=== PATIENT | female | born 1940 | race American Indian/Alaskan Native ===

== ENCOUNTER 2017-03-27 00:45 | Emergency (ER) | payer MEDICARE, OTHER ==
[2017-03-27] MEDS ORDERED: D50W (25GM) Vial 50 ML IV ONE (01:05)
[2017-03-27] MEDS: D50W (25GM) Syringe IV ONE ×2 (01:15→02:33)
[2017-03-27 01:48] LABS: Basophils % (Auto) 0.6 % (0.0-1.8); Eosinophils % (Auto) 0.3 % (0.0-4.3); Hematocrit 39.1 % (30.3-42.9); Hemoglobin 13.1 gm/dl (10.1-14.3); Mean Corpuscular HGB Conc 33 % (30-34); Mean Corpuscular Hemoglobin 32 pg (28-32); Mean Corpuscular Volume 95 fl (79-97); Platelet Count 257 K/mm3 (140-440); Red Cell Distribution Width 14.5 % (13.2-15.2); White Blood Count 10.4 K/mm3 (4.5-11.0)
[2017-03-27] MEDS ORDERED: D50W (25GM) Vial IV ONE (02:00)
[2017-03-27 02:06] LABS: Anion Gap 21 mmol/L; BUN/Creatinine Ratio 15; Blood Urea Nitrogen 15 mg/dL (7-17); Calcium 8.8 mg/dL (8.4-10.2); Carbon Dioxide 23 mmol/L (22-30); Glucose 200 mg/dL (65-100); Potassium 3.6 mmol/L (3.6-5.0); Sodium 142 mmol/L (137-145)
--- NOTE | 2017-03-27 05:44 | Emergency Department Report ---
ED Altered Mental Status HPI - General Chief Complaint: Hypoglycemia Stated Complaint: WEAKNESS Time Seen by Provider: 03/27/17 04:36 Source: patient, family Mode of arrival: Wheelchair Limitations: Altered Mental Status - History of Present Illness Initial Comments: 76 yo female cooked a large meal for family members yesterday. She ate regularly and took novolog flex 14 u at 11, 1400, 1700 respectively. She ate breakfast, lunch and dinner and took 40u of lantus at bed time. She began to have slurred speech and became diaphoretic while watching television. Family members called the ambulance. Here in the ED, she received 2 amp of d50 and food which resolved her symptoms MD Complaint: altered mental status -: Sudden Severity: moderate Context: diabetes (glucose 50) Associated Symptoms: diaphoresis - Related Data Home Medications Medication Instructions Recorded Confirmed Last Taken Clopidogrel Bisulfate [Plavix] 0 mg PO QDAY 04/21/14 03/27/17 Unknown Atorvastatin [Lipitor Tab] 80 mg PO QHS 03/27/17 03/27/17 Unknown Diltiazem HCl [Diltiazem ER] 180 mg PO QDAY 03/27/17 03/27/17 Unknown Furosemide [Lasix TAB] 40 mg PO QDAY 03/27/17 03/27/17 Unknown Hydralazine HCl 50 mg PO TID 03/27/17 03/27/17 Unknown Insulin Aspart [NovoLOG Flexpen] 14 units SQ AC 03/27/17 03/27/17 03/26/17 Insulin Glargine,Hum.rec.anlog 40 units SQ QPM 03/27/17 03/27/17 03/26/17 [Lantus] Levothyroxine [Synthroid] 0.1 mg PO DAILY@0600 03/27/17 03/27/17 Unknown Metoprolol Xl [Metoprolol 1.5 tab PO QPM 03/27/17 03/27/17 Unknown SUCCINATE ER TAB] Metoprolol Xl [Metoprolol 2 tab PO QAM 03/27/17 03/27/17 Unknown SUCCINATE ER TAB] Ranolazine [Ranexa] 500 mg PO BID 03/27/17 03/27/17 Unknown Terazosin [Hytrin] 5 mg PO QHS 03/27/17 03/27/17 Unknown Allergies Allergy/AdvReac Type Severity Reaction Status Date / Time ALDO Inhibitors Allergy Intermediate Angioedema Verified 04/21/14 12:16 ARB-Angiotensin Receptor Allergy Intermediate Angioedema Verified 04/21/14 12:17 Antagonist glipizide Allergy Intermediate Rash Verified 04/21/14 12:17 ED Review of Systems ROS: Stated complaint: WEAKNESS Other details as noted in HPI ED Past Medical Hx - Past Medical History Previous Medical History?: Yes Hx Hypertension: Yes Hx Heart Attack/AMI: Yes Hx Congestive Heart Failure: Yes Hx Diabetes: Yes Hx COPD: Yes Additional medical history: 2 AAA's stable, hyperlipidemia, ulcer - Surgical History Past Surgical History?: Yes Hx Coronary Stent: Yes Additional Surgical History: hysterectomy - Social History Smoking Status: Never Smoker Substance Use Type: None - Medications Home Medications: Home Medications Medication Instructions Recorded Confirmed Last Taken Type Clopidogrel Bisulfate [Plavix] 0 mg PO QDAY 04/21/14 03/27/17 Unknown History Atorvastatin [Lipitor Tab] 80 mg PO QHS 03/27/17 03/27/17 Unknown History Diltiazem HCl [Diltiazem ER] 180 mg PO QDAY 03/27/17 03/27/17 Unknown History Furosemide [Lasix TAB] 40 mg PO QDAY 03/27/17 03/27/17 Unknown History Hydralazine HCl 50 mg PO TID 03/27/17 03/27/17 Unknown History Insulin Aspart [NovoLOG Flexpen] 14 units SQ AC 03/27/17 03/27/17 03/26/17 History Insulin Glargine,Hum.rec.anlog 40 units SQ QPM 03/27/17 03/27/17 03/26/17 History [Lantus] Levothyroxine [Synthroid] 0.1 mg PO DAILY@0600 03/27/17 03/27/17 Unknown History Metoprolol Xl [Metoprolol 1.5 tab PO QPM 03/27/17 03/27/17 Unknown History SUCCINATE ER TAB] Metoprolol Xl [Metoprolol 2 tab PO QAM 03/27/17 03/27/17 Unknown History SUCCINATE ER TAB] Ranolazine [Ranexa] 500 mg PO BID 03/27/17 03/27/17 Unknown History Terazosin [Hytrin] 5 mg PO QHS 03/27/17 03/27/17 Unknown History ED Physical Exam - General Limitations: Altered Mental Status General appearance: alert, in no apparent distress - Head Head exam: Present: atraumatic, normocephalic - Eye Eye exam: Present: normal appearance, EOMI. Absent: scleral icterus, conjunctival injection - ENT ENT exam: Present: mucous membranes moist - Neck Neck exam: Present: normal inspection - Respiratory Respiratory exam: Present: normal lung sounds bilaterally. Absent: respiratory distress - Cardiovascular Cardiovascular Exam: Present: regular rate, normal rhythm. Absent: systolic murmur, diastolic murmur, rubs, gallop - GI/Abdominal GI/Abdominal exam: Present: soft, normal bowel sounds - Extremities Exam Extremities exam: Present: normal inspection - Expanded Lower Extremity Exam Right Hip exam: Present: normal inspection, full ROM Upper Leg exam: Present: normal inspection, full ROM Lower Leg exam: Present: normal inspection, full ROM Foot/Toe exam: Absent: full ROM (fusiosurgical scar) - Back Exam Back exam: Present: normal inspection - Neurological Exam Neurological exam: Present: alert, oriented X3 - Psychiatric Psychiatric exam: Present: normal affect, normal mood - Skin Skin exam: Present: warm, dry, intact, normal color. Absent: rash ED Course Vital Signs 03/27/17 03/27/17 03/27/17 00:49 01:15 01:20 Temperature 97.5 F L 97.4 F L Pulse Rate 74 68 75 Respiratory 18 16 18 Rate Blood Pressure 136/65 157/69 136/65 O2 Sat by Pulse 94 99 93 Oximetry 03/27/17 03/27/17 03/27/17 01:25 01:45 02:00 Temperature Pulse Rate 66 70 Respiratory 22 18 26 H Rate Blood Pressure 170/81 164/69 O2 Sat by Pulse 97 97 98 Oximetry 03/27/17 03/27/17 03/27/17 02:15 02:31 02:45 Temperature Pulse Rate 65 70 67 Respiratory 18 20 20 Rate Blood Pressure 159/71 150/65 151/60 O2 Sat by Pulse 97 96 95 Oximetry 03/27/17 03/27/17 03/27/17 03:15 03:30 03:45 Temperature Pulse Rate 83 71 69 Respiratory 16 18 17 Rate Blood Pressure 134/52 127/54 127/54 O2 Sat by Pulse 99 98 97 Oximetry 03/27/17 03/27/17 03/27/17 04:15 04:30 04:45 Temperature Pulse Rate 74 69 71 Respiratory 19 22 21 Rate Blood Pressure 113/52 163/73 152/68 O2 Sat by Pulse 99 97 97 Oximetry 03/27/17 03/27/17 05:00 05:15 Temperature Pulse Rate 66 68 Respiratory 20 18 Rate Blood Pressure 145/71 154/67 O2 Sat by Pulse 96 95 Oximetry - Lab Data Result diagrams: 03/27/17 01:34 03/27/17 01:34 Lab Results 03/27/17 03/27/17 03/27/17 Range/Units 01:34 01:34 02:00 WBC 10.4 (4.5-11.0) K/mm3 RBC 4.10 (3.65-5.03) M/mm3 Hgb 13.1 (10.1-14.3) gm/dl Hct 39.1 (30.3-42.9) % MCV 95 (79-97) fl MCH 32 (28-32) pg MCHC 33 (30-34) % RDW 14.5 (13.2-15.2) % Plt Count 257 (140-440) K/mm3 Lymph % (Auto) 10.1 L (13.4-35.0) % [place] % (Auto) 6.0 (0.0-7.3) % Eos % (Auto) 0.3 (0.0-4.3) % Baso % (Auto) 0.6 (0.0-1.8) % Lymph # 1.1 L (1.2-5.4) K/mm3 [place] # 0.6 (0.0-0.8) K/mm3 Eos # 0.0 (0.0-0.4) K/mm3 Baso # 0.1 (0.0-0.1) K/mm3 Seg Neutrophils % 83.0 H (40.0-70.0) % Seg Neutrophils # 8.6 H (1.8-7.7) K/mm3 Sodium 142 (137-145) mmol/L Potassium 3.6 (3.6-5.0) mmol/L Chloride 102.0 (98-107) mmol/L Carbon Dioxide 23 (22-30) mmol/L Anion Gap 21 mmol/L BUN 15 (7-17) mg/dL Creatinine 1.0 (0.7-1.2) mg/dL Estimated GFR > 60 ml/min BUN/Creatinine Ratio 15 % Glucose 200 H (65-100) mg/dL POC Glucose 189 H (70-105) Calcium 8.8 (8.4-10.2) mg/dL Urine Color (Yellow) Urine Turbidity (Clear) Urine pH (5.0-7.0) Ur Specific [place] (1.003-1.030) Urine Protein (Negative) mg/dL Urine Glucose (UA) (Negative) mg/dL Urine Ketones (Negative) mg/dL Urine Blood (Negative) Urine Nitrite (Negative) Urine Bilirubin (Negative) Urine Urobilinogen (<2.0) mg/dL Ur Leukocyte Esterase (Negative) Urine WBC (Auto) (0.0-6.0) /HPF Urine RBC (Auto) (0.0-6.0) /HPF U Epithel Cells (Auto) (0-13.0) /HPF Urine Mucus /HPF 03/27/17 03/27/17 Range/Units 05:28 Unknown WBC (4.5-11.0) K/mm3 RBC (3.65-5.03) M/mm3 Hgb (10.1-14.3) gm/dl Hct (30.3-42.9) % MCV (79-97) fl MCH (28-32) pg MCHC (30-34) % RDW (13.2-15.2) % Plt Count (140-440) K/mm3 Lymph % (Auto) (13.4-35.0) % [place] % (Auto) (0.0-7.3) % Eos % (Auto) (0.0-4.3) % Baso % (Auto) (0.0-1.8) % Lymph # (1.2-5.4) K/mm3 [place] # (0.0-0.8) K/mm3 Eos # (0.0-0.4) K/mm3 Baso # (0.0-0.1) K/mm3 Seg Neutrophils % (40.0-70.0) % Seg Neutrophils # (1.8-7.7) K/mm3 Sodium (137-145) mmol/L Potassium (3.6-5.0) mmol/L Chloride (98-107) mmol/L Carbon Dioxide (22-30) mmol/L Anion Gap mmol/L BUN (7-17) mg/dL Creatinine (0.7-1.2) mg/dL Estimated GFR ml/min BUN/Creatinine Ratio % Glucose (65-100) mg/dL POC Glucose 259 H (70-105) Calcium (8.4-10.2) mg/dL Urine Color Yellow (Yellow) Urine Turbidity Clear (Clear) Urine pH 6.0 (5.0-7.0) Ur Specific [place] 1.017 (1.003-1.030) Urine Protein <15 mg/dl (Negative) mg/dL Urine Glucose (UA) 150 (Negative) mg/dL Urine Ketones Neg (Negative) mg/dL Urine Blood Neg (Negative) Urine Nitrite Neg (Negative) Urine Bilirubin Neg (Negative) Urine Urobilinogen < 2.0 (<2.0) mg/dL Ur Leukocyte Esterase Mod (Negative) Urine WBC (Auto) 6.0 (0.0-6.0) /HPF Urine RBC (Auto) 4.0 (0.0-6.0) /HPF U Epithel Cells (Auto) 5.0 (0-13.0) /HPF Urine Mucus Few /HPF - Radiology Data Radiology results: report reviewed (ct head: bifrontal volume loss) Critical care attestation.: If time is entered above; I have spent that time in minutes in the direct care of this critically ill patient, excluding procedure time. ED Disposition Clinical Impression: Hypoglycemia due to type 2 diabetes mellitus Disposition: DC-01 TO HOME OR SELFCARE Is pt being admited?: No Does the pt Need Aspirin: No Condition: Stable Instructions: Diabetes Mellitus Type 2 in Adults (ED) Referrals: PRIMARY CAREMD [Primary Care Provider] - 3-5 Days [facility] [Outside] - 3-5 Days Time of Disposition: 06:53
--- NOTE | 2017-03-27 06:09 | Cat Scan Report ---
FINAL REPORT EXAM: CT HEAD/BRAIN WO CON HISTORY: ams TECHNIQUE: Routine axial imaging was obtained of the brain without IV contrast. There are no previous studies available for comparison. FINDINGS: There is bifrontal volume loss. There is no evidence of acute stroke or hemorrhage. The ventricular system is appropriate in size and is symmetric. The visualized sinuses are clear. The mastoid air cells are well pneumatized. IMPRESSION: Bifrontal volume loss. No evidence of acute stroke or hemorrhage.
[2017-03-27 06:16] LABS: Bilirubin,Urine NEG (Negative); Blood,Urine NEG (Negative); Ketones,Urine NEG (Negative); Leukocyte Esterase,Urine MOD (Negative); Mucus,Urine FEW /HPF; Nitrite,Urine NEG (Negative); Protein,Urine <15 mg/dL mg/dL (Negative); Urobilinogen,Urine < 2.0 mg/dL (<2.0)
[2017-03-27 07:57] VITALS: BP 135/65
== END 2017-03-27 07:57 | disposition home or self-care (01) ==
LOC: ED 00:45
DX: E11.649 Type 2 diabetes mellitus with hypoglycemia without coma (principal); I10 Essential (primary) hypertension; I25.2 Old myocardial infarction; I50.9 Heart failure, unspecified; E11.9 Type 2 diabetes mellitus without complications; J44.9 Chronic obstructive pulmonary disease, unspecified; Z88.8 Allergy status to other drugs, medicaments and biological substances; Z95.818 Presence of other cardiac implants and grafts; Z79.4 Long term (current) use of insulin
CPT/HCPCS: 36415; 70450; 80048; 81001; 82962; 85025; 96374

== ENCOUNTER 2018-07-21 05:55 | Inpatient (IN) | payer MEDICARE, OTHER ==
[2018-07-21 06:54] LABS: Basophils # (Auto) 0.1 K/mm3 (0.0-0.1); Basophils % (Auto) 0.6 % (0.0-1.8); Eosinophils # (Auto) 0.1 K/mm3 (0.0-0.4); Eosinophils % (Auto) 0.8 % (0.0-4.3); Hematocrit 32.8 % (30.3-42.9); Hemoglobin 11.3 gm/dl (10.1-14.3); Lymphocytes # (Auto) 1.1 K/mm3 (1.2-5.4); Lymphocytes % (Auto) 13.1 % (13.4-35.0); Mean Corpuscular HGB Conc 35 % (30-34); Mean Corpuscular Volume 93 fl (79-97); Monocytes # (Auto) 0.4 K/mm3 (0.0-0.8); Monocytes % (Auto) 4.6 % (0.0-7.3); Platelet Count 210 K/mm3 (140-440); Red Blood Count 3.53 M/mm3 (3.65-5.03); Red Cell Distribution Width 16.5 % (13.2-15.2)
[2018-07-21 07:08] LABS: Creatine Kinase MB 9.4 ng/mL (0.0-4.0)
[2018-07-21 07:09] LABS: Albumin 4.5 g/dL (3.9-5); Calcium 8.9 mg/dL (8.4-10.2)
[2018-07-21] MEDS ORDERED: APRESOLINE IV ONE (07:24)
[2018-07-21 07:31] LABS: Free T4 (Free Thyroxine) 0.1 ng/dL (0.76-1.46)
--- NOTE | 2018-07-21 07:38 | Emergency Department Report ---
ED Altered Mental Status HPI - General Chief Complaint: Altered Mental Status Stated Complaint: HYPOTHERMIA/RT HIP PAIN Time Seen by Provider: 07/21/18 06:19 Source: EMS, old records reviewed Mode of arrival: Stretcher Limitations: Altered Mental Status - History of Present Illness Initial Comments: 78-year-old female with past medical history CHF EF 25-30%, COPD, dementia, diabetes, CAD, ischemic cardiomyopathy, thoracic aortic aneurysm, abdominal ao rtic aneurysm status post endovascular repair, and cardiac aneurysm presents to the hospital with alteration in mental status and hypothermia. Granddaughter at bedside states that the patient lives at her home at times and at other times with another family member. Patient last seen in the home at 2 AM. When the granddaughter went to the bathroom during the night she noted patient was no longer in the home. Patient was found sitting in the back of the neighbors house in 20 degree weather. Patient is hypothermic on arrival with a glucose and 200s. Granddaughter states that several weeks ago the patient's son and sister . Since then she's been having increased hallucinations including seeing her family members and animals that are not present in the home. Patient is also not sleeping much. She continues to drink liquids but decreased food intake reported. No reports of fever. The granddaughter states when the patient is in her home she gives the patient her medications as scheduled. Patient was recently admitted here in April. She had a cardiac cath and further imaging studies. See discharge summary in previous record. Patient did have imaging of her aneurysms and follow-up with [place] was advised. Patient's PMD is located in [place], Dr. Walsh is vascular doctor, Dr. Peres is her armature winder repair helper who is affiliated with [place]. Granddaughter states the patient complained of bilateral hip pain. Cardiac cath performed 05/19/2018 100% chronic total occlusion of the proximal circumflex artery, otherwise nonobstructive disease in the LAD, ramus intermedius and dominant right coronary arteries. The left ventriculogram showed a very large inferobasal aneurysm. Medical therapy was recommended. Anticoagulation was not recommended by vascular due to thoracic and abdominal aneurysms. - Related Data Home Medications Medication Instructions Recorded Confirmed Last Taken Clopidogrel Bisulfate [Plavix] 0 mg PO QDAY 04/21/14 05/14/18 Unknown Atorvastatin [Lipitor] 80 mg PO QHS 03/27/17 05/14/18 Unknown Diltiazem HCl [Diltiazem ER] 180 mg PO QDAY 03/27/17 05/14/18 Unknown Furosemide [Lasix TAB] 40 mg PO QDAY 03/27/17 05/14/18 Unknown Hydralazine HCl 50 mg PO TID 03/27/17 05/14/18 Unknown Insulin Aspart [NovoLOG Flexpen] 14 units SQ AC 03/27/17 05/14/18 03/26/17 Insulin Glargine,Hum.rec.anlog 40 units SQ QPM 03/27/17 05/14/18 03/26/17 [Lantus] Levothyroxine [Synthroid] 0.1 mg PO DAILY@0600 03/27/17 05/14/18 Unknown Metoprolol Xl [Metoprolol 1.5 tab PO QPM 03/27/17 05/14/18 Unknown SUCCINATE ER TAB] Metoprolol Xl [Metoprolol 2 tab PO QAM 03/27/17 05/14/18 Unknown SUCCINATE ER TAB] Ranolazine [Ranexa] 500 mg PO BID 03/27/17 05/14/18 Unknown Terazosin [Hytrin] 5 mg PO QHS 03/27/17 05/14/18 Unknown Allergies Allergy/AdvReac Type Severity Reaction Status Date / Time ALDO Inhibitors Allergy Intermediate Angioedema Verified 04/21/14 12:16 ARB-Angiotensin Receptor Allergy Intermediate Angioedema Verified 04/21/14 12:17 Antagonist glipizide Allergy Intermediate Rash Verified 04/21/14 12:17 ED Review of Systems ROS: Stated complaint: HYPOTHERMIA/RT HIP PAIN Other details as noted in HPI Comment: All other systems reviewed and negative ED Past Medical Hx - Past Medical History Hx Hypertension: Yes Hx Heart Attack/AMI: Yes (CAD on cath 05/19/2018) Hx Congestive Heart Failure: Yes (ischemic dilated cardiomyopathy EF 25-30% echo 05/14/2018) Hx Diabetes: Yes Hx COPD: Yes (home o2) Hx Dementia: Yes Additional medical history: Thoracic aortic aneurysm, abdominal aortic aneurysm status post EVAR, hyperlipidemia, ulcer, hypothyroidism, cardiac aneurysm - Surgical History Hx Coronary Stent: Yes Additional Surgical History: hysterectomy. abdominal aortic aneurysm status post EVAR - Social History Smoking Status: Unknown if ever smoked Substance Use Type: Other - Medications Home Medications: Home Medications Medication Instructions Recorded Confirmed Last Taken Type Clopidogrel Bisulfate [Plavix] 0 mg PO QDAY 04/21/14 05/14/18 Unknown History Atorvastatin [Lipitor] 80 mg PO QHS 03/27/17 05/14/18 Unknown History Diltiazem HCl [Diltiazem ER] 180 mg PO QDAY 03/27/17 05/14/18 Unknown History Furosemide [Lasix TAB] 40 mg PO QDAY 03/27/17 05/14/18 Unknown History Hydralazine HCl 50 mg PO TID 03/27/17 05/14/18 Unknown History Insulin Aspart [NovoLOG Flexpen] 14 units SQ AC 03/27/17 05/14/18 03/26/17 History Insulin Glargine,Hum.rec.anlog 40 units SQ QPM 03/27/17 05/14/18 03/26/17 History [Lantus] Levothyroxine [Synthroid] 0.1 mg PO DAILY@0600 03/27/17 05/14/18 Unknown History Metoprolol Xl [Metoprolol 1.5 tab PO QPM 03/27/17 05/14/18 Unknown History SUCCINATE ER TAB] Metoprolol Xl [Metoprolol 2 tab PO QAM 03/27/17 05/14/18 Unknown History SUCCINATE ER TAB] Ranolazine [Ranexa] 500 mg PO BID 03/27/17 05/14/18 Unknown History Terazosin [Hytrin] 5 mg PO QHS 03/27/17 05/14/18 Unknown History ED Physical Exam - General Limitations: Altered Mental Status - Other Other exam information: General: No limitations, patient is alert in no acute distress Head exam: Atraumatic, normocephalic Eyes exam: Bilateral pinpoint pupils, equal reactive to light ENT: Dry mucous membranes, hard of hearing Neck exam: Normal inspection, full range of motion, no meningismus nontender Respiratory exam: Clear to auscultation bilateral, no wheezes, rales, crackles Cardiovascular: Normal rate and rhythm Abdomen: Soft, nondistended, and nontender, with normal bowel sounds, no rebou nd, or guarding Extremity: Full range of motion normal inspection no deformity. Full passive range of motion of bilateral hips without grimace. No shortening Back: Normal Inspection, full range of motion, no tenderness Neurologic: Sleeping, difficult to arouse, will not follow commands but moves a ll extremities equally with intact sensation to all 4 extremities Skin: Cool to touch ED Course Vital Signs 07/21/18 07/21/18 07/21/18 06:00 06:15 06:28 Temperature 89 F L Pulse Rate 64 Respiratory 18 Rate Blood Pressure 161/139 O2 Sat by Pulse 99 96 Oximetry 07/21/18 07/21/18 07/21/18 06:31 06:45 07:01 Temperature Pulse Rate 53 L 68 62 Respiratory 14 20 14 Rate Blood Pressure 161/139 166/85 161/139 O2 Sat by Pulse 95 96 98 Oximetry 07/21/18 07/21/18 07/21/18 08:00 08:01 08:30 Temperature 93.3 F L Pulse Rate 78 80 Respiratory 15 22 Rate Blood Pressure 149/80 135/92 O2 Sat by Pulse 94 98 Oximetry - Lab Data Result diagrams: 07/21/18 06:34 07/21/18 06:34 Lab Results 07/21/18 07/21/18 07/21/18 Range/Units 06:25 06:34 06:34 WBC 8.4 (4.5-11.0) K/mm3 RBC 3.53 L (3.65-5.03) M/mm3 Hgb 11.3 (10.1-14.3) gm/dl Hct 32.8 (30.3-42.9) % MCV 93 (79-97) fl MCH 32 (28-32) pg MCHC 35 H (30-34) % RDW 16.5 H (13.2-15.2) % Plt Count 210 (140-440) K/mm3 Lymph % (Auto) 13.1 L (13.4-35.0) % [place] % (Auto) 4.6 (0.0-7.3) % Eos % (Auto) 0.8 (0.0-4.3) % Baso % (Auto) 0.6 (0.0-1.8) % Lymph # 1.1 L (1.2-5.4) K/mm3 [place] # 0.4 (0.0-0.8) K/mm3 Eos # 0.1 (0.0-0.4) K/mm3 Baso # 0.1 (0.0-0.1) K/mm3 Seg Neutrophils % 80.9 H (40.0-70.0) % Seg Neutrophils # 6.8 (1.8-7.7) K/mm3 VBG pH (7.320-7.420) Sodium 134 L (137-145) mmol/L Potassium 3.7 (3.6-5.0) mmol/L Chloride 96.8 L (98-107) mmol/L Carbon Dioxide 23 (22-30) mmol/L Anion Gap 18 mmol/L BUN 14 (7-17) mg/dL Creatinine 1.2 (0.7-1.2) mg/dL Estimated GFR 53 ml/min BUN/Creatinine Ratio 12 % Glucose 182 H (65-100) mg/dL POC Glucose 207 H (70-105) Lactic Acid (0.7-2.0) mmol/L Calcium 8.9 (8.4-10.2) mg/dL Total Bilirubin 0.30 (0.1-1.2) mg/dL AST 40 (5-40) units/L ALT 46 (7-56) units/L Alkaline Phosphatase 48 (35-129) units/L Total Creatine Kinase (30-135) units/L CK-MB (CK-2) (0.0-4.0) ng/mL CK-MB (CK-2) Rel Index (0-4) Troponin T (0.00-0.029) ng/mL Total Protein 6.8 (6.3-8.2) g/dL Albumin 4.5 (3.9-5) g/dL Albumin/Globulin Ratio 2.0 % TSH (0.270-4.200) mlU/mL Free T4 (0.76-1.46) ng/dL Urine Color (Yellow) Urine Turbidity (Clear) Urine pH (5.0-7.0) Ur Specific [place] (1.003-1.030) Urine Protein (Negative) mg/dL Urine Glucose (UA) (Negative) mg/dL Urine Ketones (Negative) mg/dL Urine Blood (Negative) Urine Nitrite (Negative) Urine Bilirubin (Negative) Urine Urobilinogen (<2.0) mg/dL Ur Leukocyte Esterase (Negative) Urine WBC (Auto) (0.0-6.0) /HPF Urine RBC (Auto) (0.0-6.0) /HPF Urine Mucus /HPF 07/21/18 07/21/1807/21/19 Range/Units 06:34 06:34 06:41 WBC (4.5-11.0) K/mm3 RBC (3.65-5.03) M/mm3 Hgb (10.1-14.3) gm/dl Hct (30.3-42.9) % MCV (79-97) fl MCH (28-32) pg MCHC (30-34) % RDW (13.2-15.2) % Plt Count (140-440) K/mm3 Lymph % (Auto) (13.4-35.0) % [place] % (Auto) (0.0-7.3) % Eos % (Auto) (0.0-4.3) % Baso % (Auto) (0.0-1.8) % Lymph # (1.2-5.4) K/mm3 [place] # (0.0-0.8) K/mm3 Eos # (0.0-0.4) K/mm3 Baso # (0.0-0.1) K/mm3 Seg Neutrophils % (40.0-70.0) % Seg Neutrophils # (1.8-7.7) K/mm3 VBG pH (7.320-7.420) Sodium (137-145) mmol/L Potassium (3.6-5.0) mmol/L Chloride (98-107) mmol/L Carbon Dioxide (22-30) mmol/L Anion Gap mmol/L BUN (7-17) mg/dL Creatinine (0.7-1.2) mg/dL Estimated GFR ml/min BUN/Creatinine Ratio % Glucose (65-100) mg/dL POC Glucose (70-105) Lactic Acid 0.80 (0.7-2.0) mmol/L Calcium (8.4-10.2) mg/dL Total Bilirubin (0.1-1.2) mg/dL AST (5-40) units/L ALT (7-56) units/L Alkaline Phosphatase (35-129) units/L Total Creatine Kinase 740 H (30-135) units/L CK-MB (CK-2) 9.4 H (0.0-4.0) ng/mL CK-MB (CK-2) Rel Index 1.2 (0-4) Troponin T < 0.010 (0.00-0.029) ng/mL Total Protein (6.3-8.2) g/dL Albumin (3.9-5) g/dL Albumin/Globulin Ratio % TSH 89.230 H (0.270-4.200) mlU/mL Free T4 0.10 L (0.76-1.46) ng/dL Urine Color (Yellow) Urine Turbidity (Clear) Urine pH (5.0-7.0) Ur Specific [place] (1.003-1.030) Urine Protein (Negative) mg/dL Urine Glucose (UA) (Negative) mg/dL Urine Ketones (Negative) mg/dL Urine Blood (Negative) Urine Nitrite (Negative) Urine Bilirubin (Negative) Urine Urobilinogen (<2.0) mg/dL Ur Leukocyte Esterase (Negative) Urine WBC (Auto) (0.0-6.0) /HPF Urine RBC (Auto) (0.0-6.0) /HPF Urine Mucus /HPF 07/21/18 07/21/18 Range/Units 06:41 08:13 WBC (4.5-11.0) K/mm3 RBC (3.65-5.03) M/mm3 Hgb (10.1-14.3) gm/dl Hct (30.3-42.9) % MCV (79-97) fl MCH (28-32) pg MCHC (30-34) % RDW (13.2-15.2) % Plt Count (140-440) K/mm3 Lymph % (Auto) (13.4-35.0) % [place] % (Auto) (0.0-7.3) % Eos % (Auto) (0.0-4.3) % Baso % (Auto) (0.0-1.8) % Lymph # (1.2-5.4) K/mm3 [place] # (0.0-0.8) K/mm3 Eos # (0.0-0.4) K/mm3 Baso # (0.0-0.1) K/mm3 Seg Neutrophils % (40.0-70.0) % Seg Neutrophils # (1.8-7.7) K/mm3 VBG pH 7.375 (7.320-7.420) Sodium (137-145) mmol/L Potassium (3.6-5.0) mmol/L Chloride (98-107) mmol/L Carbon Dioxide (22-30) mmol/L Anion Gap mmol/L BUN (7-17) mg/dL Creatinine (0.7-1.2) mg/dL Estimated GFR ml/min BUN/Creatinine Ratio % Glucose (65-100) mg/dL POC Glucose (70-105) Lactic Acid (0.7-2.0) mmol/L Calcium (8.4-10.2) mg/dL Total Bilirubin (0.1-1.2) mg/dL AST (5-40) units/L ALT (7-56) units/L Alkaline Phosphatase (35-129) units/L Total Creatine Kinase (30-135) units/L CK-MB (CK-2) (0.0-4.0) ng/mL CK-MB (CK-2) Rel Index (0-4) Troponin T (0.00-0.029) ng/mL Total Protein (6.3-8.2) g/dL Albumin (3.9-5) g/dL Albumin/Globulin Ratio % TSH (0.270-4.200) mlU/mL Free T4 (0.76-1.46) ng/dL Urine Color Yellow (Yellow) Urine Turbidity Clear (Clear) Urine pH 7.0 (5.0-7.0) Ur Specific [place] 1.024 (1.003-1.030) Urine Protein >500 (Negative) mg/dL Urine Glucose (UA) Neg (Negative) mg/dL Urine Ketones Tr (Negative) mg/dL Urine Blood Neg (Negative) Urine Nitrite Neg (Negative) Urine Bilirubin Neg (Negative) Urine Urobilinogen < 2.0 (<2.0) mg/dL Ur Leukocyte Esterase Neg (Negative) Urine WBC (Auto) 3.0 (0.0-6.0) /HPF Urine RBC (Auto) 2.0 (0.0-6.0) /HPF Urine Mucus Few /HPF - EKG Data -: EKG Interpreted by Me (previous inferior infarct) EKG shows normal: sinus rhythm, axis (qrs -71), QRS complexes (qrsd 93), ST-T waves (no stem/t inv) Rate: normal (71) When compared to previous EKG there are: no significant change (compared to 05/14/2018) - Radiology Data Radiology results: report reviewed AP CHEST: HISTORY: Hypothermia, altered mental status Moderate cardiomegaly, mild pulmonary venous congestion and trace left pleural effusion are identified. No evidence for pneumonia or pneumothorax. The bony structures are grossly intact. The findings appear slightly worse when compared to 05/14/18. IMPRESSION: Consider mild CHF. PROCEDURE: CT HEAD/BRAIN WO CON TECHNIQUE: CT imaging is obtained through the head without contrast HISTORY: hypothermia, ams COMPARISONS: None FINDINGS: Ventricles and CSF spaces are proportionately enlarged, consistent with parenchymal atrophy. Scattered deep and subcortical white matter hypodense foci are confluent in some areas and are compatible with microvascular angiopathy. No acute intracranial hemorrhage or mass effect. No skull fracture. Skull base motion artifact. Opacification of the mastoid air cells without evidence of erosion or overlying soft tissue abnormality. No significant abnormality within the imaged paranasal sinuses or mastoid air cells. IMPRESSION: No acute intracranial abnormality. There are chronic sequela of atrophy and microvascular angiopathy. - Medical Decision Making Patient presents to the hospital with chronic dementia with worsening delirium. Found outside in cold weather and was hypothermic upon presentation. Initial ED evaluation does not reveal any evidence of infection or signs of sepsis. Suspect hypothermia is environmental nature and possibly also related to chronic hypothyroidism as identified on labs. Blood pressure decreased without intervention in the ED. Body temperature is increasing with active rewarming. Hospitalist Dr. Madrid informed for admission. family requesting Psych consult which can be done during admission and ordered by inpatient team once more medically stable. X-ray of pelvis ordered due to initial complaint of bilateral hip pain as per family. Patient has full passive range of hips without grimace. Pelvic x-ray pending at disposition. - Differential Diagnosis sepsis, environmental hypothermia, CVA, hypothyroidism, encephalopathy Critical Care Time: No Critical care attestation.: If time is entered above; I have spent that time in minutes in the direct care of this critically ill patient, excluding procedure time. ED Disposition Clinical Impression: Hypothermia associated with environmental change, Hypothyroidism, Dementia, HTN (hypertension), Diabetes Disposition: - OP ADMIT IP TO THIS HOSP Is pt being admited?: Yes Condition: Stable Time of Disposition: 08:52 (DR Montero/hsop)
--- NOTE | 2018-07-21 08:27 | XRay Report ---
AP CHEST: HISTORY: Hypothermia, altered mental status Moderate cardiomegaly, mild pulmonary venous congestion and trace left pleural effusion are identified. No evidence for pneumonia or pneumothorax. The bony structures are grossly intact. The findings appear slightly worse when compared to 05/14/18. IMPRESSION: Consider mild CHF.
[2018-07-21 08:32] LABS: Bilirubin,Urine NEG (Negative); Blood,Urine NEG (Negative); Color,Urine Yellow (Yellow); Mucus,Urine FEW /HPF; Urobilinogen,Urine < 2.0 mg/dL (<2.0)
--- NOTE | 2018-07-21 08:33 | Cat Scan Report ---
PROCEDURE: CT HEAD/BRAIN WO CON TECHNIQUE: CT imaging is obtained through the head without contrast HISTORY: hypothermia, ams COMPARISONS: None FINDINGS: Ventricles and CSF spaces are proportionately enlarged, consistent with parenchymal atrophy. Scatter ed deep and subcortical white matter hypodense foci are confluent in some areas and are compatible wi th microvascular angiopathy. No acute intracranial hemorrhage or mass effect. No skull fracture. Skull base motion artifact. Opacification of the mastoid air cells without evidenc e of erosion or overlying soft tissue abnormality. No significant abnormality within the imaged paran nuria sinuses or mastoid air cells. IMPRESSION: No acute intracranial abnormality. There are chronic sequela of atrophy and microvascular angiopathy. This document is electronically signed by Geovanny Driver MD., July 21 2018 08:30:35 AM ET
[2018-07-21 08:37] LABS: Protein,Urine >500 mg/dL (Negative)
--- NOTE | 2018-07-21 10:37 | History and Physical Report ---
History of Present Illness Date of examination: 07/21/18 Date of admission: 07/21/18 08:53 Chief complaint: Altered mental status History of present illness: Patient is 78-year-old female with past medical history CHF, COPD, dementia, diabetes, CAD, ischemic cardiomyopathy, thoracic aortic aneurysm, abdominal aortic aneurysm status post endovascular repair. She was brought in for altered mental status and hypothermia. No family present and patient altered, so history obtained form ED Physician and medical records. Patient last seen in the home at 2 AM. Apparently she left the house and was found sitting in the back of the neighbors house in very cold weather. She was brought to hospital. She was foumd to be lethargic, hypothermia. with temp 89 degrees. A warming blanket was applied. Will admit for further management. Past History Past Medical History: COPD, diabetes, heart failure, other (AAA s/p repair. Thor acic aortic aneurysm) Past Surgical History: abd. aortic aneurysm repair Social history: no significant social history, lives with family, full code Family history: no significant family history Medications and Allergies Allergies Allergy/AdvReac Type Severity Reaction Status Date / Time ALDO Inhibitors Allergy Intermediate Angioedema Verified 04/21/14 12:16 ARB-Angiotensin Receptor Allergy Intermediate Angioedema Verified 04/21/14 12:17 Antagonist glipizide Allergy Intermediate Rash Verified 04/21/14 12:17 Home Medications Medication Instructions Recorded Confirmed Last Taken Type Insulin Aspart [NovoLOG Flexpen] 10 units SUB-Q TID 03/27/17 07/21/18 03/26/17 History Insulin Glargine,Hum.rec.anlog 40 units SUB-Q HS 03/27/17 07/21/18 07/20/18 History [Lantus] Ranolazine [Ranexa] 500 mg PO BID 03/27/17 07/21/18 Unknown History Metoprolol Succinate [Toprol Xl] 100 mg PO BID 07/21/18 07/21/18 Unknown History Potassium Chloride [Klor-Con 10] 10 meq PO QDAY 07/21/18 07/21/18 Unknown History Rosuvastatin Calcium [Crestor] 40 mg PO DAILY 07/21/18 07/21/18 Unknown History Review of Systems ROS unobtainable: due to mental status Exam - Physical Exam Narrative exam: GEN: Not in acute distress, lying in bed HEENT: Normocephalic, atraumatic, Neck: supple, No JVD Lungs: Clear to auscultation bilaterally, no crackles or wheeze Abd:soft, non tender, non distended, normal bowel sounds Ext: No edema, no clubbing, no cyanosis Neuro: Lethargic, confused, moves all ext Skin:No rash - Constitutional Vitals: Temp Pulse Resp BP Pulse Ox 93.3 F L 80 22 135/92 98 07/21/18 08:00 07/21/18 08:30 07/21/18 08:30 07/21/18 08:30 07/21/18 08:30 Results - Labs CBC & Chem 7: 07/22/18 06:06 07/22/18 06:06 Labs: Abnormal lab results 07/21/18 07/21/18 07/21/18 Range/Units 06:25 06:34 06:34 RBC 3.53 L (3.65-5.03) M/mm3 MCHC 35 H (30-34) % RDW 16.5 H (13.2-15.2) % Lymph % (Auto) 13.1 L (13.4-35.0) % Lymph # 1.1 L (1.2-5.4) K/mm3 Seg Neutrophils % 80.9 H (40.0-70.0) % Sodium 134 L (137-145) mmol/L Chloride 96.8 L (98-107) mmol/L Glucose 182 H (65-100) mg/dL POC Glucose 207 H (70-105) Total Creatine Kinase (30-135) units/L CK-MB (CK-2) (0.0-4.0) ng/mL TSH (0.270-4.200) mlU/mL Free T4 (0.76-1.46) ng/dL 07/21/18 07/21/18 Range/Units 06:34 06:41 RBC (3.65-5.03) M/mm3 MCHC (30-34) % RDW (13.2-15.2) % Lymph % (Auto) (13.4-35.0) % Lymph # (1.2-5.4) K/mm3 Seg Neutrophils % (40.0-70.0) % Sodium (137-145) mmol/L Chloride (98-107) mmol/L Glucose (65-100) mg/dL POC Glucose (70-105) Total Creatine Kinase 740 H (30-135) units/L CK-MB (CK-2) 9.4 H (0.0-4.0) ng/mL TSH 89.230 H (0.270-4.200) mlU/mL Free T4 0.10 L (0.76-1.46) ng/dL Assessment and Plan Acute Metabolic encephalopathy admit Neurochecks CT head unremarkable. Hypothermia due to exposure to cold She went out in blistering cold found back of neighbor's house warming blanket Dementia supportive care Hypothyroiidism Give Levothyrocxine iv Diabetes mellitus type 2. Fingerstick qac and hs Cardiomyopathy, EF 25-30% Chronic systolic CHF seen by [facility] last admission COPD stable History of AAA s/p repair History of thoracic aortic aneurysm was being followed as outpatient Full code status
[2018-07-21] MEDS ORDERED: SODIUM CHLORIDE FLUSH SYRINGE 10 ML IV PRN (10:38)
[2018-07-21] MEDS ORDERED: ZOFRAN IV PRN (10:38)
[2018-07-21] MEDS ORDERED: ALUM-MAG HYDROX-SIMETH 200-200-20MG/5ML PO PRN (10:38)
--- NOTE | 2018-07-21 10:43 | XRay Report ---
AP PELVIS: HISTORY: Hip pain. Bone mineralization is borderline. Minimal osteoarthritic changes are identified at both hips. Mild degenerative changes at the SI joints. No evidence for fracture, dislocation or diastasis. An aortobiiliac vascular stent is partially imaged. IMPRESSION: Mild degenerative changes. No acute process identified.
[2018-07-21] MEDS ORDERED: NON-FORMULARY (Rosuvastatin Calcium [Crestor] 40 MG) PO SCH (11:15)
[2018-07-21] MEDS ORDERED: NON-FORMULARY (Potassium Chloride [Klor-Con 10] 10 MEQ) PO SCH (11:15)
[2018-07-21] MEDS ORDERED: SYNTHROID IV SCH (12:00)
[2018-07-21] MEDS ORDERED: SYNTHROID PO SCH (12:00)
[2018-07-21] MEDS: RANEXA ER PO SCH ×2 (12:59→21:59)
[2018-07-21] MEDS: K-DUR PO SCH (12:59)
[2018-07-21] MEDS: TYLENOL PO PRN (19:42)
[2018-07-21] MEDS: TOPROL XL PO SCH (21:59)
[2018-07-21] MEDS: SODIUM CHLORIDE FLUSH SYRINGE 10 ML IV SCH (22:00)
[2018-07-21] MEDS: HEPARIN SUB-Q SCH (22:00)
[2018-07-22] MEDS: SYNTHROID PO SCH (05:19)
[2018-07-22 06:53] LABS: Basophils # (Auto) 0.1 K/mm3 (0.0-0.1); Basophils % (Auto) 1.1 % (0.0-1.8); Eosinophils # (Auto) 0.2 K/mm3 (0.0-0.4); Eosinophils % (Auto) 2.9 % (0.0-4.3); Hematocrit 33.2 % (30.3-42.9); Hemoglobin 11.3 gm/dl (10.1-14.3); Lymphocytes # (Auto) 1.6 K/mm3 (1.2-5.4); Lymphocytes % (Auto) 29.1 % (13.4-35.0); Mean Corpuscular HGB Conc 34 % (30-34); Mean Corpuscular Volume 93 fl (79-97); Monocytes # (Auto) 0.4 K/mm3 (0.0-0.8); Monocytes % (Auto) 7.2 % (0.0-7.3); Platelet Count 225 K/mm3 (140-440); Red Blood Count 3.58 M/mm3 (3.65-5.03); Red Cell Distribution Width 16.5 % (13.2-15.2)
[2018-07-22 06:56] LABS: Albumin 4.1 g/dL (3.9-5); Calcium 9.1 mg/dL (8.4-10.2)
[2018-07-22] MEDS: K-DUR PO SCH (10:15)
[2018-07-22] MEDS: RANEXA ER PO SCH ×2 (10:15→22:58)
[2018-07-22] MEDS: HEPARIN SUB-Q SCH ×2 (10:16→22:58)
[2018-07-22] MEDS: SODIUM CHLORIDE FLUSH SYRINGE 10 ML IV SCH ×2 (10:16→22:58)
[2018-07-22] MEDS: TOPROL XL PO SCH ×2 (10:16→22:58)
--- NOTE | 2018-07-22 10:24 | Consultation ---
History of Present Illness Consult date: 07/22/18 Consult reason: congestive heart failure History of present illness: Patient is a 78 year old woman with multiple medical problems. She has had e ndovascular repair of her abdominal aneurysm while living in [place] and a known descending thoracic aneurysm measuring 5.6cm with intraluminal thrombus currently followed by Dr Peres at [facility]. She has an ischemic cardiomyopathy and coronary artery disease. A cardiac catheterization two months ago revealed a chronic total occlusion of the circumflex recommended for medical therapy. Ejection fraction 25-30% by echocardiogram. Patient is admitted with altered mental status. 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 Rectal temperature of 89 on EMS arrival. There were no reports of chest pain or shortness of breath. Daughter reports she has concerns of early Dementia with underlying psychosis which needs evaluated. Head CT reports no acute intracranial process. Past History Past Medical History: CAD, COPD, diabetes, heart failure, other (Descending thoracic aneurysm) Past Surgical History: abd. aortic aneurysm repair Social history: no significant social history, lives with family, full code Family history: no significant family history Medications and Allergies Allergies Allergy/AdvReac Type Severity Reaction Status Date / Time ALDO Inhibitors Allergy Intermediate Angioedema Verified 04/21/14 12:16 ARB-Angiotensin Receptor Allergy Intermediate Angioedema Verified 04/21/14 12:17 Antagonist glipizide Allergy Intermediate Rash Verified 04/21/14 12:17 Home Medications Medication Instructions Recorded Confirmed Last Taken Type Insulin Aspart [NovoLOG Flexpen] 10 units SUB-Q TID 03/27/17 07/21/18 03/26/17 History Insulin Glargine,Hum.rec.anlog 40 units SUB-Q HS 03/27/17 07/21/18 07/20/18 History [Lantus] Ranolazine [Ranexa] 500 mg PO BID 03/27/17 07/21/18 Unknown History Metoprolol Succinate [Toprol Xl] 100 mg PO BID 07/21/18 07/21/18 Unknown History Potassium Chloride [Klor-Con 10] 10 meq PO QDAY 07/21/18 07/21/18 Unknown Histor y Rosuvastatin Calcium [Crestor] 40 mg PO DAILY 07/21/18 07/21/18 Unknown History Active Meds: Active Medications Acetaminophen (Tylenol) 650 mg PO Q4H PRN PRN Reason: Pain MILD(1-3)/Fever >100.5/GORDON Last Admin: 07/21/18 19:42 Dose: 650 mg Documented by: Al Hydrox/Mg Hydrox/Simethicone (Alum-Mag Hydrox-Simeth [id number]/5ml) 30 ml PO Q4H PRN PRN Reason: Indigestion Atorvastatin Calcium (Lipitor) 40 mg PO QHS [facility] Last Admin: 07/21/18 22:00 Dose: 40 mg Documented by: Heparin Sodium (Porcine) (Heparin) 5,000 unit SUB-Q Q12HR [facility] Last Admin: 07/22/18 10:16 Dose: 5,000 unit Documented by: Levothyroxine Sodium (Synthroid) 100 mcg PO DAILY@0600 [facility] Last Admin: 07/22/18 05:19 Dose: 100 mcg Documented by: Metoprolol Succinate (Toprol Xl) 100 mg PO BID [facility] Last Admin: 07/22/18 10:16 Dose: 100 mg Documented by: Ondansetron HCl (Zofran) 4 mg IV Q8H PRN PRN Reason: Nausea And Vomiting Potassium Chloride (K-Dur) 10 meq PO QDAY [facility] Last Admin: 07/22/18 10:15 Dose: 10 meq Documented by: Ranolazine (Ranexa Er) 500 mg PO BID [facility] Last Admin: 07/22/18 10:15 Dose: 500 mg Documented by: Sodium Chloride (Sodium Chloride Flush Syringe 10 Ml) 10 ml IV BID [facility] Last Admin: 07/22/18 10:16 Dose: 10 ml Documented by: Sodium Chloride (Sodium Chloride Flush Syringe 10 Ml) 10 ml IV PRN PRN PRN Reason: LINE FLUSH Physical Examination Vital Signs Temp 89 F L 07/21/18 06:00 General appearance: no acute distress Cardiac: Positive: Reg Rate and Rhythm Lungs: Positive: Decreased Breath Sounds Neuro: Positive: Grossly Intact Extremities: Absent: edema Results 07/22/18 06:06 07/22/18 06:06 Cardiac Enzymes 07/22/18 Range/Units 06:06 AST 81 H (5-40) units/L CBC 07/22/18 Range/Units 06:06 WBC 5.6 (4.5-11.0) K/mm3 RBC 3.58 L (3.65-5.03) M/mm3 Hgb 11.3 (10.1-14.3) gm/dl Hct 33.2 (30.3-42.9) % Plt Count 225 (140-440) K/mm3 Lymph # 1.6 (1.2-5.4) K/mm3 [place] # 0.4 (0.0-0.8) K/mm3 Eos # 0.2 (0.0-0.4) K/mm3 Baso # 0.1 (0.0-0.1) K/mm3 Comprehensive Metabolic Panel 07/22/18 Range/Units 06:06 Sodium 141 D (137-145) mmol/L Potassium 4.1 (3.6-5.0) mmol/L Chloride 102.3 (98-107) mmol/L Carbon Dioxide 25 (22-30) mmol/L BUN 13 (7-17) mg/dL Creatinine 1.6 H (0.7-1.2) mg/dL Glucose 78 (65-100) mg/dL Calcium 9.1 (8.4-10.2) mg/dL AST 81 H (5-40) units/L ALT 69 H (7-56) units/L Alkaline Phosphatase 48 (35-129) units/L Total Protein 6.3 (6.3-8.2) g/dL Albumin 4.1 (3.9-5) g/dL Assessment and Plan Altered mental status no acute intracranial process by head CT scan. Hx of COPD -on home oxygen Descending thoracic aortic aneurysm measuring 5.6 cm with intraluminal thrombus Hx of Abdominal aortic aneurysm s/p EVAR Type II DM Dilated Ischemic Cardiomyopathy, EF 25-30%. ALDO-i and ARB allergy Hx of chronic total occlusion of the circumflex, recommended for medical therapy. Recommend: Medical therapy for chronic total occlusion of the circumflex and dilated cardiomyopathy as tolerated. Psychiatric and neurology evaluation for underlying Dementia with underlying psychosis.
[2018-07-22] MEDS: TYLENOL PO PRN (12:50)
[2018-07-22] MEDS ORDERED: AMBIEN PO PRN (13:52)
--- NOTE | 2018-07-22 13:58 | Progress Note ---
Assessment and Plan /Acute Metabolic encephalopathy Likely from underlying dementia and severe hypothyroidism Continue Neurochecks CT head unremarkable. Family requesting for psych consult, ordered /Hypothermia due to exposure to cold, resolved She went out in blistering cold found back of neighbor's house Managed with warming blanket /Dementia cont supportive care /Hypothyroiidism cont Levothyrocxine iv for now /Diabetes mellitus type 2. cont SSI with Fingerstick qac and hs /Cardiomyopathy, EF 25-30% /Chronic systolic CHF -Consult cardiology, recommended medical management /COPD, stable - Nebs and supplemental O2 as needed /History of AAA s/p repair and History of thoracic aortic aneurysm - being followed as outpatient Full code status Brief History: Patient is 78-year-old female with past medical history of dementia, diabetes, CAD, ischemic cardiomyopathy with Ef 25%, thoracic aortic aneurysm, abdominal aortic aneurysm status post endovascular repair was brought in for altered mental status and hypothermia. Patient last seen in the home at 2 AM. Apparently she left the house and was found sitting in the back of the neighbors house in very cold weather. She was brought to hospital, was foumd to be leth argic, hypothermia. with rectal temp 89 degrees. TSH >89, admitted for further management. Physical exam: GENERAL: well-developed elderly -[place] female lying on bed appeared to be in no discomfort. HEENT: Normocephalic. Atraumatic. No conjunctival congestion or icterus. Patient has moist mucous membranes. NECK: Supple. Trachea midline. CHEST/LUNGS: Clear to auscultated bilaterally, breathing nonlabored. No wheezes crackles or rhonchi. HEART/CARDIOVASCULAR: Regular in rate and rhythm. S1 and S2 positive. ABDOMEN: Abdomen is soft, nontender. Patient has normal bowel sounds. SKIN: There is no rash. Warm and dry. NEURO: No focal motor deficit. Follows command. Appears confused MUSCULOSKELETAL: No joint effusion or tenderness. EXTRIMITY: No edema, no cyanosis or clubbing. PSYCH: Cooperative. Subjective Date of service: 07/22/18 Interval history: Patient sen and examined alert and awake but appears confused daughter at bedside, updated No acute issue o/n Objective - Constitutional Vitals: Vital Signs - 12hr 07/22/18 07/22/18 07/22/18 02:20 03:00 07:34 Temperature 98.3 F 98.1 F Pulse Rate 98 H 55 L Pulse Rate [ From Monitor] Respiratory 20 12 18 Rate Blood Pressure 101/59 139/83 Blood Pressure 100/59 [Right] O2 Sat by Pulse 96 97 Oximetry 07/22/18 07/22/18 07/22/18 08:34 09:38 10:00 Temperature Pulse Rate 80 Pulse Rate [ 80 From Monitor] Respiratory 18 Rate Blood Pressure Blood Pressure [Right] O2 Sat by Pulse 96 99 Oximetry 07/22/18 07/22/18 10:16 12:50 Temperature Pulse Rate Pulse Rate [ From Monitor] Respiratory 18 Rate Blood Pressure 139/83 Blood Pressure [Right] O2 Sat by Pulse Oximetry - Labs CBC & Chem 7: 07/22/18 06:06 07/22/18 06:06 Labs: Abnormal lab results 07/21/18 07/21/18 07/22/18 Range/Units 19:49 21:15 06:06 RBC 3.58 L (3.65-5.03) M/mm3 RDW 16.5 H (13.2-15.2) % Creatinine (0.7-1.2) mg/dL POC Glucose 64 L 151 H (70-105) AST (5-40) units/L ALT (7-56) units/L 07/22/18 07/22/18 07/22/18 Range/Units 06:06 07:38 11:32 RBC (3.65-5.03) M/mm3 RDW (13.2-15.2) % Creatinine 1.6 H (0.7-1.2) mg/dL POC Glucose 62 L 170 H (70-105) AST 81 H (5-40) units/L ALT 69 H (7-56) units/L
--- NOTE | 2018-07-23 00:14 | Cat Scan Report ---
PROCEDURE: CT ABDOMEN PELVIS WO CON TECHNIQUE: Computerized axial tomography of the abdomen and pelvis was performed without intravenous contrast. This study is performed without intravascular contrast material and its sensitivity for ab dominal and pelvic pathology, including neoplasms, inflammation, abscess, free fluid, thrombosis, art erial dissection and infarction, is reduced compared with a contrast enhanced study. CT DOSE LENGTH PRODUCT: mGycm HISTORY: Abd pain. COMPARISONS: None . FINDINGS: Visualized lower thorax: The heart is enlarged. There is a large pericardial effusion.. Liver: Normal size and attenuation. Spleen: Normal size and attenuation. Gallbladder and biliary system: Gallbladder is distended. There are small stones.. Pancreas: Normal. Adrenals: Normal. Kidneys: There is a 2 cm cysts and adjacent 5 mm hemorrhagic cyst in the cortex of the right kidney. There are intrarenal vascular calcifications bilaterally. There are tiny nonobstructing stones. There is no hydronephrosis. GI tract: There has been gastric surgery. There is no mechanical bowel obstruction. There is a large amount of stool in the colon. There is no colitis or enteritis. The appendix is not discretely visib le. . Lymph nodes and mesentery: Normal. Vasculature: There is an abdominal aortic aneurysm measuring up to 5 cm in diameter. There is an intr aluminal stent graft.. Bladder: Normal. Reproductive organs: There has been a hysterectomy. Peritoneum: There is minimal free fluid. There is no free air, abscess or adenopathy.. Musculoskeletal structures: No significant abnormality. IMPRESSION: Gallbladder is distended. There are small stones.. There is no specific evidence of cholecystitis or biliary ductal dilatation. There is a 2 cm cysts and adjacent 5 mm hemorrhagic cyst in the cortex of the right kidney. There are intrarenal vascular calcifications bilaterally. There are tiny nonobstructing stones. There is no hydronephrosis. There has been gastric surgery. There is no mechanical bowel obstruction. There is a large amount of stool in the colon. There is no colitis or enteritis. The appendix is not discretely visible. . There is an abdominal aortic aneurysm measuring up to 5 cm in diameter. There is an intraluminal sten t graft.. There has been a hysterectomy. There is minimal free fluid. There is no free air, abscess or adenopathy.. . This document is electronically signed by Immanuel Geronimo MD., July 23 2018 12:11:41 AM ET
[2018-07-23] MEDS: SYNTHROID PO SCH (07:01)
[2018-07-23] MEDS: SODIUM CHLORIDE FLUSH SYRINGE 10 ML IV SCH ×2 (09:10→23:10)
[2018-07-23] MEDS: HEPARIN SUB-Q SCH ×2 (09:10→23:06)
[2018-07-23] MEDS: TOPROL XL PO SCH ×2 (09:10→23:05)
[2018-07-23] MEDS: K-DUR PO SCH (09:10)
[2018-07-23] MEDS: RANEXA ER PO SCH ×2 (09:10→23:05)
[2018-07-23 09:33] LABS: Calcium 8.7 mg/dL (8.4-10.2)
--- NOTE | 2018-07-23 10:16 | Progress Note ---
Assessment and Plan Altered mental status symptoms are concerning for worsening dementia no acute intracranial process by head CT scan Hypothyroidism TSH 89.2 Hx of COPD -on home oxygen Descending thoracic aortic aneurysm measuring 5.6 cm with intraluminal thrombus -stable this is followed by vascular and CT surgery in [facility] Hx of Abdominal aortic aneurysm s/p EVAR Type II DM Ischemic Cardiomyopathy, EF 25-30%. ALDO-i and ARB allergy Hx of chronic total occlusion of the circumflex, recommended for medical therapy. Recommend: Continue medical therapy for chronic total occlusion of the circumflex and dilated cardiomyopathy as tolerated. Subjective Date of service: 07/23/18 Interval history: Patient is resting in bed comfortably with eyes closed. No cardiac events reported. Objective Vital Signs Temp Pulse Pulse Resp BP Pulse Ox 07/23/18 09:10 64 143/81 07/23/18 08:24 72 20 99 07/23/18 07:28 98.2 F 64 20 143/81 100 07/23/18 02:47 98.3 F 67 20 111/68 92 07/22/18 22:00 61 20 100 07/22/18 20:34 98.7 F 61 20 132/76 100 07/22/18 14:00 98.5 F 65 20 124/65 98 07/22/18 12:50 18 07/22/18 10:16 139/83 - Physical Examination General: No Apparent Distress Cardiac: Positive: Reg Rate and Rhythm Neuro: Positive: Grossly Intact Extremities: Absent: edema - Labs and Meds Comprehensive Metabolic Panel 07/23/18 Range/Units 08:25 Sodium 140 (137-145) mmol/L Potassium 3.9 (3.6-5.0) mmol/L Chloride 102.4 (98-107) mmol/L Carbon Dioxide 24 (22-30) mmol/L BUN 12 (7-17) mg/dL Creatinine 1.7 H (0.7-1.2) mg/dL Glucose 88 (65-100) mg/dL Calcium 8.7 (8.4-10.2) mg/dL
--- NOTE | 2018-07-23 11:22 | Fluoroscopy Report ---
Barium swallow under video fluoroscopy: History: Food stuck in chest. Findings: Transit of barium through the esophagus appears normal. Minimal mucosal irregularity with esophageal spasm is noted in the mid thoracic esophagus probably related to esophagitis. No intrinsic mass is seen. Evidence of reflux is noted from distal esophagus to the mid esophagus. No evidence of hiatal hernia. Extrinsic pressure on the middle third of esophagus from enlarged heart. Impression: Findings as detailed above. If clinically indicated esophagoscopy may be recommended.
--- NOTE | 2018-07-23 13:44 | Progress Note ---
Assessment and Plan /Acute Metabolic encephalopathy Likely from underlying dementia and severe hypothyroidism Continue Neurochecks, CT head unremarkable. Family requesting for psych consult, pending patient now more awake but still confused /Hypothermia due to exposure to cold, resolved She went out in blistering cold found back of neighbor's house Managed with warming blanket /Dementia cont supportive care /Hypothyroiidism cont Levothyrocxine iv for now /Diabetes mellitus type 2. cont SSI with Fingerstick qac and hs /Cardiomyopathy, EF 25-30% /Chronic systolic CHF -Consulted cardiology, recommended medical management /COPD, stable - Nebs and supplemental O2 as needed /History of AAA s/p repair and History of thoracic aortic aneurysm - being followed as outpatient /CAD with chronic total occlusion of the circumflex, recommended for medical therapy /SAULO, likely vasomotor nephropathy - cont iv fluid, consulted nephrology Full code status Brief History: Patient is 78-year-old female with past medical history of dementia, diabetes, CAD, ischemic cardiomyopathy with Ef 25%, thoracic aortic aneurysm, abdominal a ortic aneurysm status post endovascular repair was brought in for altered mental status and hypothermia. Patient last seen in the home at 2 AM. Apparently she left the house and was found sitting in the back of the neighbors house in very cold weather. She was brought to hospital, was foumd to be lethargic, hypothermia. with rectal temp 89 degrees. TSH >89, admitted for further management. Physical exam: GENERAL: well-developed elderly -Russian female lying on bed appeared to be in no discomfort. HEENT: Normocephalic. Atraumatic. No conjunctival congestion or icterus. Patient has moist mucous membranes. NECK: Supple. Trachea midline. CHEST/LUNGS: Clear to auscultated bilaterally, breathing nonlabored. No wheezes crackles or rhonchi. HEART/CARDIOVASCULAR: Regular in rate and rhythm. S1 and S2 positive. ABDOMEN: Abdomen is soft, nontender. Patient has normal bowel sounds. SKIN: There is no rash. Warm and dry. NEURO: No focal motor deficit. Follows command. Appears confused MUSCULOSKELETAL: No joint effusion or tenderness. EXTRIMITY: No edema, no cyanosis or clubbing. PSYCH: Cooperative. Subjective Date of service: 07/23/18 Interval history: Patient sen and examined alert and awake but appears confused No acute issue o/n, tolerating diet Objective - Constitutional Vitals: Vital Signs - 12hr 07/23/18 07/23/18 07/23/18 02:47 07:28 08:24 Temperature 98.3 F 98.2 F Pulse Rate 67 64 Pulse Rate [ 72 From Monitor] Respiratory 20 20 20 Rate Blood Pressure 111/68 143/81 O2 Sat by Pulse 92 100 99 Oximetry 07/23/18 09:10 Temperature Pulse Rate 64 Pulse Rate [ From Monitor] Respiratory Rate Blood Pressure 143/81 O2 Sat by Pulse Oximetry - Labs CBC & Chem 7: 07/22/18 06:06 07/24/18 04:28 Labs: Abnormal lab results 07/22/18 07/22/18 07/23/18 Range/Units 16:06 21:16 08:25 Creatinine 1.7 H (0.7-1.2) mg/dL POC Glucose 110 H 125 H (70-105)
--- NOTE | 2018-07-23 14:23 | Consultation ---
History of Present Illness - Reason for Consult Consult date: 07/23/18 Reason for consult: Initial Psychiatric Evaluation - Chief Complaint Chief complaint: Patient is asleep. - History of Present Psychiatric Illness Patient is 78-year-old female with past medical history of dementia, diabetes, CAD, ischemic cardiomyopathy with Ef 25%, thoracic aortic aneurysm, abdominal aortic aneurysm status post endovascular repair was brought in for altered mental status and hypothermia. Per record patient last seen in the home at 2 AM. Apparently she left the house and was found sitting in the back of the neighbors house in very cold weather. She was brought to hospital, was found to be lethargic, hypothermia. with rectal temp 89 degrees. TSH >89, admitted for further management. Initially patient is asleep. Upon awakening patient is confused. She is alert and oriented x 1. Per RN patient has periods of intermittent confusion. Also, per RN patient believes that the police is trying to emilie her. Current Psychiatric Medications: Ambien 5mg po QHS PRN. Past Psychiatric History: Unable to Assess. Patient asleep. Past Medication Trials: Unable to Assess. Patient asleep. History Drug/Substance Abuse: Unable to Assess. Patient asleep. History of Trauma/Abuse: Unable to Assess. Patient asleep. Social History: Unable to Assess. Patient asleep. Family History of Psychiatric Illness/ Substance Abuse: Unable to Assess. Patient asleep. Medications and Allergies Allergies Allergy/AdvReac Type Severity Reaction Status Date / Time ALDO Inhibitors Allergy Intermediate Angioedema Verified 04/21/14 12:16 ARB-Angiotensin Receptor Allergy Intermediate Angioedema Verified 04/21/14 12:17 Antagonist glipizide Allergy Intermediate Rash Verified 04/21/14 12:17 Home Medications Medication Instructions Recorded Confirmed Last Taken Type Insulin Aspart [NovoLOG Flexpen] 10 units SUB-Q TID 03/27/17 07/21/18 03/26/17 History Insulin Glargine,Hum.rec.anlog 40 units SUB-Q HS 03/27/17 07/21/18 07/20/18 History [Lantus] Ranolazine [Ranexa] 500 mg PO BID 03/27/17 07/21/18 Unknown History Metoprolol Succinate [Toprol Xl] 100 mg PO BID 07/21/18 07/21/18 Unknown History Potassium Chloride [Klor-Con 10] 10 meq PO QDAY 07/21/18 07/21/18 Unknown History Rosuvastatin Calcium [Crestor] 40 mg PO DAILY 07/21/18 07/21/18 Unknown History Active Meds: Active Medications Acetaminophen (Tylenol) 650 mg PO Q4H PRN PRN Reason: Pain MILD(1-3)/Fever >100.5/GORDON Last Admin: 07/22/18 12:50 Dose: 650 mg Documented by: Al Hydrox/Mg Hydrox/Simethicone (Alum-Mag Hydrox-Simeth [id number]/5ml) 30 ml PO Q4H PRN PRN Reason: Indigestion Atorvastatin Calcium (Lipitor) 40 mg PO QHS [facility] Last Admin: 07/22/18 22:58 Dose: 40 mg Documented by: Heparin Sodium (Porcine) (Heparin) 5,000 unit SUB-Q Q12HR [facility] Last Admin: 07/23/18 09:10 Dose: 5,000 unit Documented by: Sodium Chloride (Nacl 0.9% 1000 Ml) 1,000 mls @ 100 mls/hr IV DIRECT [facility] Levothyroxine Sodium (Synthroid) 100 mcg PO DAILY@0600 [facility] Last Admin: 07/23/18 07:01 Dose: Not Given Documented by: Metoprolol Succinate (Toprol Xl) 100 mg PO BID [facility] Last Admin: 07/23/18 09:10 Dose: 100 mg Documented by: Ondansetron HCl (Zofran) 4 mg IV Q8H PRN PRN Reason: Nausea And Vomiting Potassium Chloride (K-Dur) 10 meq PO QDAY [facility] Last Admin: 07/23/18 09:10 Dose: 10 meq Documented by: Ranolazine (Ranexa Er) 500 mg PO BID [facility] Last Admin: 07/23/18 09:10 Dose: 500 mg Documented by: Sodium Chloride (Sodium Chloride Flush Syringe 10 Ml) 10 ml IV BID [facility] Last Admin: 07/23/18 09:10 Dose: 10 ml Documented by: Sodium Chloride (Sodium Chloride Flush Syringe 10 Ml) 10 ml IV PRN PRN PRN Reason: LINE FLUSH Zolpidem Tartrate (Ambien) 5 mg PO QHS PRN PRN Reason: Sleep Last Admin: 07/22/18 23:06 Dose: 5 mg Documented by: Mental Status Exam - Vital signs Last Vital Signs Temp 98.1 F 07/23/18 13:39 Pulse 75 07/23/18 13:39 Resp 20 07/23/18 13:39 BP 137/66 07/23/18 13:39 Pulse Ox 98 07/23/18 13:39 - Exam Narrative exam: Unable to complete patient's mental status exam. Results Result Diagrams: 07/22/18 06:06 07/23/18 08:25 Abnormal lab results 07/22/18 07/22/18 07/23/18 Range/Units 16:06 21:16 08:25 Creatinine 1.7 H (0.7-1.2) mg/dL POC Glucose 110 H 125 H (70-105) All other labs normal. Assessment and Plan Assessment and plan: Impression: Patient is asleep. Confusion noted upon awakening. Will attempt to reassess in 24 hours to gain collateral. At the time patient is in no apparent distress. Recommendation/Plan: 1. Will reassess in 24 hours. 2. Attempt to gain collateral. 3. The following Delirium protocol is recommended: 1. Frequently reorient patient and involve him/her in their care (simple explanations of procedures, tests, medications). 2. Lights on and shades open during daytime hours. 3. Write date and goals of care in a visible place. 4. Try to avoid unnecessary interruptions to sleep during nighttime hours. 5. Obtain glasses, hearing aids from home if patient uses these at baseline. 6. Avoid medications that may exacerbate delirium (especially narcotics, benzodiazepines, barbiturates, ambien, lunesta, and medications with excessive anticholinergic properties). Disposition: Will reassess in 24 hours and gain collateral to determine proper disposition. Will staff with Dr. Juanita Narvaez.
[2018-07-23] MEDS: NACL 0.9% 1000 ML 1,000 ML IV SCH (17:14)
[2018-07-24 00:42] LABS: Creatinine,Urine 146.9 mg/dL (0.1-20.0); Protein/Creatinine Ratio,Urine 0.65
[2018-07-24 05:18] LABS: Albumin 3.9 g/dL (3.9-5); Calcium 8.5 mg/dL (8.4-10.2)
[2018-07-24] MEDS: NACL 0.9% 1000 ML 1,000 ML IV SCH ×2 (07:21→15:48)
[2018-07-24] MEDS: SYNTHROID PO SCH (07:21)
--- NOTE | 2018-07-24 09:37 | Consultation ---
History of Present Illness - Reason for Consult Consult date: 07/24/18 acute renal failure - History of Present Illness The patient was a 78 YO female with history significant for Dementia, Type 2 diabetes, HTN, CAD, Ischemic cardiomyopathy with EF 25%, Thoracic aortic aneurysm and AAA s/p endovascular repair who was brought in for AMS and hypothermia. Patient was confused to provide any history. Apparently she left the house and was found sitting in the back of the neighbors house in very cold weather. She was also found hallucinating by family member. On arrival to ED she was found to be lethargic and hypothermic with temp 89 F. Labs were significant for TSH 89, Free T4 0.1 and Creatinine 1.8. Nephrology was consulted for further evaluation. Past History Past Medical History: CAD, COPD, diabetes, heart failure, other (Descending thoracic aneurysm) Past Surgical History: abd. aortic aneurysm repair Social history: no significant social history, lives with family, full code Family history: no significant family history Medications and Allergies Allergies Allergy/AdvReac Type Severity Reaction Status Date / Time ALDO Inhibitors Allergy Intermediate Angioedema Verified 04/21/14 12:16 ARB-Angiotensin Receptor Allergy Intermediate Angioedema Verified 04/21/14 12:17 Antagonist glipizide Allergy Intermediate Rash Verified 04/21/14 12:17 Home Medications Medication Instructions Recorded Confirmed Last Taken Type Insulin Aspart [NovoLOG Flexpen] 10 units SUB-Q TID 03/27/17 07/21/18 03/26/17 History Insulin Glargine,Hum.rec.anlog 40 units SUB-Q HS 03/27/17 07/21/18 07/20/18 History [Lantus] Ranolazine [Ranexa] 500 mg PO BID 03/27/17 07/21/18 Unknown History Metoprolol Succinate [Toprol Xl] 100 mg PO BID 07/21/18 07/21/18 Unknown History Potassium Chloride [Klor-Con 10] 10 meq PO QDAY 07/21/18 07/21/18 Unknown History Rosuvastatin Calcium [Crestor] 40 mg PO DAILY 07/21/18 07/21/18 Unknown History Active Meds: Active Medications Acetaminophen (Tylenol) 650 mg PO Q4H PRN PRN Reason: Pain MILD(1-3)/Fever >100.5/GORDON Last Admin: 07/22/18 12:50 Dose: 650 mg Documented by: Al Hydrox/Mg Hydrox/Simethicone (Alum-Mag Hydrox-Simeth 026-170-12wt/5ml) 30 ml PO Q4H PRN PRN Reason: Indigestion Atorvastatin Calcium (Lipitor) 40 mg PO QHS [facility] Last Admin: 07/23/18 23:05 Dose: 40 mg Documented by: Heparin Sodium (Porcine) (Heparin) 5,000 unit SUB-Q Q12HR [facility] Last Admin: 07/23/18 23:06 Dose: 5,000 unit Documented by: Sodium Chloride (Nacl 0.9% 1000 Ml) 1,000 mls @ 100 mls/hr IV DIRECT [facility] Last Admin: 07/24/18 07:21 Dose: 100 mls/hr Documented by: Levothyroxine Sodium (Synthroid) 100 mcg PO DAILY@0600 [facility] Last Admin: 07/24/18 07:21 Dose: 100 mcg Documented by: Metoprolol Succinate (Toprol Xl) 100 mg PO BID [facility] Last Admin: 07/23/18 23:05 Dose: 100 mg Documented by: Ondansetron HCl (Zofran) 4 mg IV Q8H PRN PRN Reason: Nausea And Vomiting Potassium Chloride (K-Dur) 10 meq PO QDAY [facility] Last Admin: 07/23/18 09:10 Dose: 10 meq Documented by: Ranolazine (Ranexa Er) 500 mg PO BID [facility] Last Admin: 07/23/18 23:05 Dose: 500 mg Documented by: Sodium Chloride (Sodium Chloride Flush Syringe 10 Ml) 10 ml IV BID [facility] Last Admin: 07/23/18 23:10 Dose: 10 ml Documented by: Sodium Chloride (Sodium Chloride Flush Syringe 10 Ml) 10 ml IV PRN PRN PRN Reason: LINE FLUSH Zolpidem Tartrate (Ambien) 5 mg PO QHS PRN PRN Reason: Sleep Last Admin: 07/22/18 23:06 Dose: 5 mg Documented by: Review of Systems ROS unobtainable: due to mental status Exam - Vital Signs Vital signs: Vital Signs Temp 89 F L 07/21/18 06:00 - General Appearance General appearance: well-nourished, appears stated age, other (not in distress) EENT: ATNC, mucous membranes dry, hearing diminished Neck: Present: neck supple, trachea midline Respiratory: Clear to Ascultation Heart: regular, S1S2, no murmurs Gastrointestinal: Present: normoactive bowel sounds, obese. Absent: tenderness, distended Integumentary: no rash, warm and dry Neurologic: no focal deficit, no asterixis, confused, disoriented Musculoskeletal: Present: other (no edema) Results - Lab Results 07/22/18 06:06 07/24/18 04:28 Most recent lab results Calcium 8.5 mg/dL (8.4-10.2) 07/24/18 04:28 Urine Creatinine 146.9 mg/dL (0.1-20.0) H 07/23/18 23:30 Urine Sodium 28 mmol/L 07/23/18 23:30 Urine Total Protein 96 mg/dL (5-11.8) H 07/23/18 23:30 Assessment and Plan 1. Acute kidney injury: Likely Vasomotor / hemodynamic SAULO in the setting of volume depletion. CT abdomen was negative for any hydronephrosis. Continue IV fluids. Monitor renal function. Avoid nephrotoxic agents. Meds dosage based on GFR. 2. FEN: Continue IV fluids. Monitor lytes. 3. Acute Metabolic encephalopathy. 4. Severe hypothyroidism. 5. Hypothermia: Secondary to exposure to cold. Resolved 6. Cardiomyopathy with EF 25-30%: Followed by Cards.
[2018-07-24] MEDS: K-DUR PO SCH (09:49)
[2018-07-24] MEDS: RANEXA ER PO SCH ×2 (09:49→22:49)
[2018-07-24] MEDS: HEPARIN SUB-Q SCH ×2 (09:49→22:51)
[2018-07-24] MEDS: TOPROL XL PO SCH ×2 (09:49→22:50)
[2018-07-24] MEDS: SODIUM CHLORIDE FLUSH SYRINGE 10 ML IV SCH (09:50)
--- NOTE | 2018-07-24 14:17 | Progress Note ---
Subjective - Reason for Consult Consult date: 07/24/18 Reason for consult: Psychiatry Follow-up - Chief Complaint Chief complaint: "The patient is hearing impaired" 78-year-old AA female who presented to the ER for AMS. Today the patient is calm, but hearing impaired during the assessment. The patient's hearing aids are needed. Mental Status Exam - Vital signs Last Vital Signs Temp 98.4 F 07/24/18 07:49 Pulse 51 L 07/24/18 09:49 Resp 18 07/24/18 07:49 BP 157/66 07/24/18 09:49 Pulse Ox 98 07/24/18 07:49 - Exam Narrative exam: Unable to complete the MSE because of the patient's hearing impairment. Assessment and Plan Impression: Hx of Dementia per the record. Today the patient is calm, but hearing impaired during the assessment. The patient's LF are slightly elevated. Recommendation/Plan: Gather collateral information. Also, the patient hearing aids are needed so a proper psy assessment can be completed. The following Delirium protocol is recommended: 1. Frequently reorient patient and involve him/her in their care (simple explanations of procedures, tests, medications). 2. Lights on and shades open during daytime hours. 3. Write date and goals of care in a visible place. 4. Try to avoid unnecessary interruptions to sleep during nighttime hours. 5. Obtain glasses, hearing aids from home if patient uses these at baseline. 6. Avoid medications that may exacerbate delirium (especially narcotics, benzodiazepines, barbiturates, ambien, lunesta, and medications with excessive anticholinergic properties). Dispo: Once an assessment is completed, proper dispo will be determined. Staffed with Dr Phillips.
--- NOTE | 2018-07-24 14:32 | Progress Note ---
Assessment and Plan /Acute Metabolic encephalopathy Likely from underlying dementia and severe hypothyroidism Continue Neurochecks, CT head unremarkable. patient now more awake but still confused /hallucination ?? per family members pt c/o seeing thing at night psych consulted will follow recommendation /Hypothermia due to exposure to cold, resolved She went out in blistering cold found back of neighbor's house Managed with warming blanket /Dementia cont supportive care /Severe Hypothyroiidism cont Levothyrocxine for now /Diabetes mellitus type 2. cont SSI with Fingerstick qac and hs /Cardiomyopathy, EF 25-30% /Chronic systolic CHF -Consulted cardiology, recommended medical management /COPD, stable - Nebs and supplemental O2 as needed /History of AAA s/p repair and History of thoracic aortic aneurysm - being followed as outpatient /CAD with chronic total occlusion of the circumflex, recommended for medical therapy /SAULO, likely vasomotor nephropathy in the setting of volume depletion. CT abdomen was negative for any hydronephrosis. renal following cont iv fluid Full code status Brief History: Patient is 78-year-old female with past medical history of dementia, diabetes, CAD, ischemic cardiomyopathy with Ef 25%, thoracic aortic aneurysm, abdominal aortic aneurysm status post endovascular repair was brought in for altered mental status and hypothermia. Patient last seen in the home at 2 AM. Apparent ly she left the house and was found sitting in the back of the neighbors house in very cold weather. She was brought to hospital, was foumd to be lethargic, hypothermia. with rectal temp 89 degrees. TSH >89, admitted for further management. Physical exam: GENERAL: well-developed elderly -[place] female lying on bed appeared to be in no discomfort. HEENT: Normocephalic. Atraumatic. No conjunctival congestion or icterus. Patient has moist mucous membranes. NECK: Supple. Trachea midline. CHEST/LUNGS: Clear to auscultated bilaterally, breathing nonlabored. No wheezes crackles or rhonchi. HEART/CARDIOVASCULAR: Regular in rate and rhythm. S1 and S2 positive. ABDOMEN: Abdomen is soft, nontender. Patient has normal bowel sounds. SKIN: There is no rash. Warm and dry. NEURO: No focal motor deficit. Follows command. Appears confused MUSCULOSKELETAL: No joint effusion or tenderness. EXTRIMITY: No edema, no cyanosis or clubbing. PSYCH: Cooperative. Subjective Date of service: 07/24/18 Interval history: Patient sen and examined alert and awake but appears confused and very hard on hearing No acute issue o/n, tolerating diet Objective - Constitutional Vitals: Vital Signs - 12hr 07/24/18 07/24/18 07/24/18 02:40 02:44 07:49 Temperature 98.4 F 98.4 F Pulse Rate 59 L 51 L Respiratory 20 18 Rate Blood Pressure 151/77 157/66 O2 Sat by Pulse 99 98 Oximetry 07/24/18 09:49 Temperature Pulse Rate 51 L Respiratory Rate Blood Pressure 157/66 O2 Sat by Pulse Oximetry - Labs CBC & Chem 7: 07/22/18 06:06 07/25/18 04:55 Labs: Abnormal lab results 07/23/18 07/23/18 07/23/18 Range/Units 16:25 21:54 23:30 Creatinine (0.7-1.2) mg/dL POC Glucose 163 H 188 H (70-105) AST (5-40) units/L ALT (7-56) units/L Total Creatine Kinase (30-135) units/L Total Protein (6.3-8.2) g/dL Urine Creatinine 146.9 H (0.1-20.0) mg/dL Urine Total Protein 96 H (5-11.8) mg/dL 07/24/18 07/24/18 07/24/18 Range/Units 04:28 07:21 10:58 Creatinine 1.8 H (0.7-1.2) mg/dL POC Glucose 107 H 174 H (70-105) AST 68 H (5-40) units/L ALT 66 H (7-56) units/L Total Creatine Kinase 476 H (30-135) units/L Total Protein 5.9 L (6.3-8.2) g/dL Urine Creatinine (0.1-20.0) mg/dL Urine Total Protein (5-11.8) mg/dL
[2018-07-24] MEDS: TYLENOL PO PRN (15:46)
[2018-07-25 05:53] LABS: Albumin 3.7 g/dL (3.9-5); Calcium 8.1 mg/dL (8.4-10.2)
--- NOTE | 2018-07-25 10:08 | Progress Note ---
Assessment and Plan 1. Acute kidney injury: Likely Vasomotor / hemodynamic SAULO in the setting of volume depletion. CT abdomen was negative for any hydronephrosis. Continue IV fluids. Renal function is better. Monitor renal function. Avoid nephrotoxic agents. Meds dosage based on GFR. 2. FEN: Continue IV fluids. Monitor lytes. 3. Acute Metabolic encephalopathy. 4. Severe hypothyroidism. 5. Hypothermia: Secondary to exposure to cold. Resolved 6. Cardiomyopathy with EF 25-30%: Followed by Cards. Subjective Date of service: 07/25/18 Interval history: Patient was seen and examined at the bedside. Doing ok. Objective - Vital Signs Vital signs: Vital Signs - 12hr 07/24/18 07/25/18 07/25/18 22:50 02:37 02:39 Temperature 98.2 F Pulse Rate 60 Respiratory 20 Rate Blood Pressure 149/70 165/69 O2 Sat by Pulse 98 Oximetry 07/25/18 07:54 Temperature 98.4 F Pulse Rate 60 Respiratory 18 Rate Blood Pressure 170/83 O2 Sat by Pulse 98 Oximetry - General Appearance General appearance: well-developed, well-nourished, appears stated age, other (not in distress) EENT: ATNC, PERRL Neck: supple Respiratory: Present: Clear to Ascultation Cardiology: regular, S1S2, no murmurs Gastrointestinal: normoactive bowel sounds, no tenderness, no distended Integumentary: no rash, warm and dry Neurologic: no focal deficit, no asterixis, confused, disoriented Musculoskeletal: other (no edema) - Lab 07/22/18 06:06 07/25/18 04:55 Most recent lab results Calcium 8.1 mg/dL (8.4-10.2) L 07/25/18 04:55 Phosphorus 2.90 mg/dL (2.5-4.5) 07/25/18 04:55 Magnesium 2.10 mg/dL (1.7-2.3) 07/25/18 04:55 Urine Creatinine 146.9 mg/dL (0.1-20.0) H 07/23/18 23:30 Urine Sodium 28 mmol/L 07/23/18 23:30 Urine Total Protein 96 mg/dL (5-11.8) H 07/23/18 23:30 Medications & Allergies - Medications Allergies/Adverse Reactions: Allergies ALDO Inhibitors Allergy (Intermediate, Verified 04/21/14 12:16) Angioedema ARB-Angiotensin Receptor Antagonist Allergy (Intermediate, Verified 04/21/14 12:17) Angioedema glipizide Allergy (Intermediate, Verified 04/21/14 12:17) Rash Home Medications: Home Medications Medication Instructions Recorded Confirmed Last Taken Type Insulin Aspart [NovoLOG Flexpen] 10 units SUB-Q TID 03/27/17 07/21/18 03/26/17 History Insulin Glargine,Hum.rec.anlog 40 units SUB-Q HS 03/27/17 07/21/18 07/20/18 History [Lantus] Ranolazine [Ranexa] 500 mg PO BID 03/27/17 07/21/18 Unknown History Metoprolol Succinate [Toprol Xl] 100 mg PO BID 07/21/18 07/21/18 Unknown History Potassium Chloride [Klor-Con 10] 10 meq PO QDAY 07/21/18 07/21/18 Unknown History Rosuvastatin Calcium [Crestor] 40 mg PO DAILY 07/21/18 07/21/18 Unknown History Active Medications: Generic Name Dose Route Start Last Admin Trade Name Freq PRN Reason Stop Dose Admin Acetaminophen 650 mg 07/21/18 10:38 07/24/18 15:46 Tylenol PO 650 mg Q4H PRN Administration Pain MILD(1-3)/Fever >100.5/GORDON Al Hydrox/Mg Hydrox/Simethicone 30 ml 07/21/18 10:38 Alum-Mag Hydrox-Simeth 682-820-92oh/5ml PO Q4H PRN Indigestion Amlodipine Besylate 10 mg 07/25/18 10:00 Norvasc PO QDAY CAROLE Atorvastatin Calcium 40 mg 07/21/18 22:00 07/24/18 22:49 Lipitor PO 40 mg QHS [facility] Administration Heparin Sodium (Porcine) 5,000 unit 07/21/18 22:00 07/24/18 22:51 Heparin SUB-Q 5,000 unit Q12HR [facility] Administration Sodium Chloride 1,000 mls @ 75 mls/hr 07/23/18 09:00 07/24/18 15:48 Nacl 0.9% 1000 Ml IV 100 mls/hr DIRECT [facility] Administration Levothyroxine Sodium 100 mcg 07/22/18 06:00 07/24/18 07:21 Synthroid PO 100 mcg DAILY@0600 [facility] Administration Metoprolol Succinate 100 mg 07/21/18 22:00 07/24/18 22:50 Toprol Xl PO 100 mg BID [facility] Administration Ondansetron HCl 4 mg 07/21/18 10:38 Zofran IV Q8H PRN Nausea And Vomiting Potassium Chloride 10 meq 07/21/18 11:45 07/24/18 09:49 K-Dur PO 10 meq QDAY [facility] Administration Ranolazine 500 mg 07/21/18 12:00 07/24/18 22:49 Ranexa Er PO 500 mg BID [facility] Administration Sodium Chloride 10 ml 07/21/18 22:00 07/24/18 09:50 Sodium Chloride Flush Syringe 10 Ml IV 10 ml BID [facility] Administration Sodium Chloride 10 ml 07/21/18 10:38 Sodium Chloride Flush Syringe 10 Ml IV PRN PRN LINE FLUSH
[2018-07-25] MEDS: HEPARIN SUB-Q SCH ×2 (10:18→21:50)
[2018-07-25] MEDS: TOPROL XL PO SCH ×2 (10:19→21:50)
[2018-07-25] MEDS: SYNTHROID PO SCH (10:19)
[2018-07-25] MEDS: RANEXA ER PO SCH ×2 (10:19→21:48)
[2018-07-25] MEDS: SODIUM CHLORIDE FLUSH SYRINGE 10 ML IV SCH ×2 (10:20→22:03)
[2018-07-25] MEDS: K-DUR PO SCH (10:20)
[2018-07-25] MEDS: NORVASC PO SCH (10:20)
--- NOTE | 2018-07-25 12:29 | Progress Note ---
Subjective - Reason for Consult Consult date: 07/25/18 Reason for consult: Psychiatry Follow-up - Chief Complaint Chief complaint: "I am okay" 78-year-old AA female who presented to the ER for AMS. Today the patient is calm and cooperative during the assessment. I the provider had to speak directly in the patient's ear to communicate with her. She was able to state her and location when asked. She recalled 1/3 numbers within 5 mins. Per collateral information from her granddaughter Claritza, she stated that her grandmother's behavior changes typical during the afternoon into the night. She stated that the patient's son and sister recently. She stated that the patient would like a referral to see a therapist reference the grieving process. Mrs Mott stated that her grandmother take several pills that she feels is unnecessary. Also, she denies that her grandmother has an official dx of dementia when asked. She stated that she has several appts scheduled for her grandmother reference her medical issues (PCP/ENT). Per the notes, no behavioral disturbances overnight by the patient. The patient denies SI/HI's and AVH's. Mental Status Exam - Vital signs Last Vital Signs Temp 98.4 F 07/25/18 07:54 Pulse 60 07/25/18 10:20 Resp 18 07/25/18 07:54 BP 170/83 07/25/18 10:20 Pulse Ox 98 07/25/18 07:54 - Exam Narrative exam: MSE: Appearance: calm, cooperative Behavior: regular eye contact Speech: regular rate and loud tone Mood: "okay" Affect: congruent to mood Thought Process: circumstantial Thought Content: denies SI/HI's and AVH's Motor Activity: sitting up in the bed Cognition: A/O x3 Insight: fair Judgment: fair Assessment and Plan Impression: Today the patient is calm and cooperative during the assessment. The patient is hearing impaired. CR 1.5. The patient's mental status has impro amber. Recommendation/Plan: Discussed with the patient and patient's granddaughter Ashly Mott about polypharmacy. Advised Mrs Mott to follow up with the patient's PCP to see if she can take less medication. Will follow up with the patient in 24 hours. Dispo: The patient can follow up with [facility] for outpatient psy services. Staffed with Dr Phillips.
[2018-07-25] MEDS: DULCOLAX PR SCH (13:17)
[2018-07-25] MEDS: HumuLIN R SUB-Q SCH ×3 (13:17→22:02)
[2018-07-25] MEDS: PROTONIX PO SCH (13:18)
[2018-07-25] MEDS: MIRALAX 3350 PO SCH (13:18)
--- NOTE | 2018-07-25 14:16 | Progress Note ---
Assessment and Plan /Acute Metabolic encephalopathy, resolved Likely from underlying dementia and severe hypothyroidism Continue Neurochecks, CT head unremarkable. patient now more awake and alert /hallucination ?? possible delirium per family members pt c/o seeing thing at night psych consulted will follow recommendation /Hypothermia due to exposure to cold, resolved She went out in blistering cold found back of neighbor's house Managed with warming blanket /Dementia cont supportive care /Severe Hypothyroiidism cont Levothyrocxine for now /Diabetes mellitus type 2. cont SSI with Fingerstick qac and hs /Cardiomyopathy, EF 25-30% /Chronic systolic CHF -Consulted cardiology, recommended medical management /COPD, stable - Nebs and supplemental O2 as needed /History of AAA s/p repair and History of thoracic aortic aneurysm - being followed as outpatient /CAD with chronic total occlusion of the circumflex, recommended for medical therapy /SAULO, likely vasomotor nephropathy in the setting of volume depletion. CT abdomen was negative for any hydronephrosis. renal following cont iv fluid, Cr improving /HTN, monitor BP, adjust meds as needed Full code status Brief History: Patient is 78-year-old female with past medical history of dementia, diabetes, CAD, ischemic cardiomyopathy with Ef 25%, thoracic aortic aneurysm, abdominal aortic aneurysm status post endovascular repair was brought in for altered mental status and hypothermia. Patient last seen in the home at 2 AM. Apparently she left the house and was found sitting in the back of the neighbors house in very cold weather. She was brought to hospital, was foumd to be lethargic, hypothermia. with rectal temp 89 degrees. TSH >89, admitted for [facility] management. Physical exam: GENERAL: well-developed elderly -[place] female lying on bed appeared to be in no discomfort. HEENT: Normocephalic. Atraumatic. No conjunctival congestion or icterus. Patient has moist mucous membranes. NECK: Supple. Trachea midline. CHEST/LUNGS: Clear to auscultated bilaterally, breathing nonlabored. No wheezes crackles or rhonchi. HEART/CARDIOVASCULAR: Regular in rate and rhythm. S1 and S2 positive. ABDOMEN: Abdomen is soft, nontender. Patient has normal bowel sounds. SKIN: There is no rash. Warm and dry. NEURO: No focal motor deficit. Follows command. MUSCULOSKELETAL: No joint effusion or tenderness. EXTRIMITY: No edema, no cyanosis or clubbing. PSYCH: Cooperative. Subjective Date of service: 07/25/18 Interval history: Patient sen and examined alert and awake appears more cooperative today but very hard on hearing No acute issue o/n, tolerating diet daughter at bedside updating Objective - Constitutional Vitals: Vital Signs - 12hr 07/25/18 07/25/18 07/25/18 02:37 02:39 07:54 Temperature 98.2 F 98.4 F Pulse Rate 60 60 Respiratory 20 18 Rate Blood Pressure 165/69 170/83 O2 Sat by Pulse 98 98 Oximetry 07/25/18 07/25/18 10:19 10:20 Temperature Pulse Rate 60 60 Respiratory Rate Blood Pressure 170/83 O2 Sat by Pulse Oximetry - Labs CBC & Chem 7: 07/22/18 06:06 07/26/18 11:17 Labs: Abnormal lab results 07/24/18 07/24/18 07/25/18 Range/Units 16:34 22:34 04:55 Chloride 108.5 H (98-107) mmol/L Creatinine 1.5 H (0.7-1.2) mg/dL Glucose 104 H (65-100) mg/dL POC Glucose 140 H 155 H (70-105) Calcium 8.1 L (8.4-10.2) mg/dL Total Protein 5.6 L (6.3-8.2) g/dL Albumin 3.7 L (3.9-5) g/dL PTH Intact (15-65) pg/mL 07/25/18 07/25/18 Range/Units 04:55 11:11 Chloride (98-107) mmol/L Creatinine (0.7-1.2) mg/dL Glucose (65-100) mg/dL POC Glucose 202 H (70-105) Calcium (8.4-10.2) mg/dL Total Protein (6.3-8.2) g/dL Albumin (3.9-5) g/dL PTH Intact 119.5 H (15-65) pg/mL
[2018-07-25] MEDS: COLACE PO SCH (21:48)
[2018-07-25] MEDS: LANTUS SUB-Q SCH (21:54)
[2018-07-26] MEDS: NACL 0.9% 1000 ML 1,000 ML IV SCH (05:15)
[2018-07-26] MEDS: SYNTHROID PO SCH (05:18)
[2018-07-26] MEDS: HumuLIN R SUB-Q SCH ×4 (08:00→22:38)
--- NOTE | 2018-07-26 09:17 | Progress Note ---
Assessment and Plan 1. Acute kidney injury: Likely Vasomotor / hemodynamic SAULO in the setting of volume depletion. CT abdomen was negative for any hydronephrosis. Continue IV fluids. Renal function is better. Monitor renal function. Avoid nephrotoxic agents. Meds dosage based on GFR. 2. FEN: Continue IV fluids. Monitor lytes. 3. Acute Metabolic encephalopathy. 4. Severe hypothyroidism. 5. Hypothermia: Secondary to exposure to cold. Resolved 6. Cardiomyopathy with EF 25-30%: Followed by Cards. Subjective Date of service: 07/26/18 Interval history: Patient was seen and examined at the bedside. Doing ok. Objective - Vital Signs Vital signs: Vital Signs - 12hr 07/25/18 07/25/18 07/26/18 21:50 22:00 03:00 Pulse Rate 96 H 94 H Pulse Rate [ 96 H Apical] Respiratory 18 20 Rate Respiratory 18 Rate [Chest/ along R side of ribs] Blood Pressure 139/75 Blood Pressure 157/76 [Right] O2 Sat by Pulse 99 100 Oximetry - General Appearance General appearance: well-developed, well-nourished, appears stated age, other ( not in distress) EENT: ATNC, PERRL, mucous membranes moist, vision intact, hearing diminished Neck: supple Respiratory: Present: Clear to Ascultation Cardiology: regular, S1S2, no murmurs Gastrointestinal: normoactive bowel sounds, no tenderness, no distended Integumentary: no rash, warm and dry Neurologic: no focal deficit, no asterixis, confused Musculoskeletal: other (no edema) - Lab 07/22/18 06:06 07/26/18 11:17 Most recent lab results Calcium 8.1 mg/dL (8.4-10.2) L 07/25/18 04:55 Phosphorus 2.90 mg/dL (2.5-4.5) 07/25/18 04:55 Magnesium 2.10 mg/dL (1.7-2.3) 07/25/18 04:55 Urine Creatinine 146.9 mg/dL (0.1-20.0) H 07/23/18 23:30 Urine Sodium 28 mmol/L 07/23/18 23:30 Urine Total Protein 96 mg/dL (5-11.8) H 07/23/18 23:30 Medications & Allergies - Medications Allergies/Adverse Reactions: Allergies ALDO Inhibitors Allergy (Intermediate, Verified 04/21/14 12:16) Angioedema ARB-Angiotensin Receptor Antagonist Allergy (Intermediate, Verified 04/21/14 12:17) Angioedema glipizide Allergy (Intermediate, Verified 04/21/14 12:17) Rash Home Medications: Home Medications Medication Instructions Recorded Confirmed Last Taken Type Insulin Aspart [NovoLOG Flexpen] 10 units SUB-Q TID 03/27/17 07/21/18 03/26/17 History Insulin Glargine,Hum.rec.anlog 40 units SUB-Q HS 03/27/17 07/21/18 07/20/18 History [Lantus] Ranolazine [Ranexa] 500 mg PO BID 03/27/17 07/21/18 Unknown History Metoprolol Succinate [Toprol Xl] 100 mg PO BID 07/21/18 07/21/18 Unknown History Potassium Chloride [Klor-Con 10] 10 meq PO QDAY 07/21/18 07/21/18 Unknown History Rosuvastatin Calcium [Crestor] 40 mg PO DAILY 07/21/18 07/21/18 Unknown History Active Medications: Generic Name Dose Route Start Last Admin Trade Name Freq PRN Reason Stop Dose Admin Acetaminophen 650 mg 07/21/18 10:38 07/24/18 15:46 Tylenol PO 650 mg Q4H PRN Administration Pain MILD(1-3)/Fever >100.5/GORDON Al Hydrox/Mg Hydrox/Simethicone 30 ml 07/21/18 10:38 Alum-Mag Hydrox-Simeth 151-252-31gn/5ml PO Q4H PRN Indigestion Amlodipine Besylate 10 mg 07/25/18 10:00 07/25/18 10:20 Norvasc PO 10 mg QDAY CAROLE Administration Atorvastatin Calcium 40 mg 07/21/18 22:00 07/25/18 21:48 Lipitor PO 40 mg QHS CAROLE Administration Bisacodyl 10 mg 07/25/18 12:00 07/25/18 13:17 Dulcolax [place] 10 mg QDAY CAROLE Administration Docusate Sodium 100 mg 07/25/18 22:00 07/25/18 21:48 Colace PO 100 mg BID CAROLE Administration Heparin Sodium (Porcine) 5,000 unit 07/21/18 22:00 07/25/18 21:50 Heparin SUB-Q 5,000 unit Q12HR CAROLE Administration Sodium Chloride 1,000 mls @ 75 mls/hr 07/23/18 09:00 07/26/18 05:15 Nacl 0.9% 1000 Ml IV 75 mls/hr DIRECT CAROLE Administration Insulin Glargine 5 units 07/25/18 22:00 07/25/18 21:54 Lantus SUB-Q 5 units HS CAROLE Administration Insulin Human Regular 0 units 07/25/18 12:00 07/25/18 22:02 Humulin R SUB-Q Not Given ACHS [facility] Protocol Levothyroxine Sodium 100 mcg 07/22/18 06:00 07/26/18 05:18 Synthroid PO 100 mcg DAILY@0600 CAROLE Administration Metoprolol Succinate 100 mg 07/21/18 22:00 07/25/18 21:50 Toprol Xl PO 100 mg BID CAROLE Administration Ondansetron HCl 4 mg 07/21/18 10:38 Zofran IV Q8H PRN Nausea And Vomiting Pantoprazole Sodium 40 mg 07/25/18 12:00 07/25/18 13:18 Protonix PO 40 mg QDAY CAROLE Administration Polyethylene Glycol 17 gm 07/25/18 12:00 07/25/18 13:18 Miralax 3350 PO 17 gm QDAY CAROLE Administration Potassium Chloride 10 meq 07/21/18 11:45 07/25/18 10:20 K-Dur PO 10 meq QDAY CAROLE Administration Ranolazine 500 mg 07/21/18 12:00 07/25/18 21:48 Ranexa Er PO 500 mg BID CAROLE Administration Sodium Chloride 10 ml 07/21/18 22:00 07/25/18 22:03 Sodium Chloride Flush Syringe 10 Ml IV 10 ml BID CAROLE Administration Sodium Chloride 10 ml 07/21/18 10:38 Sodium Chloride Flush Syringe 10 Ml IV PRN PRN LINE FLUSH
[2018-07-26] MEDS: RANEXA ER PO SCH ×2 (09:33→21:29)
[2018-07-26] MEDS: PROTONIX PO SCH (09:33)
[2018-07-26] MEDS: TOPROL XL PO SCH ×2 (09:33→21:31)
[2018-07-26] MEDS: COLACE PO SCH ×2 (09:33→21:28)
[2018-07-26] MEDS: NORVASC PO SCH (09:33)
[2018-07-26] MEDS: K-DUR PO SCH (09:33)
[2018-07-26] MEDS: HEPARIN SUB-Q SCH ×2 (09:33→21:28)
[2018-07-26] MEDS: MIRALAX 3350 PO SCH (09:38)
[2018-07-26] MEDS: DULCOLAX PR SCH (09:38)
[2018-07-26] MEDS: SODIUM CHLORIDE FLUSH SYRINGE 10 ML IV SCH ×2 (09:39→21:29)
--- NOTE | 2018-07-26 12:39 | Progress Note ---
Assessment and Plan /Acute Metabolic encephalopathy, resolved Likely from underlying dementia and severe hypothyroidism Continue Neurochecks, CT head unremarkable. patient now more awake and alert /hallucination ?? possible delirium per family members pt c/o seeing thing at night psych consulted will follow recommendation /Hypothermia due to exposure to cold, resolved She went out in blistering cold found back of neighbor's house Managed with warming blanket /Dementia cont supportive care /Severe Hypothyroiidism cont Levothyrocxine for now /Diabetes mellitus type 2. cont SSI with Fingerstick qac and hs /Cardiomyopathy, EF 25-30% /Chronic systolic CHF -Consulted cardiology, recommended medical management /COPD, stable - Nebs and supplemental O2 as needed /History of AAA s/p repair and History of thoracic aortic aneurysm - being followed as outpatient /CAD with chronic total occlusion of the circumflex, recommended for medical therapy /SAULO, likely vasomotor nephropathy in the setting of volume depletion. CT abdomen was negative for any hydronephrosis. renal following Cr improving, stop iv fluid /HTN, monitor BP, adjust meds as needed /Physical debility, PT eval pending Full code status Brief History: Patient is 78-year-old female with past medical history of dementia, diabetes, CAD, ischemic cardiomyopathy with Ef 25%, thoracic aortic aneurysm, abdominal aortic aneurysm status post endovascular repair was brought in for altered mental status and hypothermia. Patient last seen in the home at 2 AM. Apparently she left the house and was found sitting in the back of the neighbors house in very cold weather. She was brought to hospital, was foumd to be lethargic, hypothermia. with rectal temp 89 degrees. TSH >89, admitted for further management. Physical exam: GENERAL: well-developed elderly -Mongolian female lying on bed appeared to be in no discomfort. HEENT: Normocephalic. Atraumatic. No conjunctival congestion or icterus. Patient has moist mucous membranes. NECK: Supple. Trachea midline. CHEST/LUNGS: Clear to auscultated bilaterally, breathing nonlabored. No wheezes crackles or rhonchi. HEART/CARDIOVASCULAR: Regular in rate and rhythm. S1 and S2 positive. ABDOMEN: Abdomen is soft, nontender. Patient has normal bowel sounds. SKIN: There is no rash. Warm and dry. NEURO: No focal motor deficit. Follows command. MUSCULOSKELETAL: No joint effusion or tenderness. EXTRIMITY: No edema, no cyanosis or clubbing. PSYCH: Cooperative. Subjective Date of service: 07/26/18 Interval history: Patient sen and examined alert and awake appears more cooperative today No acute issue o/n, tolerating diet Son at bedside updated Objective - Constitutional Vitals: Vital Signs - 12hr 07/26/18 07/26/18 07/26/18 01:27 03:00 07:47 Temperature 98.3 F 98.5 F Pulse Rate 94 H 58 L Respiratory 20 20 20 Rate Blood Pressure 157/76 169/82 Blood Pressure 157/76 [Right] O2 Sat by Pulse 100 98 Oximetry 07/26/18 09:33 Temperature Pulse Rate 58 L Respiratory Rate Blood Pressure 169/82 Blood Pressure [Right] O2 Sat by Pulse Oximetry - Labs CBC & Chem 7: 07/22/18 06:06 07/27/18 06:17 Labs: Abnormal lab results 07/25/18 07/26/18 Range/Units 21:58 11:17 BUN 6 L (7-17) mg/dL Creatinine 1.3 H (0.7-1.2) mg/dL Glucose 117 H (65-100) mg/dL POC Glucose 133 H (70-105)
[2018-07-26] MEDS ORDERED: AMBIEN PO PRN (13:37)
[2018-07-26] MEDS: APRESOLINE PO SCH ×2 (14:29→21:27)
[2018-07-26] MEDS: TYLENOL PO PRN (21:27)
[2018-07-26] MEDS: LANTUS SUB-Q SCH (21:28)
--- NOTE | 2018-07-26 21:57 | Progress Note ---
Subjective - Reason for Consult Consult date: 07/26/18 Reason for consult: follow up - Chief Complaint Chief complaint: "I need a sedative at night." 78-year-old AA female who presented to the ER for AMS. Today the patient is calm and cooperative during the assessment. I the provider had to speak directly in the patient's ear to communicate with her. She was observed rubbing her legs saying they hurt. She states she told the staff. She asks for a medicine to help her sleep. The patient denies SI/HI's and AVH's. Mental Status Exam - Vital signs Last Vital Signs Temp 97.8 F 07/26/18 20:50 Pulse 57 L 07/26/18 21:31 Resp 20 07/26/18 20:50 BP 131/70 07/26/18 21:31 Pulse Ox 99 07/26/18 20:50 Assessment and Plan MSE: Appearance: calm, cooperative Behavior: regular eye contact Speech: regular rate Mood: "okay" Affect: congruent to mood Thought Process: circumstantial Thought Content: denies SI/HI's and AVH's Motor Activity: sitting up in the bed Cognition: A/O x3 Insight: fair Judgment: fair Assessment and Plan Impression: Today the patient is calm and cooperative during the assessment. The patient is hearing impaired. CR 1.5. She is alert and oriented. Her primary focus is pain and sleep. Recommendation/Plan: MARIEL Lopez previously discussed with the patient and patient's granddaughter Ashly Mott about polypharmacy. Meds should be optimized to address sleep/depression -remeron 7.5mg hs while hospitalized should be helpful for sleep. Dispo: The patient can follow up with [facility] for outpatient psy services. Staffed with Dr Narvaez
[2018-07-26] MEDS: REMERON PO SCH (22:59)
[2018-07-27] MEDS: APRESOLINE PO SCH ×3 (05:31→21:29)
[2018-07-27] MEDS: SYNTHROID PO SCH (05:31)
[2018-07-27] MEDS: HumuLIN R SUB-Q SCH ×4 (07:25→22:20)
[2018-07-27 07:37] LABS: Calcium 8.5 mg/dL (8.4-10.2)
--- NOTE | 2018-07-27 08:25 | Progress Note ---
Assessment and Plan 1. Acute kidney injury: Likely Vasomotor / hemodynamic SAULO in the setting of volume depletion. CT abdomen was negative for any hydronephrosis. Renal function is better. Monitor renal function. Avoid nephrotoxic agents. Meds dosage based on GFR. 2. FEN: Monitor lytes. 3. Acute Metabolic encephalopathy. 4. Severe hypothyroidism. 5. Hypothermia: Secondary to exposure to cold. Resolved 6. Cardiomyopathy with EF 25-30%. Subjective Date of service: 07/27/18 Interval history: Patient was seen and examined at the bedside. Doing ok. Objective - Vital Signs Vital signs: Vital Signs - 12hr 07/26/18 07/26/18 07/26/18 20:17 20:50 21:27 Temperature 97.8 F Pulse Rate 57 L 57 L Pulse Rate [ Apical] Respiratory 20 Rate Blood Pressure 131/70 131/70 O2 Sat by Pulse 95 99 Oximetry 07/26/18 07/26/18 07/27/18 21:31 22:00 01:41 Temperature 97.8 F Pulse Rate 57 L 70 Pulse Rate [ 57 L Apical] Respiratory 20 Rate Blood Pressure 131/70 107/51 O2 Sat by Pulse 99 100 Oximetry 07/27/18 05:31 Temperature Pulse Rate 70 Pulse Rate [ Apical] Respiratory Rate Blood Pressure 107/51 O2 Sat by Pulse Oximetry - General Appearance General appearance: well-developed, well-nourished, appears stated age, other (not in distress) EENT: ATNC, PERRL, vision intact, hearing diminished Neck: supple Respiratory: Present: Clear to Ascultation Cardiology: regular, S1S2, no murmurs Gastrointestinal: normoactive bowel sounds, no tenderness, no distended Integumentary: no rash, warm and dry Neurologic: no focal deficit, no asterixis, disoriented Musculoskeletal: other (no edema) - Lab 07/22/18 06:06 07/27/18 06:17 Most recent lab results Calcium 8.5 mg/dL (8.4-10.2) 07/27/18 06:17 Phosphorus 2.90 mg/dL (2.5-4.5) 07/25/18 04:55 Magnesium 2.10 mg/dL (1.7-2.3) 07/25/18 04:55 Urine Creatinine 146.9 mg/dL (0.1-20.0) H 07/23/18 23:30 Urine Sodium 28 mmol/L 07/23/18 23:30 Urine Total Protein 96 mg/dL (5-11.8) H 07/23/18 23:30 Medications & Allergies - Medications Allergies/Adverse Reactions: Allergies ALDO Inhibitors Allergy (Intermediate, Verified 04/21/14 12:16) Angioedema ARB-Angiotensin Receptor Antagonist Allergy (Intermediate, Verified 04/21/14 12:17) Angioedema glipizide Allergy (Intermediate, Verified 04/21/14 12:17) Rash Home Medications: Home Medications Medication Instructions Recorded Confirmed Last Taken Type Insulin Aspart [NovoLOG Flexpen] 10 units SUB-Q TID 03/27/17 07/21/18 03/26/17 History Insulin Glargine,Hum.rec.anlog 40 units SUB-Q HS 03/27/17 07/21/18 07/20/18 History [Lantus] Ranolazine [Ranexa] 500 mg PO BID 03/27/17 07/21/18 Unknown History Metoprolol Succinate [Toprol Xl] 100 mg PO BID 07/21/18 07/21/18 Unknown History Rosuvastatin Calcium [Crestor] 40 mg PO DAILY 07/21/18 07/21/18 Unknown History Levothyroxine [Synthroid] 100 mcg PO DAILY@0600 #30 tablet 07/27/18 Unknown Rx amLODIPine [Norvasc] 10 mg PO QDAY #30 tablet 07/27/18 Unknown Rx Active Medications: Generic Name Dose Route Start Last Admin Trade Name Freq PRN Reason Stop Dose Admin Acetaminophen 650 mg 07/21/18 10:38 07/26/18 21:27 Tylenol PO 650 mg Q4H PRN Administration Pain MILD(1-3)/Fever >100.5/GORDON Al Hydrox/Mg Hydrox/Simethicone 30 ml 07/21/18 10:38 Alum-Mag Hydrox-Simeth 057-334-93sy/5ml PO Q4H PRN Indigestion Amlodipine Besylate 10 mg 07/25/18 10:00 07/26/18 09:33 Norvasc PO 10 mg QDAY CAROLE Administration Atorvastatin Calcium 40 mg 07/21/18 22:00 07/26/18 21:27 Lipitor PO 40 mg QHS CAROLE Administration Bisacodyl 10 mg 07/25/18 12:00 07/26/18 09:38 Dulcolax [place] Not Given QDAY CAROLE Docusate Sodium 100 mg 07/25/18 22:00 07/26/18 21:28 Colace PO 100 mg BID CAROLE Administration Heparin Sodium (Porcine) 5,000 unit 07/21/18 22:00 07/26/18 21:28 Heparin SUB-Q 5,000 unit Q12HR CAROLE Administration Hydralazine HCl 50 mg 07/26/18 14:00 07/27/18 05:31 Apresoline PO Not Given Q8HR CAROLE Insulin Glargine 5 units 07/25/18 22:00 07/26/18 21:28 Lantus SUB-Q 5 units HS CAROLE Administration Insulin Human Regular 0 units 07/25/18 12:00 07/26/18 22:38 Humulin R SUB-Q Not Given ACHS [facility] Protocol Levothyroxine Sodium 100 mcg 07/22/18 06:00 07/27/18 05:31 Synthroid PO 100 mcg DAILY@0600 CAROLE Administration Metoprolol Succinate 100 mg 07/21/18 22:00 07/26/18 21:31 Toprol Xl PO 100 mg BID CAROLE Administration Mirtazapine 7.5 mg 07/26/18 22:00 07/26/18 22:59 Remeron PO 7.5 mg QHS CAROLE Administration Ondansetron HCl 4 mg 07/21/18 10:38 Zofran IV Q8H PRN Nausea And Vomiting Pantoprazole Sodium 40 mg 07/25/18 12:00 07/26/18 09:33 Protonix PO 40 mg QDAY CAROLE Administration Polyethylene Glycol 17 gm 07/25/18 12:00 07/26/18 09:38 Miralax 3350 PO 17 gm QDAY CAROLE Administration Potassium Chloride 10 meq 07/21/18 11:45 07/26/18 09:33 K-Dur PO 10 meq QDAY CAROLE Administration Ranolazine 500 mg 07/21/18 12:00 07/26/18 21:29 Ranexa Er PO 500 mg BID CAROLE Administration Sodium Chloride 10 ml 07/21/18 22:00 07/26/18 21:29 Sodium Chloride Flush Syringe 10 Ml IV 10 ml BID CAROLE Administration Sodium Chloride 10 ml 07/21/18 10:38 Sodium Chloride Flush Syringe 10 Ml IV PRN PRN LINE FLUSH Zolpidem Tartrate 5 mg 07/26/18 13:37 07/26/18 21:27 Ambien PO 5 mg QHS PRN Administration Sleep
[2018-07-27] MEDS: NORVASC PO SCH (09:43)
[2018-07-27] MEDS: PROTONIX PO SCH (09:43)
[2018-07-27] MEDS: COLACE PO SCH ×2 (09:44→21:29)
[2018-07-27] MEDS: RANEXA ER PO SCH ×2 (09:44→21:29)
[2018-07-27] MEDS: DULCOLAX PR SCH (09:44)
[2018-07-27] MEDS: HEPARIN SUB-Q SCH ×2 (09:44→21:29)
[2018-07-27] MEDS: MIRALAX 3350 PO SCH (09:44)
[2018-07-27] MEDS: K-DUR PO SCH (09:44)
[2018-07-27] MEDS: TOPROL XL PO SCH ×2 (09:45→21:29)
[2018-07-27] MEDS: SODIUM CHLORIDE FLUSH SYRINGE 10 ML IV SCH ×2 (09:45→21:31)
--- NOTE | 2018-07-27 10:36 | Discharge Summary ---
Providers - Providers Date of Admission: 07/21/18 08:53 Date of discharge: 07/27/18 Attending physician: WILLIAM SWAIN 07/21/18 11:07 Speech Therapy Evaluation and Treat [CONS] Routine Reason For Exam: swallow eval 07/22/18 13:52 Consult to Mental Health [CONS] Routine Reason For Exam: delirium Place consult to:: mental health Notified:: SANJUANA Phone number called:: [phone] 07/23/18 13:38 Consult to Physician [CONS] Routine Comment: Consulting Provider: GOLDY WERNER Physician Instructions: Reason For Exam: SAULO 07/25/18 09:43 Physical Therapy Evaluation and Treat [CONS] Routine Comment: Reason For Exam: placement Primary care physician: [employer] Hospitalization Condition: Stable Pertinent studies: CXR head CT abdomen/pelvis CT Barium swallow xry Hospital course: Brief History: Patient is 78-year-old female with past medical history of dementia, diabetes, C AD, ischemic cardiomyopathy with Ef 25%, thoracic aortic aneurysm, abdominal aortic aneurysm status post endovascular repair was brought in for altered mental status and hypothermia. Patient last seen in the home at 2 AM. Apparently she left the house and was found sitting in the back of the neighbors house in very cold weather. She was brought to hospital, was found to be lethargic, hypothermic with rectal temp 89 degrees, TSH >89, admitted for further evaluation and management. Discharge diagnosis and management: /Acute Metabolic encephalopathy, resolved Likely from underlying dementia and severe hypothyroidism monitored with frequent Neurochecks, have no focal deficit, CT head unremarkable. patient now more awake and alert on discharge /hallucination ?? possible delirium per family members pt c/o seeing thing at night Not noted since admission, could be from delirium, which now resolved psych consulted - recommended outpt followup and to Continue Remeron 7.5 mg PO HS for sleep /Hypothermia due to exposure to cold, resolved She went out in blistering cold found back of neighbor's house Managed with warming blanket /Dementia, early stage cont supportive care, outpt follow up /Severe Hypothyroiidism cont Levothyrocxine for now /Diabetes mellitus type 2. cont SSI with Fingerstick qac and hs /Cardiomyopathy, EF 25-30% /Chronic systolic CHF -Consulted cardiology, recommended medical management /COPD, stable - Nebs and supplemental O2 as needed /History of AAA s/p repair and History of thoracic aortic aneurysm - being followed as outpatient /CAD with chronic total occlusion of the circumflex, recommended for medical therapy /SAULO, likely vasomotor nephropathy in the setting of volume depletion. CT abdomen was negative for any hydronephrosis. renal following Cr improving, stop iv fluid /HTN, monitor BP, adjust meds as needed /Physical debility, s/p PT eval, recommended roller walker on discharge Full code status Physical exam: GENERAL: well-developed elderly -Moldovan female lying on bed appeared to be in no discomfort. HEENT: Normocephalic. Atraumatic. No conjunctival congestion or icterus. Patient has moist mucous membranes. NECK: Supple. Trachea midline. CHEST/LUNGS: Clear to auscultated bilaterally, breathing nonlabored. No wheezes crackles or rhonchi. HEART/CARDIOVASCULAR: Regular in rate and rhythm. S1 and S2 positive. ABDOMEN: Abdomen is soft, nontender. Patient has normal bowel sounds. SKIN: There is no rash. Warm and dry. NEURO: No focal motor deficit. Follows command. MUSCULOSKELETAL: No joint effusion or tenderness. EXTRIMITY: No edema, no cyanosis or clubbing. PSYCH: Cooperative. Disposition: DC/[place]-03 [facility] C[facility] Time spent for discharge: 34 minutes Core Measure Documentation - Palliative Care Palliative Care/ Comfort Measures: Not Applicable - Core Measures Any of the following diagnoses?: history only Exam - Constitutional Vitals: Temp Pulse Resp BP Pulse Ox 98.5 F 60 18 106/55 100 07/27/18 08:01 07/27/18 09:45 07/27/18 08:01 07/27/18 09:45 07/27/18 09:28 Plan Activity: fall precautions Weight Bearing Status: Non-Weight Bearing Diet: low fat, low salt Durable Medical Equipment Needed Upon Discharge: Walker-Rolling, Bedside Commode Follow up with: PRIMARY CARE, [Primary Care Provider] - 7 Days Prescriptions: Mirtazapine [Remeron] 7.5 mg PO QHS #30 tablet amLODIPine [Norvasc] 10 mg PO QDAY #30 tablet Levothyroxine [Synthroid] 100 mcg PO DAILY@0600 #30 tablet
[2018-07-27] MEDS: TYLENOL PO PRN (15:29)
[2018-07-27] MEDS ORDERED: NORCO 5/325 PO PRN (17:14)
[2018-07-27] MEDS: REMERON PO SCH (21:29)
[2018-07-27] MEDS: LANTUS SUB-Q SCH (22:20)
--- NOTE | 2018-07-27 22:53 | Progress Note ---
Assessment and Plan /Acute Metabolic encephalopathy, resolved Likely from underlying dementia and severe hypothyroidism Continue Neurochecks, CT head unremarkable. patient now more awake and alert /hallucination ?? possible delirium per family members pt c/o seeing thing at night Not noted since admission, could be from delirium, which now resolved psych consulted - recommended outpt followup /Hypothermia due to exposure to cold, resolved She went out in blistering cold found back of neighbor's house Managed with warming blanket /Dementia, early stage cont supportive care, outpt follow up /Severe Hypothyroiidism cont Levothyrocxine for now /Diabetes mellitus type 2. cont SSI with Fingerstick qac and hs /Cardiomyopathy, EF 25-30% /Chronic systolic CHF -Consulted cardiology, recommended medical management /COPD, stable - Nebs and supplemental O2 as needed /History of AAA s/p repair and History of thoracic aortic aneurysm - being followed as outpatient /CAD with chronic total occlusion of the circumflex, recommended for medical therapy /SAULO, likely vasomotor nephropathy in the setting of volume depletion. CT abdomen was negative for any hydronephrosis. renal following Cr improved with iv fluid /HTN, monitor BP, adjust meds as needed /Physical debility, PT recommended HH with family support VS FATOU if HH not possible Full code status Physical exam: GENERAL: well-developed elderly -Hungarian female lying on bed appeared to be in no discomfort. HEENT: Normocephalic. Atraumatic. No conjunctival congestion or icterus. Patient has moist mucous membranes. NECK: Supple. Trachea midline. CHEST/LUNGS: Clear to auscultated bilaterally, breathing nonlabored. No wheezes crackles or rhonchi. HEART/CARDIOVASCULAR: Regular in rate and rhythm. S1 and S2 positive. ABDOMEN: Abdomen is soft, nontender. Patient has normal bowel sounds. SKIN: There is no rash. Warm and dry. NEURO: No focal motor deficit. Follows command. MUSCULOSKELETAL: No joint effusion or tenderness. EXTRIMITY: No edema, no cyanosis or clubbing. PSYCH: Cooperative. Brief History: Patient is 78-year-old female with past medical history of dementia, diabetes, CAD, ischemic cardiomyopathy with Ef 25%, thoracic aortic aneurysm, abdominal aortic aneurysm status post endovascular repair was brought in for altered mental status and hypothermia. Patient last seen in the home at 2 AM. Apparently she left the house and was found sitting in the back of the neighbors house in very cold weather. She was brought to hospital, was foumd to be lethargic, hypothermia. with rectal temp 89 degrees. TSH >89, admitted for further management. Physical exam: GENERAL: well-developed elderly -Hungarian female lying on bed appeared to be in no discomfort. HEENT: Normocephalic. Atraumatic. No conjunctival congestion or icterus. Patient has moist mucous membranes. NECK: Supple. Trachea midline. CHEST/LUNGS: Clear to auscultated bilaterally, breathing nonlabored. No wheezes crackles or rhonchi. HEART/CARDIOVASCULAR: Regular in rate and rhythm. S1 and S2 positive. ABDOMEN: Abdomen is soft, nontender. Patient has normal bowel sounds. SKIN: There is no rash. Warm and dry. NEURO: No focal motor deficit. Follows command. MUSCULOSKELETAL: No joint effusion or tenderness. EXTRIMITY: No edema, no cyanosis or clubbing. PSYCH: Cooperative. Subjective Date of service: 07/27/18 Interval history: Patient sen and examined alert and awake No acute issue o/n, tolerating diet Son at bedside updated, wants ODETTE for the Pt Objective - Constitutional Vitals: Vital Signs - 12hr 07/27/18 07/27/18 07/27/18 13:24 14:00 15:29 Temperature 97.9 F Pulse Rate 59 L 59 L Respiratory 18 18 Rate Blood Pressure 115/57 115/57 O2 Sat by Pulse 99 Oximetry 07/27/18 07/27/18 07/27/18 20:11 20:15 21:15 Temperature 97.8 F Pulse Rate 58 L Respiratory 20 20 Rate Blood Pressure 137/61 O2 Sat by Pulse 100 96 Oximetry 07/27/18 21:29 Temperature Pulse Rate 58 L Respiratory Rate Blood Pressure 137/61 O2 Sat by Pulse Oximetry - Labs CBC & Chem 7: 07/22/18 06:06 07/27/18 06:17 Labs: Abnormal lab results 07/26/18 07/27/18 07/27/18 Range/Units 22:06 06:17 11:52 Creatinine 1.3 H (0.7-1.2) mg/dL Glucose 103 H (65-100) mg/dL POC Glucose 121 H 108 H (70-105) 07/27/18 Range/Units 16:23 Creatinine (0.7-1.2) mg/dL Glucose (65-100) mg/dL POC Glucose 107 H (70-105)
[2018-07-28] MEDS: APRESOLINE PO SCH ×2 (05:58→14:16)
[2018-07-28] MEDS: SYNTHROID PO SCH (05:59)
[2018-07-28] MEDS: HumuLIN R SUB-Q SCH ×2 (08:30→12:48)
[2018-07-28] MEDS: TOPROL XL PO SCH (08:59)
[2018-07-28] MEDS: NORVASC PO SCH (08:59)
--- NOTE | 2018-07-28 09:38 | Progress Note ---
Assessment and Plan 1. Acute kidney injury: Likely Vasomotor / hemodynamic SAULO in the setting of volume depletion. CT abdomen was negative for any hydronephrosis. Renal function is better. Monitor renal function. Avoid nephrotoxic agents. Meds dosage based on GFR. 2. FEN: Monitor lytes. 3. Acute Metabolic encephalopathy. 4. Severe hypothyroidism. 5. Hypothermia: Secondary to exposure to cold. Resolved 6. Cardiomyopathy with EF 25-30%. Subjective Date of service: 07/28/18 Interval history: Patient was seen and examined at the bedside. Objective - Vital Signs Vital signs: Vital Signs - 12hr 07/27/18 07/28/18 07/28/18 22:00 02:00 07:47 Temperature 97.9 F 98.6 F Pulse Rate 68 54 L Pulse Rate [ 58 L Apical] Respiratory 20 18 20 Rate Blood Pressure 132/58 Blood Pressure 134/66 [Right] O2 Sat by Pulse 100 95 96 Oximetry 07/28/18 07:59 Temperature Pulse Rate Pulse Rate [ Apical] Respiratory Rate Blood Pressure Blood Pressure [Right] O2 Sat by Pulse 99 Oximetry - General Appearance General appearance: well-developed, well-nourished, appears stated age, other (not in distress) EENT: ATNC, PERRL, hearing diminished Neck: supple Respiratory: Present: Clear to Ascultation Cardiology: regular, S1S2, no murmurs Gastrointestinal: normoactive bowel sounds, no tenderness, no distended Integumentary: no rash, warm and dry Neurologic: no focal deficit, no asterixis, disoriented Musculoskeletal: other (no edema) - Lab 07/22/18 06:06 07/27/18 06:17 Most recent lab results Calcium 8.5 mg/dL (8.4-10.2) 07/27/18 06:17 Phosphorus 2.90 mg/dL (2.5-4.5) 07/25/18 04:55 Magnesium 2.10 mg/dL (1.7-2.3) 07/25/18 04:55 Urine Creatinine 146.9 mg/dL (0.1-20.0) H 07/23/18 23:30 Urine Sodium 28 mmol/L 07/23/18 23:30 Urine Total Protein 96 mg/dL (5-11.8) H 07/23/18 23:30 Medications & Allergies - Medications Allergies/Adverse Reactions: Allergies ALDO Inhibitors Allergy (Intermediate, Verified 04/21/14 12:16) Angioedema ARB-Angiotensin Receptor Antagonist Allergy (Intermediate, Verified 04/21/14 12:17) Angioedema glipizide Allergy (Intermediate, Verified 04/21/14 12:17) Rash Home Medications: Home Medications Medication Instructions Recorded Confirmed Last Taken Type Insulin Aspart [NovoLOG Flexpen] 10 units SUB-Q TID 03/27/17 07/21/18 03/26/17 History Insulin Glargine,Hum.rec.anlog 40 units SUB-Q HS 03/27/17 07/21/18 07/20/18 History [Lantus] Ranolazine [Ranexa] 500 mg PO BID 03/27/17 07/21/18 Unknown History Metoprolol Succinate [Toprol Xl] 100 mg PO BID 07/21/18 07/21/18 Unknown History Rosuvastatin Calcium [Crestor] 40 mg PO DAILY 07/21/18 07/21/18 Unknown History Levothyroxine [Synthroid] 100 mcg PO DAILY@0600 #30 tablet 07/27/18 Unknown Rx amLODIPine [Norvasc] 10 mg PO QDAY #30 tablet 07/27/18 Unknown Rx Mirtazapine [Remeron] 7.5 mg PO QHS #30 tablet 07/28/18 Unknown Rx Active Medications: Generic Name Dose Route Start Last Admin Trade Name Freq PRN Reason Stop Dose Admin Acetaminophen 650 mg 07/21/18 10:38 07/27/18 15:29 Tylenol PO 650 mg Q4H PRN Administration Pain MILD(1-3)/Fever >100.5/GORDON Acetaminophen/Hydrocodone Bitart 1 each 07/27/18 17:14 07/27/18 20:15 [place] 5/325 PO 1 each Q8H PRN Administration Pain, Moderate (4-6) Al Hydrox/Mg Hydrox/Simethicone 30 ml 07/21/18 10:38 Alum-Mag Hydrox-Simeth [id number] PO Q4H PRN Indigestion Amlodipine Besylate 10 mg 07/25/18 10:00 07/27/18 09:43 Norvasc PO Not Given QDAY CAROLE Atorvastatin Calcium 40 mg 07/21/18 22:00 07/27/18 21:29 Lipitor PO 40 mg QHS CAROLE Administration Bisacodyl 10 mg 07/25/18 12:00 07/27/18 09:44 Dulcolax KS Not Given QDAY CAROLE Docusate Sodium 100 mg 07/25/18 22:00 07/27/18 21:29 Colace PO 100 mg BID CAROLE Administration Heparin Sodium (Porcine) 5,000 unit 07/21/18 22:00 07/27/18 21:29 Heparin SUB-Q 5,000 unit Q12HR CAROLE Administration Hydralazine HCl 50 mg 07/26/18 14:00 07/28/18 05:58 Apresoline PO 50 mg Q8HR CAROLE Administration Insulin Glargine 5 units 07/25/18 22:00 07/27/18 22:20 Lantus SUB-Q 5 units HS CAROLE Administration Insulin Human Regular 0 units 07/25/18 12:00 07/27/18 22:20 Humulin R SUB-Q Not Given ACHS [facility] Protocol Levothyroxine Sodium 100 mcg 07/22/18 06:00 07/28/18 05:59 Synthroid PO 100 mcg DAILY@0600 CAROLE Administration Metoprolol Succinate 100 mg 07/21/18 22:00 07/27/18 21:29 Toprol Xl PO 100 mg BID CAROLE Administration Mirtazapine 7.5 mg 07/26/18 22:00 07/27/18 21:29 Remeron PO 7.5 mg QHS CAROLE Administration Ondansetron HCl 4 mg 07/21/18 10:38 Zofran IV Q8H PRN Nausea And Vomiting Pantoprazole Sodium 40 mg 07/25/18 12:00 07/27/18 09:43 Protonix PO 40 mg QDAY CAROLE Administration Polyethylene Glycol 17 gm 07/25/18 12:00 07/27/18 09:44 Miralax 3350 PO 17 gm QDAY CAROLE Administration Potassium Chloride 10 meq 07/21/18 11:45 07/27/18 09:44 K-Dur PO 10 meq QDAY CAROLE Administration Ranolazine 500 mg 07/21/18 12:00 07/27/18 21:29 Ranexa Er PO 500 mg BID CAROLE Administration Sodium Chloride 10 ml 07/21/18 22:00 07/27/18 21:31 Sodium Chloride Flush Syringe 10 Ml IV 10 ml BID CAROLE Administration Sodium Chloride 10 ml 07/21/18 10:38 Sodium Chloride Flush Syringe 10 Ml IV PRN PRN LINE FLUSH Zolpidem Tartrate 5 mg 07/26/18 13:37 07/26/18 21:27 Ambien PO 5 mg QHS PRN Administration Sleep
[2018-07-28] MEDS: RANEXA ER PO SCH (09:52)
[2018-07-28] MEDS: COLACE PO SCH (09:53)
[2018-07-28] MEDS: K-DUR PO SCH (09:53)
[2018-07-28] MEDS: PROTONIX PO SCH (09:53)
[2018-07-28] MEDS: SODIUM CHLORIDE FLUSH SYRINGE 10 ML IV SCH (09:54)
[2018-07-28] MEDS: MIRALAX 3350 PO SCH (09:57)
[2018-07-28] MEDS: DULCOLAX PR SCH (09:57)
[2018-07-28] MEDS: HEPARIN SUB-Q SCH (09:57)
--- NOTE | 2018-07-28 10:01 | Progress Note ---
Subjective - Reason for Consult Consult date: 07/28/18 Reason for consult: Psychiatry Follow-up - Chief Complaint Chief complaint: "I hope my sleep get better" 78-year-old AA female who presented to the ER for AMS. Today the patient is calm and cooperative during the assessment. I the provider had to speak directly in the patient's ear to communicate with her. She stated that she got "a little more sleep" last night. Per the patient's assigned nurse, no behavioral disturbances overnight by the patient. She denies being depressed, SI/HI's, and AVH's. She denies any side effects of her medications. Mental Status Exam - Vital signs Last Vital Signs Temp 98.6 F 07/28/18 07:47 Pulse 54 L 07/28/18 07:47 Resp 20 07/28/18 07:47 BP 132/58 07/28/18 07:47 Pulse Ox 99 07/28/18 07:59 - Exam Narrative exam: MSE: Appearance: calm, cooperative Behavior: regular eye contact Speech: regular rate and loud tone Mood: "okay" Affect: congruent to mood Thought Process: linear Thought Content: denies SI/HI's and AVH's Motor Activity: sitting up in the bed Cognition: A/O x3 Insight: appropriate Judgment: appropriate Assessment and Plan Impression: Insomnia Today the patient is calm and cooperative during the asses sment. The patient is hearing impaired. Recommendation/Plan: Continue Remeron 7.5 mg PO HS for sleep. Discussed possible suicidality/medication induced pravin with the patient reference Remeron .Psy sign off. Dispo: The patient can follow up with [facility] for outpatient psy services. Will staff with Dr Juanita Narvaez.
[2018-07-28 13:38] VITALS: BP 152/61
== END 2018-07-28 16:40 | DRG 70 ==
LOC: ED 05:55 → 2B-ACE 08:53
PROVIDERS: ADMIT Internal Medicine; ATTEND Internal Medicine
DX: G93.41 Metabolic encephalopathy (principal); N17.0 Acute kidney failure with tubular necrosis; I50.22 Chronic systolic (congestive) heart failure; E03.9 Hypothyroidism, unspecified; F03.90 Unspecified dementia, unspecified severity, without behavioral disturbance, psychotic disturbance, mood disturbance, and anxiety; T68.XXXA Hypothermia, initial encounter; E11.9 Type 2 diabetes mellitus without complications; I25.10 Atherosclerotic heart disease of native coronary artery without angina pectoris; I25.5 Ischemic cardiomyopathy; I11.0 Hypertensive heart disease with heart failure; W93.8XXA Exposure to other excessive cold of man-made origin, initial encounter; J44.9 Chronic obstructive pulmonary disease, unspecified; I25.82 Chronic total occlusion of coronary artery; Z88.8 Allergy status to other drugs, medicaments and biological substances; I71.2 Thoracic aortic aneurysm, without rupture; G47.00 Insomnia, unspecified
CPT/HCPCS: 36415; 70450; 71045; 72170; 74176; 74220; 80048; 80053; 81001; 82140; 82306; 82550; 82553; 82570; 82805; 82962; 83735; 83970; 84100; 84156; 84300; 84439; 84443; 84484; 85025; 87040; 87086; 93005; 93010; 94760; G0378; A9270-GY; J1644; J1815; J7030

== ENCOUNTER 2018-11-15 15:58 | Emergency (ER) | payer MEDICARE, OTHER ==
--- NOTE | 2018-11-15 16:07 | Event Note ---
ED Screening Note Date of service: 11/15/18 Time: 16:06 ED Screening Note: 78 y/o female comes in for sob open heart surgery 6 weeks ago. This initial assessment/diagnostic orders/clinical plan/treatment(s) is/are subject to change based on patients health status, clinical progression and re- assessment by fellow clinical providers in the ED. Further treatment and workup at subsequent clinical providers discretion. Patient/guardian urged not to elope from the ED as their condition may be serious if not clinically assessed and managed. Initial orders include:
--- NOTE | 2018-11-15 17:28 | Emergency Department Report ---
ED Shortness of Breath HPI - General Chief Complaint: Dyspnea/Respdistress Stated Complaint: CHARITO Time Seen by Provider: 11/15/18 16:10 Source: patient Mode of arrival: Ambulatory Limitations: No Limitations - History of Present Illness Initial Comments: CC: "She just needs her oxygen." HPI: hx obtained from patient and her grand-daughter Mrs. Contreras is a very pleasant 78-year-old female with history of cardiac disease, oxygen dependency presents with nasal oxygen. She is awaiting replacement of her oxygen area. She has been borrowing oxygen takes from [employer]. She desires a irritating to take home. She has been dependent on home Oxygen for several years. SHe does not know why she needs oxygen. She denies chest pain. She denies new symptoms. She has been in her normal state of health. According to electronic medical record Mrs. Contreras has history of renal insufficiency, pneumonia, diastolic congestive heart failure, sleep apnea, abdominal aortic aneurysm, thoracic aortic aneurysm, thyroid disease, dementia, hypertension, diabetes. She had a recent open heart surgery 6 weeks ago. She was given a good report according to her recent follow-up. She [place] [facility] However she is currently with family in the [place] area. MD Complaint: shortness of breath -: Gradual, days(s) (just today she ran out of oxygen) Severity: mild Consistency: constant Improves With: oxygen Known History Of: congestive heart failure, recurrent pnemonia - Related Data Home Medications Medication Instructions Recorded Confirmed Last Taken Insulin Aspart [NovoLOG Flexpen] 10 units SUB-Q TID 03/27/17 07/21/18 03/26/17 Insulin Glargine,Hum.rec.anlog 40 units SUB-Q HS 03/27/17 07/21/18 07/20/18 [Lantus] Ranolazine [Ranexa] 500 mg PO BID 03/27/17 07/21/18 Unknown Metoprolol Succinate [Toprol Xl] 100 mg PO BID 07/21/18 07/21/18 Unknown Rosuvastatin Calcium [Crestor] 40 mg PO DAILY 07/21/18 07/21/18 Unknown Previous Rx's Medication Instructions Recorded Last Taken Type Levothyroxine [Synthroid] 100 mcg PO DAILY@0600 #30 tablet 07/27/18 Unknown Rx amLODIPine [Norvasc] 10 mg PO QDAY #30 tablet 07/27/18 Unknown Rx Mirtazapine [Remeron 15mg TAB] 7.5 mg PO QHS #30 tablet 07/28/18 Unknown Rx Allergies Allergy/AdvReac Type Severity Reaction Status Date / Time ALDO Inhibitors Allergy Intermediate Angioedema Verified 11/15/18 15:59 ARB-Angiotensin Receptor Allergy Intermediate Angioedema Verified 11/15/18 15:59 Antagonist glipizide Allergy Intermediate Rash Verified 11/15/18 15:59 ED Review of Systems ROS: Stated complaint: CHARITO Other details as noted in HPI Comment: All other systems reviewed and negative Constitutional: denies: fever, malaise Respiratory: shortness of breath. 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 abdominal aortic aneurysm status post EVAR - Social History Smoking Status: Former Smoker Substance Use Type: None - Medications Home Medications: Home Medications Medication Instructions Recorded Confirmed Last Taken Type Insulin Aspart [NovoLOG Flexpen] 10 units SUB-Q TID 03/27/17 07/21/18 03/26/17 History Insulin Glargine,Hum.rec.anlog 40 units SUB-Q HS 03/27/17 07/21/18 07/20/18 History [Lantus] Ranolazine [Ranexa] 500 mg PO BID 03/27/17 07/21/18 Unknown History Metoprolol Succinate [Toprol Xl] 100 mg PO BID 07/21/18 07/21/18 Unknown History Rosuvastatin Calcium [Crestor] 40 mg PO DAILY 07/21/18 07/21/18 Unknown History Levothyroxine [Synthroid] 100 mcg PO DAILY@0600 #30 tablet 07/27/18 Unknown Rx amLODIPine [Norvasc] 10 mg PO QDAY #30 tablet 07/27/18 Unknown Rx Mirtazapine [Remeron 15mg TAB] 7.5 mg PO QHS #30 tablet 07/28/18 Unknown Rx ED Physical Exam - General Limitations: No Limitations General appearance: alert, in no apparent distress - Head Head exam: Present: atraumatic, normocephalic - Eye Eye exam: Present: normal appearance - ENT ENT exam: Present: mucous membranes moist - Neck Neck exam: Present: normal inspection, full ROM - Respiratory Respiratory exam: Present: normal lung sounds bilaterally. Absent: respiratory distress, wheezes, rales, rhonchi - Cardiovascular Cardiovascular Exam: Present: regular rate, normal rhythm, normal heart sounds. Absent: rubs, gallop - GI/Abdominal GI/Abdominal exam: Present: soft, normal bowel sounds. Absent: distended, tenderness, guarding, rebound - Extremities Exam Extremities exam: Present: normal inspection - Back Exam Back exam: Present: normal inspection - Neurological Exam Neurological exam: Present: alert, oriented X3 - Psychiatric Psychiatric exam: Present: normal affect, normal mood - Skin Skin exam: Present: warm, dry, intact, normal color. Absent: rash ED Course Vital Signs 11/15/18 16:34 Temperature 98.2 F Pulse Rate 55 L Respiratory 16 Rate Blood Pressure 159/118 [Left] O2 Sat by Pulse 96 Oximetry ED Medical Decision Making - Medical Decision Making Mrs. Contreras appears well. No indication of acute emergent condition at this time. She kindly requests oxygen tank. Our nursing staff attempted to obtain oxygen for patient. However due to the wait time, patient decided to be taken to her personal home. She has a secondary source of oxygen at her place of residence. She is 96% on room air. Her heart rate is 55 beats a minute while off oxygen. No current emergent need for oxygen. She will return to the ER for any concerns. Critical care attestation.: If time is entered above; I have spent that time in minutes in the direct care of this critically ill patient, excluding procedure time. ED Disposition Clinical Impression: Chronic diastolic CHF (congestive heart failure), On home oxygen therapy, ASHLI (obstructive sleep apnea) Disposition: TO HOME OR SELFCARE Is pt being admited?: No Does the pt Need Aspirin: No Condition: Stable Additional Instructions: Please return to the emergency department if you have any needs or concerns.
[2018-11-15 18:00] VITALS: BP 142/92
== END 2018-11-15 18:00 | disposition home or self-care (01) ==
LOC: ED 15:58
DX: I11.0 Hypertensive heart disease with heart failure (principal); I50.32 Chronic diastolic (congestive) heart failure; G47.33 Obstructive sleep apnea (adult) (pediatric); R06.02 Shortness of breath; I25.10 Atherosclerotic heart disease of native coronary artery without angina pectoris; I25.2 Old myocardial infarction; J44.9 Chronic obstructive pulmonary disease, unspecified; E11.9 Type 2 diabetes mellitus without complications; E78.00 Pure hypercholesterolemia, unspecified; E78.5 Hyperlipidemia, unspecified; Z90.710 Acquired absence of both cervix and uterus; Z95.0 Presence of cardiac pacemaker; Z87.891 Personal history of nicotine dependence; Z79.4 Long term (current) use of insulin; Z79.899 Other long term (current) drug therapy; Z88.8 Allergy status to other drugs, medicaments and biological substances
CPT/HCPCS: 99282

== ENCOUNTER 2019-06-19 23:23 | Emergency (ER) | payer MEDICARE, OTHER ==
--- NOTE | 2019-06-20 01:43 | Emergency Department Report ---
Upper Extremity - HPI Chief Complaint: Extremity Problem,Nontraumatic Stated Complaint: SWOLLEN/PAIN IN BOTH WRIST AND FINGERS Time Seen by Provider: 06/20/19 01:27 Upper Extremity: Left Wrist, Left Hand, Right Wrist, Right Hand Occurred When: >5 Days Severity: moderate Symptoms: Yes Pain with Movement, No Deformity, No Limited Range of Movement, No Numbness, No Weakness, No Swelling, No Bruising/Ecchymosis, No Laceration or Abrasion Other History: Mrs. Contreras is a very pleasant 78-year-old female with history of insulin-dependent diabetes, diabetes mellitus, ischemic cardiomyopathy, CHF, CAD, aortic aneurysm, dyslipidemia, peptic ulcer disease, hypothyroidism who presents with bilateral wrist pain for the past 2-3 weeks. Pain began in the distal forearm to the wrist involves the fingers. She stated that she thinks that she may have been diagnosed with carpal tunnel syndrome in the past. Given tramadol at urgent care which did not provide any relief. When she rubs her wrists it feels like a shocking pain. No fever. No trauma. No history of gout. ED Review of Systems ROS: Stated complaint: SWOLLEN/PAIN IN BOTH WRIST AND FINGERS Other details as noted in HPI Constitutional: denies: fever, malaise Musculoskeletal: arthralgia. 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 abdominal aortic aneurysm status post EVAR - Social History Smoking Status: Never Smoker Substance Use Type: None - Medications Home Medications: Home Medications Medication Instructions Recorded Confirmed Last Taken Type Insulin Aspart (Nf) [NovoLOG 10 units SUB-Q TID 03/27/17 07/21/18 03/26/17 History Flexpen] Insulin Glargine,Hum.rec.anlog 40 units SUB-Q HS 03/27/17 07/21/1819 History [Lantus] Ranolazine [Ranexa] 500 mg PO BID 03/27/17 07/21/18 Unknown History Metoprolol Succinate [Toprol Xl] 100 mg PO BID 07/21/18 07/21/18 Unknown History Rosuvastatin Calcium [Crestor] 40 mg PO DAILY 07/21/18 07/21/18 Unknown History Levothyroxine [Synthroid] 100 mcg PO DAILY@0600 #30 tablet 07/27/18 Unknown Rx amLODIPine 10 mg PO QDAY #30 tablet 07/27/18 Unknown Rx Mirtazapine [Remeron 15mg TAB] 7.5 mg PO QHS #30 tablet 07/28/18 Unknown Rx Gabapentin 100 mg PO TID 30 Days #90 capsule 06/20/19 Unknown Rx HYDROcodone/APAP 5-325 [[place] 1 each PO Q6HR PRN #10 tablet 06/20/19 Unknown Rx 5/325] Upper Extremity Exam - Exam General: Vital signs noted. No distress. Alert and acting appropriately. Head and Torso: No HEENT Abnormality, No Neck Tenderness Shoulder Exam: Yes Normal Range of Motion in Shoulder, No Shoulder Tenderness, No Clavicle Tenderness, No Shoulder Deformity, No AC Joint Tenderness Arm Exam: No Arm/Humerus Tenderness, No Arm Deformity Elbow: No Elbow Tenderness, No Normal Range of Motion in Elbow, No Elbow Deformity Forearm: Yes Pain with Pronation, Yes Pain with Supination, No Forearm Tenderness, No Forearm Deformity Wrist: Yes Normal ROM in Wrist, No Wrist Tenderness, No Wrist Deformity, No Snuffbox Tenderness, No Pain with Axial Thumb Compression Hand: Yes Normal ROM in Digit(s), No Hand Tenderness, No Hand Deformity, No Digit Tenderness, No Digit(s) Deformity, No Tendon Dysfunction CMS Exam: No Broken Skin, No Normal Distal Pulses, No Normal Capillary Refill, No Normal Distal Sensation ED Course Vital Signs 06/19/19 23:27 Temperature 97.7 F Pulse Rate 63 Respiratory 16 Rate Blood Pressure 167/65 O2 Sat by Pulse 98 Oximetry ED Medical Decision Making - Medical Decision Making bilateral wrist hand pain for 3 weeks DDX: carpal tunnel syndrome, OA, gout rx: gabapentin, norco referred to orthopedic surgeon and outpatient physician Critical care attestation.: If time is entered above; I have spent that time in minutes in the direct care of this critically ill patient, excluding procedure time. ED Disposition Clinical Impression: Peripheral neuropathy, Bilateral wrist pain Disposition: TO HOME OR SELFCARE Is pt being admited?: No Does the pt Need Aspirin: No Condition: Stable Instructions: Peripheral Neuropathy (ED) Prescriptions: Gabapentin 100 mg PO TID 30 Days #90 capsule HYDROcodone/APAP 5-325 [[place] 5/325] 1 each PO Q6HR PRN #10 tablet PRN Reason: Pain Referrals: TONIA MCNEIL MD [Staff Physician] - 3-5 Days BEBE TSE MD [Staff Physician] - 3-5 Days
[2019-06-20] MEDS ORDERED: HYDROcodone/ACETAMINOPHEN 5-325 MG TAB PO ONE (01:46)
[2019-06-20 02:24] VITALS: BP 152/78
== END 2019-06-20 02:23 | disposition home or self-care (01) ==
LOC: ED 23:23
DX: G62.9 Polyneuropathy, unspecified (principal); M25.531 Pain in right wrist; M25.532 Pain in left wrist; I11.0 Hypertensive heart disease with heart failure; I50.9 Heart failure, unspecified; E11.9 Type 2 diabetes mellitus without complications; I25.10 Atherosclerotic heart disease of native coronary artery without angina pectoris; J44.9 Chronic obstructive pulmonary disease, unspecified; E78.5 Hyperlipidemia, unspecified; E03.9 Hypothyroidism, unspecified; Z95.5 Presence of coronary angioplasty implant and graft; Z90.710 Acquired absence of both cervix and uterus; Z88.8 Allergy status to other drugs, medicaments and biological substances; Z79.899 Other long term (current) drug therapy

== ENCOUNTER 2019-07-02 18:01 | Emergency (ER) | payer MEDICARE, OTHER ==
--- NOTE | 2019-07-02 19:39 | Emergency Department Report ---
Blank Doc - Documentation Documentation: 79-year-old female that presents with bilateral hand swelling and pain. HX of diabetes. This initial assessment/diagnostic orders/clinical plan/treatment(s) is/are subject to change based on patient's health status, clinical progression and re- assessment by fellow clinical providers in the ED. Further treatment and workup at subsequent clinical providers discretion. Patient/guardians urged not to elope from the ED as their condition may be serious if not clinically assessed and managed. Initial orders include: 1- Patient sent to [facility] for further evaluation and treatment 2- labs
[2019-07-02 20:00] LABS: Basophils % (Auto) 0.6 % (0.0-1.8); Eosinophils # (Auto) 0.1 K/mm3 (0.0-0.4); Eosinophils % (Auto) 2.2 % (0.0-4.3); Hematocrit 38.3 % (30.3-42.9); Hemoglobin 13.5 gm/dl (10.1-14.3); Lymphocytes # (Auto) 1.9 K/mm3 (1.2-5.4); Lymphocytes % (Auto) 28.9 % (13.4-35.0); Mean Corpuscular HGB Conc 35 % (30-34); Mean Corpuscular Volume 86 fl (79-97); Monocytes # (Auto) 0.5 K/mm3 (0.0-0.8); Monocytes % (Auto) 8.1 % (0.0-7.3); Platelet Count 242 K/mm3 (140-440); Red Blood Count 4.46 M/mm3 (3.65-5.03)
[2019-07-02 20:20] LABS: BUN/Creatinine Ratio 14; Blood Urea Nitrogen 14 mg/dL (7-17); Calcium 9.8 mg/dL (8.4-10.2); Hemolysis Index 7
[2019-07-02] MEDS ORDERED: POTASSIUM CHLORIDE ER 20 MEQ TAB PO ONE (22:11)
[2019-07-02] MEDS ORDERED: ACETAMINOPHEN 500 MG TAB PO ONE (22:21)
[2019-07-02] MEDS ORDERED: IBUPROFEN 400 MG TAB PO ONE (22:21)
--- NOTE | 2019-07-02 22:22 | Emergency Department Report ---
ED General Adult HPI - General Chief complaint: Extremity Injury, Upper Stated complaint: HANDS SWELLING/SHARP PAINS Time Seen by Provider: 07/02/19 19:38 Source: patient, family, RN notes reviewed, old records reviewed Mode of arrival: Ambulatory Limitations: No Limitations - History of Present Illness Initial comments: This is a pleasant 79-year-old female. She is right-hand dominant. She is not known to myself previously. Her primary care doctor is Dr. Townsend. She has a history of dementia, diabetes, heart disease, ischemic cardiomyopathy, EF of 25%, thoracic aortic aneurysm, AAA, status post endovascular repair History obtained from the patient, her daughter, who provides most of the history, and review of old medical records. This patient was seen in this hospital for extremity pain, arm pain, arthritis pain, on June 19, 2019, and was presumptively diagnosed with bilateral wrist pain, neuropathy, possible arthritis, possible carpal tunnel. She has follow-up with an orthopedic surgeon on July 06 of next week, and her primary care doctor next week on the . She comes in with constant/recurrent bilateral wrist pain. As per her daughter, there is no trauma, no vomiting, no fevers, no chills, no redness, pus or strea mounika. The patient indicates her pain increases with palpation, and decreases with rest. She has been taking narcotic prescriptions, with some improvement of her pain. As per her daughter, she is at her mental status baseline. No additional injuries. No additional complaints. -: Gradual, week(s) Location: left, right, upper extremity Severity scale (0 -10): 6 Quality: other Consistency: other Improves with: other Worsens with: other Associated Symptoms: other - Related Data Home Medications Medication Instructions Recorded Confirmed Last Taken Insulin Aspart (Nf) [NovoLOG 10 units SUB-Q TID 03/27/17 07/21/18 03/26/17 Flexpen] Insulin Glargine,Hum.rec.anlog 40 units SUB-Q HS 03/27/17 07/21/18 07/20/18 [Lantus] Ranolazine [Ranexa] 500 mg PO BID 03/27/17 07/21/18 Unknown Metoprolol Succinate [Toprol Xl] 100 mg PO BID 07/21/18 07/21/18 Unknown Rosuvastatin Calcium [Crestor] 40 mg PO DAILY 07/21/18 07/21/18 Unknown Previous Rx's Medication Instructions Recorded Last Taken Type Levothyroxine [Synthroid] 100 mcg PO DAILY@0600 #30 tablet 07/27/18 Unknown Rx amLODIPine 10 mg PO QDAY #30 tablet 07/27/18 Unknown Rx Mirtazapine [Remeron 15mg TAB] 7.5 mg PO QHS #30 tablet 07/28/18 Unknown Rx Gabapentin 100 mg PO TID 30 Days #90 capsule 06/20/19 Unknown Rx HYDROcodone/APAP 5-325 [Bradley 1 each PO Q6HR PRN #10 tablet 06/20/19 Unknown Rx 5/325] Acetaminophen [Non-Aspirin Extra 500 mg PO Q6HR PRN #30 tablet 07/02/19 Unknown Rx Strength] Allergies Allergy/AdvReac Type Severity Reaction Status Date / Time No Known Allergies Allergy Unverified 07/02/19 19:41 ED Review of Systems ROS: Stated complaint: HANDS SWELLING/SHARP PAINS Other details as noted in HPI Constitutional: denies: fever Respiratory: denies: wheezing Cardiovascular: denies: syncope Gastrointestinal: denies: nausea, vomiting, diarrhea Musculoskeletal: arthralgia, myalgia Hematological/Lymphatic: denies: easy bleeding ED Past Medical Hx - Past Medical History Hx Hypertension: Yes Hx Heart Attack/AMI: Yes (CAD on cath 05/19/2018) Hx Congestive Heart Failure: Yes (ischemic dilated cardiomyopathy EF 25-30% echo 05/14/2018) Hx Diabetes: Yes Hx COPD: Yes (home o2) Hx Dementia: (per son) Additional medical history: Thoracic aortic aneurysm, abdominal aortic aneurysm status post EVAR, hyperlipidemia, ulcer, hypothyroidism, cardiac aneurysm - Surgical History Hx Coronary Stent: Yes Additional Surgical History: hysterectomy. abdominal aortic aneurysm status post EVAR - Social History Smoking Status: Former Smoker Substance Use Type: None - Medications Home Medications: Home Medications Medication Instructions Recorded Confirmed Last Taken Type Insulin Aspart (Nf) [NovoLOG 10 units SUB-Q TID 03/27/17 07/21/18 03/26/17 History Flexpen] Insulin Glargine,Hum.rec.anlog 40 units SUB-Q HS 03/27/17 07/21/18 07/20/18 History [Lantus] Ranolazine [Ranexa] 500 mg PO BID 03/27/17 07/21/18 Unknown History Metoprolol Succinate [Toprol Xl] 100 mg PO BID 07/21/18 07/21/18 Unknown History Rosuvastatin Calcium [Crestor] 40 mg PO DAILY 07/21/18 07/21/18 Unknown History Levothyroxine [Synthroid] 100 mcg PO DAILY@0600 #30 tablet 07/27/18 Unknown Rx amLODIPine 10 mg PO QDAY #30 tablet 07/27/18 Unknown Rx Mirtazapine [Remeron 15mg TAB] 7.5 mg PO QHS #30 tablet 07/28/18 Unknown Rx Gabapentin 100 mg PO TID 30 Days #90 capsule 06/20/19 Unknown Rx HYDROcodone/APAP 5-325 [Bradley 1 each PO Q6HR PRN #10 tablet 06/20/19 Unknown Rx 5/325] Acetaminophen [Non-Aspirin Extra 500 mg PO Q6HR PRN #30 tablet 07/02/19 Unknown Rx Strength] ED Physical Exam - General Limitations: Other (Patient is demented.) General appearance: alert, in no apparent distress - Head Head exam: Present: atraumatic, normocephalic - Eye Eye exam: Present: normal appearance, EOMI. Absent: nystagmus - ENT ENT exam: Present: normal exam, normal orophraynx, mucous membranes moist, normal external ear exam - Neck Neck exam: Present: normal inspection, full ROM. Absent: tenderness, meningismus - Respiratory Respiratory exam: Present: normal lung sounds bilaterally. Absent: respiratory distress - Cardiovascular Cardiovascular Exam: Present: regular rate, normal rhythm, normal heart sounds. Absent: bradycardia, tachycardia, irregular rhythm, systolic murmur, diastolic murmur, rubs, gallop - GI/Abdominal GI/Abdominal exam: Present: soft. Absent: distended, tenderness, guarding, rebound, rigid, pulsatile mass - Extremities Exam Extremities exam: Present: normal inspection (There is no redness, pus or streaking of the bilateral upper extremities. There is no significant tenderness in the bilateral hands or bilateral wrist. Wrist range of motion int act bilaterally. Patient flexing and extending 5 digits, without difficulty. There is no significant digital tenderness.), full ROM, pedal edema, other (2+ pulses noted in the bilateral upper and lower extremities. There is no palpable cord. negative Homans sign. Muscular compartments are soft. The pelvis is stable.). Absent: calf tenderness - Back Exam Back exam: Present: normal inspection, full ROM. Absent: tenderness, CVA tenderness (R), CVA tenderness (L), paraspinal tenderness, vertebral tenderness - Neurological Exam Neurological exam: Present: alert, other (5 out of 5 strength in 4 extremities. Sensation intact to light touch in 4 extremities. There is no facial droop.). Absent: motor sensory deficit - Psychiatric Psychiatric exam: Present: anxious - Skin Skin exam: Present: warm, dry, intact, normal color. Absent: rash ED Course Vital Signs 07/02/19 07/02/19 07/02/19 19:39 21:57 22:30 Temperature 97.9 F 98.2 F Pulse Rate 67 75 Respiratory 20 16 16 Rate Blood Pressure 155/80 Blood Pressure 169/69 [Left] O2 Sat by Pulse 98 100 Oximetry 07/02/19 22:32 Temperature Pulse Rate Respiratory 16 Rate Blood Pressure Blood Pressure [Left] O2 Sat by Pulse Oximetry ED Medical Decision Making - Lab Data Result diagrams: 07/02/19 19:47 07/02/19 19:47 Vital Signs 07/02/19 07/02/19 07/02/19 19:39 21:57 22:30 Temperature 97.9 F 98.2 F Pulse Rate 67 75 Respiratory 20 16 16 Rate Blood Pressure 155/80 Blood Pressure 169/69 [Left] O2 Sat by Pulse 98 100 Oximetry 07/02/19 22:32 Temperature Pulse Rate Respiratory 16 Rate Blood Pressure Blood Pressure [Left] O2 Sat by Pulse Oximetry Labs 07/02/19 07/02/19 07/02/19 19:47 19:47 19:47 WBC 6.6 RBC 4.46 Hgb 13.5 Hct 38.3 MCV 86 MCH 30 MCHC 35 H RDW 14.0 Plt Count 242 Lymph % (Auto) 28.9 Garland % (Auto) 8.1 H Eos % (Auto) 2.2 Baso % (Auto) 0.6 Lymph # 1.9 Garland # 0.5 Eos # 0.1 Baso # 0.0 Seg Neutrophils % 60.2 Seg Neutrophils # 4.0 Sodium 145 Potassium 3.3 L Chloride 104.7 Carbon Dioxide 24 Anion Gap 20 BUN 14 Creatinine 1.0 Estimated GFR > 60 BUN/Creatinine Ratio 14 Glucose 250 H Calcium 9.8 Magnesium 1.80 Total Creatine Kinase 84 - Medical Decision Making Differential diagnosis, including but not limited to: Arthritis, carpal tunnel, Assessment and plan: 79-year-old female presenting with weeks of bilateral wrist pain. She is afebrile with reassuring vital signs. There is no significant tenderness, or defects in range of motion. She is neurovascularly intact. Explained to patient and daughter that the patient does not have an emergency medical condition at this time. She has expert follow-up within the next week. Laboratory studies were sent prior to my personal evaluation. Potassium is repleted. Explained to family that I personally would not advise narcotic prescription, that the patient may take [id number] Tylenol as needed, al ternate warm compresses, ice packs, and highly consider occupational therapy, physical therapy. Critical care attestation.: If time is entered above; I have spent that time in minutes in the direct care of this critically ill patient, excluding procedure time. ED Disposition Clinical Impression: Bilateral wrist pain Disposition: [id number] TO HOME OR SELFCARE Is pt being admited?: No Does the pt Need Aspirin: No Condition: Stable Additional Instructions: Rest, avoid heavy lifting, and avoid strenuous physical activities. Participate in physical activities as tolerated. Patient may take the prescribed pain medication as needed and directed. Recommend patient follow-up with her orthopedic surgeon next week as scheduled, or she can follow-up with any of the listed orthopedic specialists at her convenience, within the next 4 to 6 weeks. Please return to the emergency room right away with new, worsened or different symptoms, or symptoms not present on the initial emergency room evaluation. Referrals: [facility] [Provider Group] - as needed TONIA MCNEIL MD [Staff Physician] - as needed
[2019-07-02 23:55] VITALS: BP 157/78
== END 2019-07-02 23:31 | disposition home or self-care (01) ==
LOC: ED 18:01
DX: M25.531 Pain in right wrist (principal); M25.532 Pain in left wrist; I25.2 Old myocardial infarction; I11.0 Hypertensive heart disease with heart failure; I50.9 Heart failure, unspecified; E11.9 Type 2 diabetes mellitus without complications; J44.9 Chronic obstructive pulmonary disease, unspecified; Z90.710 Acquired absence of both cervix and uterus; Z87.891 Personal history of nicotine dependence
CPT/HCPCS: 36415; 80048; 82550; 83735; 85025; 99283

== ENCOUNTER 2019-07-13 10:58 | Outpatient (CLI) | payer MEDICARE, OTHER ==
[2019-07-13 11:44] LABS: Alanine Aminotransferase 20 units/L (7-56); Albumin 3.9 g/dL (3.9-5); LDL Cholesterol,Direct 91 mg/dL (50-130)
[2019-07-13 11:46] LABS: Bilirubin,Direct < 0.2 mg/dL (0-0.2)
[2019-07-13 11:59] LABS: Chol/HDL Ratio 2.96 %; HDL Cholesterol 56 mg/dL (40-59)
[2019-07-15 11:37] LABS: Vitamin D, 25-OH, D2 18 ng/mL
== END 2019-07-13 10:59 | disposition home or self-care (01) ==
LOC: LAB 10:58
PROVIDERS: ATTEND Internal Medicine
DX: E11.65 Type 2 diabetes mellitus with hyperglycemia (principal); E78.5 Hyperlipidemia, unspecified; M13.0 Polyarthritis, unspecified; E03.9 Hypothyroidism, unspecified; E56.9 Vitamin deficiency, unspecified
CPT/HCPCS: 36415; 80061; 80076; 82306; 82607; 83036; 84443; 84550; 85652; 86038; 86140; 86431

== ENCOUNTER 2020-10-29 06:14 | Inpatient (IN) | payer MEDICARE, OTHER ==
[2020-10-29] MEDS ORDERED: IPRATROPIUM 0.02% NEBU 2.5 ML IH ONE (06:22)
[2020-10-29] MEDS ORDERED: methylPREDNISolone Sod Succinate 125 MG/2 ML INJ IV ONE (06:22)
[2020-10-29] MEDS ORDERED: ALBUTEROL 2.5 MG/3 ML NEBU IH ONE (06:22)
[2020-10-29] MEDS ORDERED: MAGNESIUM SULFATE 2 GM/50 ML BAG IV ONE (06:22)
--- NOTE | 2020-10-29 06:24 | Emergency Department Report ---
ED General Adult HPI - General Chief complaint: Dyspnea/Respdistress Stated complaint: CHARITO PUI?: Yes Time Seen by Provider: 10/29/20 06:18 Source: patient, family, EMS (Verbal report received from emergency medical services. EMS documentation not available at time of chart dictation ), RN notes reviewed, old records reviewed Mode of arrival: Stretcher Limitations: Physical Limitation - History of Present Illness Initial comments: The patient was evaluated in the emergency department for symptoms described in the history of present illness. He/she was evaluated in the context of the global COVID-19 pandemic, which necessitated consideration that the patient might be at risk for infection with the virus that causes COVID-19. Institutional protocols and algorithms that pertain to the evaluation of patients at risk for COVID-19 are in a state of rapid change based on information released by regulatory bodies including the CDC and federal and state organizations. These policies and algorithms were followed during the patient's care in the emergency department. Please note that these policies, procedures and recommendations changed on a rapid basis. During the entire history and physical examination, I had on complete personal protective equipment. Patient is a 80-year-old female. Her past medical history includes COPD, congestive heart failure, EF 25 to 30%, diabetes, dementia, up-to-date with COVID-19 vaccination. The patient is brought to the hospital today by emergency medical services with a complaint of shortness of breath. EMS states patient was hypoxic, and tripoding in the field, and they started CPAP in the field. They were unable to establish IV access. The patient also has a history of descending thoracic aortic aneurysm, AAA status post EVAR, type 2 diabetes, hypertension, renal insufficiency, hypothyroidism and dementia. Her grandson is at the bedside, and mother on the phone with the grandson. The patient is currently full code at this time. As per collateral information from the family, patient recently had a 1 or 2- hour trip to [place], has chronic lower extremity swelling, no recent hospitalizations or period of immobilization. She has received the full complement of COVID-19 vaccinations, and family denies nausea, vomiting, diarrhea, loss of taste and smell, and syncope. The patient herself indicates that she feels improved on CPAP/BiPAP, she indicates that she is not having any physical pain. Her grandson indicates that she looks much improved as compared to when emergency medical services were initially activated. -: Gradual Location: left, right, lower extremity Consistency: constant (Family states symptoms were constant prior to initiation of positive pressure ventilation) Improves with: other (CPAP/BiPAP) Worsens with: none - Related Data Previous Rx's Medication Instructions Recorded Last Taken Type ALBUTEROL NEB's [Proventil 0.083% 2.5 mg IH TID PRN #60 neb 11/19/19 Unknown Rx NEBS] Arformoterol Nebu [Brovana Nebu] 15 mcg IH Q12HRT #60 ml 11/19/19 Unknown Rx Aspirin EC [Halfprin EC] 81 mg PO QDAY #30 tablet 11/19/19 Unknown Rx AtorvaSTATin [Lipitor] 40 mg PO QHS #30 tablet 11/19/19 Unknown Rx Budesonide [Pulmicort Respules] 0.5 mg IH Q12HRT #60 nebu 11/19/19 Unknown Rx Insulin Aspart [Insulin Aspart See Protocol SQ TID PRN #1 11/19/19 Unknown Rx Flexpen] insuln.pen Levothyroxine [Synthroid] 100 mcg PO DAILY@0600 #30 tablet 11/19/19 Unknown Rx Pantoprazole [Protonix TAB] 40 mg PO QDAY #30 tablet 11/19/19 Unknown Rx Spironolactone [Aldactone] 25 mg PO QDAY #30 tablet 11/19/19 Unknown Rx carvediloL [Coreg] 6.25 mg PO BID #60 tablet 11/19/19 Unknown Rx hydrALAZINE [Apresoline TAB] 25 mg PO BID #60 tablet 11/19/19 Unknown Rx traMADoL [Ultram 50 MG tab] 50 mg PO BID PRN #30 tablet 11/19/19 Unknown Rx Allergies Allergy/AdvReac Type Severity Reaction Status Date / Time No Known Allergies Allergy Unverified 07/02/19 19:41 ED Review of Systems ROS: Stated complaint: CHARITO Other details as noted in HPI Comment: Unobtainable due to pts medical conditions (Review of systems as per family) Constitutional: malaise, weakness. denies: fever Respiratory: shortness of breath Cardiovascular: orthopnea. 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 abdominal aortic aneurysm status post EVAR - Social History Smoking Status: Never Smoker - Medications Home Medications: Home Medications Medication Instructions Recorded Confirmed Last Taken Type ALBUTEROL NEB's [Proventil 0.083% 2.5 mg IH TID PRN #60 neb 11/19/19 Unknown Rx NEBS] Arformoterol Nebu [Brovana Nebu] 15 mcg IH Q12HRT #60 ml 11/19/19 Unknown Rx Aspirin EC [Halfprin EC] 81 mg PO QDAY #30 tablet 11/19/19 Unknown Rx AtorvaSTATin [Lipitor] 40 mg PO QHS #30 tablet 11/19/19 Unknown Rx Budesonide [Pulmicort Respules] 0.5 mg IH Q12HRT #60 nebu 11/19/19 Unknown Rx Insulin Aspart [Insulin Aspart See Protocol SQ TID PRN #1 11/19/19 Unknown Rx Flexpen] insuln.pen Levothyroxine [Synthroid] 100 mcg PO DAILY@0600 #30 tablet 11/19/19 Unknown Rx Pantoprazole [Protonix TAB] 40 mg PO QDAY #30 tablet 11/19/19 Unknown Rx Spironolactone [Aldactone] 25 mg PO QDAY #30 tablet 11/19/19 Unknown Rx carvediloL [Coreg] 6.25 mg PO BID #60 tablet 11/19/19 Unknown Rx hydrALAZINE [Apresoline TAB] 25 mg PO BID #60 tablet 11/19/19 Unknown Rx traMADoL [Ultram 50 MG tab] 50 mg PO BID PRN #30 tablet 11/19/19 Unknown Rx ED Physical Exam - General Limitations: Physical Limitation General appearance: alert, anxious, in distress, obese - Head Head exam: Present: atraumatic, normocephalic - Eye Eye exam: Present: normal appearance, EOMI. Absent: nystagmus - ENT ENT exam: Present: normal exam, normal orophraynx, mucous membranes moist, normal external ear exam - Neck Neck exam: Present: normal inspection, full ROM. Absent: tenderness, meningismus - Respiratory Respiratory exam: Present: respiratory distress, accessory muscle use, other (Pulmonary auscultation not performed secondary to lack of disposable stethoscope). Absent: stridor - Cardiovascular Cardiovascular Exam: Present: tachycardia (Tachycardic rate noted on school bus monitor.), JVD, other (Cardiac auscultation not performed secondary to lack of disposable stethoscope) - GI/Abdominal GI/Abdominal exam: Present: soft. Absent: distended, tenderness, guarding, rebound, rigid, pulsatile mass - Extremities Exam Extremities exam: Present: normal inspection, full ROM, pedal edema (2-3+ edema in the bilateral lower extremities), other (2+ pulses noted in the bilateral upper and lower extremities. There is no palpable cord. negative Homans sign. Muscular compartments are soft. The pelvis is stable.). Absent: calf tenderness - Back Exam Back exam: Present: normal inspection. Absent: tenderness, CVA tenderness (R), CVA tenderness (L), paraspinal tenderness, vertebral tenderness - Neurological Exam Neurological exam: Present: alert, other (No facial droop. Tongue midline. Extraocular movements intact bilaterally. Facial sensation intact to light touch in V1, V2, V3 distribution bilaterally. 5 and a 5 strength in 4 extremities. Sensation intact to light touch in 4 extremities.) - Psychiatric Psychiatric exam: Present: normal affect, normal mood - Skin Skin exam: Present: warm, dry, intact, normal color. Absent: rash ED Course Vital Signs 10/29/20 10/29/20 10/29/20 06:27 06:28 06:43 Temperature 97.6 F Pulse Rate 104 H 102 H Pulse Rate [ 107 H Bilateral Throughout] Respiratory 34 H 29 H Rate Respiratory 28 H Rate [Bilateral Throughout] Blood Pressure 157/88 157/88 Blood Pressure 157/88 [Right] O2 Sat by Pulse 97 96 Oximetry - Reevaluation(s) Reevaluation #1: 10/29/20 07:50 Differential diagnosis, including but not limited to: COPD exacerbation, CHF exacerbation, COVID-19, lower extremity edema, dementia Assessment and plan: 80-year-old female, up-to-date with Covid vaccinations, presents with probable multifactorial respiratory failure, likely secondary to underlying COPD, and CHF. Patient placed on isolation, and Covid swab is ordered. Unfortunately, do not have access to rapid Covid swab testing at this time. Treat empirically with Lasix, albuterol, Atrovent, steroids, magnesium, ceftriaxone, and azithromycin. Fluoroquinolones will be held given history of aortic disease. Patient endorses no physical pain to myself. Doubt DVT, but lower extremity DVT studies ordered and pending. Leukocytosis, and vital signs reviewed and appreciated, we appreciate that this patient meets systemic inflammatory response syndrome criteria. However, this is likely compensatory to her underlying stress from COPD and CHF. Patient is demonstrating evidence of volume overload, and she will not benefit from aggressive IV fluid resuscitation at this time. Extensive discussion had with daughter on the phone, as well as grandson at the bedside. We discussed plan of care, advanced directives and goals of care. The patient is currently full code. Admit to the medical service once initial diagnostics have resulted. 10/29/20 07:51 10/29/20 08:17 Laboratory studies reviewed and appreciated. Patient has evidence of congestive hepatopathy, proBNP greater than 31,000. Elevated troponin reviewed and appreciated, this is likely a type II troponin leak. EKG nonspecifically altered when compared to prior EKG. New onset T wave inversions, low-grade troponin. Cardiology consultation is requested. We are waiting for them to call back. Patient continues to appear comfortable on BiPAP at this time. Lactic acidosis is likely a type II lactic acidosis, secondary to the aforementioned. Would not benefit from aggressive IV fluids at this time. Hospital physician, Dr. Juanita Simmons to admit to IMS - Consultations Consultation #1: 10/29/20 08:23 Discussed history, physical, EKG findings, findings, and overall clinical impression with cardiology on-call, Dr. Tinoco Aspirin is agreed upon, we suspect that elevated troponin is likely a type II troponin leak, and we are in agreement to hold systemic anticoagulation at this time. He indicates that he or one of his colleagues from [facility] will come by and evaluate the patient shortly, and make further recommendations. ED Medical Decision Making - Lab Data Result diagrams: 10/29/20 07:08 10/29/20 07:08 Vital Signs 10/29/20 10/29/20 10/29/20 06:27 06:28 06:43 Temperature 97.6 F Pulse Rate 104 H 102 H Pulse Rate [ 107 H Bilateral Throughout] Respiratory 34 H 29 H Rate Respiratory 28 H Rate [Bilateral Throughout] Blood Pressure 157/88 157/88 Blood Pressure 157/88 [Right] O2 Sat by Pulse 97 96 Oximetry Lab Results 10/29/20 Range/Units 07:08 WBC 14.3 H (4.5-11.0) K/mm3 RBC 3.42 L (3.65-5.03) M/mm3 Hgb 11.0 (10.1-14.3) gm/dl Hct 33.4 (30.3-42.9) % MCV 97 (79-97) fl MCH 32 (28-32) pg MCHC 33 (30-34) % RDW 17.0 H (13.2-15.2) % Plt Count 223 (140-440) K/mm3 Lymph % (Auto) 4.9 L (13.4-35.0) % [place] % (Auto) 4.6 (0.0-7.3) % Eos % (Auto) 0.2 (0.0-4.3) % Baso % (Auto) 0.5 (0.0-1.8) % Lymph # (Auto) 0.7 L (1.2-5.4) K/mm3 [place] # (Auto) 0.7 (0.0-0.8) K/mm3 Eos # (Auto) 0.0 (0.0-0.4) K/mm3 Baso # (Auto) 0.1 (0.0-0.1) K/mm3 Seg Neutrophils % 89.8 H (40.0-70.0) % Seg Neutrophils # 12.8 H (1.8-7.7) K/mm3 Vital Signs 10/29/20 10/29/20 10/29/20 06:27 06:28 06:43 Temperature 97.6 F Pulse Rate 104 H 102 H Pulse Rate [ 107 H Bilateral Throughout] Respiratory 34 H 29 H Rate Respiratory 28 H Rate [Bilateral Throughout] Blood Pressure 157/88 157/88 Blood Pressure 157/88 [Right] O2 Sat by Pulse 97 96 Oximetry Lab Results 10/29/20 10/29/20 10/29/20 Range/Units 07:08 07:08 07:08 WBC 14.3 H (4.5-11.0) K/mm3 RBC 3.42 L (3.65-5.03) M/mm3 Hgb 11.0 (10.1-14.3) gm/dl Hct 33.4 (30.3-42.9) % MCV 97 (79-97) fl MCH 32 (28-32) pg MCHC 33 (30-34) % RDW 17.0 H (13.2-15.2) % Plt Count 223 (140-440) K/mm3 Lymph % (Auto) 4.9 L (13.4-35.0) % Dor[place] % (Auto) 4.6 (0.0-7.3) % Eos % (Auto) 0.2 (0.0-4.3) % Baso % (Auto) 0.5 (0.0-1.8) % Lymph # (Auto) 0.7 L (1.2-5.4) K/mm3 [place] # (Auto) 0.7 (0.0-0.8) K/mm3 Eos # (Auto) 0.0 (0.0-0.4) K/mm3 Baso # (Auto) 0.1 (0.0-0.1) K/mm3 Seg Neutrophils % 89.8 H (40.0-70.0) % Seg Neutrophils # 12.8 H (1.8-7.7) K/mm3 PT 14.3 (12.2-14.9) Sec. INR 1.05 (0.87-1.13) Sodium 139 (137-145) mmol/L Potassium 4.7 (3.6-5.0) mmol/L Chloride 101.8 (98-107) mmol/L Carbon Dioxide 24 (22-30) mmol/L Anion Gap 18 mmol/L BUN 29 H (7-17) mg/dL Creatinine 1.1 (0.6-1.2) mg/dL Estimated GFR 58 ml/min BUN/Creatinine Ratio 26 % Glucose 181 H (65-100) mg/dL Lactic Acid (0.7-2.0) mmol/L Calcium 9.4 (8.4-10.2) mg/dL Magnesium 3.30 H (1.7-2.3) mg/dL Total Bilirubin 0.40 (0.1-1.2) mg/dL AST 119 H (5-40) units/L ALT 108 H (7-56) units/L Alkaline Phosphatase 177 H (35-129) units/L Lactate Dehydrogenase 342 H (91-180) units/L Total Creatine Kinase 54 (30-135) units/L Troponin T 0.045 H (0.00-0.029) ng/mL C-Reactive Protein 1.50 H (0.00-1.30) mg/dL NT-Pro-B Natriuret Pep 40002 H (0-900) pg/mL Total Protein 5.7 L (6.3-8.2) g/dL Albumin 3.4 L (3.9-5) g/dL Albumin/Globulin Ratio 1.5 % 10/29/20 Range/Units 07:08 WBC (4.5-11.0) K/mm3 RBC (3.65-5.03) M/mm3 Hgb (10.1-14.3) gm/dl Hct (30.3-42.9) % MCV (79-97) fl MCH (28-32) pg MCHC (30-34) % RDW (13.2-15.2) % Plt Count (140-440) K/mm3 Lymph % (Auto) (13.4-35.0) % [place] % (Auto) (0.0-7.3) % Eos % (Auto) (0.0-4.3) % Baso % (Auto) (0.0-1.8) % Lymph # (Auto) (1.2-5.4) K/mm3 [place] # (Auto) (0.0-0.8) K/mm3 Eos # (Auto) (0.0-0.4) K/mm3 Baso # (Auto) (0.0-0.1) K/mm3 Seg Neutrophils % (40.0-70.0) % Seg Neutrophils # (1.8-7.7) K/mm3 PT (12.2-14.9) Sec. INR (0.87-1.13) Sodium (137-145) mmol/L Potassium (3.6-5.0) mmol/L Chloride (98-107) mmol/L Carbon Dioxide (22-30) mmol/L Anion Gap mmol/L BUN (7-17) mg/dL Creatinine (0.6-1.2) mg/dL Estimated GFR ml/min BUN/Creatinine Ratio % Glucose (65-100) mg/dL Lactic Acid 2.80 H* (0.7-2.0) mmol/L Calcium (8.4-10.2) mg/dL Magnesium (1.7-2.3) mg/dL Total Bilirubin (0.1-1.2) mg/dL AST (5-40) units/L ALT (7-56) units/L Alkaline Phosphatase (35-129) units/L Lactate Dehydrogenase (91-180) units/L Total Creatine Kinase (30-135) units/L Troponin T (0.00-0.029) ng/mL C-Reactive Protein (0.00-1.30) mg/dL NT-Pro-B Natriuret Pep (0-900) pg/mL Total Protein (6.3-8.2) g/dL Albumin (3.9-5) g/dL Albumin/Globulin Ratio % - EKG Data -: EKG Interpreted by Ct EKG shows normal: sinus rhythm Rate: normal - EKG Data 10/29/20 08:16 EKG interpreted at 08: 09 Sinus rhythm, 75 bpm. Left axis deviation. Left ventricular hypertrophy. New onset T wave inversions V2, V3, V4 and V5. This is new when compared to prior EKG. This is an abnormal EKG. This is not a STEMI. When compared to prior EKG from 11/02/2019, new onset T wave inversions appear to be new. However, suspect that this may be secondary to left ventricular hypertrophy. - Radiology Data Radiology results: pending, report reviewed, image reviewed [facility] [address] [place] [address] XRay Report Signed Patient: LAURA SAUCEDA MR#: [id number] : 1940 Acct:[id number] Age/Sex: 80 / F ADM Date: 10/29/20 Loc: ED Attending Dr: Ordering Physician: TJ OLIVEIRA MD Date of Service: 10/29/20 Procedure(s): XR chest 1V ap Accession Number(s): [id number] cc: TJ OLIVEIRA MD Fluoro Time In Minutes: CHEST 1 VIEW, 10/29/2020 5:37 AM CLINICAL INFORMATION/INDICATION: Shortness of breath COMPARISON: Chest radiograph, 11/09/2019 at 7:32 AM FINDINGS: SUPPORT DEVICES: None. HEART: There is stable enlargement of the cardiac silhouette. Aortic stent graft is again noted. LUNGS/PLEURA: Low lung volumes are noted without focal airspace consolidation or significant pleural effusion. ADDITIONAL FINDINGS: No additional acute finding s. IMPRESSION: 1. Stable appearance of the chest. Signer Name: Ramila Simmons MD Signed: 10/29/2020 6:39 AM Workstation Name: [id number] Transcribed By: EB Dictated By: Ramila Simmons MD Electronically Authenticated By: Ramila Simmons MD Signed Date/Time: 10/29/20638 DD/ 7 Critical Care Time: Yes Critical care time in (mins) excluding proc time.: 65 Critical care attestation.: If time is entered above; I have spent that time in minutes in the direct care of this critically ill patient, excluding procedure time. ED Disposition Clinical Impression: Acute respiratory failure with hypoxia, Dementia, Suspected 2019 novel coronavirus infection, COPD exacerbation, Acute exacerbation of CHF (congestive heart failure) Disposition: OP ADMIT IP TO THIS HOSP Is pt being admited?: Yes Does the pt Need Aspirin: No Condition: Serious Instructions: Chronic Obstructive Pulmonary Disease (ED) Referrals: NEIL NIEVES MD [Primary Care Provider] - 3-5 Days
--- NOTE | 2020-10-29 06:43 | XRay Report ---
CHEST 1 VIEW, 10/29/2020 5:37 AM CLINICAL INFORMATION/INDICATION: Shortness of breath COMPARISON: Chest radiograph, 11/09/2019 at 7:32 AM FINDINGS: SUPPORT DEVICES: None. HEART: There is stable enlargement of the cardiac silhouette. Aortic stent graft is again noted. LUNGS/PLEURA: Low lung volumes are noted without focal airspace consolidation or significant pleural effusion. ADDITIONAL FINDINGS: No additional acute findings. IMPRESSION: 1. Stable appearance of the chest. Signer Name: Ramila Simmons MD Signed: 10/29/2020 6:39 AM Workstation Name: [id number]
[2020-10-29 07:32] LABS: Basophils # (Auto) 0.1 K/mm3 (0.0-0.1); Basophils % (Auto) 0.5 % (0.0-1.8); Eosinophils % (Auto) 0.2 % (0.0-4.3); Hematocrit 33.4 % (30.3-42.9); Lymphocytes # (Auto) 0.7 K/mm3 (1.2-5.4); Lymphocytes % (Auto) 4.9 % (13.4-35.0); Mean Corpuscular HGB Conc 33 % (30-34); Mean Corpuscular Volume 97 fl (79-97); Monocytes # (Auto) 0.7 K/mm3 (0.0-0.8); Monocytes % (Auto) 4.6 % (0.0-7.3); Platelet Count 223 K/mm3 (140-440); Red Blood Count 3.42 M/mm3 (3.65-5.03)
[2020-10-29] MEDS ORDERED: AZITHROMYCIN/NS 500 MG/250 ML 500 MG/250 ML BAG IV ONE (07:49)
[2020-10-29] MEDS ORDERED: cefTRIAXone/NS 1 GM/50 ML 1 GM/50 ML BAG IV ONE (07:49)
[2020-10-29] MEDS ORDERED: FUROSEMIDE 40 MG/4 ML INJ IV ONE (07:49)
[2020-10-29 08:02] LABS: Albumin 3.4 g/dL (3.9-5); C-Reactive Protein 1.5 mg/dL (0.00-1.30); Calcium 9.4 mg/dL (8.4-10.2)
[2020-10-29 08:07] LABS: INR 1.05 (0.87-1.13)
--- NOTE | 2020-10-29 08:13 | History and Physical Report ---
History of Present Illness Date of examination: 10/29/20 Date of admission: 10/29/20 Chief complaint: SOB History of present illness: 79-year-old -Maldivian female with known history of CHF, COPD, diabetes mellitus, hypothyroidism, up-to-date with COVID-19 vaccination and dementia presenting to the emergency room today with respiratory distress and having diff iculty breathing. EMS states patient was hypoxic, and tripoding in the field, and they started CPAP in the field. They were unable to establish IV access. Per family patient recently had a 1 or 2-hour trip to [place], has chronic lower extremity swelling, no recent hospitalizations or period of i mmobilization. family denies nausea, vomiting, diarrhea, loss of taste and smell, and syncope. Patient remains hypoxic in the ER and placed on BiPAP which improved her symptoms. Chest x-ray showed no infiltrates. Lower extremity Dopplers is negative for DVT. Patient being admitted for COPD exacerbation and further evaluation management. Past History Past Medical History: CAD (Cardiac cath in April 2018), COPD, diabetes, heart failure (With EF of 25 to 30%), hypertension, hyperlipidemia, hypothyroidism Past Surgical History: hysterectomy, Other (Thoracic aortic aneurysm, abdominal aortic root aneurysm with repair) Social history: no significant social history Family history: no significant family history Review of System: Limited Constitutional: no fever, no chills, no weight loss Ears, eyes, nose, mouth and throat: no nasal congestion, no nasal discharge, no sinus pressure, no vision change, no red eye. Neck: No neck pain or rigidity. Cardiovascular: No chest pain, no orthopnea, no palpitations, no leg swelling Respiratory: +ve shortness of breath, no cough, no congestion, no wheezing Gastrointestinal: no abdominal pain, no nausea, no vomiting Genitourinary : no dysuria, no hematuria Musculoskeletal: no joint swelling or muscle ache Integumentary: no rash, no pruritis Neurological: no parathesias, no numbness, no tingling Endocrine: no cold or heat intolerance, no polyuria or polydipsia Hematologic/Lymphatic: no easy bruising, no easy bleeding, no gland swelling Allergic/Immunologic: no urticaria, no angioedema. Medications and Allergies Allergies Allergy/AdvReac Type Severity Reaction Status Date / Time No Known Allergies Allergy Unverified 07/02/19 19:41 Home Medications Medication Instructions Recorded Confirmed Last Taken Type ALBUTEROL NEB's [Proventil 0.083% 2.5 mg IH TID PRN #60 neb 11/19/19 Unknown Rx NEBS] Arformoterol Nebu [Brovana Nebu] 15 mcg IH Q12HRT #60 ml 11/19/19 Unknown Rx Aspirin EC [Halfprin EC] 81 mg PO QDAY #30 tablet 11/19/19 Unknown Rx AtorvaSTATin [Lipitor] 40 mg PO QHS #30 tablet 11/19/19 Unknown Rx Budesonide [Pulmicort Respules] 0.5 mg IH Q12HRT #60 nebu 11/19/19 Unknown Rx Insulin Aspart [Insulin Aspart See Protocol SQ TID PRN #1 11/19/19 Unknown Rx Flexpen] insuln.pen Levothyroxine [Synthroid] 100 mcg PO DAILY@0600 #30 tablet 11/19/19 Unknown Rx Pantoprazole [Protonix TAB] 40 mg PO QDAY #30 tablet 11/19/19 Unknown Rx Spironolactone [Aldactone] 25 mg PO QDAY #30 tablet 11/19/19 Unknown Rx carvediloL [Coreg] 6.25 mg PO BID #60 tablet 11/19/19 Unknown Rx hydrALAZINE [Apresoline TAB] 25 mg PO BID #60 tablet 11/19/19 Unknown Rx traMADoL [Ultram 50 MG tab] 50 mg PO BID PRN #30 tablet 11/19/19 Unknown Rx Active Meds: Active Medications Azithromycin (Zithromax/Ns) 500 mg in 250 mls @ 250 mls/hr IV ONCE ONE; Protoco l Stop: 10/29/20 08:48 Ceftriaxone Sodium (Rocephin/Ns 1 Gm/50 Ml) 1 gm in 50 mls @ 100 mls/hr IV ONCE ONE; Protocol Stop: 10/29/20 08:18 Exam - Physical Exam Narrative exam: GENERAL: Elderly -Maldivian female lying on bed appeared to be lethargic HEENT: Normocephalic. Atraumatic. No conjunctival congestion or icterus. Patient has moist mucous membranes. NECK: Supple. Trachea midline. CHEST/LUNGS: Diminished breath sounds auscultated bilaterally, patient on BiPAP no wheezes HEART/CARDIOVASCULAR: Regular in rate and rhythm. S1 and S2 positive. ABDOMEN: Abdomen is soft, nontender. Patient has normal bowel sounds. SKIN: There is no rash. Warm and dry. NEURO: No focal motor deficit. Follows command. MUSCULOSKELETAL: No joint effusion or tenderness. EXTRIMITY: Trace edema, no cyanosis or clubbing. PSYCH: Cooperative. - Constitutional Vitals: Temp Pulse Resp BP Pulse Ox 97.6 F 107 H 28 H 157/88 96 10/29/20 06:27 10/29/20 06:43 10/29/20 06:43 10/29/20 06:28 10/29/20 06:28 HEART Score - HEART Score Troponin: Troponin T 0.045 ng/mL (0.00-0.029) H 10/29/20 07:08 Results - Labs CBC & Chem 7: 10/29/20 07:08 10/31/20 13:20 Labs: Abnormal lab results 10/29/20 10/29/20 10/29/20 Range/Units 07:08 07:08 07:08 WBC 14.3 H (4.5-11.0) K/mm3 RBC 3.42 L (3.65-5.03) M/mm3 RDW 17.0 H (13.2-15.2) % Lymph % (Auto) 4.9 L (13.4-35.0) % Lymph # (Auto) 0.7 L (1.2-5.4) K/mm3 Seg Neutrophils % 89.8 H (40.0-70.0) % Seg Neutrophils # 12.8 H (1.8-7.7) K/mm3 BUN 29 H (7-17) mg/dL Glucose 181 H (65-100) mg/dL Lactic Acid 2.80 H* (0.7-2.0) mmol/L Magnesium 3.30 H (1.7-2.3) mg/dL AST 119 H (5-40) units/L ALT 108 H (7-56) units/L Alkaline Phosphatase 177 H (35-129) units/L Lactate Dehydrogenase 342 H (91-180) units/L Troponin T 0.045 H (0.00-0.029) ng/mL C-Reactive Protein 1.50 H (0.00-1.30) mg/dL NT-Pro-B Natriuret Pep 18778 H (0-900) pg/mL Total Protein 5.7 L (6.3-8.2) g/dL Albumin 3.4 L (3.9-5) g/dL - Imaging and Cardiology Chest x-ray: report reviewed (No infiltrates) Venous US: report reviewed (No DVT) Assessment and Plan --SIRS, likely from COPD exacerbation cont abx, follow cx -- Acute on chronic hypoxic respiratory failure Patient currently on BiPAP We will request pulmonary evaluation and recommendation. We will also order for pulmonary VQ scan -- Cardiomyopathy with acute CHF exacerbation Patient has an EF of about 25 to 30%. We will resume routine home medications once reconciled. Consult cardiology --COPD exacerbation Continue nebulizer breathing treatment, empiric steroid, supplemental O2 Consult pulmonary --NSTEMI likely type 2 from underlying cardiomyopathy -- Diabetes We will monitor Accu-Cheks. Will place on sliding scale insulin. -- HTN (hypertension) Blood pressure uncontrolled. Will place on IV hydralazine as needed. Will monitor vital signs closely. -- Dementia Supportive care -- Hypothyroidism Patient has been on levothyroxine. -- DVT prophylaxis Patient placed on subcutaneous heparin. --Full code status Current Visit: Yes Status: Acute
[2020-10-29 08:14] LABS: Chol/HDL Ratio 4.1 %
[2020-10-29] MEDS ORDERED: ASPIRIN 300 MG RECT SUPP PR ONE (08:22)
[2020-10-29] MEDS ORDERED: ALBUTEROL 2.5 MG/3 ML NEBU IH PRN (08:30)
--- NOTE | 2020-10-29 08:37 | Vascular Lab Report ---
DUPLEX DOPPLER LOWER EXTREMITY VEINS, BILATERAL INDICATION / CLINICAL INFORMATION: b/l lower ext swelling. TECHNIQUE: Duplex doppler imaging was performed through the veins of both lower extremities using venous jason vin and other maneuvers. COMPARISON: Bilateral lower extremity ultrasound 11/10/2019 FINDINGS: RIGHT COMMON FEMORAL VEIN: Negative. RIGHT FEMORAL VEIN: Negative. RIGHT POPLITEAL VEIN: Negative. RIGHT CALF VEINS: Negative. LEFT COMMON FEMORAL VEIN: Negative. LEFT FEMORAL VEIN: Negative. LEFT POPLITEAL VEIN: Negative. LEFT CALF VEINS: Negative. ADDITIONAL FINDINGS: None. IMPRESSION: 1. No sonographic evidence for DVT in either lower extremity. Signer Name: Amanda Castano MD Signed: 10/29/2020 8:32 AM Workstation Name: [id number]
[2020-10-29] MEDS ORDERED: NITROGLYCERIN 0.4 MG TAB SUBL SL PRN (09:00)
[2020-10-29] MEDS ORDERED: MORPHINE 2 MG/1 ML INJ IV PRN (09:00)
[2020-10-29] MEDS: ASPIRIN 325 MG TAB PO SCH (11:02)
[2020-10-29] MEDS: PANTOPRAZOLE 40 MG TAB PO SCH (11:33)
[2020-10-29 15:47] LABS: Bacteria,Urine 1+ /HPF (Negative); Bilirubin,Urine NEG (Negative); Blood,Urine NEG (Negative); Color,Urine Straw (Yellow); Mucus,Urine FEW /HPF; Urobilinogen,Urine < 2.0 mg/dL (<2.0)
[2020-10-29] MEDS: ARFORMOTEROL 15 MCG/2 ML NEBU IH SCH (20:46)
[2020-10-29] MEDS: IPRATROPIUM/ALBUTEROL SULFATE 3 ML AMPUL.NEB IH SCH (20:46)
[2020-10-29] MEDS: BUDESONIDE 0.5 MG/2 ML NEBU IH SCH (20:46)
[2020-10-29] MEDS: FUROSEMIDE 40 MG/4 ML INJ IV SCH (23:11)
[2020-10-29] MEDS: methylPREDNISolone Sod Succinate 125 MG/2 ML INJ IV SCH (23:12)
[2020-10-29] MEDS: ENOXAPARIN 40 MG/0.4 ML INJ SUB-Q SCH (23:13)
[2020-10-30] MEDS: methylPREDNISolone Sod Succinate 125 MG/2 ML INJ IV SCH ×3 (02:17→17:22)
[2020-10-30] MEDS: IPRATROPIUM/ALBUTEROL SULFATE 3 ML AMPUL.NEB IH SCH ×4 (02:47→21:04)
[2020-10-30] MEDS: LEVOTHYROXINE 100 MCG TAB PO SCH (05:36)
[2020-10-30] MEDS: FUROSEMIDE 40 MG/4 ML INJ IV SCH ×2 (05:36→17:23)
[2020-10-30 06:37] LABS: BUN/Creatinine Ratio 29; Blood Urea Nitrogen 26 mg/dL (7-17); Hemolysis Index 5
[2020-10-30] MEDS: ASPIRIN 325 MG TAB PO SCH (09:47)
[2020-10-30] MEDS: PANTOPRAZOLE 40 MG TAB PO SCH ×2 (09:47→21:53)
[2020-10-30] MEDS: BUDESONIDE 0.5 MG/2 ML NEBU IH SCH ×2 (09:49→21:04)
[2020-10-30] MEDS: ARFORMOTEROL 15 MCG/2 ML NEBU IH SCH ×2 (10:02→21:04)
--- NOTE | 2020-10-30 12:18 | Consultation ---
History of Present Illness Consult date: 10/30/20 Requesting physician: WILLIAM SWAIN Consult reason: other History of present illness: Patient is a 80-year-old admitted for treatment of shortness of breath. Unfortunately patient has underlying dementia and is a very poor historian. History obtained from the chart. She appears to have a history of underlying ca rdiomyopathy, hypertension and advanced dementia. Initial evaluation consistent with congestive heart failure. She currently reports she is feeling much better. No further could be obtained from the patient. Past History Past Medical History: COPD, hypertension, other (Congestive heart failure) Social history: no significant social history Family history: no significant family history Medications and Allergies Allergies Allergy/AdvReac Type Severity Reaction Status Date / Time No Known Allergies Allergy Unverified 07/02/19 19:41 Home Medications Medication Instructions Recorded Confirmed Last Taken Type ALBUTEROL NEB's [Proventil 0.083% 2.5 mg IH TID PRN #60 neb 11/19/19 Unknown Rx NEBS] Arformoterol Nebu [Brovana Nebu] 15 mcg IH Q12HRT #60 ml 11/19/19 Unknown Rx Aspirin EC [Halfprin EC] 81 mg PO QDAY #30 tablet 11/19/19 Unknown Rx AtorvaSTATin [Lipitor] 40 mg PO QHS #30 tablet 11/19/19 Unknown Rx Budesonide [Pulmicort Respules] 0.5 mg IH Q12HRT #60 nebu 11/19/19 Unknown Rx Insulin Aspart [Insulin Aspart See Protocol SQ TID PRN #1 11/19/19 Unknown Rx Flexpen] insuln.pen Levothyroxine [Synthroid] 100 mcg PO DAILY@0600 #30 tablet 11/19/19 Unknown Rx Pantoprazole [Protonix TAB] 40 mg PO QDAY #30 tablet 11/19/19 Unknown Rx Spironolactone [Aldactone] 25 mg PO QDAY #30 tablet 11/19/19 Unknown Rx carvediloL [Coreg] 6.25 mg PO BID #60 tablet 11/19/19 Unknown Rx hydrALAZINE [Apresoline TAB] 25 mg PO BID #60 tablet 11/19/19 Unknown Rx traMADoL [Ultram 50 MG tab] 50 mg PO BID PRN #30 tablet 11/19/19 Unknown Rx Active Meds: Active Medications Albuterol (Albuterol 2.5 Mg/3 Ml Nebu) 2.5 mg IH TID PRN PRN Reason: Wheezing Albuterol/Ipratropium (Ipratropium/Albuterol Sulfate 3 Ml Ampul.Neb) 1 ampul IH Q6HRT [facility] Last Admin: 10/30/20 09:49 Dose: 1 ampul Documented by: Arformoterol Tartrate (Arformoterol 15 Mcg/2 Ml Nebu) 15 mcg IH Q12HRT [facility] Last Admin: 10/30/20 10:02 Dose: 15 mcg Documented by: Aspirin (Aspirin 325 Mg Tab) 325 mg PO QDAY [facility] Last Admin: 10/30/20 09:47 Dose: 325 mg Documented by: Atorvastatin Calcium (Atorvastatin 40 Mg Tab) 40 mg PO QHS [facility] Last Admin: 10/29/20 23:12 Dose: 40 mg Documented by: Budesonide (Budesonide 0.5 Mg/2 Ml Nebu) 0.5 mg IH Q12HRT [facility] Last Admin: 10/30/20 09:49 Dose: 0.5 mg Documented by: Carvedilol (Carvedilol 3.125 Mg Tab) 3.125 mg PO BID [facility] Enoxaparin Sodium (Enoxaparin 40 Mg/0.4 Ml Inj) 40 mg SUB-Q QDAY@2200 [facility]; Protocol Last Admin: 10/29/20 23:13 Dose: 40 mg Documented by: Furosemide (Furosemide 40 Mg/4 Ml Inj) 40 mg IV BID@0600,1800 [facility] Last Admin: 10/30/20 05:36 Dose: 40 mg Documented by: Levothyroxine Sodium (Levothyroxine 100 Mcg Tab) 100 mcg PO DAILY@0600 [facility] Last Admin: 10/30/20 05:36 Dose: 100 mcg Documented by: Methylprednisolone Sodium Succinate (Methylprednisolone Sod Succinate 125 Mg/2 Ml Inj) 80 mg IV Q8H [facility] Last Admin: 10/30/20 09:47 Dose: 80 mg Documented by: Morphine Sulfate (Morphine 2 Mg/1 Ml Inj) 2 mg IV Q5MIN PRN PRN Reason: Chest Pain unrelieved by NTG Nitroglycerin (Nitroglycerin 0.4 Mg Tab Subl) 0.4 mg SL .Q5MIN PRN PRN Reason: Chest Pain Pantoprazole Sodium (Pantoprazole 40 Mg Tab) 40 mg PO QDAY [facility] Last Admin: 10/30/20 09:47 Dose: 40 mg Documented by: Tramadol HCl (Tramadol 50 Mg Tab) 50 mg PO BID PRN PRN Reason: Pain, Moderate (4-6) Review of Systems All systems: negative (As mentioned in the H&P) Physical Examination Vital Signs Temp Pulse Resp BP Pulse Ox 97.6 F 104 H 34 H 157/88 97 10/29/20 06:27 10/29/20 06:27 10/29/20 06:27 10/29/20 06:27 10/29/20 06:27 Narrative exam: Moderately obese HEENT: Positive: Normocephaly Neck: Positive: neck supple Cardiac: Positive: Reg Rate and Rhythm Lungs: Positive: clear to auscultation Neuro: Positive: Grossly Intact Abdomen: Positive: Unremarkable Extremities: Present: +2 Edema Results 10/29/20 07:08 10/30/20 04:44 Comprehensive Metabolic Panel 10/30/20 Range/Units 04:44 Sodium 144 (137-145) mmol/L Potassium 4.6 (3.6-5.0) mmol/L Chloride 102.3 (98-107) mmol/L Carbon Dioxide 28 (22-30) mmol/L BUN 26 H (7-17) mg/dL Creatinine 0.9 (0.6-1.2) mg/dL Glucose 138 H (65-100) mg/dL Calcium 9.0 (8.4-10.2) mg/dL EKG interpretations - Telemetry EKG Rhythm: Sinus Rhythm (Sinus rhythm with new anterolateral T wave inversion) Assessment and Plan Impression 1. Shortness of breath findings suggestive of acute on chronic systolic congestive heart failure 2. History of cardiomyopathy 3. Hypertension 4. Abnormal EKG with new onset anterolateral T wave inversion 5. COPD with acute exacerbation 6. Advanced dementia Plan 1. Continue IV diuretic 2. Start patient on beta-mehran 3. 2D echo 4. Monitor renal function 5. At some point will need an ischemia evaluation given the new onset anterolateral T wave inversion
--- NOTE | 2020-10-30 15:27 | Consultation ---
History of Present Illness Consult date: 10/30/20 Requesting physician: WILLIAM SWAIN Reason for consult: other (Possible Pulmonary Embolism) History of present illness: PULMONARY/CCM CONSULT NOTE (Full dictation # [id number]) Please see dictated notes for full details Past History Past Medical History: COPD, hypertension, other (Congestive heart failure) Social history: no significant social history Family history: no significant family history Medications and Allergies Allergies Allergy/AdvReac Type Severity Reaction Status Date / Time No Known Allergies Allergy Unverified 07/02/19 19:41 Home Medications Medication Instructions Recorded Confirmed Last Taken Type ALBUTEROL NEB's [Proventil 0.083% 2.5 mg IH TID PRN #60 neb 11/19/19 Unknown Rx NEBS] Arformoterol Nebu [Brovana Nebu] 15 mcg IH Q12HRT #60 ml 11/19/19 Unknown Rx Aspirin EC [Halfprin EC] 81 mg PO QDAY #30 tablet 11/19/19 Unknown Rx AtorvaSTATin [Lipitor] 40 mg PO QHS #30 tablet 11/19/19 Unknown Rx Budesonide [Pulmicort Respules] 0.5 mg IH Q12HRT #60 nebu 11/19/19 Unknown Rx Insulin Aspart [Insulin Aspart See Protocol SQ TID PRN #1 11/19/19 Unknown Rx Flexpen] insuln.pen Levothyroxine [Synthroid] 100 mcg PO DAILY@0600 #30 tablet 11/19/19 Unknown Rx Pantoprazole [Protonix TAB] 40 mg PO QDAY #30 tablet 11/19/19 Unknown Rx Spironolactone [Aldactone] 25 mg PO QDAY #30 tablet 11/19/19 Unknown Rx carvediloL [Coreg] 6.25 mg PO BID #60 tablet 11/19/19 Unknown Rx hydrALAZINE [Apresoline TAB] 25 mg PO BID #60 tablet 11/19/19 Unknown Rx traMADoL [Ultram 50 MG tab] 50 mg PO BID PRN #30 tablet 11/19/19 Unknown Rx Active Meds: Active Medications Albuterol (Albuterol 2.5 Mg/3 Ml Nebu) 2.5 mg IH TID PRN PRN Reason: Wheezing Albuterol/Ipratropium (Ipratropium/Albuterol Sulfate 3 Ml Ampul.Neb) 1 ampul IH Q6HRT [facility] Last Admin: 10/30/20 09:49 Dose: 1 ampul Documented by: Arformoterol Tartrate (Arformoterol 15 Mcg/2 Ml Nebu) 15 mcg IH Q12HRT [facility] Last Admin: 10/30/20 10:02 Dose: 15 mcg Documented by: Aspirin (Aspirin 325 Mg Tab) 325 mg PO QDAY [facility] Last Admin: 10/30/20 09:47 Dose: 325 mg Documented by: Atorvastatin Calcium (Atorvastatin 40 Mg Tab) 40 mg PO QHS [facility] Last Admin: 10/29/20 23:12 Dose: 40 mg Documented by: Budesonide (Budesonide 0.5 Mg/2 Ml Nebu) 0.5 mg IH Q12HRT [facility] Last Admin: 10/30/20 09:49 Dose: 0.5 mg Documented by: Carvedilol (Carvedilol 3.125 Mg Tab) 3.125 mg PO BID [facility] Enoxaparin Sodium (Enoxaparin 40 Mg/0.4 Ml Inj) 40 mg SUB-Q QDAY@2200 [facility]; Protocol Last Admin: 10/29/20 23:13 Dose: 40 mg Documented by: Furosemide (Furosemide 40 Mg/4 Ml Inj) 40 mg IV BID@0600,1800 [facility] Last Admin: 10/30/20 05:36 Dose: 40 mg Documented by: Levothyroxine Sodium (Levothyroxine 100 Mcg Tab) 100 mcg PO DAILY@0600 [facility] Last Admin: 10/30/20 05:36 Dose: 100 mcg Documented by: Methylprednisolone Sodium Succinate (Methylprednisolone Sod Succinate 125 Mg/2 Ml Inj) 80 mg IV Q8H [facility] Last Admin: 10/30/20 09:47 Dose: 80 mg Documented by: Morphine Sulfate (Morphine 2 Mg/1 Ml Inj) 2 mg IV Q5MIN PRN PRN Reason: Chest Pain unrelieved by NTG Nitroglycerin (Nitroglycerin 0.4 Mg Tab Subl) 0.4 mg SL .Q5MIN PRN PRN Reason: Chest Pain Pantoprazole Sodium (Pantoprazole 40 Mg Tab) 40 mg PO QDAY [facility] Last Admin: 10/30/20 09:47 Dose: 40 mg Documented by: Tramadol HCl (Tramadol 50 Mg Tab) 50 mg PO BID PRN PRN Reason: Pain, Moderate (4-6) Physical Examination Vital signs: Vital Signs Temp Pulse Resp BP Pulse Ox 97.6 F 104 H 34 H 157/88 97 10/29/20 06:27 10/29/20 06:27 10/29/20 06:27 10/29/20 06:27 10/29/20 06:27 Results - Laboratory Findings CBC and BMP: 10/29/20 07:08 10/30/20 04:44 PT/INR, D-dimer PT 14.3 Sec. (12.2-14.9) 10/29/20 07:08 INR 1.05 (0.87-1.13) 10/29/20 07:08 D-Dimer 4533.93 ng/mlDDU (0-234) H 10/29/20 07:08 Abnormal lab findings: Abnormal Labs 10/29/20 10/29/20 10/29/20 07:08 07:08 07:08 WBC 14.3 H RBC 3.42 L RDW 17.0 H Lymph % (Auto) 4.9 L Lymph # (Auto) 0.7 L Seg Neutrophils % 89.8 H Seg Neutrophils # 12.8 H D-Dimer 4533.93 H BUN 29 H Glucose 181 H POC Glucose Lactic Acid Magnesium 3.30 H AST 119 H ALT 108 H Alkaline Phosphatase 177 H Lactate Dehydrogenase 342 H Troponin T 0.045 H C-Reactive Protein 1.50 H NT-Pro-B Natriuret Pep 59085 H Total Protein 5.7 L Albumin 3.4 L HDL Cholesterol 37 L 10/29/20 10/29/20 10/30/20 07:08 14:33 04:44 WBC RBC RDW Lymph % (Auto) Lymph # (Auto) Seg Neutrophils % Seg Neutrophils # D-Dimer BUN 26 H Glucose 138 H POC Glucose 149 H Lactic Acid 2.80 H* Magnesium AST ALT Alkaline Phosphatase Lactate Dehydrogenase Troponin T C-Reactive Protein NT-Pro-B Natriuret Pep Total Protein Albumin HDL Cholesterol 10/30/20 10/30/20 11:16 13:21 WBC RBC RDW Lymph % (Auto) Lymph # (Auto) Seg Neutrophils % Seg Neutrophils # D-Dimer BUN Glucose POC Glucose 238 H Lactic Acid 4.50 H* Magnesium AST ALT Alkaline Phosphatase Lactate Dehydrogenase Troponin T C-Reactive Protein NT-Pro-B Natriuret Pep Total Protein Albumin HDL Cholesterol
--- NOTE | 2020-10-30 16:08 | Progress Note ---
Assessment and Plan --SIRS, likely from COPD exacerbation cont abx, follow cx -- Acute on chronic hypoxic respiratory failure Patient is s/p BiPAP Chest x-ray showed mild cardiomegaly, mild interstitial opacities, and presence of a stent in the thoracic aorta. Findings consistent with mild congestive heart failure, combined with her history of chronic lung disease. Continue IV Lasix, scheduled nebulizer breathing treatment and supplemental O2 Ordered for VQ scan to rule out possible underlying PE --COPD exacerbation - Will provide scheduled nebulizer breathing treatment and as needed - Place on empiric steroid and antibiotic - Provide supplemental oxygen to keep oxygen saturation above 92% Consulted pulmonary -- Cardiomyopathy with acute systolic CHF exacerbation Patient has an EF of about 25 to 30%. We will continue IV Lasix and resume home medications Cardiology consulted --NSTEMI likely type 2 from underlying cardiomyopathy Continue home cardiac medications and follow cardiology recommendation -- Diabetes type II We will monitor Accu-Cheks. placed on sliding scale insulin. -- HTN (hypertension), uncontrolled. Will place on IV hydralazine as needed. We will continue antihypertensives and adjust dose as needed -- Dementia Continue supportive care -- Hypothyroidism Patient has been on levothyroxine. -- DVT prophylaxis: Patient placed on subcutaneous heparin. --Full code status Daily clinical course: 10/30/20: Continue IV Lasix, scheduled nebulizer breathing treatment and supplemental O2. Discussed with patient's son at the bedside and updated in details. Ordered for VQ scan -pending. Continue supportive care and monitor clinically. Follow pulmonary and cardiology recommendation. Subjective Date of service: 10/30/20 Interval history: Patient seen and examined. Medical records and medication list reviewed. No acute event overnight noted by the RN. Patient denies any chest pain but complains of difficulty breathing even on resting. Patient is tolerating diet. Discussed plan of care at bedside with patient's Son. Objective - Exam Narrative Exam: GENERAL: Elderly -[place] female lying on bed appeared to be lethargic HEENT: Normocephalic. Atraumatic. No conjunctival congestion or icterus. Patient has moist mucous membranes. NECK: Supple. Trachea midline. CHEST/LUNGS: Diminished breath sounds auscultated bilaterally, patient on BiPAP no wheezes or crackles HEART/CARDIOVASCULAR: Regular in rate and rhythm. S1 and S2 positive. ABDOMEN: Abdomen is soft, nontender. Patient has normal bowel sounds. SKIN: There is no rash. Warm and dry. NEURO: No focal motor deficit. Follows command. MUSCULOSKELETAL: No joint effusion or tenderness. EXTRIMITY: No edema, no cyanosis or clubbing. PSYCH: Cooperative. - Constitutional Vitals: Vital Signs - 12hr 10/30/20 10/30/20 10/30/20 08:41 11:16 13:07 Temperature 97.9 F 97.9 F Pulse Rate 88 96 H Respiratory 18 18 18 Rate Blood Pressure 141/82 120/51 O2 Sat by Pulse 97 100 96 Oximetry - Labs CBC & Chem 7: 10/29/20 07:08 10/31/20 13:20 Labs: Abnormal lab results 10/30/20 10/30/20 10/30/20 Range/Units 04:44 11:16 13:21 BUN 26 H (7-17) mg/dL Glucose 138 H (65-100) mg/dL POC Glucose 238 H (70-105) mg/dL Lactic Acid 4.50 H* (0.7-2.0) mmol/L HEART Score - HEART Score Troponin: Troponin T 0.023 ng/mL (0.00-0.029) 10/30/20 13:21
[2020-10-30] MEDS: AZITHROMYCIN/NS 500 MG/250 ML 500 MG/250 ML BAG IV SCH (17:43)
[2020-10-30] MEDS ORDERED: LIDOCAINE-MPF (1%) 10 MG/1 ML VIAL 5 ML INFILTRATI ONE (18:00)
[2020-10-30] MEDS ORDERED: DEXTROSE 50% IN WATER (25GM) 50 ML SYRINGE IV PRN (19:34)
[2020-10-30] MEDS ORDERED: MELATONIN 5 MG TAB PO PRN (20:19)
[2020-10-30] MEDS: cefTRIAXone/NS 1 GM/50 ML 1 GM/50 ML BAG IV SCH (21:51)
[2020-10-30] MEDS: ENOXAPARIN 40 MG/0.4 ML INJ SUB-Q SCH (21:52)
[2020-10-30] MEDS: carvediloL 3.125 MG TAB PO SCH (21:52)
[2020-10-30] MEDS ORDERED: PANTOPRAZOLE 40 MG INJ IV SCH (22:00)
--- NOTE | 2020-10-30 23:37 | Consultation ---
DATE OF CONSULTATION: 10/30/2020 CONSULTING PHYSICIAN: Dr. Simmons. REASON FOR CONSULTATION: Possible PE. CHIEF COMPLAINT AND HISTORY OF PRESENT ILLNESS: As follows: The patient is a 80-year-old -Swazi female with past medical history significant amongst other things for a diagnosis of COPD, but also congestive heart failure, EF 25-30%, on home oxygen and also on on-home CPAP for obstructive sleep apnea, came into the emergency room complaining of shortness of breath. She reported that she was tripoding in the field. According to EMS that is she was also hypoxemic. They brought her into the emergency room. She remained hypoxemic in the emergency room and was placed on bilevel positive airway pressure ventilation therapy with improvement in her symptoms. A chest x-ray was unremarkable. She had denied any known COVID exposures. They recently had a 1 or 2 hour trip to [place] and she mentioned that she did notice perhaps increased lower extremity swelling. Her son, however, mentions that she might have gone a few days without taking her diuretics because she was staying with another relative. When I stopped by to see her, she was sitting up in bed, feeling a whole lot better than yesterday she tells me. Denied chest pains. Denied orthopnea. Denied any paroxysmal nocturnal dyspnea. She denies a history of tobacco use or abuse whatsoever. This really is as much of the history of presentation as I have. PAST MEDICAL HISTORY: Coronary artery disease, COPD, diabetes, heart failure with reduced ejection fraction, hypertension, hyperlipidemia. She is obese. PAST SURGICAL HISTORY: She has had a hysterectomy as well as a thoracic aortic aneurysm and abdominal aortic aneurysm root repair. MEDICATIONS: She was on at the time I stopped by to see her according to the medication administration record included the following: Albuterol 2.5 mg nebulized t.i.d. p.r.n. wheezing, DuoNeb nebulizer treatments scheduled q.6 hours, Brovana 15 mcg nebulized q.12, aspirin 325 mg p.o. daily, atorvastatin 40 mg p.o. at bedtime, azithromycin 500 mg IV daily, Pulmicort 0.5 mg nebulized q.12 h., Coreg 3.125 mg p.o. b.i.d., Rocephin 1 gram IV b.i.d. I believe that should daily, Lovenox 40 mg subq daily, Lasix 40 mg IV b.i.d., Levoxyl 100 mcg p.o. daily, Solu-Medrol 80 mg IV q.8 hours, Protonix 40 mg p.o. daily and tramadol 50 mg p.o. b.i.d. ALLERGIES: No known drug allergies. DIET: Obese lady, denies acute weight loss or gain in the preceding few weeks to months. FAMILY AND SOCIAL HISTORY: Lives in the community. Denies alcohol, tobacco, or illicit drug use or abuse. Family history is otherwise, noncontributory. REVIEW OF SYSTEMS: No loss of consciousness. No new onset seizures. No new onset focal weakness. Complains seriously of odynophagia. She has a history of gastroesophageal reflux disease. She admits also to heartburn. Denies gross hematochezia or melena. No dysuria, no hematuria. Denies heat or cold intolerance. She had the new increasing lower extremity swelling. Complete 13 system review of systems was obtained. Pertinent positives and/or negatives as in body of history above, otherwise, noncontributory. PHYSICAL EXAMINATION: VITAL SIGNS: At presentation, she was afebrile, temperature 97.6 degrees Fahrenheit, pulse of 104, respiratory rate of 34, blood pressure 157/88, O2 sats were 97%, inspired oxygen concentration at that time was not recorded. When I saw her O2 sats were 98% that was on 4 liters nasal cannula. GENERAL: She is an elderly looking obese female. Normocephalic, atraumatic, talking to me in full sentences, but with mildly increased respiratory effort at rest. HEAD, EYES, EARS, NOSE, AND THROAT: Anicteric. No conjunctival erythema. Oropharynx was moist. NECK: No gross jugular venous distention, no thyromegaly. Grossly, there were no palpable lymph nodes in the supraclavicular or submandibular lymph node chains. LUNGS: Auscultation of both lung garcias significant for diminished bilateral air entry. Bibasilar inspiratory rhonchi, no active wheezing. She does have a prolonged expiratory phase. HEART: Sounds 1 and 2 are heard. There were regular rate and rhythm at the time of my evaluation without overt rubs or murmurs. ABDOMEN: Soft, full, protuberant. Bowel sounds are positive. Mild epigastric tenderness. No palpable hepatosplenomegaly. EXTREMITIES: Without overt digital clubbing or cyanosis. She has trace pedal edema. Pedal pulses are 2+ bilaterally. NEUROLOGIC: Pupils are equal, round, about 4 mm, reactive to light. Extraocular muscle movements are intact. She moves all 4 extremities spontaneously. SKIN: Poor turgor; however, without overt cellulitis or rash in the areas examined. Please see the wound care nurses' notes for full description of her skin. PSYCHIATRIC: Mood was normal. Affect was appropriate. She had intact judgment and insight. LABORATORY DATA: From my review are as follows: White cell count 14,300, hemoglobin 11.0, hematocrit 33.4, platelet count 223. D-dimer 4500. Serum sodium 139, potassium 4.7, chloride 102, bicarbonate 24, BUN 29, creatinine 1.1, glucose was 181. Lactic acid level was 2.8, AST 119, ALT 108. Troponin was up at 0.045. Urinalysis was unremarkable. Coronavirus PCR was negative. Two sets of blood cultures are no growth to date. Chest x-ray shows thoracic stent in place, gross cardiomegaly, possible small bilateral pleural effusions and increased interstitial markings that do represent mild interstitial edema. ASSESSMENT: 1. Acute hypoxemic respiratory failure, acute on chronic. 2. Acute exacerbation of congestive heart failure. 3. Acute chronic obstructive pulmonary disease exacerbation. 4. Obstructive sleep apnea. 5. Obesity. 6. Diabetes. 7. Hypothyroidism. 8. History of aortic aneurysm repair. PLAN: I doubt we are dealing with venous thromboembolic phenomenon. I should mention lower extremity Dopplers are negative. I will go with a V/Q scan at first before we consider doing a CTA and exposing her to contrast. I will order a V/Q scan for tomorrow. Hopefully, we get a definitive result based on that. Otherwise, I agree with COPD treatment as is, but I will quickly taper her off the systemic steroids, make it 40 mg IV q.12 h. I agree with diuresis. Optimization of cardiac status will be left to the office administrative assistant. I am going to put her on double dose PPI therapy in light of her continued reflux symptoms. Flu and pneumonia vaccination will be addressed per protocol. Thank you very much for the consult. We will follow along and make further recommendations as picture progresses. TID: [id number] RECEIPT: [id number] TALAT/BLAISE KEITH
[2020-10-31] MEDS: IPRATROPIUM/ALBUTEROL SULFATE 3 ML AMPUL.NEB IH SCH ×4 (03:50→21:14)
[2020-10-31] MEDS: methylPREDNISolone Sod Succinate 40 MG/1 ML INJ IV SCH ×2 (04:53→17:16)
[2020-10-31] MEDS: FUROSEMIDE 40 MG/4 ML INJ IV SCH ×2 (05:01→17:16)
[2020-10-31] MEDS: LEVOTHYROXINE 100 MCG TAB PO SCH (05:01)
[2020-10-31] MEDS: ASPIRIN 325 MG TAB PO SCH (09:03)
[2020-10-31] MEDS: PANTOPRAZOLE 40 MG TAB PO SCH ×2 (09:03→21:40)
[2020-10-31] MEDS: cefTRIAXone/NS 1 GM/50 ML 1 GM/50 ML BAG IV SCH (09:04)
[2020-10-31] MEDS: carvediloL 3.125 MG TAB PO SCH ×2 (09:04→21:40)
[2020-10-31] MEDS: BUDESONIDE 0.5 MG/2 ML NEBU IH SCH ×2 (09:06→21:14)
[2020-10-31] MEDS: ARFORMOTEROL 15 MCG/2 ML NEBU IH SCH ×2 (09:07→21:14)
--- NOTE | 2020-10-31 09:59 | XRay Report ---
CHEST 1 VIEW INDICATION: for contrast evaluation. COMPARISON: 10/29/2020 FINDINGS: Support devices: None. Heart: Moderate cardiomegaly. Thoracic aortic stent appears unchanged in position. Lungs/Pleura: Mild cardiomegaly and small bilateral pleural effusions are identified. Mild bibasilar atelectasis. No pneumothorax. Additional findings: None. IMPRESSION: CHF. Signer Name: Drew Marin Jr, MD Signed: 10/31/2020 9:55 AM Workstation Name: [id number]
--- NOTE | 2020-10-31 10:27 | Nuclear Medicine Report ---
NUCLEAR MEDICINE PERFUSION LUNG SCAN INDICATION / CLINICAL INFORMATION: Hypoxemic Respiratory Failure. TECHNIQUE: 5.4 mCi of Tc-99m MAA were given by IV. COMPARISON: Chest radiograph dated chest imaging study to a study. FINDINGS: PERFUSION: No significant perfusion defects. ADDITIONAL FINDINGS: None. IMPRESSION: 1. Low probability for pulmonary embolism. Signer Name: Duc Olsen MD Signed: 10/31/2020 10:23 AM Workstation Name: [id number]
--- NOTE | 2020-10-31 12:22 | Progress Note ---
Assessment and Plan - Patient Problems (1) Acute exacerbation of CHF (congestive heart failure) Current Visit: Yes Status: Acute Plan to address problem: The patient presented to the hospital with shortness of breath. Findings consistent with mild congestive heart failure, combined with her history of chronic lung disease. Chest x-ray showed mild cardiomegaly, mild interstitial opacities, and presence of a stent in the thoracic aorta. 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 The left main, left anterior descending and right coronary arteries were all free of significant disease. There was an ischemic cardiomyopathy associated with the occluded circumflex, with a large posterior basal aneurysm and overall left ventricular ejection fraction of 25 to 30%. We will optimize guideline directed medical therapy for coronary artery disease, ischemic cardiomyopathy and chronic systolic heart failure. Subjective Date of service: 10/31/20 Interval history: The patient looks and feels comfortable, asymptomatic, no chest pain or shortness of breath. Objective Vital Signs Temp Pulse Pulse Resp Resp BP Pulse Ox 10/31/20 09:11 83 18 10/31/20 09:10 100 10/31/20 07:59 98.3 F 83 19 127/74 100 10/31/20 04:00 98.3 F 87 18 134/79 97 10/31/20 03:43 18 96 10/31/20 03:42 82 10/31/20 01:02 87 24 98 10/30/20 23:33 98.0 F 85 18 114/62 100 10/30/20 21:52 95 H 131/73 10/30/20 21:25 84 20 97 10/30/20 19:59 98.1 F 95 H 17 131/73 99 10/30/20 17:00 74 10/30/20 16:41 98.4 F 90 18 122/58 97 10/30/20 15:50 90 22 10/30/20 13:07 18 96 - Physical Examination General: No Apparent Distress HEENT: Positive: Normocephaly Neck: Positive: neck supple Cardiac: Positive: Reg Rate and Rhythm Lungs: Positive: clear to auscultation Neuro: Positive: Grossly Intact Abdomen: Positive: Soft Skin: Positive: Clear Extremities: Absent: edema
[2020-10-31] MEDS: INSULIN REGULAR, HUMAN 100 UNITS/1 ML SUB-Q SCH ×3 (13:00→21:42)
--- NOTE | 2020-10-31 14:02 | Progress Note ---
Assessment and Plan 79-year-old -[place] female with known history of CHF, COPD, diabetes mellitus, hypothyroidism, up-to-date with COVID-19 vaccination and dementia presenting to the emergency room with respiratory distress and having difficulty breathing. EMS states patient was hypoxic, and started CPAP in the field. They were unable to establish IV access. Per family patient recently had a 1 or 2-hour trip to [place], has chronic lower extremity swelling, no recent hospitalizations or period of immobilization. family denies nausea, vomiting, diarrhea, loss of taste and smell, and syncope. Patient remains hypoxic in the ER and placed on BiPAP which improved her symptoms. Chest x-ray showed no infiltrates. Lower extremity Dopplers is negative for DVT. Patient being admitted for COPD exacerbation and further evaluation management. Patient has history of smoking 2 packs x 30 years. Stopped smoking 15 years ago. Denies alcohol or drug abuse. Worked in house keeping. Complaining slight chest pain. Says shortness of breath getting better. Patient awake. On 3 litres o2. O2 saturation 99%. Patient afebrile and has mild leukocytosis. Chest xray 10/31/20 reported CHF V/Q scan reported low probability for pulmonary emboli. Patient presently on dexamethasone, Cetriaxone, zithromax, S/C Lovenox, Protonix, albuterol/atrovent aerosol treatments. - Patient Problems (1) Acute respiratory failure with hypoxia Current Visit: Yes Status: Acute Plan to address problem: O2 3 litres via nasal canula. BIPAP stand by in the room. Albuterol/atrovent aerosol treatments. I/V solumedrol S/C Lovenox. Protonix. ABGs on O2. (2) Acute exacerbation of CHF (congestive heart failure) Current Visit: Yes Status: Acute Plan to address problem: Patient is on Lasix. Management as per cardiology. (3) COPD exacerbation Current Visit: Yes Status: Acute Plan to address problem: O2 3 litres via nasal canula. BIPAP stand by in the room. Albuterol/atrovent aerosol treatments. I/V solumedrol S/C Lovenox. Protonix Ceftriaxone and zithromax. (4) Suspected 2019 novel coronavirus infection Current Visit: Yes Status: Acute Plan to address problem: Olivera virus PCR negative. (5) Acute renal insufficiency Current Visit: No Status: Acute Plan to address problem: Management as per nephrology. (6) Diabetes Current Visit: No Status: Acute Plan to address problem: Management as per primary care. (7) HTN (hypertension) Current Visit: No Status: Acute Plan to address problem: Management as per primary care. Subjective Date of service: 10/31/20 Interval history: 79-year-old -[place] female with known history of CHF, COPD, diabetes mellitus, hypothyroidism, up-to-date with COVID-19 vaccination and dementia presenting to the emergency room with respiratory distress and having diffic ulty breathing. EMS states patient was hypoxic, and started CPAP in the field. They were unable to establish IV access. Per family patient recently had a 1 or 2-hour trip to [place], has chronic lower extremity swelling, no recent hospitalizations or period of immobilization. family denies nausea, vomiting, diarrhea, loss of taste and smell, and syncope. Patient remains hypoxic in the ER and placed on BiPAP which improved her symptoms. Chest x-ray showed no infiltrates. Lower extremity Dopplers is negative for DVT. Patient being admitted for COPD exacerbation and further evaluation management. Patient has history of smoking 2 packs x 30 years. Stopped smoking 15 years ago. Denies alcohol or drug abuse. Worked in house keeping. Complaining slight chest pain. Says shortness of breath getting better. Patient awake. On 3 litres o2. O2 saturation 99%. Patient afebrile and has mild leukocytosis. Chest xray 10/31/20 reported CHF V/Q scan reported low probability for pulmonary emboli. Patient presently on dexamethasone, Cetriaxone, zithromax, S/C Lovenox, Protonix, albuterol/atrovent aerosol treatments. Objective Vital Signs - 12hr 10/31/20 10/31/20 10/31/20 03:42 03:43 04:00 Temperature 98.3 F Pulse Rate 82 87 Pulse Rate [ Bilateral Throughout] Respiratory 18 18 Rate Respiratory Rate [Bilateral Throughout] Blood Pressure 134/79 O2 Sat by Pulse 96 97 Oximetry 10/31/20 10/31/20 10/31/20 07:59 09:10 09:11 Temperature 98.3 F Pulse Rate 83 Pulse Rate [ 83 Bilateral Throughout] Respiratory 19 Rate Respiratory 18 Rate [Bilateral Throughout] Blood Pressure 127/74 O2 Sat by Pulse 100 100 Oximetry 10/31/20 12:52 Temperature Pulse Rate Pulse Rate [ Bilateral Throughout] Respiratory 18 Rate Respiratory Rate [Bilateral Throughout] Blood Pressure O2 Sat by Pulse 98 Oximetry Constitutional: no acute distress, alert Eyes: non-icteric ENT: oropharynx moist Neck: supple Ascultation: Bilateral: other (Prolonged expiratory phase.) Cardiovascular: regular rate and rhythm Gastrointestinal: normoactive bowel sounds, soft, non-tender Integumentary: normal Extremities: no cyanosis, no edema Neurologic: normal mental status, non-focal exam, pupils equal and round, CN II- XII normal Psychiatric: mood appropriate CBC and BMP: 10/29/20 07:08 11/01/20 04:54 ABG, PT/INR, D-dimer: PT/INR, D-dimer PT 14.3 Sec. (12.2-14.9) 10/29/20 07:08 INR 1.05 (0.87-1.13) 10/29/20 07:08 D-Dimer 4533.93 ng/mlDDU (0-234) H 10/29/20 07:08 Abnormal lab findings: Abnormal Labs 10/29/20 10/29/20 10/29/20 07:08 07:08 07:08 WBC 14.3 H RBC 3.42 L RDW 17.0 H Lymph % (Auto) 4.9 L Lymph # (Auto) 0.7 L Seg Neutrophils % 89.8 H Seg Neutrophils # 12.8 H D-Dimer 4533.93 H BUN 29 H Glucose 181 H POC Glucose Lactic Acid Magnesium 3.30 H AST 119 H ALT 108 H Alkaline Phosphatase 177 H Lactate Dehydrogenase 342 H Troponin T 0.045 H C-Reactive Protein 1.50 H NT-Pro-B Natriuret Pep 81556 H Total Protein 5.7 L Albumin 3.4 L HDL Cholesterol 37 L 10/29/20 10/29/20 10/30/20 07:08 14:33 04:44 WBC RBC RDW Lymph % (Auto) Lymph # (Auto) Seg Neutrophils % Seg Neutrophils # D-Dimer BUN 26 H Glucose 138 H POC Glucose 149 H Lactic Acid 2.80 H* Magnesium AST ALT Alkaline Phosphatase Lactate Dehydrogenase Troponin T C-Reactive Protein NT-Pro-B Natriuret Pep Total Protein Albumin HDL Cholesterol 10/30/20 10/30/20 10/30/20 11:16 13:21 20:56 WBC RBC RDW Lymph % (Auto) Lymph # (Auto) Seg Neutrophils % Seg Neutrophils # D-Dimer BUN Glucose POC Glucose 238 H 282 H Lactic Acid 4.50 H* Magnesium AST ALT Alkaline Phosphatase Lactate Dehydrogenase Troponin T C-Reactive Protein NT-Pro-B Natriuret Pep Total Protein Albumin HDL Cholesterol Chest x-ray: report reviewed, image reviewed Prior PFT's, U/S of legs: report reviewed, image reviewed Additional Studies: CHEST 1 VIEW, 10/29/2020 5:37 AM CLINICAL INFORMATION/INDICATION: Shortness of breath COMPARISON: Chest radiograph, 11/09/2019 at 7:32 AM FINDINGS: SUPPORT DEVICES: None. HEART: There is stable enlargement of the cardiac silhouette. Aortic stent graft is again noted. LUNGS/PLEURA: Low lung volumes are noted without focal airspace consolidation or significant pleural effusion. ADDITIONAL FINDINGS: No additional acute findings. IMPRESSION: 1. Stable appearance of the chest. DUPLEX DOPPLER LOWER EXTREMITY VEINS, BILATERAL 10/29/20 INDICATION / CLINICAL INFORMATION: b/l lower ext swelling. TECHNIQUE: Duplex doppler imaging was performed through the veins of both lower extremities using venous compression and other maneuvers. COMPARISON: Bilateral lower extremity ultrasound 11/10/2019 FINDINGS: RIGHT COMMON FEMORAL VEIN: Negative. RIGHT FEMORAL VEIN: Negative. RIGHT POPLITEAL VEIN: Negative. RIGHT CALF VEINS: Negative. LEFT COMMON FEMORAL VEIN: Negative. LEFT FEMORAL VEIN: Negative. LEFT POPLITEAL VEIN: Negative. LEFT CALF VEINS: Negative. ADDITIONAL FINDINGS: None. IMPRESSION: 1. No sonographic evidence for DVT in either lower extremity. NUCLEAR MEDICINE PERFUSION LUNG SCAN 10/31/20 INDICATION / CLINICAL INFORMATION: Hypoxemic Respiratory Failure. TECHNIQUE: 5.4 mCi of Tc-99m MAA were given by IV. COMPARISON: Chest radiograph dated chest imaging study to a study. FINDINGS: PERFUSION: No significant perfusion defects. ADDITIONAL FINDINGS: None. IMPRESSION: 1. Low probability for pulmonary embolism. CHEST 1 VIEW 10/31/20 INDICATION: for contrast evaluation. COMPARISON: 10/29/2020 FINDINGS: Support devices: None. Heart: Moderate cardiomegaly. Thoracic aortic stent appears unchanged in position. Lungs/Pleura: Mild cardiomegaly and small bilateral pleural effusions are identified. Mild bibasilar atelectasis. No pneumothorax. Additional findings: None. IMPRESSION: CHF.
[2020-10-31 14:42] LABS: BUN/Creatinine Ratio 26; Blood Urea Nitrogen 26 mg/dL (7-17); Calcium 8.8 mg/dL (8.4-10.2); Hemolysis Index 7
--- NOTE | 2020-10-31 17:14 | Progress Note ---
Assessment and Plan 79-year-old -[place] female with known history of CHF, COPD, diabetes mellitus, hypothyroidism, up-to-date with COVID-19 vaccination and dementia presenting to the emergency room with respiratory distress and having difficulty breathing. A/P --SIRS, likely from COPD exacerbation cont abx, negative culture Lactic acid trending down -- Acute on chronic hypoxic respiratory failure Patient is s/p BiPAP Chest x-ray showed mild cardiomegaly, mild interstitial opacities, and presence of a stent in the thoracic aorta. Findings consistent with mild congestive heart failure, combined with her history of chronic lung disease. Continue IV Lasix, scheduled nebulizer breathing treatment and supplemental O2 Ordered for VQ scan to rule out possible underlying PE --COPD exacerbation - Will provide scheduled nebulizer breathing treatment and as needed - Place on empiric steroid and antibiotic - Provide supplemental oxygen to keep oxygen saturation above 92% Consulted pulmonary -- Cardiomyopathy with acute systolic CHF exacerbation Patient has an EF of about 25 to 30%. We will continue IV Lasix and resume home medications Cardiology consulted --NSTEMI likely type 2 from underlying cardiomyopathy Continue home cardiac medications and follow cardiology recommendation -- Diabetes type II We will monitor Accu-Cheks. placed on sliding scale insulin. -- HTN (hypertension), uncontrolled. Will place on IV hydralazine as needed. We will continue antihypertensives and adjust dose as needed -- Dementia Continue supportive care -- Hypothyroidism Patient has been on levothyroxine. -- DVT prophylaxis: Patient placed on subcutaneous heparin. --Full code status Daily clinical course: 10/30/20: Continue IV Lasix, scheduled nebulizer breathing treatment and supplemental O2. Discussed with patient's son at the bedside and updated in details. Ordered for VQ scan -pending. Continue supportive care and monitor clinically. Follow pulmonary and cardiology recommendation. 10/31/20: Patient clinically improved. Continue Lasix and scheduled nebulizer breathing treatment along with antibiotics. PT evaluated the patient and recommended acute rehab. industrial cafeteria manager notified. Continue to follow clinically. Plan to DC acute rehab clinically much improved. Subjective Date of service: 10/31/20 Interval history: Patient seen and examined. Medical records and medication list reviewed. No acute event overnight noted by the RN. Patient denies any chest pain but complains of difficulty breathing even on resting. Patient stated that she is able to eat better today Discussed plan of care at bedside with patient's RN Objective - Exam Narrative Exam: GENERAL: Elderly -[place] female lying on bed appeared to be in no distress HEENT: Normocephalic. Atraumatic. No conjunctival congestion or icterus. Patient has moist mucous membranes. NECK: Supple. Trachea midline. CHEST/LUNGS: Diminished breath sounds auscultated bilaterally, patient on n/c HEART/CARDIOVASCULAR: Regular in rate and rhythm. S1 and S2 positive. ABDOMEN: Abdomen is soft, nontender. Patient has normal bowel sounds. SKIN: There is no rash. Warm and dry. NEURO: No focal motor deficit. Follows command. MUSCULOSKELETAL: No joint effusion or tenderness. EXTRIMITY: Trace edema, no cyanosis or clubbing. PSYCH: Cooperative. - Constitutional Vitals: Vital Signs - 12hr 10/31/20 10/31/20 10/31/20 07:59 09:10 09:11 Temperature 98.3 F Pulse Rate 83 Pulse Rate [ 83 Bilateral Throughout] Respiratory 19 Rate Respiratory 18 Rate [Bilateral Throughout] Blood Pressure 127/74 O2 Sat by Pulse 100 100 Oximetry 10/31/20 10/31/20 10/31/20 12:52 14:14 15:20 Temperature Pulse Rate 84 Pulse Rate [ 85 Bilateral Throughout] Respiratory 18 Rate Respiratory 18 Rate [Bilateral Throughout] Blood Pressure O2 Sat by Pulse 98 Oximetry 10/31/20 16:35 Temperature 98.6 F Pulse Rate 80 Pulse Rate [ Bilateral Throughout] Respiratory 18 Rate Respiratory Rate [Bilateral Throughout] Blood Pressure 113/63 O2 Sat by Pulse 100 Oximetry - Labs CBC & Chem 7: 10/29/20 07:08 10/31/20 13:20 Labs: Abnormal lab results 10/30/20 10/31/20 10/31/20 Range/Units 20:56 11:36 13:20 BUN 26 H (7-17) mg/dL Glucose 231 H (65-100) mg/dL POC Glucose 282 H 233 H (70-105) mg/dL Lactic Acid (0.7-2.0) mmol/L 10/31/20 Range/Units 13:20 BUN (7-17) mg/dL Glucose (65-100) mg/dL POC Glucose (70-105) mg/dL Lactic Acid 2.80 H* (0.7-2.0) mmol/L HEART Score - HEART Score Troponin: Troponin T 0.024 ng/mL (0.00-0.029) 10/31/20 05:00
[2020-10-31] MEDS: AZITHROMYCIN/NS 500 MG/250 ML 500 MG/250 ML BAG IV SCH (17:16)
[2020-10-31] MEDS: ENOXAPARIN 40 MG/0.4 ML INJ SUB-Q SCH (21:42)
[2020-11-01] MEDS: traMADol 50 MG TAB PO PRN (00:40)
[2020-11-01] MEDS: IPRATROPIUM/ALBUTEROL SULFATE 3 ML AMPUL.NEB IH SCH ×4 (02:27→21:32)
[2020-11-01] MEDS: methylPREDNISolone Sod Succinate 40 MG/1 ML INJ IV SCH ×2 (04:03→17:14)
[2020-11-01 06:07] LABS: BUN/Creatinine Ratio 26; Blood Urea Nitrogen 26 mg/dL (7-17); Calcium 8.4 mg/dL (8.4-10.2); Hemolysis Index 5
[2020-11-01] MEDS: LEVOTHYROXINE 100 MCG TAB PO SCH (06:29)
[2020-11-01] MEDS: FUROSEMIDE 40 MG/4 ML INJ IV SCH ×2 (06:29→17:14)
[2020-11-01] MEDS: BUDESONIDE 0.5 MG/2 ML NEBU IH SCH ×2 (07:43→21:31)
[2020-11-01] MEDS: ARFORMOTEROL 15 MCG/2 ML NEBU IH SCH ×2 (07:43→21:32)
[2020-11-01] MEDS: INSULIN REGULAR, HUMAN 100 UNITS/1 ML SUB-Q SCH ×4 (08:35→22:40)
--- NOTE | 2020-11-01 08:54 | Progress Note ---
Assessment and Plan Assessment and plan: 79-year-old -[place] female with known history of CHF, COPD, diabetes mellitus, hypothyroidism, up-to-date with COVID-19 vaccination and dementia presenting to the emergency room with respiratory distress and having difficulty breathing. A/P --SIRS, likely from COPD exacerbation cont abx, negative culture Lactic acid trending down -- Acute on chronic hypoxic respiratory failure Patient is s/p BiPAP Chest x-ray showed mild cardiomegaly, mild interstitial opacities, and presence of a stent in the thoracic aorta. Findings consistent with mild congestive heart failure, combined with her history of chronic lung disease. Continue IV Lasix, scheduled nebulizer breathing treatment and supplemental O2 Ordered for VQ scan to rule out possible underlying PE --COPD exacerbation - Will provide scheduled nebulizer breathing treatment and as needed - Place on empiric steroid and antibiotic - Provide supplemental oxygen to keep oxygen saturation above 92% Consulted pulmonary -- Cardiomyopathy with acute systolic CHF exacerbation Patient has an EF of about 25 to 30%. We will continue IV Lasix and resume home medications Cardiology consulted --NSTEMI likely type 2 from underlying cardiomyopathy Continue home cardiac medications and follow cardiology recommendation -- Diabetes type II We will monitor Accu-Cheks. placed on sliding scale insulin. -- HTN (hypertension), uncontrolled. Will place on IV hydralazine as needed. We will continue antihypertensives and adjust dose as needed -- Dementia Continue supportive care -- Hypothyroidism Patient has been on levothyroxine. -- DVT prophylaxis: Patient placed on subcutaneous heparin. --Full code status Daily clinical course: 10/30/20: Continue IV Lasix, scheduled nebulizer breathing treatment and supplemental O2. Discussed with patient's son at the bedside and updated in details. Ordered for VQ scan -pending. Continue supportive care and monitor clinically. Follow pulmonary and cardiology recommendation. 10/31/20: Patient clinically improved. Continue Lasix and scheduled nebulizer breathing treatment along with antibiotics. PT evaluated the patient and recomm ended acute rehab. frozen food department manager notified. Continue to follow clinically. 11/01/2020; patient showed clinical improvement. Continue oxygen support. Will need PT evaluation. Possible discharge tomorrow. History Interval history: patient was seen and evaluated this morning Patient was complaining headache Patient shortness of breath is getting better Hospitalist Physical - Physical exam Narrative exam: Not in cardiopulmonary distress. The patient appeared well nourished and normally developed. Vital signs as documented. Head exam is unremarkable. No scleral icterus . Neck is without jugular venous distension, thyromegaly, or carotid bruits. Lungs are clear to auscultation. Cardiac exam reveals regular rate and Rhythm. Abdominal exam reveals normal bowel sounds, nontender, no organomegaly. Extremities are nonedematous and both femoral and pedal pulses are normal. WARD ATTENDANT: Alert and oriented 3. No focal weakness. - Constitutional Vitals: Temp Pulse Resp BP Pulse Ox 97.4 F L 80 18 132/73 94 11/01/20 06:56 11/01/20 06:56 11/01/20 06:56 11/01/20 06:56 11/01/20 06:56 HEART Score - HEART Score Troponin: Troponin T 0.024 ng/mL (0.00-0.029) 10/31/20 05:00 Results - Labs CBC & Chem 7: 10/29/20 07:08 11/01/20 04:54 Labs: Laboratory Last Values WBC 14.3 K/mm3 (4.5-11.0) H 10/29/20 07:08 RBC 3.42 M/mm3 (3.65-5.03) L 10/29/20 07:08 Hgb 11.0 gm/dl (10.1-14.3) 10/29/20 07:08 Hct 33.4 % (30.3-42.9) 10/29/20 07:08 MCV 97 fl (79-97) 10/29/20 07:08 MCH 32 pg (28-32) 10/29/20 07:08 MCHC 33 % (30-34) 10/29/20 07:08 RDW 17.0 % (13.2-15.2) H 10/29/20 07:08 Plt Count 223 K/mm3 (140-440) 10/29/20 07:08 Lymph % (Auto) 4.9 % (13.4-35.0) L 10/29/20 07:08 [place] % (Auto) 4.6 % (0.0-7.3) 10/29/20 07:08 Eos % (Auto) 0.2 % (0.0-4.3) 10/29/20 07:08 Baso % (Auto) 0.5 % (0.0-1.8) 10/29/20 07:08 Lymph # (Auto) 0.7 K/mm3 (1.2-5.4) L 10/29/20 07:08 [place] # (Auto) 0.7 K/mm3 (0.0-0.8) 10/29/20 07:08 Eos # (Auto) 0.0 K/mm3 (0.0-0.4) 10/29/20 07:08 Baso # (Auto) 0.1 K/mm3 (0.0-0.1) 10/29/20 07:08 Seg Neutrophils % 89.8 % (40.0-70.0) H 10/29/20 07:08 Seg Neutrophils # 12.8 K/mm3 (1.8-7.7) H 10/29/20 07:08 PT 14.3 Sec. (12.2-14.9) 10/29/20 07:08 INR 1.05 (0.87-1.13) 10/29/20 07:08 D-Dimer 4533.93 ng/mlDDU (0-234) H 10/29/20 07:08 Sodium 142 mmol/L (137-145) 11/01/20 04:54 Potassium 4.4 mmol/L (3.6-5.0) 11/01/20 04:54 Chloride 100.7 mmol/L (98-107) 11/01/20 04:54 Carbon Dioxide 32 mmol/L (22-30) H 11/01/20 04:54 Anion Gap 14 mmol/L 11/01/20 04:54 BUN 26 mg/dL (7-17) H 11/01/20 04:54 Creatinine 1.0 mg/dL (0.6-1.2) 11/01/20 04:54 Estimated GFR > 60 ml/min 11/01/20 04:54 BUN/Creatinine Ratio 26 % 11/01/20 04:54 Glucose 134 mg/dL (65-100) H 11/01/20 04:54 POC Glucose 220 mg/dL (70-105) H 10/31/20 20:01 Lactic Acid 2.80 mmol/L (0.7-2.0) H* 10/31/20 13:20 Calcium 8.4 mg/dL (8.4-10.2) 11/01/20 04:54 Magnesium 3.30 mg/dL (1.7-2.3) H 10/29/20 07:08 Ferritin 151.5 ng/mL (10.0-200.0) 10/29/20 07:08 Total Bilirubin 0.40 mg/dL (0.1-1.2) 10/29/20 07:08 AST 119 units/L (5-40) H 10/29/20 07:08 ALT 108 units/L (7-56) H 10/29/20 07:08 Alkaline Phosphatase 177 units/L (35-129) H 10/29/20 07:08 Lactate Dehydrogenase 342 units/L (91-180) H 10/29/20 07:08 Total Creatine Kinase 54 units/L (30-135) 10/29/20 07:08 Troponin T 0.024 ng/mL (0.00-0.029) 10/31/20 05:00 C-Reactive Protein 1.50 mg/dL (0.00-1.30) H 10/29/20 07:08 NT-Pro-B Natriuret Pep 95682 pg/mL (0-900) H 10/29/20 07:08 Total Protein 5.7 g/dL (6.3-8.2) L 10/29/20 07:08 Albumin 3.4 g/dL (3.9-5) L 10/29/20 07:08 Albumin/Globulin Ratio 1.5 % 10/29/20 07:08 Triglycerides 80 mg/dL (2-149) 10/29/20 07:08 Cholesterol 152 mg/dL (50-199) 10/29/20 07:08 LDL Cholesterol Direct 101 mg/dL (50-130) 10/29/20 07:08 HDL Cholesterol 37 mg/dL (40-59) L 10/29/20 07:08 Cholesterol/HDL Ratio 4.10 % 10/29/20 07:08 Procalcitonin 0.05 ng/mL (<0.15) 10/29/20 07:08 Urine Color Straw (Yellow) 10/29/20 Unknown Urine Turbidity Clear (Clear) 10/29/20 Unknown Urine pH 7.0 (5.0-7.0) 10/29/20 Unknown Ur Specific [place] 1.010 (1.003-1.030) 10/29/20 Unknown Urine Protein 30 mg/dl mg/dL (Negative) 10/29/20 Unknown Urine Glucose (UA) Neg mg/dL (Negative) 10/29/20 Unknown Urine Ketones Neg mg/dL (Negative) 10/29/20 Unknown Urine Blood Neg (Negative) 10/29/20 Unknown Urine Nitrite Neg (Negative) 10/29/20 Unknown Urine Bilirubin Neg (Negative) 10/29/20 Unknown Urine Urobilinogen < 2.0 mg/dL (<2.0) 10/29/20 Unknown Ur Leukocyte Esterase Neg (Negative) 10/29/20 Unknown Urine WBC (Auto) 0.0 /HPF (0.0-6.0) 10/29/20 Unknown Urine RBC (Auto) 1.0 /HPF (0.0-6.0) 10/29/20 Unknown U Epithel Cells (Auto) < 1.0 /HPF (0-13.0) 10/29/20 Unknown Urine Bacteria (Auto) 1+ /HPF (Negative) 10/29/20 Unknown Urine Mucus Few /HPF 10/29/20 Unknown Coronavirus (PCR) Negative (Negative) 10/29/20 10:00 Microbiology: Microbiology 10/29/20 07:08 Peripheral/Venous Blood Culture - Preliminary NO GROWTH AFTER 48 HOURS 10/29/20 07:08 Peripheral/Venous Blood Culture - Preliminary NO GROWTH AFTER 48 HOURS [place]/IV: Voiding Method External Female Catheter Active Medications - Current Medications Current Medications: Generic Name Dose Route Start Last Admin Trade Name Freq PRN Reason Stop Dose Admin Albuterol 2.5 mg 10/29/20 08:30 Albuterol 2.5 Mg/3 Ml Nebu IH TID PRN Wheezing Albuterol/Ipratropium 1 ampul 10/29/20 20:00 11/01/20 07:43 Ipratropium/Albuterol Sulfate 3 Ml Ampul.Neb IH 1 ampul Q6HRT CAROLE Administration Arformoterol Tartrate 15 mcg 10/29/20 20:00 11/01/20 07:43 Arformoterol 15 Mcg/2 Ml Nebu IH 15 mcg Q12HRT CAROLE Administration Aspirin 325 mg 10/29/20 10:00 10/31/20 09:03 Aspirin 325 Mg Tab PO 325 mg QDAY CAROLE Administration Atorvastatin Calcium 40 mg 10/29/20 22:00 10/31/20 21:40 Atorvastatin 40 Mg Tab PO 40 mg QHS CAROLE Administration Budesonide 0.5 mg 10/29/20 20:00 11/01/20 07:43 Budesonide 0.5 Mg/2 Ml Nebu IH 0.5 mg Q12HRT CAROLE Administration Carvedilol 3.125 mg 10/30/20 22:00 10/31/20 21:40 Carvedilol 3.125 Mg Tab PO 3.125 mg BID CAROLE Administration Dextrose 50 ml 10/30/20 19:34 Dextrose 50% In Water (25gm) 50 Ml Syringe IV Q30MIN PRN Hypoglycemia Protocol Enoxaparin Sodium 40 mg 10/29/20 22:00 10/31/20 21:42 Enoxaparin 40 Mg/0.4 Ml Inj SUB-Q 40 mg QDAY@2200 CAROLE Administration Protocol Furosemide 40 mg 10/29/20 18:00 11/01/20 06:29 Furosemide 40 Mg/4 Ml Inj IV 40 mg BID@0600,1800 CAROLE Administration Azithromycin 500 mg in 250 mls @ 250 mls/hr 10/30/20 18:00 10/31/20 17:16 Zithromax/Ns IV 11/03/20 18:59 250 mls/hr Q24H CAROLE Administration Ceftriaxone Sodium 1 gm in 50 mls @ 100 mls/hr 11/01/20 10:00 Rocephin/Ns 1 Gm/50 Ml IV 11/03/20 10:29 DAILY [facility] Insulin Human Regular 0 units 10/31/20 11:30 10/31/20 21:42 Insulin Regular, Human 100 Units/1 Ml SUB-Q 3 units ACHS CAROLE Administration Protocol Levothyroxine Sodium 100 mcg 10/30/20 06:00 11/01/20 06:29 Levothyroxine 100 Mcg Tab PO 100 mcg DAILY@0600 CAROLE Administration Melatonin 10 mg 10/30/20 20:19 Melatonin 5 Mg Tab PO QHS PRN Sleep Methylprednisolone Sodium Succinate 40 mg 10/31/20 04:00 11/01/20 04:03 Methylprednisolone Sod Succinate 40 Mg/1 Ml Inj IV 40 mg Q12H CAROLE Administration Morphine Sulfate 2 mg 10/29/20 09:00 Morphine 2 Mg/1 Ml Inj IV Q5MIN PRN Chest Pain unrelieved by NTG Nitroglycerin 0.4 mg 10/29/20 09:00 Nitroglycerin 0.4 Mg Tab Subl SL .Q5MIN PRN Chest Pain Pantoprazole Sodium 40 mg 10/30/20 22:00 10/31/20 21:40 Pantoprazole 40 Mg Tab PO 40 mg BID CAROLE Administration Tramadol HCl 50 mg 10/29/20 10:00 11/01/20 00:40 Tramadol 50 Mg Tab PO 50 mg BID PRN Administration Pain, Moderate (4-6) Nutrition/Malnutrition Assess - Dietary Evaluation Nutrition/Malnutrition Findings: Nutrition Notes Start: 10/30/20 10 :56 Freq: Status: Active Protocol: Document 10/30/20 10:57 OWEN (Rec: 10/30/20 11:03 OWEN [id number]) Nutrition Notes Need for Assessment generated from: social sciences professor,MST Initial or Follow up Assessment Current Diagnosis COPD,Diabetes,Hypertension, Heart Failure,Respiratory Failure Other Pertinent Diagnosis SIRS Current Diet Cardiac Labs/Tests BUN 26 BG 138 Pertinent Medications Lasix Height 5 ft 1 in Weight 65.771 kg Usual Body Weight 80.8 kg [place] Body Weight (kg) 47.72 BMI 27.3 Weight change and time frame 18% wt loss in 1 year, per chart Weight Status Overweight Subjective/Other Information RN screen for MST. Pt reports losing a lot of wt but unsure how much. Pt ate 25% of breakfast. Pt does not want ONS. Pt does not want eggs for breakfast. Pt has no other food prefrences at this time. Burn Absent Trauma Absent GI Symptoms None Current % PO Poor (25-49%) Minimum of two criteria No Energy Intake (non-severe) <75% Estimated Energy Requirement >7 days #1 Nutrition Diagnosis Inadequate energy intake Etiology advanced age, chronic disease As Evidenced by Signs and Symptoms pt eating 25% of meals Is patient on ventilator? No Is Patient Ambulatory and/or Out of Bed No [facility] 1296.804 Calculation Used for Recommendations [facility] Additional Notes Protein: (1-1.2g/kg) 66-80g Fluid: 1500 ml Nutrition Intervention Change Diet Order: Add Consistent CHO Goal #1 Meet at least 75% of protein and energy needs via PO Follow-Up By: 11/01/20 Additional Comments FU for intakes and food prefrences
[2020-11-01] MEDS: ASPIRIN 325 MG TAB PO SCH (09:35)
[2020-11-01] MEDS: carvediloL 3.125 MG TAB PO SCH ×2 (09:36→22:41)
[2020-11-01] MEDS: PANTOPRAZOLE 40 MG TAB PO SCH ×2 (09:36→22:40)
[2020-11-01] MEDS: cefTRIAXone/NS 1 GM/50 ML 1 GM/50 ML BAG IV SCH (09:36)
[2020-11-01] MEDS: ACETAMINOPHEN 325 MG TAB PO PRN (11:06)
--- NOTE | 2020-11-01 11:19 | Progress Note ---
Assessment and Plan Congestive heart failure COPD exacerbation Hx of CAD 2017 [facility] showed a chronic total occlusion of the circumflex artery recommended for medical therapy. Ischemic cardiomyopathy, EF 25-30% Thoracic aortic repair 09/2018 at [facility] Continue guideline directed medical therapy for coronary artery disease, ischemic cardiomyopathy and chronic systolic heart failure. Subjective Date of service: 11/01/20 Interval history: Patient is resting in bed comfortably. No distress noted. Objective Vital Signs Temp Pulse Pulse Resp Resp BP Pulse Ox 11/01/20 09:36 88 132/73 11/01/20 09:27 94 11/01/20 07:43 88 18 11/01/20 06:56 97.4 F L 80 18 132/73 94 11/01/20 03:41 98.7 F 79 22 123/98 100 11/01/20 00:40 18 11/01/20 00:00 26 H 10/31/20 23:20 97.8 F 75 18 123/67 100 10/31/20 21:19 99 10/31/20 21:18 84 20 10/31/20 20:45 20 10/31/20 20:39 86 10/31/20 19:13 97.6 F 86 18 110/63 97 10/31/20 16:35 98.6 F 80 18 113/63 100 10/31/20 15:20 84 10/31/20 14:14 85 18 10/31/20 12:52 18 98 - Physical Examination General: No Apparent Distress HEENT: Positive: Normocephaly Neck: Positive: neck supple Cardiac: Positive: Reg Rate and Rhythm Lungs: Positive: Decreased Breath Sounds Neuro: Positive: Grossly Intact - Labs and Meds Comprehensive Metabolic Panel 10/31/20 11/01/20 Range/Units 13:20 04:54 Sodium 140 142 (137-145) mmol/L Potassium 4.4 4.4 (3.6-5.0) mmol/L Chloride 99.0 100.7 (98-107) mmol/L Carbon Dioxide 30 32 H (22-30) mmol/L BUN 26 H 26 H (7-17) mg/dL Creatinine 1.0 1.0 (0.6-1.2) mg/dL Glucose 231 H 134 H (65-100) mg/dL Calcium 8.8 8.4 (8.4-10.2) mg/dL
[2020-11-01] MEDS ORDERED: SUMAtriptan SUCCINATE 25 MG TAB PO PRN (11:30)
--- NOTE | 2020-11-01 12:17 | Progress Note ---
Assessment and Plan 79-year-old -Italian female with known history of CHF, COPD, diabetes mellitus, hypothyroidism, up-to-date with COVID-19 vaccination and dementia presenting to the emergency room with respiratory distress and having difficulty breathing. EMS states patient was hypoxic, and started CPAP in the field. They were unable to establish IV access. Per family patient recently had a 1 or 2-hour trip to [place], has chronic lower extremity swelling, no recent hospitalizations or period of immobilization. family denies nausea, vomiting, diarrhea, loss of taste and smell, and syncope. Patient remains hypoxic in the ER and placed on BiPAP which improved her symptoms. Chest x-ray showed no infiltrates. Lower extremity Dopplers is negative for DVT. Patient being admitted for COPD exacerbation and further evaluation management. Patient has history of smoking 2 packs x 30 years. Stopped smoking 15 years ago. Denies alcohol or drug abuse. Worked in house keeping. Complaining slight chest pain. Says shortness of breath getting better. Patient awake. resting on CPAP 8 cm H20.FIO2 30%. O2 saturation 100%. Patient afebrile and has leukocytosis. Chest xray 10/31/20 reported CHF V/Q scan reported low probability for pulmonary emboli. Patient presently on dexamethasone, Cetriaxone, zithromax, S/C Lovenox, Protonix, albuterol/atrovent aerosol treatments. - Patient Problems (1) Acute exacerbation of CHF (congestive heart failure) Current Visit: Yes Status: Acute Plan to address problem: Patient is on Lasix. Management as per cardiology. (2) Acute respiratory failure with hypoxia Current Visit: Yes Status: Acute Plan to address problem: O2 3 litres via nasal canula. CPAP 8 cm H29 ,FIO2 30% Albuterol/atrovent aerosol treatments. I/V solumedrol S/C Lovenox. Protonix. (3) COPD exacerbation Current Visit: Yes Status: Acute Plan to address problem: O2 3 litres via nasal canula. CPAP stand by in the room. Albuterol/atrovent aerosol treatments. I/V solumedrol S/C Lovenox. Protonix Ceftriaxone and zithromax. (4) Suspected 2019 novel coronavirus infection Current Visit: Yes Status: Acute Plan to address problem: [place] virus PCR negative. (5) Acute renal insufficiency Current Visit: No Status: Acute Plan to address problem: Management as per nephrology. (6) Diabetes Current Visit: No Status: Acute Plan to address problem: Management as per primary care. (7) HTN (hypertension) Current Visit: No Status: Acute Plan to address problem: Management as per primary care. (8) ASHLI (obstructive sleep apnea) Current Visit: No Status: Deleted Plan to address problem: Patient is In CPAP 8 cm H20 Pressure with FIO2 30%, Subjective Date of service: 11/01/20 Interval history: 79-year-old -Italian female with known history of CHF, COPD, diabetes mellitus, hypothyroidism, up-to-date with COVID-19 vaccination and dementia presenting to the emergency room with respiratory distress and having difficulty breathing. EMS states patient was hypoxic, and started CPAP in the field. They were unable to establish IV access. Per family patient recently had a 1 or 2-hour trip to [place], has chronic lower extremity swelling, no recent hospitalizations or period of immobilization. family denies nausea, vomiting, diarrhea, loss of taste and smell, and syncope. Patient remains hypoxic in the ER and placed on BiPAP which improved her symptoms. Chest x-ray showed no infiltrates. Lower extremity Dopplers is negative for DVT. Patient being admitted for COPD exacerbation and further evaluation management. Patient has history of smoking 2 packs x 30 years. Stopped smoking 15 years ago. Denies alcohol or drug abuse. Worked in house keeping. Complaining slight chest pain. Says shortness of breath getting better. Patient awake. resting on CPAP 8 cm H20.FIO2 30%. O2 saturation 100%. Patient afebrile and has leukocytosis. Chest xray 10/31/20 reported CHF V/Q scan reported low probability for pulmonary emboli. Patient presently on dexamethasone, Cetriaxone, zithromax, S/C Lovenox, Protonix, albuterol/atrovent aerosol treatments. Objective Vital Signs - 12hr 11/01/20 11/01/20 11/01/20 00:40 03:41 06:56 Temperature 98.7 F 97.4 F L Pulse Rate 79 80 Pulse Rate [ Bilateral Throughout] Respiratory 18 22 18 Rate Respiratory Rate [Bilateral Throughout] Blood Pressure 123/98 132/73 O2 Sat by Pulse 100 94 Oximetry 11/01/20 11/01/20 11/01/20 07:43 09:27 09:36 Temperature Pulse Rate 88 Pulse Rate [ 88 Bilateral Throughout] Respiratory Rate Respiratory 18 Rate [Bilateral Throughout] Blood Pressure 132/73 O2 Sat by Pulse 94 Oximetry Constitutional: no acute distress, alert Eyes: non-icteric ENT: oropharynx moist Neck: supple, no lymphadenopathy Ascultation: Bilateral: diminished breath sounds Cardiovascular: regular rate and rhythm Gastrointestinal: normoactive bowel sounds, soft, non-tender Integumentary: normal Extremities: no cyanosis, no edema Neurologic: non-focal exam, pupils equal and round Psychiatric: other (Dementia.) CBC and BMP: 10/29/20 07:08 11/01/20 04:54 ABG, PT/INR, D-dimer: PT/INR, D-dimer PT 14.3 Sec. (12.2-14.9) 10/29/20 07:08 INR 1.05 (0.87-1.13) 10/29/20 07:08 D-Dimer 4533.93 ng/mlDDU (0-234) H 10/29/20 07:08 Abnormal lab findings: Abnormal Labs 10/29/20 10/29/20 10/29/20 07:08 07:08 07:08 WBC 14.3 H RBC 3.42 L RDW 17.0 H Lymph % (Auto) 4.9 L Lymph # (Auto) 0.7 L Seg Neutrophils % 89.8 H Seg Neutrophils # 12.8 H D-Dimer 4533.93 H Carbon Dioxide BUN 29 H Glucose 181 H POC Glucose Lactic Acid Magnesium 3.30 H AST 119 H ALT 108 H Alkaline Phosphatase 177 H Lactate Dehydrogenase 342 H Troponin T 0.045 H C-Reactive Protein 1.50 H NT-Pro-B Natriuret Pep 52857 H Total Protein 5.7 L Albumin 3.4 L HDL Cholesterol 37 L 10/29/20 10/29/20 10/30/20 07:08 14:33 04:44 WBC RBC RDW Lymph % (Auto) Lymph # (Auto) Seg Neutrophils % Seg Neutrophils # D-Dimer Carbon Dioxide BUN 26 H Glucose 138 H POC Glucose 149 H Lactic Acid 2.80 H* Magnesium AST ALT Alkaline Phosphatase Lactate Dehydrogenase Troponin T C-Reactive Protein NT-Pro-B Natriuret Pep Total Protein Albumin HDL Cholesterol 10/30/20 10/30/20 10/30/20 11:16 13:21 20:56 WBC RBC RDW Lymph % (Auto) Lymph # (Auto) Seg Neutrophils % Seg Neutrophils # D-Dimer Carbon Dioxide BUN Glucose POC Glucose 238 H 282 H Lactic Acid 4.50 H* Magnesium AST ALT Alkaline Phosphatase Lactate Dehydrogenase Troponin T C-Reactive Protein NT-Pro-B Natriuret Pep Total Protein Albumin HDL Cholesterol 10/31/20 10/31/20 10/31/20 11:36 13:20 13:20 WBC RBC RDW Lymph % (Auto) Lymph # (Auto) Seg Neutrophils % Seg Neutrophils # D-Dimer Carbon Dioxide BUN 26 H Glucose 231 H POC Glucose 233 H Lactic Acid 2.80 H* Magnesium AST ALT Alkaline Phosphatase Lactate Dehydrogenase Troponin T C-Reactive Protein NT-Pro-B Natriuret Pep Total Protein Albumin HDL Cholesterol 10/31/20 10/31/20 11/01/20 16:42 20:01 04:54 WBC RBC RDW Lymph % (Auto) Lymph # (Auto) Seg Neutrophils % Seg Neutrophils # D-Dimer Carbon Dioxide 32 H BUN 26 H Glucose 134 H POC Glucose 207 H 220 H Lactic Acid Magnesium AST ALT Alkaline Phosphatase Lactate Dehydrogenase Troponin T C-Reactive Protein NT-Pro-B Natriuret Pep Total Protein Albumin HDL Cholesterol 11/01/20 11/01/20 07:27 11:28 WBC RBC RDW Lymph % (Auto) Lymph # (Auto) Seg Neutrophils % Seg Neutrophils # D-Dimer Carbon Dioxide BUN Glucose POC Glucose 158 H 323 H Lactic Acid Magnesium AST ALT Alkaline Phosphatase Lactate Dehydrogenase Troponin T C-Reactive Protein NT-Pro-B Natriuret Pep Total Protein Albumin HDL Cholesterol
[2020-11-01] MEDS: AZITHROMYCIN/NS 500 MG/250 ML 500 MG/250 ML BAG IV SCH (17:15)
[2020-11-01] MEDS: ENOXAPARIN 40 MG/0.4 ML INJ SUB-Q SCH (22:41)
[2020-11-02] MEDS: IPRATROPIUM/ALBUTEROL SULFATE 3 ML AMPUL.NEB IH SCH ×4 (02:16→20:47)
[2020-11-02] MEDS: FUROSEMIDE 40 MG/4 ML INJ IV SCH ×2 (05:24→17:09)
[2020-11-02] MEDS: methylPREDNISolone Sod Succinate 40 MG/1 ML INJ IV SCH ×2 (05:24→17:11)
[2020-11-02] MEDS: LEVOTHYROXINE 100 MCG TAB PO SCH (05:25)
[2020-11-02] MEDS: INSULIN REGULAR, HUMAN 100 UNITS/1 ML SUB-Q SCH ×4 (07:48→23:16)
[2020-11-02] MEDS: BUDESONIDE 0.5 MG/2 ML NEBU IH SCH ×2 (08:15→20:48)
[2020-11-02] MEDS: ARFORMOTEROL 15 MCG/2 ML NEBU IH SCH ×2 (08:16→20:48)
[2020-11-02] MEDS: carvediloL 3.125 MG TAB PO SCH ×2 (09:01→23:08)
[2020-11-02] MEDS: PANTOPRAZOLE 40 MG TAB PO SCH ×2 (09:01→23:07)
[2020-11-02] MEDS: cefTRIAXone/NS 1 GM/50 ML 1 GM/50 ML BAG IV SCH (09:01)
[2020-11-02] MEDS: ASPIRIN 325 MG TAB PO SCH (09:01)
--- NOTE | 2020-11-02 09:41 | Progress Note ---
Assessment and Plan Congestive heart failure COPD exacerbation on home oxygen Hx of CAD 2017 [facility] showed a chronic total occlusion of the circumflex artery recommended for medical therapy. Ischemic cardiomyopathy, EF 25-30% Thoracic aortic repair 09/2018 at [facility] Continue guideline directed medical therapy for coronary artery disease, ischemi c cardiomyopathy and chronic systolic heart failure. Otherwise, conservative cardiac management. Subjective Date of service: 11/02/20 Interval history: Patient reports chest pain overnight. Describes chest pain as brief, sharp pain associated with nausea. Denies vomiting. Currently, she denies chest pain. Objective Vital Signs Temp Pulse Pulse Resp Resp BP Pulse Ox 11/02/20 09:03 97 11/02/20 09:01 69 138/69 11/02/20 08:25 97 11/02/20 08:15 68 97 H 11/02/20 07:26 98.4 F 69 18 138/69 97 11/02/20 03:34 97.7 F 66 15 143/64 100 11/02/20 02:20 68 18 11/02/20 02:16 67 22 98 11/01/20 22:50 97.9 F 68 18 148/66 100 11/01/20 22:45 63 32 H 100 11/01/20 22:41 66 11/01/20 21:37 81 18 11/01/20 21:33 100 11/01/20 19:35 96 11/01/20 19:15 98.1 F 81 18 113/67 63 L 11/01/20 15:33 98.0 F 78 18 125/60 100 11/01/20 15:30 73 11/01/20 13:49 92 H 16 - Physical Examination General: No Apparent Distress HEENT: Positive: Normocephaly Neck: Positive: neck supple Cardiac: Positive: Reg Rate and Rhythm Lungs: Positive: Decreased Breath Sounds Neuro: Positive: Grossly Intact Extremities: Absent: edema
--- NOTE | 2020-11-02 12:48 | Progress Note ---
Assessment and Plan Assessment and plan: 79-year-old -[place] female with known history of CHF, COPD, diabetes mellitus, hypothyroidism, up-to-date with COVID-19 vaccination and dementia presenting to the emergency room with respiratory distress and having difficulty breathing. A/P --SIRS, likely from COPD exacerbation cont abx, negative culture Lactic acid trending down -- Acute on chronic hypoxic respiratory failure Patient is s/p BiPAP Chest x-ray showed mild cardiomegaly, mild interstitial opacities, and presence of a stent in the thoracic aorta. Findings consistent with mild congestive heart failure, combined with her history of chronic lung disease. Continue IV Lasix, scheduled nebulizer breathing treatment and supplemental O2 Ordered for VQ scan to rule out possible underlying PE --COPD exacerbation - Will provide scheduled nebulizer breathing treatment and as needed - Place on empiric steroid and antibiotic - Provide supplemental oxygen to keep oxygen saturation above 92% Consulted pulmonary -- Cardiomyopathy with acute systolic CHF exacerbation Patient has an EF of about 25 to 30%. We will continue IV Lasix and resume home medications Cardiology consulted --NSTEMI likely type 2 from underlying cardiomyopathy Continue home cardiac medications and follow cardiology recommendation -- Diabetes type II We will monitor Accu-Cheks. placed on sliding scale insulin. -- HTN (hypertension), uncontrolled. Will place on IV hydralazine as needed. We will continue antihypertensives and adjust dose as needed -- Dementia Continue supportive care -- Hypothyroidism Patient has been on levothyroxine. -- DVT prophylaxis: Patient placed on subcutaneous heparin. --Full code status Daily clinical course: 10/30/20: Continue IV Lasix, scheduled nebulizer breathing treatment and supplemental O2. Discussed with patient's son at the bedside and updated in details. Ordered for VQ scan -pending. Continue supportive care and monitor clinically. Follow pulmonary and cardiology recommendation. 10/31/20: Patient clinically improved. Continue Lasix and scheduled nebulizer breathing treatment along with antibiotics. PT evaluated the patient and recomm ended acute rehab. solar project manager notified. Continue to follow clinically. 11/01/2020; patient showed clinical improvement. Continue oxygen support. Will need PT evaluation. 11/02/2020; patient is complaining chest pain and right arm pain. Cardiology is following the patient for chest pain, recommend no further work-up. Doppler ultrasound was ordered for right arm pain. History Interval history: patient was seen and evaluated this morning Patient was complaining headache Patient shortness of breath is getting better Patient is complaining chest pain Hospitalist Physical - Physical exam Narrative exam: Not in cardiopulmonary distress. The patient appeared well nourished and normally developed. Vital signs as documented. Head exam is unremarkable. No scleral icterus . Neck is without jugular venous distension, thyromegaly, or carotid bruits. Lungs are clear to auscultation. Cardiac exam reveals regular rate and Rhythm. Abdominal exam reveals normal bowel sounds, nontender, no organomegaly. Extremities are nonedematous and both femoral and pedal pulses are normal. RIB TRIM SEPARATOR: Alert and oriented 3. No focal weakness. - Constitutional Vitals: Temp Pulse Resp BP Pulse Ox 98.4 F 69 97 H 138/69 97 11/02/20 07:26 11/02/20 09:01 11/02/20 08:15 11/02/20 09:01 11/02/20 09:03 HEART Score - HEART Score Troponin: Troponin T 0.024 ng/mL (0.00-0.029) 10/31/20 05:00 Results - Labs CBC & Chem 7: 10/29/20 07:08 11/01/20 04:54 Labs: Laboratory Last Values WBC 14.3 K/mm3 (4.5-11.0) H 10/29/20 07:08 RBC 3.42 M/mm3 (3.65-5.03) L 10/29/20 07:08 Hgb 11.0 gm/dl (10.1-14.3) 10/29/20 07:08 Hct 33.4 % (30.3-42.9) 10/29/20 07:08 MCV 97 fl (79-97) 10/29/20 07:08 MCH 32 pg (28-32) 10/29/20 07:08 MCHC 33 % (30-34) 10/29/20 07:08 RDW 17.0 % (13.2-15.2) H 10/29/20 07:08 Plt Count 223 K/mm3 (140-440) 10/29/20 07:08 Lymph % (Auto) 4.9 % (13.4-35.0) L 10/29/20 07:08 [place] % (Auto) 4.6 % (0.0-7.3) 10/29/20 07:08 Eos % (Auto) 0.2 % (0.0-4.3) 10/29/20 07:08 Baso % (Auto) 0.5 % (0.0-1.8) 10/29/20 07:08 Lymph # (Auto) 0.7 K/mm3 (1.2-5.4) L 10/29/20 07:08 [place] # (Auto) 0.7 K/mm3 (0.0-0.8) 10/29/20 07:08 Eos # (Auto) 0.0 K/mm3 (0.0-0.4) 10/29/20 07:08 Baso # (Auto) 0.1 K/mm3 (0.0-0.1) 10/29/20 07:08 Seg Neutrophils % 89.8 % (40.0-70.0) H 10/29/20 07:08 Seg Neutrophils # 12.8 K/mm3 (1.8-7.7) H 10/29/20 07:08 PT 14.3 Sec. (12.2-14.9) 10/29/20 07:08 INR 1.05 (0.87-1.13) 10/29/20 07:08 D-Dimer 4533.93 ng/mlDDU (0-234) H 10/29/20 07:08 ABG pH 7.479 (7.320-7.450) H 11/02/20 11:47 POC ABG pCO2 46.8 mmHg (32.0-48.0) 11/02/20 11:47 POC ABG pO2 73.7 mmHg (83-108) L 11/02/20 11:47 POC ABG HCO3 34.0 11/02/20 11:47 ABG O2 Saturation 95.2 (0-100) 11/02/20 11:47 POC ABG Base Excess 9.2 11/02/20 11:47 ABG Hemoglobin 12.9 (12.0-17.5) 11/02/20 11:47 ABG Oxyhemoglobin 94.1 (94-98) 11/02/20 11:47 ABG Methemoglobin 0.3 (0.0-1.5) 11/02/20 11:47 ABG Sodium 137.0 mmol/L (136.0-145.0) 11/02/20 11:47 ABG Potassium 3.8 mmol/L (3.40-4.50) 11/02/20 11:47 ABG Chloride 97.0 mmol/L (98-107) L 11/02/20 11:47 ABG Glucose 322 mg/dL (65-95) H 11/02/20 11:47 Carboxyhemoglobin 0.9 (0.5-1.5) 11/02/20 11:47 FiO2 % 28.0 11/02/20 11:47 Sodium 142 mmol/L (137-145) 11/01/20 04:54 Potassium 4.4 mmol/L (3.6-5.0) 11/01/20 04:54 Chloride 100.7 mmol/L (98-107) 11/01/20 04:54 Carbon Dioxide 32 mmol/L (22-30) H 11/01/20 04:54 Anion Gap 14 mmol/L 11/01/20 04:54 BUN 26 mg/dL (7-17) H 11/01/20 04:54 Creatinine 1.0 mg/dL (0.6-1.2) 11/01/20 04:54 Estimated GFR > 60 ml/min 11/01/20 04:54 BUN/Creatinine Ratio 26 % 11/01/20 04:54 Glucose 134 mg/dL (65-100) H 11/01/20 04:54 POC Glucose 323 mg/dL (70-105) H 11/02/20 11:17 Lactic Acid 2.80 mmol/L (0.7-2.0) H* 10/31/20 13:20 Calcium 8.4 mg/dL (8.4-10.2) 11/01/20 04:54 Magnesium 3.30 mg/dL (1.7-2.3) H 10/29/20 07:08 Ferritin 151.5 ng/mL (10.0-200.0) 10/29/20 07:08 Total Bilirubin 0.40 mg/dL (0.1-1.2) 10/29/20 07:08 AST 119 units/L (5-40) H 10/29/20 07:08 ALT 108 units/L (7-56) H 10/29/20 07:08 Alkaline Phosphatase 177 units/L (35-129) H 10/29/20 07:08 Lactate Dehydrogenase 342 units/L (91-180) H 10/29/20 07:08 Total Creatine Kinase 54 units/L (30-135) 10/29/20 07:08 Troponin T 0.024 ng/mL (0.00-0.029) 10/31/20 05:00 C-Reactive Protein 1.50 mg/dL (0.00-1.30) H 10/29/20 07:08 NT-Pro-B Natriuret Pep 04308 pg/mL (0-900) H 10/29/20 07:08 Total Protein 5.7 g/dL (6.3-8.2) L 10/29/20 07:08 Albumin 3.4 g/dL (3.9-5) L 10/29/20 07:08 Albumin/Globulin Ratio 1.5 % 10/29/20 07:08 Triglycerides 80 mg/dL (2-149) 10/29/20 07:08 Cholesterol 152 mg/dL (50-199) 10/29/20 07:08 LDL Cholesterol Direct 101 mg/dL (50-130) 10/29/20 07:08 HDL Cholesterol 37 mg/dL (40-59) L 10/29/20 07:08 Cholesterol/HDL Ratio 4.10 % 10/29/20 07:08 Procalcitonin 0.05 ng/mL (<0.15) 10/29/20 07:08 Arterial Blood Glucose 322 mg/dL (65-95) H 11/02/20 11:47 Arterial Blood Ionized Calcium 4.2 mg/dL (4.6-5.3) L 11/02/20 11:47 Urine Color Straw (Yellow) 10/29/20 Unknown Urine Turbidity Clear (Clear) 10/29/20 Unknown Urine pH 7.0 (5.0-7.0) 10/29/20 Unknown Ur Specific [place] 1.010 (1.003-1.030) 10/29/20 Unknown Urine Protein 30 mg/dl mg/dL (Negative) 10/29/20 Unknown Urine Glucose (UA) Neg mg/dL (Negative) 10/29/20 Unknown Urine Ketones Neg mg/dL (Negative) 10/29/20 Unknown Urine Blood Neg (Negative) 10/29/20 Unknown Urine Nitrite Neg (Negative) 10/29/20 Unknown Urine Bilirubin Neg (Negative) 10/29/20 Unknown Urine Urobilinogen < 2.0 mg/dL (<2.0) 10/29/20 Unknown Ur Leukocyte Esterase Neg (Negative) 10/29/20 Unknown Urine WBC (Auto) 0.0 /HPF (0.0-6.0) 10/29/20 Unknown Urine RBC (Auto) 1.0 /HPF (0.0-6.0) 10/29/20 Unknown U Epithel Cells (Auto) < 1.0 /HPF (0-13.0) 10/29/20 Unknown Urine Bacteria (Auto) 1+ /HPF (Negative) 10/29/20 Unknown Urine Mucus Few /HPF 10/29/20 Unknown Coronavirus (PCR) Negative (Negative) 10/29/20 10:00 Microbiology: Microbiology 10/29/20 07:08 Peripheral/Venous Blood Culture - Preliminary NO GROWTH AFTER 4 DAYS 10/29/20 07:08 Peripheral/Venous Blood Culture - Preliminary NO GROWTH AFTER 4 DAYS [place]/IV: Voiding Method External Female Catheter Active Medications - Current Medications Current Medications: Generic Name Dose Route Start Last Admin Trade Name Freq PRN Reason Stop Dose Admin Acetaminophen 650 mg 11/01/20 11:00 11/01/20 11:06 Acetaminophen 325 Mg Tab PO 650 mg Q6H PRN Administration Pain, Mild (1-3) Albuterol 2.5 mg 10/29/20 08:30 Albuterol 2.5 Mg/3 Ml Nebu IH TID PRN Wheezing Albuterol/Ipratropium 1 ampul 11/02/20 14:00 Ipratropium/Albuterol Sulfate 3 Ml Ampul.Neb IH TIDRT CAROLE Arformoterol Tartrate 15 mcg 10/29/20 20:00 11/02/20 08:16 Arformoterol 15 Mcg/2 Ml Nebu IH 15 mcg Q12HRT CAROLE Administration Aspirin 325 mg 10/29/20 10:00 11/02/20 09:01 Aspirin 325 Mg Tab PO 325 mg QDAY CAROLE Administration Atorvastatin Calcium 40 mg 10/29/20 22:00 11/01/20 22:40 Atorvastatin 40 Mg Tab PO 40 mg QHS CAROLE Administration Budesonide 0.5 mg 10/29/20 20:00 11/02/20 08:15 Budesonide 0.5 Mg/2 Ml Nebu IH 0.5 mg Q12HRT CAROLE Administration Carvedilol 3.125 mg 10/30/20 22:00 11/02/20 09:01 Carvedilol 3.125 Mg Tab PO 3.125 mg BID CAROLE Administration Dextrose 50 ml 10/30/20 19:34 Dextrose 50% In Water (25gm) 50 Ml Syringe IV Q30MIN PRN Hypoglycemia Protocol Enoxaparin Sodium 40 mg 10/29/20 22:00 11/01/20 22:41 Enoxaparin 40 Mg/0.4 Ml Inj SUB-Q 40 mg QDAY@2200 CAROLE Administration Protocol Furosemide 40 mg 10/29/20 18:00 11/02/20 05:24 Furosemide 40 Mg/4 Ml Inj IV 40 mg BID@0600,1800 CAROLE Administration Hydralazine HCl 25 mg 11/02/20 22:00 Hydralazine 25 Mg Tab PO BID CAROLE Azithromycin 500 mg in 250 mls @ 250 mls/hr 10/30/20 18:00 11/01/20 17:15 Zithromax/Ns IV 11/03/20 18:59 250 mls/hr Q24H CAROLE Administration Ceftriaxone Sodium 1 gm in 50 mls @ 100 mls/hr 11/01/20 10:00 11/02/20 09:01 Rocephin/Ns 1 Gm/50 Ml IV 11/03/20 10:29 100 mls/hr DAILY CAROLE Administration Insulin Human Regular 0 units 10/31/20 11:30 11/02/20 12:27 Insulin Regular, Human 100 Units/1 Ml SUB-Q 6 units ACHS CAROLE Administration Protocol Levothyroxine Sodium 100 mcg 10/30/20 06:00 11/02/20 05:25 Levothyroxine 100 Mcg Tab PO 100 mcg DAILY@0600 CAROLE Administration Melatonin 10 mg 10/30/20 20:19 Melatonin 5 Mg Tab PO QHS PRN Sleep Methylprednisolone Sodium Succinate 40 mg 10/31/20 04:00 11/02/20 05:24 Methylprednisolone Sod Succinate 40 Mg/1 Ml Inj IV 40 mg Q12H CAROLE Administration Morphine Sulfate 2 mg 10/29/20 09:00 Morphine 2 Mg/1 Ml Inj IV Q5MIN PRN Chest Pain unrelieved by NTG Nitroglycerin 0.4 mg 10/29/20 09:00 Nitroglycerin 0.4 Mg Tab Subl SL .Q5MIN PRN Chest Pain Pantoprazole Sodium 40 mg 10/30/20 22:00 11/02/20 09:01 Pantoprazole 40 Mg Tab PO 40 mg BID CAROLE Administration Spironolactone 25 mg 11/03/20 10:00 Spironolactone 25 Mg Tab PO QDAY CAROLE Sumatriptan Succinate 25 mg 11/01/20 11:30 11/01/20 23:32 Sumatriptan Succinate 25 Mg Tab PO 25 mg Q4H PRN Administration Headache Tramadol HCl 50 mg 10/29/20 10:00 11/01/20 00:40 Tramadol 50 Mg Tab PO 50 mg BID PRN Administration Pain, Moderate (4-6) Nutrition/Malnutrition Assess - Dietary Evaluation Nutrition/Malnutrition Findings: Nutrition Notes Start: 10/30/20 10:56 Freq: Status: Active Protocol: Document 11/01/20 13:41 MK (Rec: 11/01/20 13:45 MK [id number]) Nutrition Notes Initial or Follow up Reassessment Current Diagnosis COPD,Diabetes,Hypertension, Heart Failure,Respiratory Failure Other Pertinent Diagnosis SIRS [facility]/Tests BUN 32 Pertinent Medications Lasix Height 5 ft 1 in Weight 64.5 kg [place] Body Weight (kg) 47.72 BMI 26.9 Weight Status Overweight Subjective/Other Information FU for intakes. Pt reports eating cereal, banana and juice for breakfast. She is eating 40% of lunch and dinner . Pt denied ONS. Percent of energy/protein needs met: 63%/59% Burn Absent Trauma Absent GI Symptoms None Current % PO Poor (25-49%) Minimum of two criteria No Energy Intake (non-severe) <75% Estimated Energy Requirement >7 days #1 Nutrition Diagnosis Inadequate energy intake As Evidenced by Signs and Symptoms pt meeting 63%/59% of kcal and protein needs Diagnosis Progress(for reassessment Improved documentation) Is patient on ventilator? No Is Patient Ambulatory and/or Out of Bed No [facility] [phone] Calculation Used for Recommendations [facility] Additional Notes Protein: (1-1.2g/kg) 66-80g Fluid: 1500 ml Nutrition Intervention Change Diet Order: Continue Goal #1 Meet at least 75% of protein and energy needs via PO Follow-Up By: 11/03/20 Additional Comments FU for intakes, BG
--- NOTE | 2020-11-02 14:07 | Progress Note ---
Assessment and Plan 79-year-old -[place]in[place] female with known history of CHF, COPD, diabetes mellitus, hypothyroidism, up-to-date with COVID-19 vaccination and dementia presenting to the emergency room with respiratory distress and having difficulty breathing. EMS states patient was hypoxic, and started CPAP in the field. They were unable to establish IV access. Per family patient recently had a 1 or 2-hour trip to [place], has chronic lower extremity swelling, no recent hospitalizations or period of immobilization. family denies nausea, vomiting, diarrhea, loss of taste and smell, and syncope. Patient remains hypoxic in the ER and placed on BiPAP which improved her symptoms. Chest x-ray showed no infiltrates. Lower extremity Dopplers is negative for DVT. Patient being admitted for COPD exacerbation and further evaluation management. Patient has history of smoking 2 packs x 30 years. Stopped smoking 15 years ago. Denies alcohol or drug abuse. Worked in house keeping. Complaining slight chest pain. Says shortness of breath getting better. Patient awake. weak. On 2 litres o2. O2 saturation 100%. Patient afebrile and has leukocytosis. BIPAP stand by in the room. Chest xray 10/31/20 reported CHF V/Q scan reported low probability for pulmonary emboli. Patient presently on dexamethasone, Cetriaxone, zithromax, S/C Lovenox, Kathy nix, albuterol/atrovent aerosol treatments. - Patient Problems (1) Acute respiratory failure with hypoxia Current Visit: Yes Status: Acute Plan to address problem: O2 3 litres via nasal canula. BIPAP stand by in the room. Albuterol/atrovent aerosol treatments. I/V solumedrol S/C Lovenox. Protonix. . (2) Acute exacerbation of CHF (congestive heart failure) Current Visit: Yes Status: Acute Plan to address problem: Patient is on Lasix. Management as per cardiology. (3) COPD exacerbation Current Visit: Yes Status: Acute Plan to address problem: O2 3 litres via nasal canula. BIPAP stand by in the room. Albuterol/atrovent aerosol treatments. I/V solumedrol S/C Lovenox. Protonix Ceftriaxone and zithromax. (4) Suspected 2019 novel coronavirus infection Current Visit: Yes Status: Acute Plan to address problem: [place] virus PCR negative. (5) Acute renal insufficiency Current Visit: No Status: Acute Plan to address problem: Management as per nephrology. (6) Diabetes Current Visit: No Status: Acute Plan to address problem: Management as per primary care. (7) HTN (hypertension) Current Visit: No Status: Acute Plan to address problem: Management as per primary care. Subjective Date of service: 11/02/20 Interval history: 79-year-old -[place]in[place] female with known history of CHF, COPD, diabetes mellitus, hypothyroidism, up-to-date with COVID-19 vaccination and dementia presenting to the emergency room with respiratory distress and having difficulty breathing. EMS states patient was hypoxic, and started CPAP in the field. They were unable to establish IV access. Per family patient recently had a 1 or 2-hour trip to [place], has chronic lower extremity swelling, no recent hospitalizations or period of immobilization. family denies nausea, vomiting, diarrhea, loss of taste and smell, and syncope. Patient remains hypoxic in the ER and placed on BiPAP which improved her symptoms. Chest x-ray showed no infiltrates. Lower extremity Dopplers is negative for DVT. Patient being admitted for COPD exacerbation and further evaluation management. Patient has history of smoking 2 packs x 30 years. Stopped smoking 15 years ago. Denies alcohol or drug abuse. Worked in house keeping. Complaining slight chest pain. Says shortness of breath getting better. Patient awake. weak. On 2 litres o2. O2 saturation 100%. Patient afebrile and has leukocytosis. BIPAP stand by in the room. Chest xray 10/31/20 reported CHF V/Q scan reported low probability for pulmonary emboli. Patient presently on dexamethasone, Cetriaxone, zithromax, S/C Lovenox, Protonix, albuterol/atrovent aerosol treatments. Objective Vital Signs - 12hr 11/02/20 11/02/20 11/02/20 02:16 02:20 03:34 Temperature 97.7 F Pulse Rate 67 66 Pulse Rate [ 68 Bilateral Throughout] Respiratory 22 15 Rate Respiratory 18 Rate [Bilateral Throughout] Blood Pressure 143/64 O2 Sat by Pulse 98 100 Oximetry 11/02/20 11/02/20 11/02/20 07:26 08:15 08:25 Temperature 98.4 F Pulse Rate 69 Pulse Rate [ 68 Bilateral Throughout] Respiratory 18 Rate Respiratory 97 H Rate [Bilateral Throughout] Blood Pressure 138/69 O2 Sat by Pulse 97 97 Oximetry 11/02/20 11/02/20 09:01 09:03 Temperature Pulse Rate 69 Pulse Rate [ Bilateral Throughout] Respiratory Rate Respiratory Rate [Bilateral Throughout] Blood Pressure 138/69 O2 Sat by Pulse 97 Oximetry Constitutional: no acute distress, alert Eyes: non-icteric ENT: oropharynx moist Neck: supple Ascultation: Bilateral: other (Prolonged expiratory phase.) Cardiovascular: regular rate and rhythm Gastrointestinal: normoactive bowel sounds, soft, non-tender Integumentary: normal Extremities: no cyanosis, no edema Neurologic: normal mental status, non-focal exam, pupils equal and round, CN II- XII normal Psychiatric: other (Dementia.) CBC and BMP: 10/29/20 07:08 11/01/20 04:54 ABG, PT/INR, D-dimer: ABG ABG pH 7.479 (7.320-7.450) H 11/02/20 11:47 POC ABG pCO2 46.8 mmHg (32.0-48.0) 11/02/20 11:47 POC ABG pO2 73.7 mmHg (83-108) L 11/02/20 11:47 POC ABG HCO3 34.0 11/02/20 11:47 ABG O2 Saturation 95.2 (0-100) 11/02/20 11:47 PT/INR, D-dimer PT 14.3 Sec. (12.2-14.9) 10/29/20 07:08 INR 1.05 (0.87-1.13) 10/29/20 07:08 D-Dimer 4533.93 ng/mlDDU (0-234) H 10/29/20 07:08 Abnormal lab findings: Abnormal Labs 10/29/20 10/29/20 10/29/20 07:08 07:08 07:08 WBC 14.3 H RBC 3.42 L RDW 17.0 H Lymph % (Auto) 4.9 L Lymph # (Auto) 0.7 L Seg Neutrophils % 89.8 H Seg Neutrophils # 12.8 H D-Dimer 4533.93 H ABG pH POC ABG pO2 ABG Chloride ABG Glucose Carbon Dioxide BUN 29 H Glucose 181 H POC Glucose Lactic Acid Magnesium 3.30 H AST 119 H ALT 108 H Alkaline Phosphatase 177 H Lactate Dehydrogenase 342 H Troponin T 0.045 H C-Reactive Protein 1.50 H NT-Pro-B Natriuret Pep 53626 H Total Protein 5.7 L Albumin 3.4 L HDL Cholesterol 37 L Arterial Blood Glucose Arterial Blood Ionized Calcium 10/29/20 10/29/20 10/30/20 07:08 14:33 04:44 WBC RBC RDW Lymph % (Auto) Lymph # (Auto) Seg Neutrophils % Seg Neutrophils # D-Dimer ABG pH POC ABG pO2 ABG Chloride ABG Glucose Carbon Dioxide BUN 26 H Glucose 138 H POC Glucose 149 H Lactic Acid 2.80 H* Magnesium AST ALT Alkaline Phosphatase Lactate Dehydrogenase Troponin T C-Reactive Protein NT-Pro-B Natriuret Pep Total Protein Albumin HDL Cholesterol Arterial Blood Glucose Arterial Blood Ionized Calcium 10/30/20 10/30/20 10/30/20 11:16 13:21 20:56 WBC RBC RDW Lymph % (Auto) Lymph # (Auto) Seg Neutrophils % Seg Neutrophils # D-Dimer ABG pH POC ABG pO2 ABG Chloride ABG Glucose Carbon Dioxide BUN Glucose POC Glucose 238 H 282 H Lactic Acid 4.50 H* Magnesium AST ALT Alkaline Phosphatase Lactate Dehydrogenase Troponin T C-Reactive Protein NT-Pro-B Natriuret Pep Total Protein Albumin HDL Cholesterol Arterial Blood Glucose Arterial Blood Ionized Calcium 10/31/20 10/31/20 10/31/20 11:36 13:20 13:20 WBC RBC RDW Lymph % (Auto) Lymph # (Auto) Seg Neutrophils % Seg Neutrophils # D-Dimer ABG pH POC ABG pO2 ABG Chloride ABG Glucose Carbon Dioxide BUN 26 H Glucose 231 H POC Glucose 233 H Lactic Acid 2.80 H* Magnesium AST ALT Alkaline Phosphatase Lactate Dehydrogenase Troponin T C-Reactive Protein NT-Pro-B Natriuret Pep Total Protein Albumin HDL Cholesterol Arterial Blood Glucose Arterial Blood Ionized Calcium 10/31/20 10/31/20 11/01/20 16:42 20:01 04:54 WBC RBC RDW Lymph % (Auto) Lymph # (Auto) Seg Neutrophils % Seg Neutrophils # D-Dimer ABG pH POC ABG pO2 ABG Chloride ABG Glucose Carbon Dioxide 32 H BUN 26 H Glucose 134 H POC Glucose 207 H 220 H Lactic Acid Magnesium AST ALT Alkaline Phosphatase Lactate Dehydrogenase Troponin T C-Reactive Protein NT-Pro-B Natriuret Pep Total Protein Albumin HDL Cholesterol Arterial Blood Glucose Arterial Blood Ionized Calcium 11/01/20 11/01/20 11/01/20 07:27 11:28 15:33 WBC RBC RDW Lymph % (Auto) Lymph # (Auto) Seg Neutrophils % Seg Neutrophils # D-Dimer ABG pH POC ABG pO2 ABG Chloride ABG Glucose Carbon Dioxide BUN Glucose POC Glucose 158 H 323 H 299 H Lactic Acid Magnesium AST ALT Alkaline Phosphatase Lactate Dehydrogenase Troponin T C-Reactive Protein NT-Pro-B Natriuret Pep Total Protein Albumin HDL Cholesterol Arterial Blood Glucose Arterial Blood Ionized Calcium 11/01/20 11/02/20 11/02/20 20:16 07:28 11:17 WBC RBC RDW Lymph % (Auto) Lymph # (Auto) Seg Neutrophils % Seg Neutrophils # D-Dimer ABG pH POC ABG pO2 ABG Chloride ABG Glucose Carbon Dioxide BUN Glucose POC Glucose 190 H 117 H 323 H Lactic Acid Magnesium AST ALT Alkaline Phosphatase Lactate Dehydrogenase Troponin T C-Reactive Protein NT-Pro-B Natriuret Pep Total Protein Albumin HDL Cholesterol Arterial Blood Glucose Arterial Blood Ionized Calcium 11/02/20 11:47 WBC RBC RDW Lymph % (Auto) Lymph # (Auto) Seg Neutrophils % Seg Neutrophils # D-Dimer ABG pH 7.479 H POC ABG pO2 73.7 L ABG Chloride 97.0 L ABG Glucose 322 H Carbon Dioxide BUN Glucose POC Glucose Lactic Acid Magnesium AST ALT Alkaline Phosphatase Lactate Dehydrogenase Troponin T C-Reactive Protein NT-Pro-B Natriuret Pep Total Protein Albumin HDL Cholesterol Arterial Blood Glucose 322 H Arterial Blood Ionized Calcium 4.2 L
[2020-11-02] MEDS: AZITHROMYCIN/NS 500 MG/250 ML 500 MG/250 ML BAG IV SCH (17:08)
[2020-11-02] MEDS: ENOXAPARIN 40 MG/0.4 ML INJ SUB-Q SCH (23:08)
[2020-11-02] MEDS: hydrALAZINE 25 MG TAB PO SCH (23:08)
[2020-11-03] MEDS: methylPREDNISolone Sod Succinate 40 MG/1 ML INJ IV SCH ×2 (03:57→16:28)
[2020-11-03] MEDS: FUROSEMIDE 40 MG/4 ML INJ IV SCH ×2 (05:56→18:02)
[2020-11-03] MEDS: LEVOTHYROXINE 100 MCG TAB PO SCH (05:57)
[2020-11-03] MEDS: INSULIN REGULAR, HUMAN 100 UNITS/1 ML SUB-Q SCH ×4 (08:59→22:52)
[2020-11-03] MEDS: hydrALAZINE 25 MG TAB PO SCH ×2 (09:00→21:06)
[2020-11-03] MEDS: ASPIRIN 325 MG TAB PO SCH (09:00)
[2020-11-03] MEDS: PANTOPRAZOLE 40 MG TAB PO SCH ×2 (09:00→21:04)
[2020-11-03] MEDS: carvediloL 3.125 MG TAB PO SCH ×2 (09:01→22:04)
[2020-11-03] MEDS: SPIRONOLACTONE 25 MG TAB PO SCH (09:01)
[2020-11-03] MEDS: cefTRIAXone/NS 1 GM/50 ML 1 GM/50 ML BAG IV SCH (09:02)
[2020-11-03] MEDS: BUDESONIDE 0.5 MG/2 ML NEBU IH SCH ×2 (09:35→21:42)
[2020-11-03] MEDS: IPRATROPIUM/ALBUTEROL SULFATE 3 ML AMPUL.NEB IH SCH ×3 (09:35→21:41)
[2020-11-03] MEDS: ARFORMOTEROL 15 MCG/2 ML NEBU IH SCH ×2 (09:35→21:42)
--- NOTE | 2020-11-03 10:38 | Progress Note ---
Assessment and Plan Congestive heart failure COPD exacerbation on home oxygen Hx of CAD 2017 [facility] showed a chronic total occlusion of the circumflex artery recommended for medical therapy. 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 Otherwise, conservative cardiac management. Subjective Date of service: 11/03/20 Interval history: Patient denies chest pain. Resting in bed comfortably. Objective Vital Signs Temp Pulse Pulse Resp Resp BP Pulse Ox 11/03/20 09:57 100 11/03/20 09:35 70 16 11/03/20 09:00 72 122/66 11/03/20 07:40 98.2 F 59 L 18 122/66 100 11/03/20 03:24 98.1 F 61 18 130/68 100 11/02/20 23:45 72 20 97 11/02/20 23:12 98.0 F 84 19 146/66 100 11/02/20 20:51 100 11/02/20 20:49 76 18 11/02/20 19:05 97.7 F 78 18 128/71 97 11/02/20 16:53 75 11/02/20 16:08 97.9 F 75 16 123/58 98 - Physical Examination General: No Apparent Distress HEENT: Positive: PERRL, Normocephaly Neck: Positive: neck supple Cardiac: Positive: Reg Rate and Rhythm Lungs: Positive: Decreased Breath Sounds Neuro: Positive: Grossly Intact Extremities: Absent: edema
--- NOTE | 2020-11-03 11:23 | Progress Note ---
Assessment and Plan Assessment and plan: 79-year-old -[place] female with known history of CHF, COPD, diabetes mellitus, hypothyroidism, up-to-date with COVID-19 vaccination and dementia presenting to the emergency room with respiratory distress and having difficulty breathing. A/P --SIRS, likely from COPD exacerbation cont abx, negative culture Lactic acid trending down -- Acute on chronic hypoxic respiratory failure Patient is s/p BiPAP Chest x-ray showed mild cardiomegaly, mild interstitial opacities, and presence of a stent in the thoracic aorta. Findings consistent with mild congestive heart failure, combined with her history of chronic lung disease. Continue IV Lasix, scheduled nebulizer breathing treatment and supplemental O2 Ordered for VQ scan to rule out possible underlying PE --COPD exacerbation - Will provide scheduled nebulizer breathing treatment and as needed - Place on empiric steroid and antibiotic - Provide supplemental oxygen to keep oxygen saturation above 92% Consulted pulmonary -- Cardiomyopathy with acute systolic CHF exacerbation Patient has an EF of about 25 to 30%. We will continue IV Lasix and resume home medications Cardiology consulted --NSTEMI likely type 2 from underlying cardiomyopathy Continue home cardiac medications and follow cardiology recommendation -- Diabetes type II We will monitor Accu-Cheks. placed on sliding scale insulin. -- HTN (hypertension), uncontrolled. Will place on IV hydralazine as needed. We will continue antihypertensives and adjust dose as needed -- Dementia Continue supportive care -- Hypothyroidism Patient has been on levothyroxine. -- DVT prophylaxis: Patient placed on subcutaneous heparin. --Full code status Daily clinical course: 10/30/20: Continue IV Lasix, scheduled nebulizer breathing treatment and supplemental O2. Discussed with patient's son at the bedside and updated in details. Ordered for VQ scan -pending. Continue supportive care and monitor clinically. Follow pulmonary and cardiology recommendation. 10/31/20: Patient clinically improved. Continue Lasix and scheduled nebulizer breathing treatment along with antibiotics. PT evaluated the patient and recomm ended acute rehab. bench manager notified. Continue to follow clinically. 11/01/2020; patient showed clinical improvement. Continue oxygen support. Will need PT evaluation. 11/02/2020; patient is complaining chest pain and right arm pain. Cardiology is following the patient for chest pain, recommend no further work-up. Doppler ultrasound was ordered for right arm pain. 11/03/2020; patient states she is not feeling better. PT OT recommend home health PT. History Interval history: patient was seen and evaluated this morning Patient was complaining headache Patient shortness of breath is getting better Patient is complaining chest pain Hospitalist Physical - Physical exam Narrative exam: Not in cardiopulmonary distress. The patient appeared well nourished and normally developed. Vital signs as documented. Head exam is unremarkable. No scleral icterus . Neck is without jugular venous distension, thyromegaly, or carotid bruits. Lungs are clear to auscultation. Cardiac exam reveals regular rate and Rhythm. Abdominal exam reveals normal bowel sounds, nontender, no organomegaly. Extremities are nonedematous and both femoral and pedal pulses are normal. BELT CUTTER: Alert and oriented 3. No focal weakness. - Constitutional Vitals: Temp Pulse Resp BP Pulse Ox 98.2 F 70 16 122/66 100 11/03/20 07:40 11/03/20 09:35 11/03/20 09:35 11/03/20 09:00 11/03/20 09:57 HEART Score - HEART Score Troponin: Troponin T 0.020 ng/mL (0.00-0.029) 11/02/20 12:53 Results - Labs CBC & Chem 7: 10/29/20 07:08 11/01/20 04:54 Labs: Laboratory Last Values WBC 14.3 K/mm3 (4.5-11.0) H 10/29/20 07:08 RBC 3.42 M/mm3 (3.65-5.03) L 10/29/20 07:08 Hgb 11.0 gm/dl (10.1-14.3) 10/29/20 07:08 Hct 33.4 % (30.3-42.9) 10/29/20 07:08 MCV 97 fl (79-97) 10/29/20 07:08 MCH 32 pg (28-32) 10/29/20 07:08 MCHC 33 % (30-34) 10/29/20 07:08 RDW 17.0 % (13.2-15.2) H 10/29/20 07:08 Plt Count 223 K/mm3 (140-440) 10/29/20 07:08 Lymph % (Auto) 4.9 % (13.4-35.0) L 10/29/20 07:08 [place] % (Auto) 4.6 % (0.0-7.3) 10/29/20 07:08 Eos % (Auto) 0.2 % (0.0-4.3) 10/29/20 07:08 Baso % (Auto) 0.5 % (0.0-1.8) 10/29/20 07:08 Lymph # (Auto) 0.7 K/mm3 (1.2-5.4) L 10/29/20 07:08 [place] # (Auto) 0.7 K/mm3 (0.0-0.8) 10/29/20 07:08 Eos # (Auto) 0.0 K/mm3 (0.0-0.4) 10/29/20 07:08 Baso # (Auto) 0.1 K/mm3 (0.0-0.1) 10/29/20 07:08 Seg Neutrophils % 89.8 % (40.0-70.0) H 10/29/20 07:08 Seg Neutrophils # 12.8 K/mm3 (1.8-7.7) H 10/29/20 07:08 PT 14.3 Sec. (12.2-14.9) 10/29/20 07:08 INR 1.05 (0.87-1.13) 10/29/20 07:08 D-Dimer 4533.93 ng/mlDDU (0-234) H 10/29/20 07:08 ABG pH 7.479 (7.320-7.450) H 11/02/20 11:47 POC ABG pCO2 46.8 mmHg (32.0-48.0) 11/02/20 11:47 POC ABG pO2 73.7 mmHg (83-108) L 11/02/20 11:47 POC ABG HCO3 34.0 11/02/20 11:47 ABG O2 Saturation 95.2 (0-100) 11/02/20 11:47 POC ABG Base Excess 9.2 11/02/20 11:47 ABG Hemoglobin 12.9 (12.0-17.5) 11/02/20 11:47 ABG Oxyhemoglobin 94.1 (94-98) 11/02/20 11:47 ABG Methemoglobin 0.3 (0.0-1.5) 11/02/20 11:47 ABG Sodium 137.0 mmol/L (136.0-145.0) 11/02/20 11:47 ABG Potassium 3.8 mmol/L (3.40-4.50) 11/02/20 11:47 ABG Chloride 97.0 mmol/L (98-107) L 11/02/20 11:47 ABG Glucose 322 mg/dL (65-95) H 11/02/20 11:47 Carboxyhemoglobin 0.9 (0.5-1.5) 11/02/20 11:47 FiO2 % 28.0 11/02/20 11:47 Sodium 142 mmol/L (137-145) 11/01/20 04:54 Potassium 4.4 mmol/L (3.6-5.0) 11/01/20 04:54 Chloride 100.7 mmol/L (98-107) 11/01/20 04:54 Carbon Dioxide 32 mmol/L (22-30) H 11/01/20 04:54 Anion Gap 14 mmol/L 11/01/20 04:54 BUN 26 mg/dL (7-17) H 11/01/20 04:54 Creatinine 1.0 mg/dL (0.6-1.2) 11/01/20 04:54 Estimated GFR > 60 ml/min 11/01/20 04:54 BUN/Creatinine Ratio 26 % 11/01/20 04:54 Glucose 134 mg/dL (65-100) H 11/01/20 04:54 POC Glucose 223 mg/dL (70-105) H 11/03/20 07:47 Lactic Acid 2.80 mmol/L (0.7-2.0) H* 10/31/20 13:20 Calcium 8.4 mg/dL (8.4-10.2) 11/01/20 04:54 Magnesium 3.30 mg/dL (1.7-2.3) H 10/29/20 07:08 Ferritin 151.5 ng/mL (10.0-200.0) 10/29/20 07:08 Total Bilirubin 0.40 mg/dL (0.1-1.2) 10/29/20 07:08 AST 119 units/L (5-40) H 10/29/20 07:08 ALT 108 units/L (7-56) H 10/29/20 07:08 Alkaline Phosphatase 177 units/L (35-129) H 10/29/20 07:08 Lactate Dehydrogenase 342 units/L (91-180) H 10/29/20 07:08 Total Creatine Kinase 54 units/L (30-135) 10/29/20 07:08 Troponin T 0.020 ng/mL (0.00-0.029) 11/02/20 12:53 C-Reactive Protein 1.50 mg/dL (0.00-1.30) H 10/29/20 07:08 NT-Pro-B Natriuret Pep 42690 pg/mL (0-900) H 10/29/20 07:08 Total Protein 5.7 g/dL (6.3-8.2) L 10/29/20 07:08 Albumin 3.4 g/dL (3.9-5) L 10/29/20 07:08 Albumin/Globulin Ratio 1.5 % 10/29/20 07:08 Triglycerides 80 mg/dL (2-149) 10/29/20 07:08 Cholesterol 152 mg/dL (50-199) 10/29/20 07:08 LDL Cholesterol Direct 101 mg/dL (50-130) 10/29/20 07:08 HDL Cholesterol 37 mg/dL (40-59) L 10/29/20 07:08 Cholesterol/HDL Ratio 4.10 % 10/29/20 07:08 Procalcitonin 0.05 ng/mL (<0.15) 10/29/20 07:08 Arterial Blood Glucose 322 mg/dL (65-95) H 11/02/20 11:47 Arterial Blood Ionized Calcium 4.2 mg/dL (4.6-5.3) L 11/02/20 11:47 Urine Color Straw (Yellow) 10/29/20 Unknown Urine Turbidity Clear (Clear) 10/29/20 Unknown Urine pH 7.0 (5.0-7.0) 10/29/20 Unknown Ur Specific [place] 1.010 (1.003-1.030) 10/29/20 Unknown Urine Protein 30 mg/dl mg/dL (Negative) 10/29/20 Unknown Urine Glucose (UA) Neg mg/dL (Negative) 10/29/20 Unknown Urine Ketones Neg mg/dL (Negative) 10/29/20 Unknown Urine Blood Neg (Negative) 10/29/20 Unknown Urine Nitrite Neg (Negative) 10/29/20 Unknown Urine Bilirubin Neg (Negative) 10/29/20 Unknown Urine Urobilinogen < 2.0 mg/dL (<2.0) 10/29/20 Unknown Ur Leukocyte Esterase Neg (Negative) 10/29/20 Unknown Urine WBC (Auto) 0.0 /HPF (0.0-6.0) 10/29/20 Unknown Urine RBC (Auto) 1.0 /HPF (0.0-6.0) 10/29/20 Unknown U Epithel Cells (Auto) < 1.0 /HPF (0-13.0) 10/29/20 Unknown Urine Bacteria (Auto) 1+ /HPF (Negative) 10/29/20 Unknown Urine Mucus Few /HPF 10/29/20 Unknown Coronavirus (PCR) Negative (Negative) 10/29/20 10:00 Microbiology: Microbiology 10/29/20 07:08 Peripheral/Venous Blood Culture - Preliminary NO GROWTH AFTER 4 DAYS 10/29/20 07:08 Peripheral/Venous Blood Culture - Preliminary NO GROWTH AFTER 4 DAYS [place]/IV: Voiding Method Toilet Active Medications - Current Medications Current Medications: Generic Name Dose Route Start Last Admin Trade Name Freq PRN Reason Stop Dose Admin Acetaminophen 650 mg 11/01/20 11:00 11/01/20 11:06 Acetaminophen 325 Mg Tab PO 650 mg Q6H PRN Administration Pain, Mild (1-3) Albuterol 2.5 mg 10/29/20 08:30 Albuterol 2.5 Mg/3 Ml Nebu IH TID PRN Wheezing Albuterol/Ipratropium 1 ampul 11/02/20 14:00 11/03/20 09:35 Ipratropium/Albuterol Sulfate 3 Ml Ampul.Neb IH 1 ampul TIDRT CAROLE Administration Arformoterol Tartrate 15 mcg 10/29/20 20:00 11/03/20 09:35 Arformoterol 15 Mcg/2 Ml Nebu IH 15 mcg Q12HRT CAROLE Administration Aspirin 325 mg 10/29/20 10:00 11/03/20 09:00 Aspirin 325 Mg Tab PO 325 mg QDAY CAROLE Administration Atorvastatin Calcium 40 mg 10/29/20 22:00 11/02/20 23:08 Atorvastatin 40 Mg Tab PO 40 mg QHS CAROLE Administration Budesonide 0.5 mg 10/29/20 20:00 11/03/20 09:35 Budesonide 0.5 Mg/2 Ml Nebu IH 0.5 mg Q12HRT CAROLE Administration Carvedilol 3.125 mg 10/30/20 22:00 11/03/20 09:01 Carvedilol 3.125 Mg Tab PO 3.125 mg BID CAROLE Administration Dextrose 50 ml 10/30/20 19:34 Dextrose 50% In Water (25gm) 50 Ml Syringe IV Q30MIN PRN Hypoglycemia Protocol Enoxaparin Sodium 40 mg 10/29/20 22:00 11/02/20 23:08 Enoxaparin 40 Mg/0.4 Ml Inj SUB-Q 40 mg QDAY@2200 CAROLE Administration Protocol Furosemide 40 mg 10/29/20 18:00 11/03/20 05:56 Furosemide 40 Mg/4 Ml Inj IV 40 mg BID@0600,1800 CAROLE Administration Hydralazine HCl 25 mg 11/02/20 22:00 11/03/20 09:00 Hydralazine 25 Mg Tab PO 25 mg BID CAROLE Administration Azithromycin 500 mg in 250 mls @ 250 mls/hr 10/30/20 18:00 11/02/20 22:32 Zithromax/Ns IV 11/03/20 18:59 Infused Q24H CAROLE Infusion Insulin Human Regular 0 units 10/31/20 11:30 11/03/20 08:59 Insulin Regular, Human 100 Units/1 Ml SUB-Q 3 units ACHS CAROLE Administration Protocol Levothyroxine Sodium 100 mcg 10/30/20 06:00 11/03/20 05:57 Levothyroxine 100 Mcg Tab PO 100 mcg DAILY@0600 CAROLE Administration Melatonin 10 mg 10/30/20 20:19 Melatonin 5 Mg Tab PO QHS PRN Sleep Methylprednisolone Sodium Succinate 40 mg 10/31/20 04:00 11/03/20 03:57 Methylprednisolone Sod Succinate 40 Mg/1 Ml Inj IV 40 mg Q12H CAROLE Administration Morphine Sulfate 2 mg 10/29/20 09:00 Morphine 2 Mg/1 Ml Inj IV Q5MIN PRN Chest Pain unrelieved by NTG Nitroglycerin 0.4 mg 10/29/20 09:00 Nitroglycerin 0.4 Mg Tab Subl SL .Q5MIN PRN Chest Pain Pantoprazole Sodium 40 mg 10/30/20 22:00 11/03/20 09:00 Pantoprazole 40 Mg Tab PO 40 mg BID CAROLE Administration Spironolactone 25 mg 11/03/20 10:00 11/03/20 09:01 Spironolactone 25 Mg Tab PO 25 mg QDAY CAROLE Administration Sumatriptan Succinate 25 mg 11/01/20 11:30 11/01/20 23:32 Sumatriptan Succinate 25 Mg Tab PO 25 mg Q4H PRN Administration Headache Tramadol HCl 50 mg 10/29/20 10:00 11/01/20 00:40 Tramadol 50 Mg Tab PO 50 mg BID PRN Administration Pain, Moderate (4-6) Nutrition/Malnutrition Assess - Dietary Evaluation Nutrition/Malnutrition Findings: Nutrition Notes Start: 10/30/20 10:56 Freq: Status: Active Protocol: Document 11/03/20 11:15 MORGAN (Rec: 11/03/20 11:19 [facility] [id number]) Nutrition Notes Initial or Follow up Reassessment Current Diagnosis Diabetes,Hypertension, Respiratory Failure Other Pertinent Diagnosis COPD exacerbation, NSTEMI, Dementia, Hypothyroidism Current Diet [facility] soft Labs/Tests POC Glu range since last assessment: 117-323 Pertinent Medications Reviewed Height 5 ft 1 in Weight 64.5 kg [place] Body Weight (kg) 47.72 BMI 26.9 Weight Status Appropriate Subjective/Other Information Pt has consumed 85% of meals since last assessment. Percent of energy/protein needs met: 100% energy and pro Burn Absent Trauma Absent Current % PO Good (75-100%) #1 Nutrition Diagnosis Inadequate energy intake As Evidenced by Signs and Symptoms PO intakes meeting at least 75 % energy and pro needs Diagnosis Progress(for reassessment Resolved documentation) Is patient on ventilator? No Is Patient Ambulatory and/or Out of Bed No REE-([place] Je[place]-confined to bed) [phone] Calculation Used for Recommendations [place] [facility] Additional Notes Pro needs 1-1.2g/k-77g/ day Fluid needs 1ml/kcal Nutrition Intervention Revisit per MD consult or patient Sign Off request:
--- NOTE | 2020-11-03 12:46 | Electrocardiograph Report ---
[facility] Test Date: 2020-10-29 Test Time: 08:09:40 Pat Name: LAURA SAUCEDA Department: Room: A474 Gender: F Suppression Crew Leader: GELACIO : 1940 Requested By: TJ OLIVEIRA Order Number: [id number] Reading MD: Kellee Nicole Measurements Intervals [place] Rate: 75 P: 58 NC: 174 QRS: -28 QRSD: 99 T: -39 QT: 459 QTc: 513 Interpretive Statements Sinus rhythm Probable left atrial enlargement Left axis deviation T wave inversions, consider anterior ischemia No previous ECG available for comparison Electronically Signed On 11-03-2020 12:46:16 EDT by Kellee Nicole
--- NOTE | 2020-11-03 14:45 | Progress Note ---
Assessment and Plan Acute hypoxemic respiratory failure, acute on chronic Acute exacerbation of congestive heart failure Acute chronic obstructive pulmonary disease exacerbation Obstructive sleep apnea Obesity DM II Hypothyroidism H/O aortic aneurysm repair - continue systemic steroids with slow taper (tapered to oral dosing) - will have PT evaluate for acute rehabilitation transfer - continue to wean supplemental oxygen to keep O2 sats > 90% - continue diuresis re: CHF while following electrolytes - continue Bronchodilators (EVARISTO & LABA) with pulm hygiene per RT - continue inhaled corticosteroids - continue to avoid nephrotoxins, renally dose all medications - continue mobility protocols to prevent pressure ulcers - PT/OT as tolerated - Wound care per RN/WCT - continue accuchecks with glycemic control per SSI for target blood glucose < 180 mg/dL - Smoking cessation strongly counseled at the bedside - home oxygen evaluation at discharge - GI & VTE prophylaxis - Flu & pneumovax per protocol - Pulmonary out patient follow up for PFTs and optimization of respiratory status - continue other care per attending / other consultants - prn analgesia per pain score ... re-evaluate in am & prn Subjective Date of service: 11/03/20 Principal diagnosis: Ac. hypoxemic respfailure; AE-CHF; AE-COPD; ASHLI; DM II; DM II Interval history: Patient is seen today for: Acute hypoxemic respiratory failure; AE-CHF; AE-COPD; ASHLI; DM II; DM II; Hypothyroidism Seen and examined at bedside; 24hour events reviewed; nursing and respiratory care staff consulted; no adverse overnight events reported to me; resting peacefully in bed; eating lunch; states that she remains SOB at rest but better since admission; states she did very well with PT/OT today Objective Vital Signs - 12hr 11/03/20 11/03/20 11/03/20 03:24 07:40 08:00 Temperature 98.1 F 98.2 F Pulse Rate 61 59 L 60 Pulse Rate [ Bilateral Throughout] Respiratory 18 18 Rate Respiratory Rate [Bilateral Throughout] Blood Pressure 130/68 122/66 O2 Sat by Pulse 100 100 Oximetry 11/03/20 11/03/20 11/03/20 09:00 09:35 09:57 Temperature Pulse Rate 72 Pulse Rate [ 70 Bilateral Throughout] Respiratory Rate Respiratory 16 Rate [Bilateral Throughout] Blood Pressure 122/66 O2 Sat by Pulse 100 Oximetry 11/03/20 10:48 Temperature 97.4 F L Pulse Rate 71 Pulse Rate [ Bilateral Throughout] Respiratory 18 Rate Respiratory Rate [Bilateral Throughout] Blood Pressure 103/42 O2 Sat by Pulse 100 Oximetry Constitutional: no acute distress, alert, other (elderly petite female with mildly increased respiratory effort at rest) Eyes: non-icteric ENT: oropharynx moist Neck: supple, no JVD Effort: mildly labored Ascultation: Bilateral: diminished breath sounds, other (Prolonged expiratory phase.) Percussion: Bilateral: not dull Cardiovascular: regular rate and rhythm Gastrointestinal: normoactive bowel sounds, hypoactive bowel sounds, soft, non- tender, non-distended Integumentary: normal Extremities: no cyanosis, no edema, pulses normal, no ischemia or petechiae Neurologic: normal mental status, non-focal exam, pupils equal and round, CN II- XII normal, other (deconditioned) Psychiatric: mood appropriate, affect normal CBC and BMP: 10/29/20 07:08 11/01/20 04:54 ABG, PT/INR, D-dimer: ABG ABG pH 7.479 (7.320-7.450) H 11/02/20 11:47 POC ABG pCO2 46.8 mmHg (32.0-48.0) 11/02/20 11:47 POC ABG pO2 73.7 mmHg (83-108) L 11/02/20 11:47 POC ABG HCO3 34.0 11/02/20 11:47 ABG O2 Saturation 95.2 (0-100) 11/02/20 11:47 PT/INR, D-dimer PT 14.3 Sec. (12.2-14.9) 10/29/20 07:08 INR 1.05 (0.87-1.13) 10/29/20 07:08 D-Dimer 4533.93 ng/mlDDU (0-234) H 10/29/20 07:08 Abnormal lab findings: Abnormal Labs 10/29/20 10/29/20 10/29/20 07:08 07:08 07:08 WBC 14.3 H RBC 3.42 L RDW 17.0 H Lymph % (Auto) 4.9 L Lymph # (Auto) 0.7 L Seg Neutrophils % 89.8 H Seg Neutrophils # 12.8 H D-Dimer 4533.93 H ABG pH POC ABG pO2 ABG Chloride ABG Glucose Carbon Dioxide BUN 29 H Glucose 181 H POC Glucose Lactic Acid Magnesium 3.30 H AST 119 H ALT 108 H Alkaline Phosphatase 177 H Lactate Dehydrogenase 342 H Troponin T 0.045 H C-Reactive Protein 1.50 H NT-Pro-B Natriuret Pep 20343 H Total Protein 5.7 L Albumin 3.4 L HDL Cholesterol 37 L Arterial Blood Glucose Arterial Blood Ionized Calcium 10/29/20 10/29/20 10/30/20 07:08 14:33 04:44 WBC RBC RDW Lymph % (Auto) Lymph # (Auto) Seg Neutrophils % Seg Neutrophils # D-Dimer ABG pH POC ABG pO2 ABG Chloride ABG Glucose Carbon Dioxide BUN 26 H Glucose 138 H POC Glucose 149 H Lactic Acid 2.80 H* Magnesium AST ALT Alkaline Phosphatase Lactate Dehydrogenase Troponin T C-Reactive Protein NT-Pro-B Natriuret Pep Total Protein Albumin HDL Cholesterol Arterial Blood Glucose Arterial Blood Ionized Calcium 10/30/20 10/30/20 10/30/20 11:16 13:21 20:56 WBC RBC RDW Lymph % (Auto) Lymph # (Auto) Seg Neutrophils % Seg Neutrophils # D-Dimer ABG pH POC ABG pO2 ABG Chloride ABG Glucose Carbon Dioxide BUN Glucose POC Glucose 238 H 282 H Lactic Acid 4.50 H* Magnesium AST ALT Alkaline Phosphatase Lactate Dehydrogenase Troponin T C-Reactive Protein NT-Pro-B Natriuret Pep Total Protein Albumin HDL Cholesterol Arterial Blood Glucose Arterial Blood Ionized Calcium 10/31/20 10/31/20 10/31/20 11:36 13:20 13:20 WBC RBC RDW Lymph % (Auto) Lymph # (Auto) Seg Neutrophils % Seg Neutrophils # D-Dimer ABG pH POC ABG pO2 ABG Chloride ABG Glucose Carbon Dioxide BUN 26 H Glucose 231 H POC Glucose 233 H Lactic Acid 2.80 H* Magnesium AST ALT Alkaline Phosphatase Lactate Dehydrogenase Troponin T C-Reactive Protein NT-Pro-B Natriuret Pep Total Protein Albumin HDL Cholesterol Arterial Blood Glucose Arterial Blood Ionized Calcium 10/31/20 10/31/20 11/01/20 16:42 20:01 04:54 WBC RBC RDW Lymph % (Auto) Lymph # (Auto) Seg Neutrophils % Seg Neutrophils # D-Dimer ABG pH POC ABG pO2 ABG Chloride ABG Glucose Carbon Dioxide 32 H BUN 26 H Glucose 134 H POC Glucose 207 H 220 H Lactic Acid Magnesium AST ALT Alkaline Phosphatase Lactate Dehydrogenase Troponin T C-Reactive Protein NT-Pro-B Natriuret Pep Total Protein Albumin HDL Cholesterol Arterial Blood Glucose Arterial Blood Ionized Calcium 11/01/20 11/01/20 11/01/20 07:27 11:28 15:33 WBC RBC RDW Lymph % (Auto) Lymph # (Auto) Seg Neutrophils % Seg Neutrophils # D-Dimer ABG pH POC ABG pO2 ABG Chloride ABG Glucose Carbon Dioxide BUN Glucose POC Glucose 158 H 323 H 299 H Lactic Acid Magnesium AST ALT Alkaline Phosphatase Lactate Dehydrogenase Troponin T C-Reactive Protein NT-Pro-B Natriuret Pep Total Protein Albumin HDL Cholesterol Arterial Blood Glucose Arterial Blood Ionized Calcium 11/01/20 11/02/20 11/02/20 20:16 07:28 11:17 WBC RBC RDW Lymph % (Auto) Lymph # (Auto) Seg Neutrophils % Seg Neutrophils # D-Dimer ABG pH POC ABG pO2 ABG Chloride ABG Glucose Carbon Dioxide BUN Glucose POC Glucose 190 H 117 H 323 H Lactic Acid Magnesium AST ALT Alkaline Phosphatase Lactate Dehydrogenase Troponin T C-Reactive Protein NT-Pro-B Natriuret Pep Total Protein Albumin HDL Cholesterol Arterial Blood Glucose Arterial Blood Ionized Calcium 11/02/20 11/02/20 11/02/20 11:47 16:06 21:07 WBC RBC RDW Lymph % (Auto) Lymph # (Auto) Seg Neutrophils % Seg Neutrophils # D-Dimer ABG pH 7.479 H POC ABG pO2 73.7 L ABG Chloride 97.0 L ABG Glucose 322 H Carbon Dioxide BUN Glucose POC Glucose 316 H 253 H Lactic Acid Magnesium AST ALT Alkaline Phosphatase Lactate Dehydrogenase Troponin T C-Reactive Protein NT-Pro-B Natriuret Pep Total Protein Albumin HDL Cholesterol Arterial Blood Glucose 322 H Arterial Blood Ionized Calcium 4.2 L 11/03/20 07:47 WBC RBC RDW Lymph % (Auto) Lymph # (Auto) Seg Neutrophils % Seg Neutrophils # D-Dimer ABG pH POC ABG pO2 ABG Chloride ABG Glucose Carbon Dioxide BUN Glucose POC Glucose 223 H Lactic Acid Magnesium AST ALT Alkaline Phosphatase Lactate Dehydrogenase Troponin T C-Reactive Protein NT-Pro-B Natriuret Pep Total Protein Albumin HDL Cholesterol Arterial Blood Glucose Arterial Blood Ionized Calcium Allied health notes reviewed: nursing
[2020-11-03] MEDS: predniSONE 20 MG TAB PO SCH (17:47)
[2020-11-03] MEDS: AZITHROMYCIN/NS 500 MG/250 ML 500 MG/250 ML BAG IV SCH (18:07)
[2020-11-03] MEDS: ENOXAPARIN 40 MG/0.4 ML INJ SUB-Q SCH (21:04)
--- NOTE | 2020-11-03 22:06 | Vascular Lab Report ---
DUPLEX DOPPLER UPPER EXTREMITY VENOUS, RIGHT INDICATION / CLINICAL INFORMATION: pain and tenderness in the right arm. TECHNIQUE: Duplex doppler imaging was performed through the veins of the right upper extremity using venous comp ression and other maneuvers. COMPARISON: None available. FINDINGS: RIGHT INTERNAL JUGULAR VEIN: Negative. RIGHT SUBCLAVIAN VEIN: Negative. RIGHT AXILLARY VEIN: Negative. RIGHT BRACHIAL VEIN: Negative. RIGHT FOREARM VEINS: Negative. RIGHT BASILIC VEIN (SUPERFICIAL): Negative. ADDITIONAL FINDINGS: None. IMPRESSION: 1. No sonographic evidence for DVT. Signer Name: Preston Gamez MD Signed: 11/03/2020 10:01 PM Workstation Name: [id number]
[2020-11-04] MEDS: FUROSEMIDE 40 MG/4 ML INJ IV SCH ×2 (05:26→17:38)
[2020-11-04] MEDS: LEVOTHYROXINE 100 MCG TAB PO SCH (05:26)
[2020-11-04] MEDS: INSULIN REGULAR, HUMAN 100 UNITS/1 ML SUB-Q SCH ×4 (07:30→22:00)
[2020-11-04] MEDS: BUDESONIDE 0.5 MG/2 ML NEBU IH SCH ×2 (07:50→19:43)
[2020-11-04] MEDS: IPRATROPIUM/ALBUTEROL SULFATE 3 ML AMPUL.NEB IH SCH ×3 (07:50→19:43)
[2020-11-04] MEDS: ARFORMOTEROL 15 MCG/2 ML NEBU IH SCH ×2 (07:50→19:43)
[2020-11-04] MEDS: ASPIRIN 325 MG TAB PO SCH (10:03)
[2020-11-04] MEDS: PANTOPRAZOLE 40 MG TAB PO SCH ×2 (10:03→22:00)
[2020-11-04] MEDS: predniSONE 20 MG TAB PO SCH (10:03)
[2020-11-04] MEDS: SPIRONOLACTONE 25 MG TAB PO SCH (10:03)
[2020-11-04] MEDS: hydrALAZINE 25 MG TAB PO SCH ×2 (10:03→21:59)
[2020-11-04] MEDS: carvediloL 3.125 MG TAB PO SCH ×2 (10:03→22:00)
--- NOTE | 2020-11-04 10:08 | Progress Note ---
Assessment and Plan - Patient Problems (1) Acute exacerbation of CHF (congestive heart failure) Current Visit: Yes Status: Acute Plan to address problem: Continue optimal guideline directed medical therapy for coronary artery disease, ischemic cardiomyopathy and chronic systolic heart failure. Subjective Date of service: 11/04/20 Principal diagnosis: Ac. hypoxemic respfailure; AE-CHF; AE-COPD; ASHLI; DM II; DM II Interval history: Patient is comfortable, no cardiac complaints, looks and feels better. Objective Vital Signs Temp Pulse Pulse Resp Resp BP Pulse Ox 11/04/20 08:38 64 91 11/04/20 08:37 97.6 F 19 143/70 11/04/20 07:50 70 18 98 11/04/20 00:00 85 11/03/20 22:04 77 134/70 11/03/20 21:40 77 16 100 11/03/20 21:06 60 134/70 11/03/20 19:47 98.0 F 71 18 126/71 100 11/03/20 16:00 60 11/03/20 15:53 97.6 F 69 19 134/70 100 11/03/20 10:48 97.4 F L 71 18 103/42 100 - Physical Examination General: No Apparent Distress HEENT: Positive: PERRL, Normocephaly Neck: Positive: neck supple Cardiac: Positive: Reg Rate and Rhythm Lungs: Positive: Decreased Breath Sounds Neuro: Positive: Grossly Intact Abdomen: Positive: Soft Skin: Positive: Clear Extremities: Absent: edema - Allied health notes Allied health notes reviewed: nursing
[2020-11-04] MEDS: traMADol 50 MG TAB PO PRN (10:13)
--- NOTE | 2020-11-04 13:04 | Progress Note ---
Assessment and Plan Acute hypoxemic respiratory failure, acute on chronic Acute exacerbation of congestive heart failure Acute chronic obstructive pulmonary disease exacerbation Obstructive sleep apnea Obesity DM II Hypothyroidism H/O aortic aneurysm repair - continue to titrate supplemental oxygen to keep SpO2 89-92% -Steroid taper, was started on Prednisone 40mg daily yesterday, will taper further in 24 hours -Get BMP , she has been on diuretic therapy- IV Furosemide. Needs monitoring of renal function adn electrolyte profile. -CXR, ABG as clinically indicated -Symptom management of cough with Tessalon perls - continue Bronchodilators (EVARISTO & LABA) with pulmonary hygiene per RT - continue inhaled corticosteroids - continue to avoid nephrotoxins, renally dose all medications - continue mobility protocols to prevent pressure ulcers - PT/OT as tolerated, increase activity - continue accuchecks with glycemic control per SSI for target blood glucose < 180 mg/dL - VTE prophylaxis -Stress ucler prophylaxis while on high dose steroids -Influenza and pneumonia vaccination per facility protocol - Pulmonary out patient follow up for PFTs and optimization of respiratory status - continue other care per attending / other consultants - prn analgesia per pain score Subjective Date of service: 11/04/20 Principal diagnosis: Ac. hypoxemic respfailure; AE-CHF; AE-COPD; ASHLI; DM II; DM II Interval history: Patient is seen today for: Acute hypoxemic respiratory failure; AE-CHF; AE-COPD; ASHLI; DM II; DM II; Hypothyroidism Seen and examined at bedside; 24hour events reviewed; nursing and respiratory care staff consulted; no adverse overnight events reported to me; resting peacefully in bed; states that she remains SOB , though improving. She has a nagging cough, denies any chest pain, no fevers or chills, no nausea, no vomiting. She used BIPAP last night fro a few hours. Remains on supplemental oxygen at 3L Objective Vital Signs - 12hr 11/04/20 11/04/20 11/04/20 07:50 08:37 08:38 Temperature 97.6 F Pulse Rate 64 Pulse Rate [ 70 Bilateral Throughout] Respiratory 19 Rate Respiratory 18 Rate [Bilateral Throughout] Blood Pressure 143/70 O2 Sat by Pulse 98 91 Oximetry Constitutional: no acute distress, alert, other (elderly female with mildly increased respiratory effort at rest) Eyes: non-icteric ENT: oropharynx moist Neck: supple, no JVD Effort: mildly labored Ascultation: Bilateral: diminished breath sounds Percussion: Bilateral: not dull Cardiovascular: regular rate and rhythm, other (S1,S2) Gastrointestinal: normoactive bowel sounds, hypoactive bowel sounds, soft, non- tender, non-distended Integumentary: normal Extremities: no cyanosis, no edema, pulses normal, no ischemia or petechiae Neurologic: normal mental status, non-focal exam, pupils equal and round, CN II-XII normal, other (deconditioned) Psychiatric: mood appropriate, affect normal CBC and BMP: 10/29/20 07:08 11/01/20 04:54 ABG, PT/INR, D-dimer: ABG ABG pH 7.479 (7.320-7.450) H 11/02/20 11:47 POC ABG pCO2 46.8 mmHg (32.0-48.0) 11/02/20 11:47 POC ABG pO2 73.7 mmHg (83-108) L 11/02/20 11:47 POC ABG HCO3 34.0 11/02/20 11:47 ABG O2 Saturation 95.2 (0-100) 11/02/20 11:47 PT/INR, D-dimer PT 14.3 Sec. (12.2-14.9) 10/29/20 07:08 INR 1.05 (0.87-1.13) 10/29/20 07:08 D-Dimer 4533.93 ng/mlDDU (0-234) H 10/29/20 07:08 Abnormal lab findings: Abnormal Labs 10/29/20 10/29/20 10/29/20 07:08 07:08 07:08 WBC 14.3 H RBC 3.42 L RDW 17.0 H Lymph % (Auto) 4.9 L Lymph # (Auto) 0.7 L Seg Neutrophils % 89.8 H Seg Neutrophils # 12.8 H D-Dimer 4533.93 H ABG pH POC ABG pO2 ABG Chloride ABG Glucose Carbon Dioxide BUN 29 H Glucose 181 H POC Glucose Lactic Acid Magnesium 3.30 H AST 119 H ALT 108 H Alkaline Phosphatase 177 H Lactate Dehydrogenase 342 H Troponin T 0.045 H C-Reactive Protein 1.50 H NT-Pro-B Natriuret Pep 57384 H Total Protein 5.7 L Albumin 3.4 L HDL Cholesterol 37 L Arterial Blood Glucose Arterial Blood Ionized Calcium 10/29/20 10/29/20 10/30/20 07:08 14:33 04:44 WBC RBC RDW Lymph % (Auto) Lymph # (Auto) Seg Neutrophils % Seg Neutrophils # D-Dimer ABG pH POC ABG pO2 ABG Chloride ABG Glucose Carbon Dioxide BUN 26 H Glucose 138 H POC Glucose 149 H Lactic Acid 2.80 H* Magnesium AST ALT Alkaline Phosphatase Lactate Dehydrogenase Troponin T C-Reactive Protein NT-Pro-B Natriuret Pep Total Protein Albumin HDL Cholesterol Arterial Blood Glucose Arterial Blood Ionized Calcium 10/30/20 10/30/20 10/30/20 11:16 13:21 20:56 WBC RBC RDW Lymph % (Auto) Lymph # (Auto) Seg Neutrophils % Seg Neutrophils # D-Dimer ABG pH POC ABG pO2 ABG Chloride ABG Glucose Carbon Dioxide BUN Glucose POC Glucose 238 H 282 H Lactic Acid 4.50 H* Magnesium AST ALT Alkaline Phosphatase Lactate Dehydrogenase Troponin T C-Reactive Protein NT-Pro-B Natriuret Pep Total Protein Albumin HDL Cholesterol Arterial Blood Glucose Arterial Blood Ionized Calcium 10/31/20 10/31/20 10/31/20 11:36 13:20 13:20 WBC RBC RDW Lymph % (Auto) Lymph # (Auto) Seg Neutrophils % Seg Neutrophils # D-Dimer ABG pH POC ABG pO2 ABG Chloride ABG Glucose Carbon Dioxide BUN 26 H Glucose 231 H POC Glucose 233 H Lactic Acid 2.80 H* Magnesium AST ALT Alkaline Phosphatase Lactate Dehydrogenase Troponin T C-Reactive Protein NT-Pro-B Natriuret Pep Total Protein Albumin HDL Cholesterol Arterial Blood Glucose Arterial Blood Ionized Calcium 10/31/20 10/31/20 11/01/20 16:42 20:01 04:54 WBC RBC RDW Lymph % (Auto) Lymph # (Auto) Seg Neutrophils % Seg Neutrophils # D-Dimer ABG pH POC ABG pO2 ABG Chloride ABG Glucose Carbon Dioxide 32 H BUN 26 H Glucose 134 H POC Glucose 207 H 220 H Lactic Acid Magnesium AST ALT Alkaline Phosphatase Lactate Dehydrogenase Troponin T C-Reactive Protein NT-Pro-B Natriuret Pep Total Protein Albumin HDL Cholesterol Arterial Blood Glucose Arterial Blood Ionized Calcium 11/01/20 11/01/20 11/01/20 07:27 11:28 15:33 WBC RBC RDW Lymph % (Auto) Lymph # (Auto) Seg Neutrophils % Seg Neutrophils # D-Dimer ABG pH POC ABG pO2 ABG Chloride ABG Glucose Carbon Dioxide BUN Glucose POC Glucose 158 H 323 H 299 H Lactic Acid Magnesium AST ALT Alkaline Phosphatase Lactate Dehydrogenase Troponin T C-Reactive Protein NT-Pro-B Natriuret Pep Total Protein Albumin HDL Cholesterol Arterial Blood Glucose Arterial Blood Ionized Calcium 11/01/20 11/02/20 11/02/20 20:16 07:28 11:17 WBC RBC RDW Lymph % (Auto) Lymph # (Auto) Seg Neutrophils % Seg Neutrophils # D-Dimer ABG pH POC ABG pO2 ABG Chloride ABG Glucose Carbon Dioxide BUN Glucose POC Glucose 190 H 117 H 323 H Lactic Acid Magnesium AST ALT Alkaline Phosphatase Lactate Dehydrogenase Troponin T C-Reactive Protein NT-Pro-B Natriuret Pep Total Protein Albumin HDL Cholesterol Arterial Blood Glucose Arterial Blood Ionized Calcium 11/02/20 11/02/20 11/02/20 11:47 16:06 21:07 WBC RBC RDW Lymph % (Auto) Lymph # (Auto) Seg Neutrophils % Seg Neutrophils # D-Dimer ABG pH 7.479 H POC ABG pO2 73.7 L ABG Chloride 97.0 L ABG Glucose 322 H Carbon Dioxide BUN Glucose POC Glucose 316 H 253 H Lactic Acid Magnesium AST ALT Alkaline Phosphatase Lactate Dehydrogenase Troponin T C-Reactive Protein NT-Pro-B Natriuret Pep Total Protein Albumin HDL Cholesterol Arterial Blood Glucose 322 H Arterial Blood Ionized Calcium 4.2 L 11/03/20 11/03/20 11/03/20 07:47 10:55 15:59 WBC RBC RDW Lymph % (Auto) Lymph # (Auto) Seg Neutrophils % Seg Neutrophils # D-Dimer ABG pH POC ABG pO2 ABG Chloride ABG Glucose Carbon Dioxide BUN Glucose POC Glucose 223 H 399 H 231 H Lactic Acid Magnesium AST ALT Alkaline Phosphatase Lactate Dehydrogenase Troponin T C-Reactive Protein NT-Pro-B Natriuret Pep Total Protein Albumin HDL Cholesterol Arterial Blood Glucose Arterial Blood Ionized Calcium 11/03/20 11/04/20 11/04/20 22:41 08:36 10:57 WBC RBC RDW Lymph % (Auto) Lymph # (Auto) Seg Neutrophils % Seg Neutrophils # D-Dimer ABG pH POC ABG pO2 ABG Chloride ABG Glucose Carbon Dioxide BUN Glucose POC Glucose 204 H 142 H 293 H Lactic Acid Magnesium AST ALT Alkaline Phosphatase Lactate Dehydrogenase Troponin T C-Reactive Protein NT-Pro-B Natriuret Pep Total Protein Albumin HDL Cholesterol Arterial Blood Glucose Arterial Blood Ionized Calcium Chest x-ray: image reviewed Allied health notes reviewed: nursing
--- NOTE | 2020-11-04 13:05 | Progress Note ---
Assessment and Plan Assessment and plan: 79-year-old -[place] female with known history of CHF, COPD, diabetes mellitus, hypothyroidism, up-to-date with COVID-19 vaccination and dementia presenting to the emergency room with respiratory distress and having difficulty breathing. A/P --SIRS, likely from COPD exacerbation cont abx, negative culture Lactic acid trending down -- Acute on chronic hypoxic respiratory failure Patient is s/p BiPAP Chest x-ray showed mild cardiomegaly, mild interstitial opacities, and presence of a stent in the thoracic aorta. Findings consistent with mild congestive heart failure, combined with her history of chronic lung disease. Continue IV Lasix, scheduled nebulizer breathing treatment and supplemental O2 Ordered for VQ scan to rule out possible underlying PE --COPD exacerbation - Will provide scheduled nebulizer breathing treatment and as needed - Place on empiric steroid and antibiotic - Provide supplemental oxygen to keep oxygen saturation above 92% Consulted pulmonary -- Cardiomyopathy with acute systolic CHF exacerbation Patient has an EF of about 25 to 30%. We will continue IV Lasix and resume home medications Cardiology consulted --NSTEMI likely type 2 from underlying cardiomyopathy Continue home cardiac medications and follow cardiology recommendation -- Diabetes type II We will monitor Accu-Cheks. placed on sliding scale insulin. -- HTN (hypertension), uncontrolled. Will place on IV hydralazine as needed. We will continue antihypertensives and adjust dose as needed -- Dementia Continue supportive care -- Hypothyroidism Patient has been on levothyroxine. -- DVT prophylaxis: Patient placed on subcutaneous heparin. --Full code status Daily clinical course: 10/30/20: Continue IV Lasix, scheduled nebulizer breathing treatment and supplemental O2. Discussed with patient's son at the bedside and updated in details. Ordered for VQ scan -pending. Continue supportive care and monitor clinically. Follow pulmonary and cardiology recommendation. 10/31/20: Patient clinically improved. Continue Lasix and scheduled nebulizer breathing treatment along with antibiotics. PT evaluated the patient and recomm ended acute rehab. breeding manager notified. Continue to follow clinically. 11/01/2020; patient showed clinical improvement. Continue oxygen support. Will need PT evaluation. 11/02/2020; patient is complaining chest pain and right arm pain. Cardiology is following the patient for chest pain, recommend no further work-up. Doppler ultrasound was ordered for right arm pain. 11/03/2020; patient states she is not feeling better. PT OT recommend home health PT. 11/04/2020; patient is still weak and need SNF placement History Interval history: patient was seen and evaluated this morning Patient states she is not feeling good Hospitalist Physical - Physical exam Narrative exam: Not in cardiopulmonary distress. The patient appeared well nourished and normally developed. Vital signs as documented. Head exam is unremarkable. No scleral icterus . Neck is without jugular venous distension, thyromegaly, or carotid bruits. Lungs are clear to auscultation. Cardiac exam reveals regular rate and Rhythm. Abdominal exam reveals normal bowel sounds, nontender, no organomegaly. Extremities are nonedematous and both femoral and pedal pulses are normal. BRICKLAYER SEWER: Alert and oriented 3. No focal weakness. - Constitutional Vitals: Temp Pulse Resp BP Pulse Ox 97.6 F 64 19 143/70 91 11/04/20 08:37 11/04/20 08:38 11/04/20 08:37 11/04/20 08:37 11/04/20 08:38 HEART Score - HEART Score Troponin: Troponin T 0.020 ng/mL (0.00-0.029) 11/02/20 12:53 Results - Labs CBC & Chem 7: 10/29/20 07:08 11/01/20 04:54 Labs: Laboratory Last Values WBC 14.3 K/mm3 (4.5-11.0) H 10/29/20 07:08 RBC 3.42 M/mm3 (3.65-5.03) L 10/29/20 07:08 Hgb 11.0 gm/dl (10.1-14.3) 10/29/20 07:08 Hct 33.4 % (30.3-42.9) 10/29/20 07:08 MCV 97 fl (79-97) 10/29/20 07:08 MCH 32 pg (28-32) 10/29/20 07:08 MCHC 33 % (30-34) 10/29/20 07:08 RDW 17.0 % (13.2-15.2) H 10/29/20 07:08 Plt Count 223 K/mm3 (140-440) 10/29/20 07:08 Lymph % (Auto) 4.9 % (13.4-35.0) L 10/29/20 07:08 Bent % (Auto) 4.6 % (0.0-7.3) 10/29/20 07:08 Eos % (Auto) 0.2 % (0.0-4.3) 10/29/20 07:08 Baso % (Auto) 0.5 % (0.0-1.8) 10/29/20 07:08 Lymph # (Auto) 0.7 K/mm3 (1.2-5.4) L 10/29/20 07:08 Bent # (Auto) 0.7 K/mm3 (0.0-0.8) 10/29/20 07:08 Eos # (Auto) 0.0 K/mm3 (0.0-0.4) 10/29/20 07:08 Baso # (Auto) 0.1 K/mm3 (0.0-0.1) 10/29/20 07:08 Seg Neutrophils % 89.8 % (40.0-70.0) H 10/29/20 07:08 Seg Neutrophils # 12.8 K/mm3 (1.8-7.7) H 10/29/20 07:08 PT 14.3 Sec. (12.2-14.9) 10/29/20 07:08 INR 1.05 (0.87-1.13) 10/29/20 07:08 D-Dimer 4533.93 ng/mlDDU (0-234) H 10/29/20 07:08 ABG pH 7.479 (7.320-7.450) H 11/02/20 11:47 POC ABG pCO2 46.8 mmHg (32.0-48.0) 11/02/20 11:47 POC ABG pO2 73.7 mmHg (83-108) L 11/02/20 11:47 POC ABG HCO3 34.0 11/02/20 11:47 ABG O2 Saturation 95.2 (0-100) 11/02/20 11:47 POC ABG Base Excess 9.2 11/02/20 11:47 ABG Hemoglobin 12.9 (12.0-17.5) 11/02/20 11:47 ABG Oxyhemoglobin 94.1 (94-98) 11/02/20 11:47 ABG Methemoglobin 0.3 (0.0-1.5) 11/02/20 11:47 ABG Sodium 137.0 mmol/L (136.0-145.0) 11/02/20 11:47 ABG Potassium 3.8 mmol/L (3.40-4.50) 11/02/20 11:47 ABG Chloride 97.0 mmol/L (98-107) L 11/02/20 11:47 ABG Glucose 322 mg/dL (65-95) H 11/02/20 11:47 Carboxyhemoglobin 0.9 (0.5-1.5) 11/02/20 11:47 FiO2 % 28.0 11/02/20 11:47 Sodium 142 mmol/L (137-145) 11/01/20 04:54 Potassium 4.4 mmol/L (3.6-5.0) 11/01/20 04:54 Chloride 100.7 mmol/L (98-107) 11/01/20 04:54 Carbon Dioxide 32 mmol/L (22-30) H 11/01/20 04:54 Anion Gap 14 mmol/L 11/01/20 04:54 BUN 26 mg/dL (7-17) H 11/01/20 04:54 Creatinine 1.0 mg/dL (0.6-1.2) 11/01/20 04:54 Estimated GFR > 60 ml/min 11/01/20 04:54 BUN/Creatinine Ratio 26 % 11/01/20 04:54 Glucose 134 mg/dL (65-100) H 11/01/20 04:54 POC Glucose 293 mg/dL (70-105) H 11/04/20 10:57 Lactic Acid 2.80 mmol/L (0.7-2.0) H* 10/31/20 13:20 Calcium 8.4 mg/dL (8.4-10.2) 11/01/20 04:54 Magnesium 3.30 mg/dL (1.7-2.3) H 10/29/20 07:08 Ferritin 151.5 ng/mL (10.0-200.0) 10/29/20 07:08 Total Bilirubin 0.40 mg/dL (0.1-1.2) 10/29/20 07:08 AST 119 units/L (5-40) H 10/29/20 07:08 ALT 108 units/L (7-56) H 10/29/20 07:08 Alkaline Phosphatase 177 units/L (35-129) H 10/29/20 07:08 Lactate Dehydrogenase 342 units/L (91-180) H 10/29/20 07:08 Total Creatine Kinase 54 units/L (30-135) 10/29/20 07:08 Troponin T 0.020 ng/mL (0.00-0.029) 11/02/20 12:53 C-Reactive Protein 1.50 mg/dL (0.00-1.30) H 10/29/20 07:08 NT-Pro-B Natriuret Pep 35522 pg/mL (0-900) H 10/29/20 07:08 Total Protein 5.7 g/dL (6.3-8.2) L 10/29/20 07:08 Albumin 3.4 g/dL (3.9-5) L 10/29/20 07:08 Albumin/Globulin Ratio 1.5 % 10/29/20 07:08 Triglycerides 80 mg/dL (2-149) 10/29/20 07:08 Cholesterol 152 mg/dL (50-199) 10/29/20 07:08 LDL Cholesterol Direct 101 mg/dL (50-130) 10/29/20 07:08 HDL Cholesterol 37 mg/dL (40-59) L 10/29/20 07:08 Cholesterol/HDL Ratio 4.10 % 10/29/20 07:08 Procalcitonin 0.05 ng/mL (<0.15) 10/29/20 07:08 Arterial Blood Glucose 322 mg/dL (65-95) H 11/02/20 11:47 Arterial Blood Ionized Calcium 4.2 mg/dL (4.6-5.3) L 11/02/20 11:47 Urine Color Straw (Yellow) 10/29/20 Unknown Urine Turbidity Clear (Clear) 10/29/20 Unknown Urine pH 7.0 (5.0-7.0) 10/29/20 Unknown Ur Specific [place] 1.010 (1.003-1.030) 10/29/20 Unknown Urine Protein 30 mg/dl mg/dL (Negative) 10/29/20 Unknown Urine Glucose (UA) Neg mg/dL (Negative) 10/29/20 Unknown Urine Ketones Neg mg/dL (Negative) 10/29/20 Unknown Urine Blood Neg (Negative) 10/29/20 Unknown Urine Nitrite Neg (Negative) 10/29/20 Unknown Urine Bilirubin Neg (Negative) 10/29/20 Unknown Urine Urobilinogen < 2.0 mg/dL (<2.0) 10/29/20 Unknown Ur Leukocyte Esterase Neg (Negative) 10/29/20 Unknown Urine WBC (Auto) 0.0 /HPF (0.0-6.0) 10/29/20 Unknown Urine RBC (Auto) 1.0 /HPF (0.0-6.0) 10/29/20 Unknown U Epithel Cells (Auto) < 1.0 /HPF (0-13.0) 10/29/20 Unknown Urine Bacteria (Auto) 1+ /HPF (Negative) 10/29/20 Unknown Urine Mucus Few /HPF 10/29/20 Unknown Coronavirus (PCR) Negative (Negative) 10/29/20 10:00 Microbiology: Microbiology 10/29/20 07:08 Peripheral/Venous Blood Culture - Final NO GROWTH AFTER 5 DAYS 10/29/20 07:08 Peripheral/Venous Blood Culture - Final NO GROWTH AFTER 5 DAYS [place]/IV: Voiding Method Toilet Active Medications - Current Medications Current Medications: Generic Name Dose Route Start Last Admin Trade Name Freq PRN Reason Stop Dose Admin Acetaminophen 650 mg 11/01/20 11:00 11/01/20 11:06 Acetaminophen 325 Mg Tab PO 650 mg Q6H PRN Administration Pain, Mild (1-3) Albuterol 2.5 mg 10/29/20 08:30 Albuterol 2.5 Mg/3 Ml Nebu IH TID PRN Wheezing Albuterol/Ipratropium 1 ampul 11/02/20 14:00 11/04/20 07:50 Ipratropium/Albuterol Sulfate 3 Ml Ampul.Neb IH 1 ampul TIDRT CAROLE Administration Arformoterol Tartrate 15 mcg 10/29/20 20:00 11/04/20 07:50 Arformoterol 15 Mcg/2 Ml Nebu IH 15 mcg Q12HRT CAROLE Administration Aspirin 325 mg 10/29/20 10:00 11/04/20 10:03 Aspirin 325 Mg Tab PO 325 mg QDAY CAROLE Administration Atorvastatin Calcium 40 mg 10/29/20 22:00 11/03/20 21:04 Atorvastatin 40 Mg Tab PO 40 mg QHS CAROLE Administration Budesonide 0.5 mg 10/29/20 20:00 11/04/20 07:50 Budesonide 0.5 Mg/2 Ml Nebu IH 0.5 mg Q12HRT CAROLE Administration Carvedilol 3.125 mg 10/30/20 22:00 11/04/20 10:03 Carvedilol 3.125 Mg Tab PO 3.125 mg BID CAROLE Administration Dextrose 50 ml 10/30/20 19:34 Dextrose 50% In Water (25gm) 50 Ml Syringe IV Q30MIN PRN Hypoglycemia Protocol Enoxaparin Sodium 40 mg 10/29/20 22:00 11/03/20 21:04 Enoxaparin 40 Mg/0.4 Ml Inj SUB-Q 40 mg QDAY@2200 [facility] Administration Protocol Furosemide 40 mg 10/29/20 18:00 11/04/20 05:26 Furosemide 40 Mg/4 Ml Inj IV 40 mg BID@0600,1800 CAROLE Administration Hydralazine HCl 25 mg 11/02/20 22:00 11/04/20 10:03 Hydralazine 25 Mg Tab PO 25 mg BID CAROLE Administration Insulin Human Regular 0 units 10/31/20 11:30 11/04/20 07:30 Insulin Regular, Human 100 Units/1 Ml SUB-Q Not Given ACHS [facility] Protocol Levothyroxine Sodium 100 mcg 10/30/20 06:00 11/04/20 05:26 Levothyroxine 100 Mcg Tab PO 100 mcg DAILY@0600 CAROLE Administration Melatonin 10 mg 10/30/20 20:19 Melatonin 5 Mg Tab PO QHS PRN Sleep Morphine Sulfate 2 mg 10/29/20 09:00 Morphine 2 Mg/1 Ml Inj IV Q5MIN PRN Chest Pain unrelieved by NTG Nitroglycerin 0.4 mg 10/29/20 09:00 Nitroglycerin 0.4 Mg Tab Subl SL .Q5MIN PRN Chest Pain Pantoprazole Sodium 40 mg 10/30/20 22:00 11/04/20 10:03 Pantoprazole 40 Mg Tab PO 40 mg BID CAROLE Administration Prednisone 40 mg 11/03/20 18:00 11/04/20 10:03 Prednisone 20 Mg Tab PO 40 mg QDAY CAROLE Administration Spironolactone 25 mg 11/03/20 10:00 11/04/20 10:03 Spironolactone 25 Mg Tab PO 25 mg QDAY CAROLE Administration Sumatriptan Succinate 25 mg 11/01/20 11:30 11/01/20 23:32 Sumatriptan Succinate 25 Mg Tab PO 25 mg Q4H PRN Administration Headache Tramadol HCl 50 mg 10/29/20 10:00 11/04/20 10:13 Tramadol 50 Mg Tab PO 50 mg BID PRN Administration Pain, Moderate (4-6) Nutrition/Malnutrition Assess - Dietary Evaluation Nutrition/Malnutrition Findings: Nutrition Notes Start: 10/30/20 10:56 Freq: Status: Active Protocol: Document 11/03/20 11:15 MORGAN (Rec: 11/03/20 11:19 NHALL [id number]) Nutrition Notes Initial or Follow up Reassessment Current Diagnosis Diabetes,Hypertension, Respiratory Failure Other Pertinent Diagnosis COPD exacerbation, NSTEMI, Dementia, Hypothyroidism Current Diet Mech soft Labs/Tests POC Glu range since last assessment: 117-323 Pertinent Medications Reviewed Height 5 ft 1 in Weight 64.5 kg [place] Body Weight (kg) 47.72 BMI 26.9 Weight Status Appropriate Subjective/Other Information Pt has consumed 85% of meals since last assessment. Percent of energy/protein needs met: 100% energy and pro Burn Absent Trauma Absent Current % PO Good (75-100%) #1 Nutrition Diagnosis Inadequate energy intake As Evidenced by Signs and Symptoms PO intakes meeting at least 75 % energy and pro needs Diagnosis Progress(for reassessment Resolved documentation) Is patient on ventilator? No Is Patient Ambulatory and/or Out of Bed No REE-([facility]-confined to bed) [phone] Calculation Used for Recommendations [facility] Additional Notes Pro needs 1-1.2g/k-77g/ day Fluid needs 1ml/kcal Nutrition Intervention Revisit per MD consult or patient Sign Off request:
[2020-11-04] MEDS ORDERED: INSULIN GLARGINE 100 UNITS/ML SUB-Q ONE (13:06)
[2020-11-04] MEDS: ACETAMINOPHEN 325 MG TAB PO PRN (15:44)
--- NOTE | 2020-11-04 19:23 | Electrocardiograph Report ---
[facility] [place] Test Date: 2020-11-02 Test Time: 10:17:02 Pat Name: LAURA SAUCEDA Department: Room: A474 1 Gender: F [employer] Markup Clerk: AMANDA : 1940 Requested By: OLIVIA MANDEL Order Number: [id number] Reading MD: Gilmer Brito Measurements Intervals [place] Rate: 63 P: 45 AL: 151 QRS: -35 QRSD: 92 T: 193 QT: 556 QTc: 569 Interpretive Statements Sinus rhythm Ventricular premature complex LVH with secondary repolarization abnormality Inferior infarct, old Prolonged QT interval Compared to ECG 10/29/2020 08:09:40 Ventricular premature complex(es) now present Early repolarization now present Myocardial infarct finding now present T wave inversions in anterior leads persist. Electronically Signed On 11-04-2020 19:22:58 EDT by Gilmer Brito
[2020-11-04] MEDS: INSULIN GLARGINE 100 UNITS/ML SUB-Q SCH (21:59)
[2020-11-04] MEDS: ENOXAPARIN 40 MG/0.4 ML INJ SUB-Q SCH (21:59)
[2020-11-04] MEDS: BENZONATATE 100 MG CAP PO SCH (22:00)
[2020-11-05 01:27] LABS: Hematocrit 40.6 % (30.3-42.9); Hemoglobin 13.4 gm/dl (10.1-14.3); Mean Corpuscular HGB Conc 33 % (30-34); Mean Corpuscular Volume 97 fl (79-97); Red Blood Count 4.17 M/mm3 (3.65-5.03); Red Cell Distribution Width 16.8 % (13.2-15.2)
[2020-11-05 01:32] LABS: Platelet Count 277 K/mm3 (140-440)
[2020-11-05 01:48] LABS: Calcium 8.2 mg/dL (8.4-10.2)
[2020-11-05 02:36] LABS: Anisocytosis 1+; Platelet Estimate Consistent w Auto; Total Cells Counted 100
[2020-11-05] MEDS: FUROSEMIDE 40 MG/4 ML INJ IV SCH ×2 (07:23→17:06)
[2020-11-05] MEDS: LEVOTHYROXINE 100 MCG TAB PO SCH (07:23)
[2020-11-05] MEDS: BENZONATATE 100 MG CAP PO SCH ×3 (07:23→21:52)
[2020-11-05] MEDS: IPRATROPIUM/ALBUTEROL SULFATE 3 ML AMPUL.NEB IH SCH ×3 (07:37→20:21)
[2020-11-05] MEDS: ARFORMOTEROL 15 MCG/2 ML NEBU IH SCH ×2 (07:37→20:21)
[2020-11-05] MEDS: BUDESONIDE 0.5 MG/2 ML NEBU IH SCH ×2 (07:37→20:21)
--- NOTE | 2020-11-05 08:40 | Progress Note ---
Assessment and Plan Assessment and plan: 79-year-old -Algerian female with known history of CHF, COPD, diabetes mellitus, hypothyroidism, up-to-date with COVID-19 vaccination and dementia presenting to the emergency room with respiratory distress and having difficulty breathing. A/P --SIRS, likely from COPD exacerbation cont abx, negative culture Lactic acid trending down -- Acute on chronic hypoxic respiratory failure Patient is s/p BiPAP Chest x-ray showed mild cardiomegaly, mild interstitial opacities, and presence of a stent in the thoracic aorta. Findings consistent with mild congestive heart failure, combined with her history of chronic lung disease. Continue IV Lasix, scheduled nebulizer breathing treatment and supplemental O2 Ordered for VQ scan to rule out possible underlying PE --COPD exacerbation - Will provide scheduled nebulizer breathing treatment and as needed - Place on empiric steroid and antibiotic - Provide supplemental oxygen to keep oxygen saturation above 92% Consulted pulmonary -- Cardiomyopathy with acute systolic CHF exacerbation Patient has an EF of about 25 to 30%. We will continue IV Lasix and resume home medications Cardiology consulted --NSTEMI likely type 2 from underlying cardiomyopathy Continue home cardiac medications and follow cardiology recommendation -- Diabetes type II We will monitor Accu-Cheks. placed on sliding scale insulin. -- HTN (hypertension), uncontrolled. Will place on IV hydralazine as needed. We will continue antihypertensives and adjust dose as needed -- Dementia Continue supportive care -- Hypothyroidism Patient has been on levothyroxine. -- DVT prophylaxis: Patient placed on subcutaneous heparin. --Full code status Daily clinical course: 10/30/20: Continue IV Lasix, scheduled nebulizer breathing treatment and supplemental O2. Discussed with patient's son at the bedside and updated in details. Ordered for VQ scan -pending. Continue supportive care and monitor clinically. Follow pulmonary and cardiology recommendation. 10/31/20: Patient clinically improved. Continue Lasix and scheduled nebulizer breathing treatment along with antibiotics. PT evaluated the patient and recomm ended acute rehab. telephonic case manager notified. Continue to follow clinically. 11/01/2020; patient showed clinical improvement. Continue oxygen support. Will need PT evaluation. 11/02/2020; patient is complaining chest pain and right arm pain. Cardiology is following the patient for chest pain, recommend no further work-up. Doppler ultrasound was ordered for right arm pain. 11/03/2020; patient states she is not feeling better. PT OT recommend home health PT. 11/04/2020; patient is still weak and need SNF placement 11/05/2020; pending acute rehab placement. History Interval history: patient was seen and evaluated this morning Patient states she is not feeling good Hospitalist Physical - Physical exam Narrative exam: Not in cardiopulmonary distress. The patient appeared well nourished and normally developed. Vital signs as documented. Head exam is unremarkable. No scleral icterus . Neck is without jugular venous distension, thyromegaly, or carotid bruits. Lungs are clear to auscultation. Cardiac exam reveals regular rate and Rhythm. Abdominal exam reveals normal bowel sounds, nontender, no organomegaly. Extremities are nonedematous and both femoral and pedal pulses are normal. MIXING MACHINE FEEDER: Alert and oriented 3. No focal weakness. - Constitutional Vitals: Temp Pulse Resp BP Pulse Ox 97.4 F L 67 25 H 131/62 95 11/04/20 20:06 11/05/20 00:45 11/05/20 00:45 11/04/20 20:06 11/05/20 05:46 HEART Score - HEART Score Troponin: Troponin T 0.020 ng/mL (0.00-0.029) 11/02/20 12:53 Results - Labs CBC & Chem 7: 11/05/20 01:03 11/05/20 01:03 Labs: Laboratory Last Values WBC 8.2 K/mm3 (4.5-11.0) 11/05/20 01:03 RBC 4.17 M/mm3 (3.65-5.03) 11/05/20 01:03 Hgb 13.4 gm/dl (10.1-14.3) 11/05/20 01:03 Hct 40.6 % (30.3-42.9) 11/05/20 01:03 MCV 97 fl (79-97) 11/05/20 01:03 MCH 32 pg (28-32) 11/05/20 01:03 MCHC 33 % (30-34) 11/05/20 01:03 RDW 16.8 % (13.2-15.2) H 11/05/20 01:03 Plt Count 277 K/mm3 (140-440) 11/05/20 01:03 Lymph % (Auto) 4.9 % (13.4-35.0) L 10/29/20 07:08 [place] % (Auto) 4.6 % (0.0-7.3) 10/29/20 07:08 Eos % (Auto) 0.2 % (0.0-4.3) 10/29/20 07:08 Baso % (Auto) 0.5 % (0.0-1.8) 10/29/20 07:08 Lymph # (Auto) 0.7 K/mm3 (1.2-5.4) L 10/29/20 07:08 [place] # (Auto) 0.7 K/mm3 (0.0-0.8) 10/29/20 07:08 Eos # (Auto) 0.0 K/mm3 (0.0-0.4) 10/29/20 07:08 Baso # (Auto) 0.1 K/mm3 (0.0-0.1) 10/29/20 07:08 Add Manual Diff Complete 11/05/20 01:03 Total Counted 100 11/05/20 01:03 Seg Neutrophils % Wash Driller Helper 11/05/20 01:03 Seg Neuts % (Manual) 93.0 % (40.0-70.0) H 11/05/20 01:03 Lymphocytes % (Manual) 4.0 % (13.4-35.0) L 11/05/20 01:03 Monocytes % (Manual) 3.0 % (0.0-7.3) 11/05/20 01:03 Nucleated RBC % Not Reportable 11/05/20 01:03 Seg Neutrophils # 12.8 K/mm3 (1.8-7.7) H 10/29/20 07:08 Seg Neutrophils # Man 7.6 K/mm3 (1.8-7.7) 11/05/20 01:03 Band Neutrophils # 0.0 K/mm3 11/05/20 01:03 Lymphocytes # (Manual) 0.3 K/mm3 (1.2-5.4) L 11/05/20 01:03 Abs React Lymphs (Man) 0.0 K/mm3 11/05/20 01:03 Monocytes # (Manual) 0.2 K/mm3 (0.0-0.8) 11/05/20 01:03 Eosinophils # (Manual) 0.0 K/mm3 (0.0-0.4) 11/05/20 01:03 Basophils # (Manual) 0.0 K/mm3 (0.0-0.1) 11/05/20 01:03 Metamyelocytes # 0.0 K/mm3 11/05/20 01:03 Myelocytes # 0.0 K/mm3 11/05/20 01:03 Promyelocytes # 0.0 K/mm3 11/05/20 01:03 Blast Cells # 0.0 K/mm3 11/05/20 01:03 WBC Morphology Not Reportable 11/05/20 01:03 Hypersegmented Neuts Not Reportable 11/05/20 01:03 Hyposegmented Neuts Not Reportable 11/05/20 01:03 Hypogranular Neuts Not Reportable 11/05/20 01:03 Smudge Cells Not Reportable 11/05/20 01:03 Toxic Granulation Not Reportable 11/05/20 01:03 Toxic Vacuolation Not Reportable 11/05/20 01:03 Dohle Bodies Not Reportable 11/05/20 01:03 Pelger-Huet Anomaly Not Reportable 11/05/20 01:03 Nereida Rods Not Reportable 11/05/20 01:03 Platelet Estimate Consistent w auto 11/05/20 01:03 Clumped Platelets Not Reportable 11/05/20 01:03 Plt Clumps, EDTA Not Reportable 11/05/20 01:03 Large Platelets Not Reportable 11/05/20 01:03 Giant Platelets Not Reportable 11/05/20 01:03 Platelet Satelliting Not Reportable 11/05/20 01:03 Plt Morphology Comment Not Reportable 11/05/20 01:03 RBC Morphology Not Reportable 11/05/20 01:03 Dimorphic RBCs Not Reportable 11/05/20 01:03 Polychromasia Not Reportable 11/05/20 01:03 Hypochromasia Not Reportable 11/05/20 01:03 Poikilocytosis Not Reportable 11/05/20 01:03 Anisocytosis 1+ 11/05/20 01:03 Microcytosis Not Reportable 11/05/20 01:03 Macrocytosis Not Reportable 11/05/20 01:03 Spherocytes Not Reportable 11/05/20 01:03 Pappenheimer Bodies Not Reportable 11/05/20 01:03 Sickle Cells Not Reportable 11/05/20 01:03 Target Cells Not Reportable 11/05/20 01:03 Tear Drop Cells Not Reportable 11/05/20 01:03 Ovalocytes Not Reportable 11/05/20 01:03 Helmet Cells Not Reportable 11/05/20 01:03 [place] Bodies Not Reportable 11/05/20 01:03 [place] Rings Not Reportable 11/05/20 01:03 [place] Cells Not Reportable 11/05/20 01:03 Bite Cells Not Reportable 11/05/20 01:03 Crenated Cell Not Reportable 11/05/20 01:03 Elliptocytes Not Reportable 11/05/20 01:03 Acanthocytes (Spur) Not Reportable 11/05/20 01:03 Rouleaux Not Reportable 11/05/20 01:03 Hemoglobin C Crystals Not Reportable 11/05/20 01:03 Schistocytes Not Reportable 11/05/20 01:03 Malaria parasites Not Reportable 11/05/20 01:03 Calderon Bodies Not Reportable 11/05/20 01:03 Hem Pathologist Commnt No 11/05/20 01:03 PT 14.3 Sec. (12.2-14.9) 10/29/20 07:08 INR 1.05 (0.87-1.13) 10/29/20 07:08 D-Dimer 4533.93 ng/mlDDU (0-234) H 10/29/20 07:08 ABG pH 7.479 (7.320-7.450) H 11/02/20 11:47 POC ABG pCO2 46.8 mmHg (32.0-48.0) 11/02/20 11:47 POC ABG pO2 73.7 mmHg (83-108) L 11/02/20 11:47 POC ABG HCO3 34.0 11/02/20 11:47 ABG O2 Saturation 95.2 (0-100) 11/02/20 11:47 POC ABG Base Excess 9.2 11/02/20 11:47 ABG Hemoglobin 12.9 (12.0-17.5) 11/02/20 11:47 ABG Oxyhemoglobin 94.1 (94-98) 11/02/20 11:47 ABG Methemoglobin 0.3 (0.0-1.5) 11/02/20 11:47 ABG Sodium 137.0 mmol/L (136.0-145.0) 11/02/20 11:47 ABG Potassium 3.8 mmol/L (3.40-4.50) 11/02/20 11:47 ABG Chloride 97.0 mmol/L (98-107) L 11/02/20 11:47 ABG Glucose 322 mg/dL (65-95) H 11/02/20 11:47 Carboxyhemoglobin 0.9 (0.5-1.5) 11/02/20 11:47 FiO2 % 28.0 11/02/20 11:47 Sodium 137 mmol/L (137-145) 11/05/20 01:03 Potassium 4.1 mmol/L (3.6-5.0) 11/05/20 01:03 Chloride 94.3 mmol/L (98-107) L 11/05/20 01:03 Carbon Dioxide 32 mmol/L (22-30) H 11/05/20 01:03 Anion Gap 15 mmol/L 11/05/20 01:03 BUN 27 mg/dL (7-17) H 11/05/20 01:03 Creatinine 1.1 mg/dL (0.6-1.2) 11/05/20 01:03 Estimated GFR 58 ml/min 11/05/20 01:03 BUN/Creatinine Ratio 25 % 11/05/20 01:03 Glucose 336 mg/dL (65-100) H 11/05/20 01:03 POC Glucose 153 mg/dL (70-105) H 11/05/20 07:21 Lactic Acid 2.80 mmol/L (0.7-2.0) H* 10/31/20 13:20 Calcium 8.2 mg/dL (8.4-10.2) L 11/05/20 01:03 Magnesium 3.30 mg/dL (1.7-2.3) H 10/29/20 07:08 Ferritin 151.5 ng/mL (10.0-200.0) 10/29/20 07:08 Total Bilirubin 0.40 mg/dL (0.1-1.2) 10/29/20 07:08 AST 119 units/L (5-40) H 10/29/20 07:08 ALT 108 units/L (7-56) H 10/29/20 07:08 Alkaline Phosphatase 177 units/L (35-129) H 10/29/20 07:08 Lactate Dehydrogenase 342 units/L (91-180) H 10/29/20 07:08 Total Creatine Kinase 54 units/L (30-135) 10/29/20 07:08 Troponin T 0.020 ng/mL (0.00-0.029) 11/02/20 12:53 C-Reactive Protein 1.50 mg/dL (0.00-1.30) H 10/29/20 07:08 NT-Pro-B Natriuret Pep 27570 pg/mL (0-900) H 10/29/20 07:08 Total Protein 5.7 g/dL (6.3-8.2) L 10/29/20 07:08 Albumin 3.4 g/dL (3.9-5) L 10/29/20 07:08 Albumin/Globulin Ratio 1.5 % 10/29/20 07:08 Triglycerides 80 mg/dL (2-149) 10/29/20 07:08 Cholesterol 152 mg/dL (50-199) 10/29/20 07:08 LDL Cholesterol Direct 101 mg/dL (50-130) 10/29/20 07:08 HDL Cholesterol 37 mg/dL (40-59) L 10/29/20 07:08 Cholesterol/HDL Ratio 4.10 % 10/29/20 07:08 Procalcitonin 0.05 ng/mL (<0.15) 10/29/20 07:08 Arterial Blood Glucose 322 mg/dL (65-95) H 11/02/20 11:47 Arterial Blood Ionized Calcium 4.2 mg/dL (4.6-5.3) L 11/02/20 11:47 Urine Color Straw (Yellow) 10/29/20 Unknown Urine Turbidity Clear (Clear) 10/29/20 Unknown Urine pH 7.0 (5.0-7.0) 10/29/20 Unknown Ur Specific [place] 1.010 (1.003-1.030) 10/29/20 Unknown Urine Protein 30 mg/dl mg/dL (Negative) 10/29/20 Unknown Urine Glucose (UA) Neg mg/dL (Negative) 10/29/20 Unknown Urine Ketones Neg mg/dL (Negative) 10/29/20 Unknown Urine Blood Neg (Negative) 10/29/20 Unknown Urine Nitrite Neg (Negative) 10/29/20 Unknown Urine Bilirubin Neg (Negative) 10/29/20 Unknown Urine Urobilinogen < 2.0 mg/dL (<2.0) 10/29/20 Unknown Ur Leukocyte Esterase Neg (Negative) 10/29/20 Unknown Urine WBC (Auto) 0.0 /HPF (0.0-6.0) 10/29/20 Unknown Urine RBC (Auto) 1.0 /HPF (0.0-6.0) 10/29/20 Unknown U Epithel Cells (Auto) < 1.0 /HPF (0-13.0) 10/29/20 Unknown Urine Bacteria (Auto) 1+ /HPF (Negative) 10/29/20 Unknown Urine Mucus Few /HPF 10/29/20 Unknown Coronavirus (PCR) Negative (Negative) 10/29/20 10:00 [place]/IV: Voiding Method External Female Catheter Active Medications - Current Medications Current Medications: Generic Name Dose Route Start Last Admin Trade Name Freq PRN Reason Stop Dose Admin Acetaminophen 650 mg 11/01/20 11:00 11/04/20 15:44 Acetaminophen 325 Mg Tab PO 650 mg Q6H PRN Administration Pain, Mild (1-3) Albuterol 2.5 mg 10/29/20 08:30 Albuterol 2.5 Mg/3 Ml Nebu IH TID PRN Wheezing Albuterol/Ipratropium 1 ampul 11/02/20 14:00 11/04/20 19:43 Ipratropium/Albuterol Sulfate 3 Ml Ampul.Neb IH 1 ampul TIDRT CAROLE Administration Arformoterol Tartrate 15 mcg 10/29/20 20:00 11/04/20 19:43 Arformoterol 15 Mcg/2 Ml Nebu IH 15 mcg Q12HRT CAROLE Administration Aspirin 325 mg 10/29/20 10:00 11/04/20 10:03 Aspirin 325 Mg Tab PO 325 mg QDAY CAROLE Administration Atorvastatin Calcium 40 mg 10/29/20 22:00 11/04/20 22:00 Atorvastatin 40 Mg Tab PO 40 mg QHS CAROLE Administration Benzonatate 100 mg 11/04/20 22:00 11/05/20 07:23 Benzonatate 100 Mg Cap PO 100 mg Q8HR CAROLE Administration Budesonide 0.5 mg 10/29/20 20:00 11/04/20 19:43 Budesonide 0.5 Mg/2 Ml Nebu IH 0.5 mg Q12HRT CAROLE Administration Carvedilol 3.125 mg 10/30/20 22:00 11/04/20 22:00 Carvedilol 3.125 Mg Tab PO 3.125 mg BID CAROLE Administration Dextrose 50 ml 10/30/20 19:34 Dextrose 50% In Water (25gm) 50 Ml Syringe IV Q30MIN PRN Hypoglycemia Protocol Enoxaparin Sodium 40 mg 10/29/20 22:00 11/04/20 21:59 Enoxaparin 40 Mg/0.4 Ml Inj SUB-Q 40 mg QDAY@2200 CAROLE Administration Protocol Furosemide 40 mg 10/29/20 18:00 11/05/20 07:23 Furosemide 40 Mg/4 Ml Inj IV 40 mg BID@0600,1800 CAROLE Administration Hydralazine HCl 25 mg 11/02/20 22:00 11/04/20 21:59 Hydralazine 25 Mg Tab PO 25 mg BID CAROLE Administration Insulin Glargine 10 units 11/04/20 22:00 11/04/20 21:59 Insulin Glargine 100 Units/Ml SUB-Q 10 units QHS CAROLE Administration Insulin Human Regular 0 units 10/31/20 11:30 11/04/20 22:00 Insulin Regular, Human 100 Units/1 Ml SUB-Q 8 units ACHS CAROLE Administration Protocol Levothyroxine Sodium 100 mcg 10/30/20 06:00 11/05/20 07:23 Levothyroxine 100 Mcg Tab PO 100 mcg DAILY@0600 CAROLE Administration Melatonin 10 mg 10/30/20 20:19 Melatonin 5 Mg Tab PO QHS PRN Sleep Morphine Sulfate 2 mg 10/29/20 09:00 Morphine 2 Mg/1 Ml Inj IV Q5MIN PRN Chest Pain unrelieved by NTG Nitroglycerin 0.4 mg 10/29/20 09:00 Nitroglycerin 0.4 Mg Tab Subl SL .Q5MIN PRN Chest Pain Pantoprazole Sodium 40 mg 10/30/20 22:00 11/04/20 22:00 Pantoprazole 40 Mg Tab PO 40 mg BID CAROLE Administration Prednisone 40 mg 11/03/20 18:00 11/04/20 10:03 Prednisone 20 Mg Tab PO 40 mg QDAY CAROLE Administration Spironolactone 25 mg 11/03/20 10:00 11/04/20 10:03 Spironolactone 25 Mg Tab PO 25 mg QDAY CAROLE Administration Sumatriptan Succinate 25 mg 11/01/20 11:30 11/01/20 23:32 Sumatriptan Succinate 25 Mg Tab PO 25 mg Q4H PRN Administration Headache Tramadol HCl 50 mg 10/29/20 10:00 11/04/20 10:13 Tramadol 50 Mg Tab PO 50 mg BID PRN Administration Pain, Moderate (4-6) Nutrition/Malnutrition Assess - Dietary Evaluation Nutrition/Malnutrition Findings: Nutrition Notes Start: 10/30/20 10:56 Freq: Status: Active Protocol: Document 11/03/20 11:15 MORGAN (Rec: 11/03/20 11:19 MORGAN [id number]) Nutrition Notes Initial or Follow up Reassessment Current Diagnosis Diabetes,Hypertension, Respiratory Failure Other Pertinent Diagnosis COPD exacerbation, NSTEMI, Dementia, Hypothyroidism Current Diet [facility] soft Labs/Tests POC Glu range since last assessment: 117-323 Pertinent Medications Reviewed Height 5 ft 1 in Weight 64.5 kg [place] Body Weight (kg) 47.72 BMI 26.9 Weight Status Appropriate Subjective/Other Information Pt has consumed 85% of meals since last assessment. Percent of energy/protein needs met: 100% energy and pro Burn Absent Trauma Absent Current % PO Good (75-100%) #1 Nutrition Diagnosis Inadequate energy intake As Evidenced by Signs and Symptoms PO intakes meeting at least 75 % energy and pro needs Diagnosis Progress(for reassessment Resolved documentation) Is patient on ventilator? No Is Patient Ambulatory and/or Out of Bed No REE-(Gustine-St. Jeor-confined to bed) [phone] Calculation Used for Recommendations Gust[place]-St Jeor Additional Notes Pro needs 1-1.2g/k-77g/ day Fluid needs 1ml/kcal Nutrition Intervention Revisit per MD consult or patient Sign Off request:
--- NOTE | 2020-11-05 08:44 | Progress Note ---
Assessment and Plan Acute hypoxemic respiratory failure, acute on chronic Acute exacerbation of congestive heart failure Acute chronic obstructive pulmonary disease exacerbation Obstructive sleep apnea Obesity DM II Hypothyroidism H/O aortic aneurysm repair - continue to titrate supplemental oxygen to keep SpO2 89-92% -Steroid taper, was started on Prednisone 40mg daily, will taper further to 30mg daily -CXR, ABG as clinically indicated -continue with symptom management of cough with Tessalon perls - continue Bronchodilators (EVARISTO & LABA) with pulmonary hygiene per RT - continue inhaled corticosteroids - continue to avoid nephrotoxins, renally dose all medications - continue mobility protocols to prevent pressure ulcers - PT/OT as tolerated, increase activity - continue accuchecks with glycemic control per SSI for target blood glucose < 180 mg/dL - VTE prophylaxis -Stress ucler prophylaxis while on high dose steroids -Influenza and pneumonia vaccination per facility protocol - Pulmonary out patient follow up for PFTs and optimization of respiratory status - continue other care per attending / other consultants - prn analgesia per pain score Discussed with Dr. Palomo Subjective Date of service: 11/05/20 Principal diagnosis: Ac. hypoxemic respfailure; AE-CHF; AE-COPD; SAHLI; DM II; DM II Interval history: Patient is seen today for: Acute hypoxemic respiratory failure; AE-CHF; AE-COPD; ASHLI; DM II; DM II; Hypothyroidism Seen and examined at bedside; 24hour events reviewed; nursing and respiratory care staff consulted; no adverse overnight events reported to me; resting peacefully in bed; states that she remains SOB , though improving. She has ongoing nagging cough, denies any chest pain, no fevers or chills, no nausea, no vomiting. Remains on supplemental oxygen at 3L Objective Vital Signs - 12hr 11/05/20 11/05/20 00:45 05:46 Pulse Rate 67 Respiratory 25 H Rate O2 Sat by Pulse 96 95 Oximetry Constitutional: no acute distress, alert, other (elderly female with mildly increased respiratory effort at rest) Eyes: non-icteric ENT: oropharynx moist Neck: supple, no JVD Effort: mildly labored Ascultation: Bilateral: diminished breath sounds, other (Prolonged expiratory phase.) Percussion: Bilateral: not dull Cardiovascular: regular rate and rhythm, other (S1,S2) Gastrointestinal: normoactive bowel sounds, hypoactive bowel sounds, soft, non- tender, non-distended Integumentary: normal Extremities: no cyanosis, no edema, pulses normal, no ischemia or petechiae Neurologic: normal mental status, non-focal exam, pupils equal and round, CN II- XII normal, other (deconditioned) Psychiatric: mood appropriate, affect normal CBC and BMP: 11/05/20 01:03 11/05/20 01:03 ABG, PT/INR, D-dimer: ABG ABG pH 7.479 (7.320-7.450) H 11/02/20 11:47 POC ABG pCO2 46.8 mmHg (32.0-48.0) 11/02/20 11:47 POC ABG pO2 73.7 mmHg (83-108) L 11/02/20 11:47 POC ABG HCO3 34.0 11/02/20 11:47 ABG O2 Saturation 95.2 (0-100) 11/02/20 11:47 PT/INR, D-dimer PT 14.3 Sec. (12.2-14.9) 10/29/20 07:08 INR 1.05 (0.87-1.13) 10/29/20 07:08 D-Dimer 4533.93 ng/mlDDU (0-234) H 10/29/20 07:08 Abnormal lab findings: Abnormal Labs 10/29/20 10/29/20 10/29/20 07:08 07:08 07:08 WBC 14.3 H RBC 3.42 L RDW 17.0 H Lymph % (Auto) 4.9 L Lymph # (Auto) 0.7 L Seg Neutrophils % 89.8 H Seg Neuts % (Manual) Lymphocytes % (Manual) Seg Neutrophils # 12.8 H Lymphocytes # (Manual) D-Dimer 4533.93 H ABG pH POC ABG pO2 ABG Chloride ABG Glucose Chloride Carbon Dioxide BUN 29 H Glucose 181 H POC Glucose Lactic Acid Calcium Magnesium 3.30 H AST 119 H ALT 108 H Alkaline Phosphatase 177 H Lactate Dehydrogenase 342 H Troponin T 0.045 H C-Reactive Protein 1.50 H NT-Pro-B Natriuret Pep 53360 H Total Protein 5.7 L Albumin 3.4 L HDL Cholesterol 37 L Arterial Blood Glucose Arterial Blood Ionized Calcium 10/29/20 10/29/20 10/30/20 07:08 14:33 04:44 WBC RBC RDW Lymph % (Auto) Lymph # (Auto) Seg Neutrophils % Seg Neuts % (Manual) Lymphocytes % (Manual) Seg Neutrophils # Lymphocytes # (Manual) D-Dimer ABG pH POC ABG pO2 ABG Chloride ABG Glucose Chloride Carbon Dioxide BUN 26 H Glucose 138 H POC Glucose 149 H Lactic Acid 2.80 H* Calcium Magnesium AST ALT Alkaline Phosphatase Lactate Dehydrogenase Troponin T C-Reactive Protein NT-Pro-B Natriuret Pep Total Protein Albumin HDL Cholesterol Arterial Blood Glucose Arterial Blood Ionized Calcium 10/30/20 10/30/20 10/30/20 11:16 13:21 20:56 WBC RBC RDW Lymph % (Auto) Lymph # (Auto) Seg Neutrophils % Seg Neuts % (Manual) Lymphocytes % (Manual) Seg Neutrophils # Lymphocytes # (Manual) D-Dimer ABG pH POC ABG pO2 ABG Chloride ABG Glucose Chloride Carbon Dioxide BUN Glucose POC Glucose 238 H 282 H Lactic Acid 4.50 H* Calcium Magnesium AST ALT Alkaline Phosphatase Lactate Dehydrogenase Troponin T C-Reactive Protein NT-Pro-B Natriuret Pep Total Protein Albumin HDL Cholesterol Arterial Blood Glucose Arterial Blood Ionized Calcium 10/31/20 10/31/20 10/31/20 11:36 13:20 13:20 WBC RBC RDW Lymph % (Auto) Lymph # (Auto) Seg Neutrophils % Seg Neuts % (Manual) Lymphocytes % (Manual) Seg Neutrophils # Lymphocytes # (Manual) D-Dimer ABG pH POC ABG pO2 ABG Chloride ABG Glucose Chloride Carbon Dioxide BUN 26 H Glucose 231 H POC Glucose 233 H Lactic Acid 2.80 H* Calcium Magnesium AST ALT Alkaline Phosphatase Lactate Dehydrogenase Troponin T C-Reactive Protein NT-Pro-B Natriuret Pep Total Protein Albumin HDL Cholesterol Arterial Blood Glucose Arterial Blood Ionized Calcium 10/31/20 10/31/20 11/01/20 16:42 20:01 04:54 WBC RBC RDW Lymph % (Auto) Lymph # (Auto) Seg Neutrophils % Seg Neuts % (Manual) Lymphocytes % (Manual) Seg Neutrophils # Lymphocytes # (Manual) D-Dimer ABG pH POC ABG pO2 ABG Chloride ABG Glucose Chloride Carbon Dioxide 32 H BUN 26 H Glucose 134 H POC Glucose 207 H 220 H Lactic Acid Calcium Magnesium AST ALT Alkaline Phosphatase Lactate Dehydrogenase Troponin T C-Reactive Protein NT-Pro-B Natriuret Pep Total Protein Albumin HDL Cholesterol Arterial Blood Glucose Arterial Blood Ionized Calcium 11/01/20 11/01/20 11/01/20 07:27 11:28 15:33 WBC RBC RDW Lymph % (Auto) Lymph # (Auto) Seg Neutrophils % Seg Neuts % (Manual) Lymphocytes % (Manual) Seg Neutrophils # Lymphocytes # (Manual) D-Dimer ABG pH POC ABG pO2 ABG Chloride ABG Glucose Chloride Carbon Dioxide BUN Glucose POC Glucose 158 H 323 H 299 H Lactic Acid Calcium Magnesium AST ALT Alkaline Phosphatase Lactate Dehydrogenase Troponin T C-Reactive Protein NT-Pro-B Natriuret Pep Total Protein Albumin HDL Cholesterol Arterial Blood Glucose Arterial Blood Ionized Calcium 11/01/20 11/02/20 11/02/20 20:16 07:28 11:17 WBC RBC RDW Lymph % (Auto) Lymph # (Auto) Seg Neutrophils % Seg Neuts % (Manual) Lymphocytes % (Manual) Seg Neutrophils # Lymphocytes # (Manual) D-Dimer ABG pH POC ABG pO2 ABG Chloride ABG Glucose Chloride Carbon Dioxide BUN Glucose POC Glucose 190 H 117 H 323 H Lactic Acid Calcium Magnesium AST ALT Alkaline Phosphatase Lactate Dehydrogenase Troponin T C-Reactive Protein NT-Pro-B Natriuret Pep Total Protein Albumin HDL Cholesterol Arterial Blood Glucose Arterial Blood Ionized Calcium 11/02/20 11/02/20 11/02/20 11:47 16:06 21:07 WBC RBC RDW Lymph % (Auto) Lymph # (Auto) Seg Neutrophils % Seg Neuts % (Manual) Lymphocytes % (Manual) Seg Neutrophils # Lymphocytes # (Manual) D-Dimer ABG pH 7.479 H POC ABG pO2 73.7 L ABG Chloride 97.0 L ABG Glucose 322 H Chloride Carbon Dioxide BUN Glucose POC Glucose 316 H 253 H Lactic Acid Calcium Magnesium AST ALT Alkaline Phosphatase Lactate Dehydrogenase Troponin T C-Reactive Protein NT-Pro-B Natriuret Pep Total Protein Albumin HDL Cholesterol Arterial Blood Glucose 322 H Arterial Blood Ionized Calcium 4.2 L 11/03/20 11/03/20 11/03/20 07:47 10:55 15:59 WBC RBC RDW Lymph % (Auto) Lymph # (Auto) Seg Neutrophils % Seg Neuts % (Manual) Lymphocytes % (Manual) Seg Neutrophils # Lymphocytes # (Manual) D-Dimer ABG pH POC ABG pO2 ABG Chloride ABG Glucose Chloride Carbon Dioxide BUN Glucose POC Glucose 223 H 399 H 231 H Lactic Acid Calcium Magnesium AST ALT Alkaline Phosphatase Lactate Dehydrogenase Troponin T C-Reactive Protein NT-Pro-B Natriuret Pep Total Protein Albumin HDL Cholesterol Arterial Blood Glucose Arterial Blood Ionized Calcium 11/03/20 11/04/20 11/04/20 22:41 08:36 10:57 WBC RBC RDW Lymph % (Auto) Lymph # (Auto) Seg Neutrophils % Seg Neuts % (Manual) Lymphocytes % (Manual) Seg Neutrophils # Lymphocytes # (Manual) D-Dimer ABG pH POC ABG pO2 ABG Chloride ABG Glucose Chloride Carbon Dioxide BUN Glucose POC Glucose 204 H 142 H 293 H Lactic Acid Calcium Magnesium AST ALT Alkaline Phosphatase Lactate Dehydrogenase Troponin T C-Reactive Protein NT-Pro-B Natriuret Pep Total Protein Albumin HDL Cholesterol Arterial Blood Glucose Arterial Blood Ionized Calcium 11/04/20 11/04/20 11/05/20 17:29 21:39 01:03 WBC RBC RDW 16.8 H Lymph % (Auto) Lymph # (Auto) Seg Neutrophils % Seg Neuts % (Manual) 93.0 H Lymphocytes % (Manual) 4.0 L Seg Neutrophils # Lymphocytes # (Manual) 0.3 L D-Dimer ABG pH POC ABG pO2 ABG Chloride ABG Glucose Chloride Carbon Dioxide BUN Glucose POC Glucose 343 H 363 H Lactic Acid Calcium Magnesium AST ALT Alkaline Phosphatase Lactate Dehydrogenase Troponin T C-Reactive Protein NT-Pro-B Natriuret Pep Total Protein Albumin HDL Cholesterol Arterial Blood Glucose Arterial Blood Ionized Calcium 11/05/20 11/05/20 01:03 07:21 WBC RBC RDW Lymph % (Auto) Lymph # (Auto) Seg Neutrophils % Seg Neuts % (Manual) Lymphocytes % (Manual) Seg Neutrophils # Lymphocytes # (Manual) D-Dimer ABG pH POC ABG pO2 ABG Chloride ABG Glucose Chloride 94.3 L Carbon Dioxide 32 H BUN 27 H Glucose 336 H POC Glucose 153 H Lactic Acid Calcium 8.2 L Magnesium AST ALT Alkaline Phosphatase Lactate Dehydrogenase Troponin T C-Reactive Protein NT-Pro-B Natriuret Pep Total Protein Albumin HDL Cholesterol Arterial Blood Glucose Arterial Blood Ionized Calcium Allied health notes reviewed: nursing
--- NOTE | 2020-11-05 09:13 | Progress Note ---
Assessment and Plan Congestive heart failure significantly improved. COPD exacerbation on home oxygen Hx of CAD 2017 [facility] showed a chronic total occlusion of the circumflex artery recommended for medical therapy. Ischemic cardiomyopathy, EF 25-30% Thoracic aortic repair 09/2018 at [facility] Continue guideline directed medical therapy for coronary artery disease, ischemic cardiomyopathy and chronic systolic heart failure. Change to p.o. Lasix 40 mg daily on discharge Otherwise, conservative cardiac management. Subjective Date of service: 11/05/20 Principal diagnosis: Ac. hypoxemic respfailure; AE-CHF; AE-COPD; ASHLI; DM II; DM II Interval history: No significant events overnight. Still complains of occasional pain on deep inspiration Objective Vital Signs Temp Pulse Pulse Resp Resp BP BP 11/05/20 05:46 11/05/20 00:45 67 25 H 11/04/20 20:38 76 11/04/20 20:06 97.4 F L 70 17 131/62 11/04/20 19:43 72 16 11/04/20 17:44 97.6 F 65 19 146/70 11/04/20 16:00 65 11/04/20 15:00 97.8 F 65 20 112/51 11/04/20 14:50 72 20 11/04/20 13:10 65 Pulse Ox 11/05/20 05:46 95 11/05/20 00:45 96 11/04/20 20:38 11/04/20 20:06 100 11/04/20 19:43 21 L 11/04/20 17:44 99 11/04/20 16:00 11/04/20 15:00 100 11/04/20 14:50 11/04/20 13:10 100 - Physical Examination Narrative exam: Moderately obese General: No Apparent Distress HEENT: Positive: PERRL, Normocephaly Neck: Positive: neck supple Neuro: Positive: Grossly Intact Abdomen: Positive: Soft Skin: Positive: Clear Extremities: Absent: edema - Labs and Meds CBC 11/05/20 Range/Units 01:03 WBC 8.2 (4.5-11.0) K/mm3 RBC 4.17 (3.65-5.03) M/mm3 Hgb 13.4 (10.1-14.3) gm/dl Hct 40.6 (30.3-42.9) % Plt Count 277 (140-440) K/mm3 Comprehensive Metabolic Panel 11/05/20 Range/Units 01:03 Sodium 137 (137-145) mmol/L Potassium 4.1 (3.6-5.0) mmol/L Chloride 94.3 L (98-107) mmol/L Carbon Dioxide 32 H (22-30) mmol/L BUN 27 H (7-17) mg/dL Creatinine 1.1 (0.6-1.2) mg/dL Glucose 336 H (65-100) mg/dL Calcium 8.2 L (8.4-10.2) mg/dL - Allied health notes Allied health notes reviewed: nursing
[2020-11-05] MEDS: SPIRONOLACTONE 25 MG TAB PO SCH (09:48)
[2020-11-05] MEDS: ASPIRIN 325 MG TAB PO SCH (09:49)
[2020-11-05] MEDS: carvediloL 3.125 MG TAB PO SCH ×2 (09:49→21:51)
[2020-11-05] MEDS: INSULIN REGULAR, HUMAN 100 UNITS/1 ML SUB-Q SCH ×4 (09:49→21:55)
[2020-11-05] MEDS: hydrALAZINE 25 MG TAB PO SCH ×2 (09:49→21:52)
[2020-11-05] MEDS: predniSONE 20 MG TAB PO SCH (09:49)
[2020-11-05] MEDS: PANTOPRAZOLE 40 MG TAB PO SCH ×2 (09:49→21:52)
[2020-11-05] MEDS: ENOXAPARIN 40 MG/0.4 ML INJ SUB-Q SCH (21:51)
[2020-11-05] MEDS: INSULIN GLARGINE 100 UNITS/ML SUB-Q SCH (21:51)
[2020-11-06] MEDS: FUROSEMIDE 40 MG/4 ML INJ IV SCH ×2 (05:26→17:26)
[2020-11-06] MEDS: BENZONATATE 100 MG CAP PO SCH ×3 (05:26→21:20)
[2020-11-06] MEDS: LEVOTHYROXINE 100 MCG TAB PO SCH (05:26)
[2020-11-06] MEDS: ARFORMOTEROL 15 MCG/2 ML NEBU IH SCH ×2 (08:40→19:30)
[2020-11-06] MEDS: IPRATROPIUM/ALBUTEROL SULFATE 3 ML AMPUL.NEB IH SCH ×2 (08:55→19:30)
[2020-11-06] MEDS: BUDESONIDE 0.5 MG/2 ML NEBU IH SCH ×2 (09:00→19:30)
[2020-11-06] MEDS: INSULIN REGULAR, HUMAN 100 UNITS/1 ML SUB-Q SCH ×4 (09:27→21:33)
--- NOTE | 2020-11-06 09:37 | Progress Note ---
Assessment and Plan Assessment and plan: 79-year-old -[place] female with known history of CHF, COPD, diabetes mellitus, hypothyroidism, up-to-date with COVID-19 vaccination and dementia presenting to the emergency room with respiratory distress and having difficulty breathing. A/P --SIRS, likely from COPD exacerbation cont abx, negative culture Lactic acid trending down -- Acute on chronic hypoxic respiratory failure Patient is s/p BiPAP Chest x-ray showed mild cardiomegaly, mild interstitial opacities, and presence of a stent in the thoracic aorta. Findings consistent with mild congestive heart failure, combined with her history of chronic lung disease. Continue IV Lasix, scheduled nebulizer breathing treatment and supplemental O2 Ordered for VQ scan to rule out possible underlying PE --COPD exacerbation - Will provide scheduled nebulizer breathing treatment and as needed - Place on empiric steroid and antibiotic - Provide supplemental oxygen to keep oxygen saturation above 92% Consulted pulmonary -- Cardiomyopathy with acute systolic CHF exacerbation Patient has an EF of about 25 to 30%. We will continue IV Lasix and resume home medications Cardiology consulted --NSTEMI likely type 2 from underlying cardiomyopathy Continue home cardiac medications and follow cardiology recommendation -- Diabetes type II We will monitor Accu-Cheks. placed on sliding scale insulin. -- HTN (hypertension), uncontrolled. Will place on IV hydralazine as needed. We will continue antihypertensives and adjust dose as needed -- Dementia Continue supportive care -- Hypothyroidism Patient has been on levothyroxine. -- DVT prophylaxis: Patient placed on subcutaneous heparin. --Full code status Daily clinical course: 10/30/20: Continue IV Lasix, scheduled nebulizer breathing treatment and supplemental O2. Discussed with patient's son at the bedside and updated in details. Ordered for VQ scan -pending. Continue supportive care and monitor clinically. Follow pulmonary and cardiology recommendation. 10/31/20: Patient clinically improved. Continue Lasix and scheduled nebulizer breathing treatment along with antibiotics. PT evaluated the patient and recomm ended acute rehab. commercial leasing manager notified. Continue to follow clinically. 11/01/2020; patient showed clinical improvement. Continue oxygen support. Will need PT evaluation. 11/02/2020; patient is complaining chest pain and right arm pain. Cardiology is following the patient for chest pain, recommend no further work-up. Doppler ultrasound was ordered for right arm pain. 11/03/2020; patient states she is not feeling better. PT OT recommend home health PT. 11/04/2020; patient is still weak and need SNF placement 11/05/2020; pending acute rehab placement. 11/07/2019; ending acute rehab placement. History Interval history: patient was seen and evaluated this morning Patient did not have any complaints Hospitalist Physical - Physical exam Narrative exam: Not in cardiopulmonary distress. The patient appeared well nourished and normally developed. Vital signs as documented. Head exam is unremarkable. No scleral icterus . Neck is without jugular venous distension, thyromegaly, or carotid bruits. Lungs are clear to auscultation. Cardiac exam reveals regular rate and Rhythm. Abdominal exam reveals normal bowel sounds, nontender, no organomegaly. Extremities are nonedematous and both femoral and pedal pulses are normal. SOFT SUGAR OPERATOR HEAD: Alert and oriented 3. No focal weakness. - Constitutional Vitals: Temp Pulse Resp BP Pulse Ox 97.5 F L 80 19 148/60 100 11/06/20 09:31 11/06/20 09:31 11/06/20 09:31 11/06/20 09:31 11/06/20 09:31 HEART Score - HEART Score Troponin: Troponin T 0.020 ng/mL (0.00-0.029) 11/02/20 12:53 Results - Labs CBC & Chem 7: 11/05/20 01:03 11/05/20 01:03 Labs: Laboratory Last Values WBC 8.2 K/mm3 (4.5-11.0) 11/05/20 01:03 RBC 4.17 M/mm3 (3.65-5.03) 11/05/20 01:03 Hgb 13.4 gm/dl (10.1-14.3) 11/05/20 01:03 Hct 40.6 % (30.3-42.9) 11/05/20 01:03 MCV 97 fl (79-97) 11/05/20 01:03 MCH 32 pg (28-32) 11/05/20 01:03 MCHC 33 % (30-34) 11/05/20 01:03 RDW 16.8 % (13.2-15.2) H 11/05/20 01:03 Plt Count 277 K/mm3 (140-440) 11/05/20 01:03 Lymph % (Auto) 4.9 % (13.4-35.0) L 10/29/20 07:08 [place] % (Auto) 4.6 % (0.0-7.3) 10/29/20 07:08 Eos % (Auto) 0.2 % (0.0-4.3) 10/29/20 07:08 Baso % (Auto) 0.5 % (0.0-1.8) 10/29/20 07:08 Lymph # (Auto) 0.7 K/mm3 (1.2-5.4) L 10/29/20 07:08 [place] # (Auto) 0.7 K/mm3 (0.0-0.8) 10/29/20 07:08 Eos # (Auto) 0.0 K/mm3 (0.0-0.4) 10/29/20 07:08 Baso # (Auto) 0.1 K/mm3 (0.0-0.1) 10/29/20 07:08 Add Manual Diff Complete 11/05/20 01:03 Total Counted 100 11/05/20 01:03 Seg Neutrophils % Tuberculosis Specialist 11/05/20 01:03 Seg Neuts % (Manual) 93.0 % (40.0-70.0) H 11/05/20 01:03 Lymphocytes % (Manual) 4.0 % (13.4-35.0) L 11/05/20 01:03 Monocytes % (Manual) 3.0 % (0.0-7.3) 11/05/20 01:03 Nucleated RBC % Not Reportable 11/05/20 01:03 Seg Neutrophils # 12.8 K/mm3 (1.8-7.7) H 10/29/20 07:08 Seg Neutrophils # Man 7.6 K/mm3 (1.8-7.7) 11/05/20 01:03 Band Neutrophils # 0.0 K/mm3 11/05/20 01:03 Lymphocytes # (Manual) 0.3 K/mm3 (1.2-5.4) L 11/05/20 01:03 Abs React Lymphs (Man) 0.0 K/mm3 11/05/20 01:03 Monocytes # (Manual) 0.2 K/mm3 (0.0-0.8) 11/05/20 01:03 Eosinophils # (Manual) 0.0 K/mm3 (0.0-0.4) 11/05/20 01:03 Basophils # (Manual) 0.0 K/mm3 (0.0-0.1) 11/05/20 01:03 Metamyelocytes # 0.0 K/mm3 11/05/20 01:03 Myelocytes # 0.0 K/mm3 11/05/20 01:03 Promyelocytes # 0.0 K/mm3 11/05/20 01:03 Blast Cells # 0.0 K/mm3 11/05/20 01:03 WBC Morphology Not Reportable 11/05/20 01:03 Hypersegmented Neuts Not Reportable 11/05/20 01:03 Hyposegmented Neuts Not Reportable 11/05/20 01:03 Hypogranular Neuts Not Reportable 11/05/20 01:03 Smudge Cells Not Reportable 11/05/20 01:03 Toxic Granulation Not Reportable 11/05/20 01:03 Toxic Vacuolation Not Reportable 11/05/20 01:03 Dohle Bodies Not Reportable 11/05/20 01:03 Pelger-Huet Anomaly Not Reportable 11/05/20 01:03 Nereida Rods Not Reportable 11/05/20 01:03 Platelet Estimate Consistent w auto 11/05/20 01:03 Clumped Platelets Not Reportable 11/05/20 01:03 Plt Clumps, EDTA Not Reportable 11/05/20 01:03 Large Platelets Not Reportable 11/05/20 01:03 Giant Platelets Not Reportable 11/05/20 01:03 Platelet Satelliting Not Reportable 11/05/20 01:03 Plt Morphology Comment Not Reportable 11/05/20 01:03 RBC Morphology Not Reportable 11/05/20 01:03 Dimorphic RBCs Not Reportable 11/05/20 01:03 Polychromasia Not Reportable 11/05/20 01:03 Hypochromasia Not Reportable 11/05/20 01:03 Poikilocytosis Not Reportable 11/05/20 01:03 Anisocytosis 1+ 11/05/20 01:03 Microcytosis Not Reportable 11/05/20 01:03 Macrocytosis Not Reportable 11/05/20 01:03 Spherocytes Not Reportable 11/05/20 01:03 Pappenheimer Bodies Not Reportable 11/05/20 01:03 Sickle Cells Not Reportable 11/05/20 01:03 Target Cells Not Reportable 11/05/20 01:03 Tear Drop Cells Not Reportable 11/05/20 01:03 Ovalocytes Not Reportable 11/05/20 01:03 Helmet Cells Not Reportable 11/05/20 01:03 [place] Bodies Not Reportable 11/05/20 01:03 [place] Rings Not Reportable 11/05/20 01:03 [place] Cells Not Reportable 11/05/20 01:03 Bite Cells Not Reportable 11/05/20 01:03 Crenated Cell Not Reportable 11/05/20 01:03 Elliptocytes Not Reportable 11/05/20 01:03 Acanthocytes (Spur) Not Reportable 11/05/20 01:03 Rouleaux Not Reportable 11/05/20 01:03 Hemoglobin C Crystals Not Reportable 11/05/20 01:03 Schistocytes Not Reportable 11/05/20 01:03 Malaria parasites Not Reportable 11/05/20 01:03 Calderon Bodies Not Reportable 11/05/20 01:03 Hem Pathologist Commnt No 11/05/20 01:03 PT 14.3 Sec. (12.2-14.9) 10/29/20 07:08 INR 1.05 (0.87-1.13) 10/29/20 07:08 D-Dimer 4533.93 ng/mlDDU (0-234) H 10/29/20 07:08 ABG pH 7.479 (7.320-7.450) H 11/02/20 11:47 POC ABG pCO2 46.8 mmHg (32.0-48.0) 11/02/20 11:47 POC ABG pO2 73.7 mmHg (83-108) L 11/02/20 11:47 POC ABG HCO3 34.0 11/02/20 11:47 ABG O2 Saturation 95.2 (0-100) 11/02/20 11:47 POC ABG Base Excess 9.2 11/02/20 11:47 ABG Hemoglobin 12.9 (12.0-17.5) 11/02/20 11:47 ABG Oxyhemoglobin 94.1 (94-98) 11/02/20 11:47 ABG Methemoglobin 0.3 (0.0-1.5) 11/02/20 11:47 ABG Sodium 137.0 mmol/L (136.0-145.0) 11/02/20 11:47 ABG Potassium 3.8 mmol/L (3.40-4.50) 11/02/20 11:47 ABG Chloride 97.0 mmol/L (98-107) L 11/02/20 11:47 ABG Glucose 322 mg/dL (65-95) H 11/02/20 11:47 Carboxyhemoglobin 0.9 (0.5-1.5) 11/02/20 11:47 FiO2 % 28.0 11/02/20 11:47 Sodium 137 mmol/L (137-145) 11/05/20 01:03 Potassium 4.1 mmol/L (3.6-5.0) 11/05/20 01:03 Chloride 94.3 mmol/L (98-107) L 11/05/20 01:03 Carbon Dioxide 32 mmol/L (22-30) H 11/05/20 01:03 Anion Gap 15 mmol/L 11/05/20 01:03 BUN 27 mg/dL (7-17) H 11/05/20 01:03 Creatinine 1.1 mg/dL (0.6-1.2) 11/05/20 01:03 Estimated GFR 58 ml/min 11/05/20 01:03 BUN/Creatinine Ratio 25 % 11/05/20 01:03 Glucose 336 mg/dL (65-100) H 11/05/20 01:03 POC Glucose 102 mg/dL (70-105) 11/06/20 07:18 Lactic Acid 2.80 mmol/L (0.7-2.0) H* 10/31/20 13:20 Calcium 8.2 mg/dL (8.4-10.2) L 11/05/20 01:03 Magnesium 3.30 mg/dL (1.7-2.3) H 10/29/20 07:08 Ferritin 151.5 ng/mL (10.0-200.0) 10/29/20 07:08 Total Bilirubin 0.40 mg/dL (0.1-1.2) 10/29/20 07:08 AST 119 units/L (5-40) H 10/29/20 07:08 ALT 108 units/L (7-56) H 10/29/20 07:08 Alkaline Phosphatase 177 units/L (35-129) H 10/29/20 07:08 Lactate Dehydrogenase 342 units/L (91-180) H 10/29/20 07:08 Total Creatine Kinase 54 units/L (30-135) 10/29/20 07:08 Troponin T 0.020 ng/mL (0.00-0.029) 11/02/20 12:53 C-Reactive Protein 1.50 mg/dL (0.00-1.30) H 10/29/20 07:08 NT-Pro-B Natriuret Pep 38187 pg/mL (0-900) H 10/29/20 07:08 Total Protein 5.7 g/dL (6.3-8.2) L 10/29/20 07:08 Albumin 3.4 g/dL (3.9-5) L 10/29/20 07:08 Albumin/Globulin Ratio 1.5 % 10/29/20 07:08 Triglycerides 80 mg/dL (2-149) 10/29/20 07:08 Cholesterol 152 mg/dL (50-199) 10/29/20 07:08 LDL Cholesterol Direct 101 mg/dL (50-130) 10/29/20 07:08 HDL Cholesterol 37 mg/dL (40-59) L 10/29/20 07:08 Cholesterol/HDL Ratio 4.10 % 10/29/20 07:08 Procalcitonin 0.05 ng/mL (<0.15) 10/29/20 07:08 Arterial Blood Glucose 322 mg/dL (65-95) H 11/02/20 11:47 Arterial Blood Ionized Calcium 4.2 mg/dL (4.6-5.3) L 11/02/20 11:47 Urine Color Straw (Yellow) 10/29/20 Unknown Urine Turbidity Clear (Clear) 10/29/20 Unknown Urine pH 7.0 (5.0-7.0) 10/29/20 Unknown Ur Specific Interior 1.010 (1.003-1.030) 10/29/20 Unknown Urine Protein 30 mg/dl mg/dL (Negative) 10/29/20 Unknown Urine Glucose (UA) Neg mg/dL (Negative) 10/29/20 Unknown Urine Ketones Neg mg/dL (Negative) 10/29/20 Unknown Urine Blood Neg (Negative) 10/29/20 Unknown Urine Nitrite Neg (Negative) 10/29/20 Unknown Urine Bilirubin Neg (Negative) 10/29/20 Unknown Urine Urobilinogen < 2.0 mg/dL (<2.0) 10/29/20 Unknown Ur Leukocyte Esterase Neg (Negative) 10/29/20 Unknown Urine WBC (Auto) 0.0 /HPF (0.0-6.0) 10/29/20 Unknown Urine RBC (Auto) 1.0 /HPF (0.0-6.0) 10/29/20 Unknown U Epithel Cells (Auto) < 1.0 /HPF (0-13.0) 10/29/20 Unknown Urine Bacteria (Auto) 1+ /HPF (Negative) 10/29/20 Unknown Urine Mucus Few /HPF 10/29/20 Unknown Coronavirus (PCR) Negative (Negative) 10/29/20 10:00 [place]/IV: Voiding Method External Female Catheter Active Medications - Current Medications Current Medications: Generic Name Dose Route Start Last Admin Trade Name Freq PRN Reason Stop Dose Admin Acetaminophen 650 mg 11/01/20 11:00 11/04/20 15:44 Acetaminophen 325 Mg Tab PO 650 mg Q6H PRN Administration Pain, Mild (1-3) Albuterol 2.5 mg 10/29/20 08:30 11/05/20 13:36 Albuterol 2.5 Mg/3 Ml Nebu IH 2.5 mg TID PRN Administration Wheezing Albuterol/Ipratropium 1 ampul 11/02/20 14:00 11/05/20 20:21 Ipratropium/Albuterol Sulfate 3 Ml Ampul.Neb IH 1 ampul TIDRT CAROLE Administration Arformoterol Tartrate 15 mcg 10/29/20 20:00 11/05/20 20:21 Arformoterol 15 Mcg/2 Ml Nebu IH 15 mcg Q12HRT CAROLE Administration Aspirin 325 mg 10/29/20 10:00 11/05/20 09:49 Aspirin 325 Mg Tab PO 325 mg QDAY CAROLE Administration Atorvastatin Calcium 40 mg 10/29/20 22:00 11/05/20 21:51 Atorvastatin 40 Mg Tab PO 40 mg QHS CAROLE Administration Benzonatate 100 mg 11/04/20 22:00 11/06/20 05:26 Benzonatate 100 Mg Cap PO 100 mg Q8HR CAROLE Administration Budesonide 0.5 mg 10/29/20 20:00 11/05/20 20:21 Budesonide 0.5 Mg/2 Ml Nebu IH 0.5 mg Q12HRT CAROLE Administration Carvedilol 3.125 mg 10/30/20 22:00 11/05/20 21:51 Carvedilol 3.125 Mg Tab PO 3.125 mg BID CAROLE Administration Dextrose 50 ml 10/30/20 19:34 Dextrose 50% In Water (25gm) 50 Ml Syringe IV Q30MIN PRN Hypoglycemia Protocol Enoxaparin Sodium 40 mg 10/29/20 22:00 11/05/20 21:51 Enoxaparin 40 Mg/0.4 Ml Inj SUB-Q 40 mg QDAY@2200 CAROLE Administration Protocol Furosemide 40 mg 10/29/20 18:00 11/06/20 05:26 Furosemide 40 Mg/4 Ml Inj IV 40 mg BID@0600,1800 CAROLE Administration Hydralazine HCl 25 mg 11/02/20 22:00 11/05/20 21:52 Hydralazine 25 Mg Tab PO 25 mg BID CAROLE Administration Insulin Glargine 10 units 11/04/20 22:00 11/05/20 21:51 Insulin Glargine 100 Units/Ml SUB-Q 10 units QHS CAROLE Administration Insulin Human Regular 0 units 10/31/20 11:30 11/06/20 09:27 Insulin Regular, Human 100 Units/1 Ml SUB-Q Not Given ACHS [facility] Protocol Levothyroxine Sodium 100 mcg 10/30/20 06:00 11/06/20 05:26 Levothyroxine 100 Mcg Tab PO 100 mcg DAILY@0600 CAROLE Administration Melatonin 10 mg 10/30/20 20:19 Melatonin 5 Mg Tab PO QHS PRN Sleep Morphine Sulfate 2 mg 10/29/20 09:00 Morphine 2 Mg/1 Ml Inj IV Q5MIN PRN Chest Pain unrelieved by NTG Nitroglycerin 0.4 mg 10/29/20 09:00 Nitroglycerin 0.4 Mg Tab Subl SL .Q5MIN PRN Chest Pain Pantoprazole Sodium 40 mg 10/30/20 22:00 11/05/20 21:52 Pantoprazole 40 Mg Tab PO 40 mg BID CAROLE Administration Prednisone 30 mg 11/06/20 10:00 Prednisone 10 Mg Tab PO QDAY CAROLE Spironolactone 25 mg 11/03/20 10:00 11/05/20 09:48 Spironolactone 25 Mg Tab PO 25 mg QDAY CAROLE Administration Sumatriptan Succinate 25 mg 11/01/20 11:30 11/01/20 23:32 Sumatriptan Succinate 25 Mg Tab PO 25 mg Q4H PRN Administration Headache Tramadol HCl 50 mg 10/29/20 10:00 11/04/20 10:13 Tramadol 50 Mg Tab PO 50 mg BID PRN Administration Pain, Moderate (4-6) Nutrition/Malnutrition Assess - Dietary Evaluation Nutrition/Malnutrition Findings: Nutrition Notes Start: 10/30/20 10:56 Freq: Status: Active Protocol: Document 11/03/20 11:15 MORGAN (Rec: 11/03/20 11:19 [email or web address] [email or web address]) Nutrition Notes Initial or Follow up Reassessment Current Diagnosis Diabetes,Hypertension, Respiratory Failure Other Pertinent Diagnosis COPD exacerbation, NSTEMI, Dementia, Hypothyroidism Current Diet [facility] soft Labs/Tests POC Glu range since last assessment: 117-323 Pertinent Medications Reviewed Height 5 ft 1 in Weight 64.5 kg [place] Body Weight (kg) 47.72 BMI 26.9 Weight Status Appropriate Subjective/Other Information Pt has consumed 85% of meals since last assessment. Percent of energy/protein needs met: 100% energy and pro Burn Absent Trauma Absent Current % PO Good (75-100%) #1 Nutrition Diagnosis Inadequate energy intake As Evidenced by Signs and Symptoms PO intakes meeting at least 75 % energy and pro needs Diagnosis Progress(for reassessment Resolved documentation) Is patient on ventilator? No Is Patient Ambulatory and/or Out of Bed No REE-(Carbon-St. Jeor-confined to bed) 1281.564 Calculation Used for Recommendations Carbon-St Jeor Additional Notes Pro needs 1-1.2g/k-77g/ day Fluid needs 1ml/kcal Nutrition Intervention Revisit per MD consult or patient Sign Off request:
--- NOTE | 2020-11-06 10:08 | Progress Note ---
Assessment and Plan Congestive heart failure significantly improved. COPD exacerbation on home oxygen Hx of CAD 2017 [facility] showed a chronic total occlusion of the circumflex artery recommended for medical therapy. Ischemic cardiomyopathy, EF 25-30% Thoracic aortic repair 09/2018 at [facility] Continue guideline directed medical therapy for coronary artery disease, ischemic cardiomyopathy and chronic systolic heart failure. Change to p.o. Lasix 40 mg daily on discharge Otherwise, conservative cardiac management. Subjective Date of service: 11/06/20 Principal diagnosis: Ac. hypoxemic respfailure; AE-CHF; AE-COPD; ASHLI; DM II; DM II Interval history: No significant events overnight. Still complains of occasional pain on deep inspiration Objective Vital Signs Temp Pulse Pulse Resp Resp BP BP 11/06/20 09:50 11/06/20 09:31 97.5 F L 80 19 148/60 11/06/20 04:46 97.4 F L 63 17 129/61 11/06/20 00:00 74 11/05/20 23:29 98.0 F 87 18 108/52 11/05/20 22:00 19 11/05/20 21:52 70 101/59 11/05/20 21:51 70 101/59 11/05/20 21:20 70 18 11/05/20 19:37 97.9 F 17 101/59 11/05/20 16:00 71 11/05/20 15:05 66 11/05/20 14:00 97.8 F 71 20 130/54 11/05/20 13:36 76 16 Pulse Ox 11/06/20 09:50 2 L 11/06/20 09:31 100 11/06/20 04:46 100 11/06/20 00:00 11/05/20 23:29 100 11/05/20 22:00 3 L 11/05/20 21:52 11/05/20 21:51 11/05/20 21:20 100 11/05/20 19:37 96 11/05/20 16:00 11/05/20 15:05 100 11/05/20 14:00 100 11/05/20 13:36 - Physical Examination Narrative exam: Moderately obese General: No Apparent Distress HEENT: Positive: PERRL, Normocephaly Neck: Positive: neck supple Neuro: Positive: Grossly Intact Abdomen: Positive: Soft Skin: Positive: Clear Extremities: Absent: edema - Allied health notes Allied health notes reviewed: nursing
[2020-11-06] MEDS: predniSONE 10 MG TAB PO SCH (10:53)
[2020-11-06] MEDS: carvediloL 3.125 MG TAB PO SCH ×2 (10:53→21:27)
[2020-11-06] MEDS: hydrALAZINE 25 MG TAB PO SCH ×2 (10:54→21:19)
[2020-11-06] MEDS: PANTOPRAZOLE 40 MG TAB PO SCH ×2 (10:54→21:20)
[2020-11-06] MEDS: SPIRONOLACTONE 25 MG TAB PO SCH (10:54)
[2020-11-06] MEDS: ASPIRIN 325 MG TAB PO SCH (10:54)
--- NOTE | 2020-11-06 10:56 | Progress Note ---
Assessment and Plan Acute hypoxemic respiratory failure, acute on chronic Acute exacerbation of congestive heart failure Acute chronic obstructive pulmonary disease exacerbation Obstructive sleep apnea Obesity DM II Hypothyroidism H/O aortic aneurysm repair - continue to titrate supplemental oxygen to keep SpO2 89-92% -Steroid taper, was started on Prednisone 40mg daily, currently on 30mg daily, will taper to 20 mg -CXR, ABG as clinically indicated -continue with symptom management of cough with Tessalon perls - continue Bronchodilators (EVARISTO & LABA) with pulmonary hygiene per RT - continue inhaled corticosteroids - continue to avoid nephrotoxins, renally dose all medications - continue mobility protocols to prevent pressure ulcers - PT/OT as tolerated, increase activity - continue accuchecks with glycemic control per [facility] for target blood glucose < 180 mg/dL - VTE prophylaxis -Stress ucler prophylaxis while on high dose steroids -Influenza and pneumonia vaccination per facility protocol - Pulmonary out patient follow up for PFTs and optimization of respiratory status - continue other care per attending / other consultants - prn analgesia per pain score Discussed with Dr. Palomo, discharge planning and possible inpatient rehab Subjective Date of service: 11/06/20 Principal diagnosis: Ac. hypoxemic respfailure; AE-CHF; AE-COPD; ASHLI; DM II; DM II Interval history: Patient is seen today for: Acute hypoxemic respiratory failure; AE-CHF; AE-COPD; ASHLI; DM II; DM II; Hypothyroidism Seen and examined at bedside; 24hour events reviewed; nursing and respiratory care staff consulted; no adverse overnight events reported to me; resting peacefully in bed; states that she remains SOB but it is definitely improving everyday She has ongoing nagging cough, denies any chest pain, no fevers or chills, no nausea, no vomiting. Remains on supplemental oxygen at 3L Wants to know when she can transfer for therapy Objective Vital Signs - 12hr 11/05/20 11/06/20 11/06/20 23:29 00:00 04:46 Temperature 98.0 F 97.4 F L Pulse Rate 87 74 63 Respiratory 18 17 Rate Blood Pressure 108/52 129/61 Blood Pressure [Right] O2 Sat by Pulse 100 100 Oximetry 11/06/20 11/06/20 09:31 09:50 Temperature 97.5 F L Pulse Rate 80 Respiratory 19 Rate Blood Pressure Blood Pressure 148/60 [Right] O2 Sat by Pulse 100 2 L Oximetry Constitutional: no acute distress, alert, other (elderly female with normal respiratory effort at rest) Eyes: non-icteric ENT: oropharynx moist Neck: supple, no JVD Effort: normal Ascultation: Bilateral: diminished breath sounds, other (Prolonged expiratory phase.) Percussion: Bilateral: not dull Cardiovascular: regular rate and rhythm, other (S1,S2) Gastrointestinal: normoactive bowel sounds, hypoactive bowel sounds, soft, non-tender, non-distended Integumentary: normal Extremities: no cyanosis, no edema, pulses normal, no ischemia or petechiae Neurologic: normal mental status, non-focal exam, pupils equal and round, CN II- XII normal, other (deconditioned) Psychiatric: mood appropriate, affect normal CBC and BMP: 11/05/20 01:03 11/05/20 01:03 ABG, PT/INR, D-dimer: ABG ABG pH 7.479 (7.320-7.450) H 11/02/20 11:47 POC ABG pCO2 46.8 mmHg (32.0-48.0) 11/02/20 11:47 POC ABG pO2 73.7 mmHg (83-108) L 11/02/20 11:47 POC ABG HCO3 34.0 11/02/20 11:47 ABG O2 Saturation 95.2 (0-100) 11/02/20 11:47 PT/INR, D-dimer PT 14.3 Sec. (12.2-14.9) 10/29/20 07:08 INR 1.05 (0.87-1.13) 10/29/20 07:08 D-Dimer 4533.93 ng/mlDDU (0-234) H 10/29/20 07:08 Abnormal lab findings: Abnormal Labs 10/29/20 10/29/20 10/29/20 07:08 07:08 07:08 WBC 14.3 H RBC 3.42 L RDW 17.0 H Lymph % (Auto) 4.9 L Lymph # (Auto) 0.7 L Seg Neutrophils % 89.8 H Seg Neuts % (Manual) Lymphocytes % (Manual) Seg Neutrophils # 12.8 H Lymphocytes # (Manual) D-Dimer 4533.93 H ABG pH POC ABG pO2 ABG Chloride ABG Glucose Chloride Carbon Dioxide BUN 29 H Glucose 181 H POC Glucose Lactic Acid Calcium Magnesium 3.30 H AST 119 H ALT 108 H Alkaline Phosphatase 177 H Lactate Dehydrogenase 342 H Troponin T 0.045 H C-Reactive Protein 1.50 H NT-Pro-B Natriuret Pep 09118 H Total Protein 5.7 L Albumin 3.4 L HDL Cholesterol 37 L Arterial Blood Glucose Arterial Blood Ionized Calcium 10/29/20 10/29/20 10/30/20 07:08 14:33 04:44 WBC RBC RDW Lymph % (Auto) Lymph # (Auto) Seg Neutrophils % Seg Neuts % (Manual) Lymphocytes % (Manual) Seg Neutrophils # Lymphocytes # (Manual) D-Dimer ABG pH POC ABG pO2 ABG Chloride ABG Glucose Chloride Carbon Dioxide BUN 26 H Glucose 138 H POC Glucose 149 H Lactic Acid 2.80 H* Calcium Magnesium AST ALT Alkaline Phosphatase Lactate Dehydrogenase Troponin T C-Reactive Protein NT-Pro-B Natriuret Pep Total Protein Albumin HDL Cholesterol Arterial Blood Glucose Arterial Blood Ionized Calcium 10/30/20 10/30/20 10/30/20 11:16 13:21 20:56 WBC RBC RDW Lymph % (Auto) Lymph # (Auto) Seg Neutrophils % Seg Neuts % (Manual) Lymphocytes % (Manual) Seg Neutrophils # Lymphocytes # (Manual) D-Dimer ABG pH POC ABG pO2 ABG Chloride ABG Glucose Chloride Carbon Dioxide BUN Glucose POC Glucose 238 H 282 H Lactic Acid 4.50 H* Calcium Magnesium AST ALT Alkaline Phosphatase Lactate Dehydrogenase Troponin T C-Reactive Protein NT-Pro-B Natriuret Pep Total Protein Albumin HDL Cholesterol Arterial Blood Glucose Arterial Blood Ionized Calcium 10/31/20 10/31/20 10/31/20 11:36 13:20 13:20 WBC RBC RDW Lymph % (Auto) Lymph # (Auto) Seg Neutrophils % Seg Neuts % (Manual) Lymphocytes % (Manual) Seg Neutrophils # Lymphocytes # (Manual) D-Dimer ABG pH POC ABG pO2 ABG Chloride ABG Glucose Chloride Carbon Dioxide BUN 26 H Glucose 231 H POC Glucose 233 H Lactic Acid 2.80 H* Calcium Magnesium AST ALT Alkaline Phosphatase Lactate Dehydrogenase Troponin T C-Reactive Protein NT-Pro-B Natriuret Pep Total Protein Albumin HDL Cholesterol Arterial Blood Glucose Arterial Blood Ionized Calcium 10/31/20 10/31/20 11/01/20 16:42 20:01 04:54 WBC RBC RDW Lymph % (Auto) Lymph # (Auto) Seg Neutrophils % Seg Neuts % (Manual) Lymphocytes % (Manual) Seg Neutrophils # Lymphocytes # (Manual) D-Dimer ABG pH POC ABG pO2 ABG Chloride ABG Glucose Chloride Carbon Dioxide 32 H BUN 26 H Glucose 134 H POC Glucose 207 H 220 H Lactic Acid Calcium Magnesium AST ALT Alkaline Phosphatase Lactate Dehydrogenase Troponin T C-Reactive Protein NT-Pro-B Natriuret Pep Total Protein Albumin HDL Cholesterol Arterial Blood Glucose Arterial Blood Ionized Calcium 11/01/20 11/01/20 11/01/20 07:27 11:28 15:33 WBC RBC RDW Lymph % (Auto) Lymph # (Auto) Seg Neutrophils % Seg Neuts % (Manual) Lymphocytes % (Manual) Seg Neutrophils # Lymphocytes # (Manual) D-Dimer ABG pH POC ABG pO2 ABG Chloride ABG Glucose Chloride Carbon Dioxide BUN Glucose POC Glucose 158 H 323 H 299 H Lactic Acid Calcium Magnesium AST ALT Alkaline Phosphatase Lactate Dehydrogenase Troponin T C-Reactive Protein NT-Pro-B Natriuret Pep Total Protein Albumin HDL Cholesterol Arterial Blood Glucose Arterial Blood Ionized Calcium 11/01/20 11/02/20 11/02/20 20:16 07:28 11:17 WBC RBC RDW Lymph % (Auto) Lymph # (Auto) Seg Neutrophils % Seg Neuts % (Manual) Lymphocytes % (Manual) Seg Neutrophils # Lymphocytes # (Manual) D-Dimer ABG pH POC ABG pO2 ABG Chloride ABG Glucose Chloride Carbon Dioxide BUN Glucose POC Glucose 190 H 117 H 323 H Lactic Acid Calcium Magnesium AST ALT Alkaline Phosphatase Lactate Dehydrogenase Troponin T C-Reactive Protein NT-Pro-B Natriuret Pep Total Protein Albumin HDL Cholesterol Arterial Blood Glucose Arterial Blood Ionized Calcium 11/02/20 11/02/20 11/02/20 11:47 16:06 21:07 WBC RBC RDW Lymph % (Auto) Lymph # (Auto) Seg Neutrophils % Seg Neuts % (Manual) Lymphocytes % (Manual) Seg Neutrophils # Lymphocytes # (Manual) D-Dimer ABG pH 7.479 H POC ABG pO2 73.7 L ABG Chloride 97.0 L ABG Glucose 322 H Chloride Carbon Dioxide BUN Glucose POC Glucose 316 H 253 H Lactic Acid Calcium Magnesium AST ALT Alkaline Phosphatase Lactate Dehydrogenase Troponin T C-Reactive Protein NT-Pro-B Natriuret Pep Total Protein Albumin HDL Cholesterol Arterial Blood Glucose 322 H Arterial Blood Ionized Calcium 4.2 L 11/03/20 11/03/20 11/03/20 07:47 10:55 15:59 WBC RBC RDW Lymph % (Auto) Lymph # (Auto) Seg Neutrophils % Seg Neuts % (Manual) Lymphocytes % (Manual) Seg Neutrophils # Lymphocytes # (Manual) D-Dimer ABG pH POC ABG pO2 ABG Chloride ABG Glucose Chloride Carbon Dioxide BUN Glucose POC Glucose 223 H 399 H 231 H Lactic Acid Calcium Magnesium AST ALT Alkaline Phosphatase Lactate Dehydrogenase Troponin T C-Reactive Protein NT-Pro-B Natriuret Pep Total Protein Albumin HDL Cholesterol Arterial Blood Glucose Arterial Blood Ionized Calcium 11/03/20 11/04/20 11/04/20 22:41 08:36 10:57 WBC RBC RDW Lymph % (Auto) Lymph # (Auto) Seg Neutrophils % Seg Neuts % (Manual) Lymphocytes % (Manual) Seg Neutrophils # Lymphocytes # (Manual) D-Dimer ABG pH POC ABG pO2 ABG Chloride ABG Glucose Chloride Carbon Dioxide BUN Glucose POC Glucose 204 H 142 H 293 H Lactic Acid Calcium Magnesium AST ALT Alkaline Phosphatase Lactate Dehydrogenase Troponin T C-Reactive Protein NT-Pro-B Natriuret Pep Total Protein Albumin HDL Cholesterol Arterial Blood Glucose Arterial Blood Ionized Calcium 11/04/20 11/04/20 11/05/20 17:29 21:39 01:03 WBC RBC RDW 16.8 H Lymph % (Auto) Lymph # (Auto) Seg Neutrophils % Seg Neuts % (Manual) 93.0 H Lymphocytes % (Manual) 4.0 L Seg Neutrophils # Lymphocytes # (Manual) 0.3 L D-Dimer ABG pH POC ABG pO2 ABG Chloride ABG Glucose Chloride Carbon Dioxide BUN Glucose POC Glucose 343 H 363 H Lactic Acid Calcium Magnesium AST ALT Alkaline Phosphatase Lactate Dehydrogenase Troponin T C-Reactive Protein NT-Pro-B Natriuret Pep Total Protein Albumin HDL Cholesterol Arterial Blood Glucose Arterial Blood Ionized Calcium 11/05/20 11/05/20 11/05/20 01:03 07:21 11:52 WBC RBC RDW Lymph % (Auto) Lymph # (Auto) Seg Neutrophils % Seg Neuts % (Manual) Lymphocytes % (Manual) Seg Neutrophils # Lymphocytes # (Manual) D-Dimer ABG pH POC ABG pO2 ABG Chloride ABG Glucose Chloride 94.3 L Carbon Dioxide 32 H BUN 27 H Glucose 336 H POC Glucose 153 H 222 H Lactic Acid Calcium 8.2 L Magnesium AST ALT Alkaline Phosphatase Lactate Dehydrogenase Troponin T C-Reactive Protein NT-Pro-B Natriuret Pep Total Protein Albumin HDL Cholesterol Arterial Blood Glucose Arterial Blood Ionized Calcium 11/05/20 11/05/20 16:10 20:40 WBC RBC RDW Lymph % (Auto) Lymph # (Auto) Seg Neutrophils % Seg Neuts % (Manual) Lymphocytes % (Manual) Seg Neutrophils # Lymphocytes # (Manual) D-Dimer ABG pH POC ABG pO2 ABG Chloride ABG Glucose Chloride Carbon Dioxide BUN Glucose POC Glucose 347 H 302 H Lactic Acid Calcium Magnesium AST ALT Alkaline Phosphatase Lactate Dehydrogenase Troponin T C-Reactive Protein NT-Pro-B Natriuret Pep Total Protein Albumin HDL Cholesterol Arterial Blood Glucose Arterial Blood Ionized Calcium Allied health notes reviewed: nursing
[2020-11-06] MEDS: INSULIN GLARGINE 100 UNITS/ML SUB-Q SCH (21:19)
[2020-11-06] MEDS: ENOXAPARIN 40 MG/0.4 ML INJ SUB-Q SCH (21:19)
[2020-11-07] MEDS: BENZONATATE 100 MG CAP PO SCH ×3 (05:48→21:45)
[2020-11-07] MEDS: FUROSEMIDE 40 MG/4 ML INJ IV SCH ×2 (05:48→17:13)
[2020-11-07] MEDS: LEVOTHYROXINE 100 MCG TAB PO SCH (05:48)
[2020-11-07] MEDS: ARFORMOTEROL 15 MCG/2 ML NEBU IH SCH ×2 (08:14→20:59)
[2020-11-07] MEDS: BUDESONIDE 0.5 MG/2 ML NEBU IH SCH ×2 (08:14→20:59)
[2020-11-07] MEDS: IPRATROPIUM/ALBUTEROL SULFATE 3 ML AMPUL.NEB IH SCH ×4 (08:14→20:59)
[2020-11-07] MEDS: INSULIN REGULAR, HUMAN 100 UNITS/1 ML SUB-Q SCH ×4 (08:33→22:44)
[2020-11-07] MEDS: predniSONE 10 MG TAB PO SCH (10:18)
[2020-11-07] MEDS: ASPIRIN 325 MG TAB PO SCH (10:18)
[2020-11-07] MEDS: PANTOPRAZOLE 40 MG TAB PO SCH ×2 (10:18→21:43)
[2020-11-07] MEDS: SPIRONOLACTONE 25 MG TAB PO SCH (10:19)
[2020-11-07] MEDS: carvediloL 3.125 MG TAB PO SCH ×2 (10:19→21:42)
[2020-11-07] MEDS: hydrALAZINE 25 MG TAB PO SCH ×2 (10:20→21:44)
--- NOTE | 2020-11-07 10:53 | Progress Note ---
Assessment and Plan - Patient Problems (1) Acute exacerbation of CHF (congestive heart failure) Current Visit: Yes Status: Acute Plan to address problem: Continue optimal guideline directed medical therapy for coronary artery disease, ischemic cardiomyopathy and chronic systolic heart failure. Subjective Date of service: 11/07/20 Principal diagnosis: Ac. hypoxemic respfailure; AE-CHF; AE-COPD; ASHLI; DM II; DM II Interval history: Patient looks and feels comfortable, no cardiac complaints. Objective Vital Signs Temp Pulse Pulse Resp Resp BP Pulse Ox 11/07/20 10:20 65 119/50 11/07/20 10:19 65 119/50 11/07/20 08:26 68 20 11/07/20 08:14 99 11/07/20 04:00 63 11/07/20 03:47 97.5 F L 63 18 114/60 100 11/07/20 00:09 67 23 97 11/06/20 23:00 97.6 F 77 18 101/43 100 11/06/20 22:00 2 L 11/06/20 21:27 64 115/57 11/06/20 21:19 64 115/57 11/06/20 20:24 64 11/06/20 19:32 70 16 11/06/20 19:31 99 11/06/20 19:19 98.0 F 64 18 115/57 98 11/06/20 15:43 98.0 F 73 20 96/45 96 - Physical Examination General: No Apparent Distress HEENT: Positive: PERRL, Normocephaly Neck: Positive: neck supple Cardiac: Positive: Reg Rate and Rhythm Lungs: Positive: clear to auscultation Neuro: Positive: Grossly Intact Abdomen: Positive: Soft Skin: Positive: Clear Extremities: Absent: edema - Allied health notes Allied health notes reviewed: nursing
--- NOTE | 2020-11-07 13:48 | Progress Note ---
Assessment and Plan 79-year-old -[place] female with known history of CHF, COPD, diabetes mellitus, hypothyroidism, up-to-date with COVID-19 vaccination and dementia presenting to the emergency room with respiratory distress and having difficulty breathing. EMS states patient was hypoxic, and started CPAP in the field. They were unable to establish IV access. Per family patient recently had a 1 or 2-hour trip to [place], has chronic lower extremity swelling, no recent hospitalizations or period of immobilization. family denies nausea, vomiting, diarrhea, loss of taste and smell, and syncope. Patient remains hypoxic in the ER and placed on BiPAP which improved her symptoms. Chest x-ray showed no infiltrates. Lower extremity Dopplers is negative for DVT. Patient being admitted for COPD exacerbation and further evaluation management. Patient has history of smoking 2 packs x 30 years. Stopped smoking 15 years ago. Denies alcohol or drug abuse. Worked in house keeping. Patient sleeping. Receiving breathing treatment. On 2 litres O2. O2 saturation 99%. No acute respiratory distress. Patient afebrile. No leukocytosis. BIPAP stand by in the room. Chest xray 10/31/20 reported CHF V/Q scan reported low probability for pulmonary emboli. Patient presently on PO prednisone, S/C Lovenox, Protonix, albuterol/atrovent aerosol treatments. - Patient Problems (1) Acute respiratory failure with hypoxia Current Visit: Yes Status: Acute Plan to address problem: O2 2 litres via nasal canula. BIPAP stand by in the room. Albuterol/atrovent aerosol treatments. PO Prednisone. S/C Lovenox. Protonix. . (2) Acute exacerbation of CHF (congestive heart failure) Current Visit: Yes Status: Acute Plan to address problem: Patient is on Lasix. Management as per cardiology. (3) COPD exacerbation Current Visit: Yes Status: Acute Plan to address problem: O2 3 litres via nasal canula. BIPAP stand by in the room. Albuterol/atrovent aerosol treatments. PO Prednisone. S/C Lovenox. Protonix PFTs as out patient. (4) Suspected 2019 novel coronavirus infection Current Visit: Yes Status: Acute Plan to address problem: Olivera virus PCR negative. (5) Acute renal insufficiency Current Visit: No Status: Acute Plan to address problem: Management as per nephrology. (6) Diabetes Current Visit: No Status: Acute Plan to address problem: Management as per primary care. (7) HTN (hypertension) Current Visit: No Status: Acute Plan to address problem: Management as per primary care. Subjective Date of service: 11/07/20 Principal diagnosis: Ac. hypoxemic respfailure; AE-CHF; AE-COPD; ASHLI; DM II; DM II Interval history: 79-year-old -[place] female with known history of CHF, COPD, diabetes mellitus, hypothyroidism, up-to-date with COVID-19 vaccination and dementia presenting to the emergency room with respiratory distress and having difficulty breathing. EMS states patient was hypoxic, and started CPAP in the field. They were unable to establish IV access. Per family patient recently had a 1 or 2-hour trip to [place], has chronic lower extremity swelling, no recent hospitalizations or period of immobilization. family denies nausea, vomiting, di arrhea, loss of taste and smell, and syncope. Patient remains hypoxic in the ER and placed on BiPAP which improved her symptoms. Chest x-ray showed no infiltrates. Lower extremity Dopplers is negative for DVT. Patient being admitted for COPD exacerbation and further evaluation management. Patient has history of smoking 2 packs x 30 years. Stopped smoking 15 years ago. Denies alcohol or drug abuse. Worked in house keeping. Patient sleeping. Receiving breathing treatment. On 2 litres O2. O2 saturation 99%. No acute respiratory distress. Patient afebrile. No leukocytosis. BIPAP stand by in the room. Chest xray 10/31/20 reported CHF V/Q scan reported low probability for pulmonary emboli. Patient presently on PO prednisone, S/C Lovenox, Protonix, albuterol/atrovent aerosol treatments. Objective Vital Signs - 12hr 11/07/20 11/07/20 11/07/20 03:47 04:00 08:14 Temperature 97.5 F L Pulse Rate 63 63 Pulse Rate [ Bilateral Throughout] Respiratory 18 Rate Respiratory Rate [Bilateral Throughout] Blood Pressure 114/60 O2 Sat by Pulse 100 99 Oximetry 11/07/20 11/07/20 11/07/20 08:26 10:19 10:20 Temperature Pulse Rate 65 65 Pulse Rate [ 68 Bilateral Throughout] Respiratory Rate Respiratory 20 Rate [Bilateral Throughout] Blood Pressure 119/50 119/50 O2 Sat by Pulse Oximetry Constitutional: no acute distress, asleep Eyes: non-icteric ENT: oropharynx moist Neck: supple, no JVD Effort: mildly labored Ascultation: Bilateral: diminished breath sounds, other (Prolonged expiratory phase.) Percussion: Bilateral: not dull Cardiovascular: regular rate and rhythm, other (S1,S2) Gastrointestinal: normoactive bowel sounds, hypoactive bowel sounds, soft, non- tender, non-distended Integumentary: normal Extremities: no cyanosis, no edema, pulses normal, no ischemia or petechiae Neurologic: normal mental status, non-focal exam, pupils equal and round, CN II- XII normal, other (deconditioned) Psychiatric: mood appropriate, affect normal CBC and BMP: 11/05/20 01:03 11/05/20 01:03 ABG, PT/INR, D-dimer: ABG ABG pH 7.444 (7.320-7.450) 11/07/20 10:17 POC ABG pCO2 47.5 mmHg (32.0-48.0) 11/07/20 10:17 POC ABG pO2 69.9 mmHg (83-108) L 11/07/20 10:17 POC ABG HCO3 31.8 11/07/20 10:17 ABG O2 Saturation 95.1 (0-100) 11/07/20 10:17 PT/INR, D-dimer PT 14.3 Sec. (12.2-14.9) 10/29/20 07:08 INR 1.05 (0.87-1.13) 10/29/20 07:08 D-Dimer 4533.93 ng/mlDDU (0-234) H 10/29/20 07:08 Abnormal lab findings: Abnormal Labs 10/29/20 10/29/20 10/29/20 07:08 07:08 07:08 WBC 14.3 H RBC 3.42 L RDW 17.0 H Lymph % (Auto) 4.9 L Lymph # (Auto) 0.7 L Seg Neutrophils % 89.8 H Seg Neuts % (Manual) Lymphocytes % (Manual) Seg Neutrophils # 12.8 H Lymphocytes # (Manual) D-Dimer 4533.93 H ABG pH POC ABG pO2 ABG Chloride ABG Glucose Chloride Carbon Dioxide BUN 29 H Glucose 181 H POC Glucose Lactic Acid Calcium Magnesium 3.30 H AST 119 H ALT 108 H Alkaline Phosphatase 177 H Lactate Dehydrogenase 342 H Troponin T 0.045 H C-Reactive Protein 1.50 H NT-Pro-B Natriuret Pep 23252 H Total Protein 5.7 L Albumin 3.4 L HDL Cholesterol 37 L Arterial Blood Glucose Arterial Blood Ionized Calcium 10/29/20 10/29/20 10/30/20 07:08 14:33 04:44 WBC RBC RDW Lymph % (Auto) Lymph # (Auto) Seg Neutrophils % Seg Neuts % (Manual) Lymphocytes % (Manual) Seg Neutrophils # Lymphocytes # (Manual) D-Dimer ABG pH POC ABG pO2 ABG Chloride ABG Glucose Chloride Carbon Dioxide BUN 26 H Glucose 138 H POC Glucose 149 H Lactic Acid 2.80 H* Calcium Magnesium AST ALT Alkaline Phosphatase Lactate Dehydrogenase Troponin T C-Reactive Protein NT-Pro-B Natriuret Pep Total Protein Albumin HDL Cholesterol Arterial Blood Glucose Arterial Blood Ionized Calcium 10/30/20 10/30/20 10/30/20 11:16 13:21 20:56 WBC RBC RDW Lymph % (Auto) Lymph # (Auto) Seg Neutrophils % Seg Neuts % (Manual) Lymphocytes % (Manual) Seg Neutrophils # Lymphocytes # (Manual) D-Dimer ABG pH POC ABG pO2 ABG Chloride ABG Glucose Chloride Carbon Dioxide BUN Glucose POC Glucose 238 H 282 H Lactic Acid 4.50 H* Calcium Magnesium AST ALT Alkaline Phosphatase Lactate Dehydrogenase Troponin T C-Reactive Protein NT-Pro-B Natriuret Pep Total Protein Albumin HDL Cholesterol Arterial Blood Glucose Arterial Blood Ionized Calcium 10/31/20 10/31/20 10/31/20 11:36 13:20 13:20 WBC RBC RDW Lymph % (Auto) Lymph # (Auto) Seg Neutrophils % Seg Neuts % (Manual) Lymphocytes % (Manual) Seg Neutrophils # Lymphocytes # (Manual) D-Dimer ABG pH POC ABG pO2 ABG Chloride ABG Glucose Chloride Carbon Dioxide BUN 26 H Glucose 231 H POC Glucose 233 H Lactic Acid 2.80 H* Calcium Magnesium AST ALT Alkaline Phosphatase Lactate Dehydrogenase Troponin T C-Reactive Protein NT-Pro-B Natriuret Pep Total Protein Albumin HDL Cholesterol Arterial Blood Glucose Arterial Blood Ionized Calcium 10/31/20 10/31/20 11/01/20 16:42 20:01 04:54 WBC RBC RDW Lymph % (Auto) Lymph # (Auto) Seg Neutrophils % Seg Neuts % (Manual) Lymphocytes % (Manual) Seg Neutrophils # Lymphocytes # (Manual) D-Dimer ABG pH POC ABG pO2 ABG Chloride ABG Glucose Chloride Carbon Dioxide 32 H BUN 26 H Glucose 134 H POC Glucose 207 H 220 H Lactic Acid Calcium Magnesium AST ALT Alkaline Phosphatase Lactate Dehydrogenase Troponin T C-Reactive Protein NT-Pro-B Natriuret Pep Total Protein Albumin HDL Cholesterol Arterial Blood Glucose Arterial Blood Ionized Calcium 11/01/20 11/01/20 11/01/20 07:27 11:28 15:33 WBC RBC RDW Lymph % (Auto) Lymph # (Auto) Seg Neutrophils % Seg Neuts % (Manual) Lymphocytes % (Manual) Seg Neutrophils # Lymphocytes # (Manual) D-Dimer ABG pH POC ABG pO2 ABG Chloride ABG Glucose Chloride Carbon Dioxide BUN Glucose POC Glucose 158 H 323 H 299 H Lactic Acid Calcium Magnesium AST ALT Alkaline Phosphatase Lactate Dehydrogenase Troponin T C-Reactive Protein NT-Pro-B Natriuret Pep Total Protein Albumin HDL Cholesterol Arterial Blood Glucose Arterial Blood Ionized Calcium 11/01/20 11/02/20 11/02/20 20:16 07:28 11:17 WBC RBC RDW Lymph % (Auto) Lymph # (Auto) Seg Neutrophils % Seg Neuts % (Manual) Lymphocytes % (Manual) Seg Neutrophils # Lymphocytes # (Manual) D-Dimer ABG pH POC ABG pO2 ABG Chloride ABG Glucose Chloride Carbon Dioxide BUN Glucose POC Glucose 190 H 117 H 323 H Lactic Acid Calcium Magnesium AST ALT Alkaline Phosphatase Lactate Dehydrogenase Troponin T C-Reactive Protein NT-Pro-B Natriuret Pep Total Protein Albumin HDL Cholesterol Arterial Blood Glucose Arterial Blood Ionized Calcium 11/02/20 11/02/20 11/02/20 11:47 16:06 21:07 WBC RBC RDW Lymph % (Auto) Lymph # (Auto) Seg Neutrophils % Seg Neuts % (Manual) Lymphocytes % (Manual) Seg Neutrophils # Lymphocytes # (Manual) D-Dimer ABG pH 7.479 H POC ABG pO2 73.7 L ABG Chloride 97.0 L ABG Glucose 322 H Chloride Carbon Dioxide BUN Glucose POC Glucose 316 H 253 H Lactic Acid Calcium Magnesium AST ALT Alkaline Phosphatase Lactate Dehydrogenase Troponin T C-Reactive Protein NT-Pro-B Natriuret Pep Total Protein Albumin HDL Cholesterol Arterial Blood Glucose 322 H Arterial Blood Ionized Calcium 4.2 L 11/03/20 11/03/20 11/03/20 07:47 10:55 15:59 WBC RBC RDW Lymph % (Auto) Lymph # (Auto) Seg Neutrophils % Seg Neuts % (Manual) Lymphocytes % (Manual) Seg Neutrophils # Lymphocytes # (Manual) D-Dimer ABG pH POC ABG pO2 ABG Chloride ABG Glucose Chloride Carbon Dioxide BUN Glucose POC Glucose 223 H 399 H 231 H Lactic Acid Calcium Magnesium AST ALT Alkaline Phosphatase Lactate Dehydrogenase Troponin T C-Reactive Protein NT-Pro-B Natriuret Pep Total Protein Albumin HDL Cholesterol Arterial Blood Glucose Arterial Blood Ionized Calcium 11/03/20 11/04/20 11/04/20 22:41 08:36 10:57 WBC RBC RDW Lymph % (Auto) Lymph # (Auto) Seg Neutrophils % Seg Neuts % (Manual) Lymphocytes % (Manual) Seg Neutrophils # Lymphocytes # (Manual) D-Dimer ABG pH POC ABG pO2 ABG Chloride ABG Glucose Chloride Carbon Dioxide BUN Glucose POC Glucose 204 H 142 H 293 H Lactic Acid Calcium Magnesium AST ALT Alkaline Phosphatase Lactate Dehydrogenase Troponin T C-Reactive Protein NT-Pro-B Natriuret Pep Total Protein Albumin HDL Cholesterol Arterial Blood Glucose Arterial Blood Ionized Calcium 11/04/20 11/04/20 11/05/20 17:29 21:39 01:03 WBC RBC RDW 16.8 H Lymph % (Auto) Lymph # (Auto) Seg Neutrophils % Seg Neuts % (Manual) 93.0 H Lymphocytes % (Manual) 4.0 L Seg Neutrophils # Lymphocytes # (Manual) 0.3 L D-Dimer ABG pH POC ABG pO2 ABG Chloride ABG Glucose Chloride Carbon Dioxide BUN Glucose POC Glucose 343 H 363 H Lactic Acid Calcium Magnesium AST ALT Alkaline Phosphatase Lactate Dehydrogenase Troponin T C-Reactive Protein NT-Pro-B Natriuret Pep Total Protein Albumin HDL Cholesterol Arterial Blood Glucose Arterial Blood Ionized Calcium 11/05/20 11/05/20 11/05/20 01:03 07:21 11:52 WBC RBC RDW Lymph % (Auto) Lymph # (Auto) Seg Neutrophils % Seg Neuts % (Manual) Lymphocytes % (Manual) Seg Neutrophils # Lymphocytes # (Manual) D-Dimer ABG pH POC ABG pO2 ABG Chloride ABG Glucose Chloride 94.3 L Carbon Dioxide 32 H BUN 27 H Glucose 336 H POC Glucose 153 H 222 H Lactic Acid Calcium 8.2 L Magnesium AST ALT Alkaline Phosphatase Lactate Dehydrogenase Troponin T C-Reactive Protein NT-Pro-B Natriuret Pep Total Protein Albumin HDL Cholesterol Arterial Blood Glucose Arterial Blood Ionized Calcium 11/05/20 11/05/20 11/06/20 16:10 20:40 10:54 WBC RBC RDW Lymph % (Auto) Lymph # (Auto) Seg Neutrophils % Seg Neuts % (Manual) Lymphocytes % (Manual) Seg Neutrophils # Lymphocytes # (Manual) D-Dimer ABG pH POC ABG pO2 ABG Chloride ABG Glucose Chloride Carbon Dioxide BUN Glucose POC Glucose 347 H 302 H 252 H Lactic Acid Calcium Magnesium AST ALT Alkaline Phosphatase Lactate Dehydrogenase Troponin T C-Reactive Protein NT-Pro-B Natriuret Pep Total Protein Albumin HDL Cholesterol Arterial Blood Glucose Arterial Blood Ionized Calcium 11/06/20 11/06/20 11/07/20 15:56 21:14 10:17 WBC RBC RDW Lymph % (Auto) Lymph # (Auto) Seg Neutrophils % Seg Neuts % (Manual) Lymphocytes % (Manual) Seg Neutrophils # Lymphocytes # (Manual) D-Dimer ABG pH POC ABG pO2 69.9 L ABG Chloride 96.0 L ABG Glucose 240 H Chloride Carbon Dioxide BUN Glucose POC Glucose 346 H 320 H Lactic Acid Calcium Magnesium AST ALT Alkaline Phosphatase Lactate Dehydrogenase Troponin T C-Reactive Protein NT-Pro-B Natriuret Pep Total Protein Albumin HDL Cholesterol Arterial Blood Glucose 240 H Arterial Blood Ionized Calcium 4.3 L Allied health notes reviewed: nursing
--- NOTE | 2020-11-07 14:17 | Progress Note ---
Assessment and Plan Assessment and plan: 79-year-old -[place] female with known history of CHF, COPD, diabetes mellitus, hypothyroidism, up-to-date with COVID-19 vaccination and dementia presenting to the emergency room with respiratory distress and having difficulty breathing. A/P --SIRS, likely from COPD exacerbation cont abx, negative culture Lactic acid trending down -- Acute on chronic hypoxic respiratory failure Patient is s/p BiPAP Chest x-ray showed mild cardiomegaly, mild interstitial opacities, and presence of a stent in the thoracic aorta. Findings consistent with mild congestive heart failure, combined with her history of chronic lung disease. Continue IV Lasix, scheduled nebulizer breathing treatment and supplemental O2 Ordered for VQ scan to rule out possible underlying PE --COPD exacerbation - Will provide scheduled nebulizer breathing treatment and as needed - Place on empiric steroid and antibiotic - Provide supplemental oxygen to keep oxygen saturation above 92% Consulted pulmonary -- Cardiomyopathy with acute systolic CHF exacerbation Patient has an EF of about 25 to 30%. We will continue IV Lasix and resume home medications Cardiology consulted --NSTEMI likely type 2 from underlying cardiomyopathy Continue home cardiac medications and follow cardiology recommendation -- Diabetes type II We will monitor Accu-Cheks. placed on sliding scale insulin. -- HTN (hypertension), uncontrolled. Will place on IV hydralazine as needed. We will continue antihypertensives and adjust dose as needed -- Dementia Continue supportive care -- Hypothyroidism Patient has been on levothyroxine. -- DVT prophylaxis: Patient placed on subcutaneous heparin. --Full code status Daily clinical course: 10/30/20: Continue IV Lasix, scheduled nebulizer breathing treatment and supplemental O2. Discussed with patient's son at the bedside and updated in details. Ordered for VQ scan -pending. Continue supportive care and monitor clinically. Follow pulmonary and cardiology recommendation. 10/31/20: Patient clinically improved. Continue Lasix and scheduled nebulizer breathing treatment along with antibiotics. PT evaluated the patient and recomm ended acute rehab. manager shell notified. Continue to follow clinically. 11/01/2020; patient showed clinical improvement. Continue oxygen support. Will need PT evaluation. 11/02/2020; patient is complaining chest pain and right arm pain. Cardiology is following the patient for chest pain, recommend no further work-up. Doppler ultrasound was ordered for right arm pain. 11/03/2020; patient states she is not feeling better. PT OT recommend home health PT. 11/04/2020; patient is still weak and need SNF placement 11/05/2020; pending acute rehab placement. 11/06/2020; pending acute rehab placement. 11/07/2020; pending acute rehab placement. History Interval history: patient was seen and evaluated this morning Patient did not have any complaints Hospitalist Physical - Physical exam Narrative exam: Not in cardiopulmonary distress. The patient appeared well nourished and normally developed. Vital signs as documented. Head exam is unremarkable. No scleral icterus . Neck is without jugular venous distension, thyromegaly, or carotid bruits. Lungs are clear to auscultation. Cardiac exam reveals regular rate and Rhythm. Abdominal exam reveals normal bowel sounds, nontender, no organomegaly. Extremities are nonedematous and both femoral and pedal pulses are normal. SLUICE TENDER: Alert and oriented 3. No focal weakness. - Constitutional Vitals: Temp Pulse Resp BP Pulse Ox 97.6 F 69 17 132/58 100 11/07/20 12:00 11/07/20 12:00 11/07/20 12:00 11/07/20 12:00 11/07/20 12:00 HEART Score - HEART Score Troponin: Troponin T 0.020 ng/mL (0.00-0.029) 11/02/20 12:53 Results - Labs CBC & Chem 7: 11/05/20 01:03 11/05/20 01:03 Labs: Laboratory Last Values WBC 8.2 K/mm3 (4.5-11.0) 11/05/20 01:03 RBC 4.17 M/mm3 (3.65-5.03) 11/05/20 01:03 Hgb 13.4 gm/dl (10.1-14.3) 11/05/20 01:03 Hct 40.6 % (30.3-42.9) 11/05/20 01:03 MCV 97 fl (79-97) 11/05/20 01:03 MCH 32 pg (28-32) 11/05/20 01:03 MCHC 33 % (30-34) 11/05/20 01:03 RDW 16.8 % (13.2-15.2) H 11/05/20 01:03 Plt Count 277 K/mm3 (140-440) 11/05/20 01:03 Lymph % (Auto) 4.9 % (13.4-35.0) L 10/29/20 07:08 Mccreary % (Auto) 4.6 % (0.0-7.3) 10/29/20 07:08 Eos % (Auto) 0.2 % (0.0-4.3) 10/29/20 07:08 Baso % (Auto) 0.5 % (0.0-1.8) 10/29/20 07:08 Lymph # (Auto) 0.7 K/mm3 (1.2-5.4) L 10/29/20 07:08 Mccreary # (Auto) 0.7 K/mm3 (0.0-0.8) 10/29/20 07:08 Eos # (Auto) 0.0 K/mm3 (0.0-0.4) 10/29/20 07:08 Baso # (Auto) 0.1 K/mm3 (0.0-0.1) 10/29/20 07:08 Add Manual Diff Complete 11/05/20 01:03 Total Counted 100 11/05/20 01:03 Seg Neutrophils % Control Officer Manager 11/05/20 01:03 Seg Neuts % (Manual) 93.0 % (40.0-70.0) H 11/05/20 01:03 Lymphocytes % (Manual) 4.0 % (13.4-35.0) L 11/05/20 01:03 Monocytes % (Manual) 3.0 % (0.0-7.3) 11/05/20 01:03 Nucleated RBC % Not Reportable 11/05/20 01:03 Seg Neutrophils # 12.8 K/mm3 (1.8-7.7) H 10/29/20 07:08 Seg Neutrophils # Man 7.6 K/mm3 (1.8-7.7) 11/05/20 01:03 Band Neutrophils # 0.0 K/mm3 11/05/20 01:03 Lymphocytes # (Manual) 0.3 K/mm3 (1.2-5.4) L 11/05/20 01:03 Abs React Lymphs (Man) 0.0 K/mm3 11/05/20 01:03 Monocytes # (Manual) 0.2 K/mm3 (0.0-0.8) 11/05/20 01:03 Eosinophils # (Manual) 0.0 K/mm3 (0.0-0.4) 11/05/20 01:03 Basophils # (Manual) 0.0 K/mm3 (0.0-0.1) 11/05/20 01:03 Metamyelocytes # 0.0 K/mm3 11/05/20 01:03 Myelocytes # 0.0 K/mm3 11/05/20 01:03 Promyelocytes # 0.0 K/mm3 11/05/20 01:03 Blast Cells # 0.0 K/mm3 11/05/20 01:03 WBC Morphology Not Reportable 11/05/20 01:03 Hypersegmented Neuts Not Reportable 11/05/20 01:03 Hyposegmented Neuts Not Reportable 11/05/20 01:03 Hypogranular Neuts Not Reportable 11/05/20 01:03 Smudge Cells Not Reportable 11/05/20 01:03 Toxic Granulation Not Reportable 11/05/20 01:03 Toxic Vacuolation Not Reportable 11/05/20 01:03 Dohle Bodies Not Reportable 11/05/20 01:03 Pelger-Huet Anomaly Not Reportable 11/05/20 01:03 Nereida Rods Not Reportable 11/05/20 01:03 Platelet Estimate Consistent w auto 11/05/20 01:03 Clumped Platelets Not Reportable 11/05/20 01:03 Plt Clumps, EDTA Not Reportable 11/05/20 01:03 Large Platelets Not Reportable 11/05/20 01:03 Giant Platelets Not Reportable 11/05/20 01:03 Platelet Satelliting Not Reportable 11/05/20 01:03 Plt Morphology Comment Not Reportable 11/05/20 01:03 RBC Morphology Not Reportable 11/05/20 01:03 Dimorphic RBCs Not Reportable 11/05/20 01:03 Polychromasia Not Reportable 11/05/20 01:03 Hypochromasia Not Reportable 11/05/20 01:03 Poikilocytosis Not Reportable 11/05/20 01:03 Anisocytosis 1+ 11/05/20 01:03 Microcytosis Not Reportable 11/05/20 01:03 Macrocytosis Not Reportable 11/05/20 01:03 Spherocytes Not Reportable 11/05/20 01:03 Pappenheimer Bodies Not Reportable 11/05/20 01:03 Sickle Cells Not Reportable 11/05/20 01:03 Target Cells Not Reportable 11/05/20 01:03 Tear Drop Cells Not Reportable 11/05/20 01:03 Ovalocytes Not Reportable 11/05/20 01:03 Helmet Cells Not Reportable 11/05/20 01:03 [place] Bodies Not Reportable 11/05/20 01:03 [place] Rings Not Reportable 11/05/20 01:03 [place] Cells Not Reportable 11/05/20 01:03 Bite Cells Not Reportable 11/05/20 01:03 Crenated Cell Not Reportable 11/05/20 01:03 Elliptocytes Not Reportable 11/05/20 01:03 Acanthocytes (Spur) Not Reportable 11/05/20 01:03 Rouleaux Not Reportable 11/05/20 01:03 Hemoglobin C Crystals Not Reportable 11/05/20 01:03 Schistocytes Not Reportable 11/05/20 01:03 Malaria parasites Not Reportable 11/05/20 01:03 [place] Bodies Not Reportable 11/05/20 01:03 Hem Pathologist Commnt No 11/05/20 01:03 PT 14.3 Sec. (12.2-14.9) 10/29/20 07:08 INR 1.05 (0.87-1.13) 10/29/20 07:08 D-Dimer 4533.93 ng/mlDDU (0-234) H 10/29/20 07:08 ABG pH 7.444 (7.320-7.450) 11/07/20 10:17 POC ABG pCO2 47.5 mmHg (32.0-48.0) 11/07/20 10:17 POC ABG pO2 69.9 mmHg (83-108) L 11/07/20 10:17 POC ABG HCO3 31.8 11/07/20 10:17 ABG O2 Saturation 95.1 (0-100) 11/07/20 10:17 POC ABG Base Excess 6.7 11/07/20 10:17 ABG Hemoglobin 13.1 (12.0-17.5) 11/07/20 10:17 ABG Oxyhemoglobin 94.1 (94-98) 11/07/20 10:17 ABG Methemoglobin 0 (0.0-1.5) 11/07/20 10:17 ABG Sodium 136.4 mmol/L (136.0-145.0) 11/07/20 10:17 ABG Potassium 3.5 mmol/L (3.40-4.50) 11/07/20 10:17 ABG Chloride 96.0 mmol/L (98-107) L 11/07/20 10:17 ABG Glucose 240 mg/dL (65-95) H 11/07/20 10:17 Carboxyhemoglobin 1.0 (0.5-1.5) 11/07/20 10:17 FiO2 % 28.0 11/07/20 10:17 Sodium 137 mmol/L (137-145) 11/05/20 01:03 Potassium 4.1 mmol/L (3.6-5.0) 11/05/20 01:03 Chloride 94.3 mmol/L (98-107) L 11/05/20 01:03 Carbon Dioxide 32 mmol/L (22-30) H 11/05/20 01:03 Anion Gap 15 mmol/L 11/05/20 01:03 BUN 27 mg/dL (7-17) H 11/05/20 01:03 Creatinine 1.1 mg/dL (0.6-1.2) 11/05/20 01:03 Estimated GFR 58 ml/min 11/05/20 01:03 BUN/Creatinine Ratio 25 % 11/05/20 01:03 Glucose 336 mg/dL (65-100) H 11/05/20 01:03 POC Glucose 101 mg/dL (70-105) 11/07/20 08:19 Lactic Acid 2.80 mmol/L (0.7-2.0) H* 10/31/20 13:20 Calcium 8.2 mg/dL (8.4-10.2) L 11/05/20 01:03 Magnesium 3.30 mg/dL (1.7-2.3) H 10/29/20 07:08 Ferritin 151.5 ng/mL (10.0-200.0) 10/29/20 07:08 Total Bilirubin 0.40 mg/dL (0.1-1.2) 10/29/20 07:08 AST 119 units/L (5-40) H 10/29/20 07:08 ALT 108 units/L (7-56) H 10/29/20 07:08 Alkaline Phosphatase 177 units/L (35-129) H 10/29/20 07:08 Lactate Dehydrogenase 342 units/L (91-180) H 10/29/20 07:08 Total Creatine Kinase 54 units/L (30-135) 10/29/20 07:08 Troponin T 0.020 ng/mL (0.00-0.029) 11/02/20 12:53 C-Reactive Protein 1.50 mg/dL (0.00-1.30) H 10/29/20 07:08 NT-Pro-B Natriuret Pep 49873 pg/mL (0-900) H 10/29/20 07:08 Total Protein 5.7 g/dL (6.3-8.2) L 10/29/20 07:08 Albumin 3.4 g/dL (3.9-5) L 10/29/20 07:08 Albumin/Globulin Ratio 1.5 % 10/29/20 07:08 Triglycerides 80 mg/dL (2-149) 10/29/20 07:08 Cholesterol 152 mg/dL (50-199) 10/29/20 07:08 LDL Cholesterol Direct 101 mg/dL (50-130) 10/29/20 07:08 HDL Cholesterol 37 mg/dL (40-59) L 10/29/20 07:08 Cholesterol/HDL Ratio 4.10 % 10/29/20 07:08 Procalcitonin 0.05 ng/mL (<0.15) 10/29/20 07:08 Arterial Blood Glucose 240 mg/dL (65-95) H 11/07/20 10:17 Arterial Blood Ionized Calcium 4.3 mg/dL (4.6-5.3) L 11/07/20 10:17 Urine Color Straw (Yellow) 10/29/20 Unknown Urine Turbidity Clear (Clear) 10/29/20 Unknown Urine pH 7.0 (5.0-7.0) 10/29/20 Unknown Ur Specific Strum 1.010 (1.003-1.030) 10/29/20 Unknown Urine Protein 30 mg/dl mg/dL (Negative) 10/29/20 Unknown Urine Glucose (UA) Neg mg/dL (Negative) 10/29/20 Unknown Urine Ketones Neg mg/dL (Negative) 10/29/20 Unknown Urine Blood Neg (Negative) 10/29/20 Unknown Urine Nitrite Neg (Negative) 10/29/20 Unknown Urine Bilirubin Neg (Negative) 10/29/20 Unknown Urine Urobilinogen < 2.0 mg/dL (<2.0) 10/29/20 Unknown Ur Leukocyte Esterase Neg (Negative) 10/29/20 Unknown Urine WBC (Auto) 0.0 /HPF (0.0-6.0) 10/29/20 Unknown Urine RBC (Auto) 1.0 /HPF (0.0-6.0) 10/29/20 Unknown U Epithel Cells (Auto) < 1.0 /HPF (0-13.0) 10/29/20 Unknown Urine Bacteria (Auto) 1+ /HPF (Negative) 10/29/20 Unknown Urine Mucus Few /HPF 10/29/20 Unknown Coronavirus (PCR) Negative (Negative) 10/29/20 10:00 [place]/IV: Voiding Method External Female Catheter Active Medications - Current Medications Current Medications: Generic Name Dose Route Start Last Admin Trade Name Freq PRN Reason Stop Dose Admin Acetaminophen 650 mg 11/01/20 11:00 11/04/20 15:44 Acetaminophen 325 Mg Tab PO 650 mg Q6H PRN Administration Pain, Mild (1-3) Albuterol 2.5 mg 10/29/20 08:30 11/05/20 13:36 Albuterol 2.5 Mg/3 Ml Nebu IH 2.5 mg TID PRN Administration Wheezing Albuterol/Ipratropium 1 ampul 11/02/20 14:00 11/07/20 08:14 Ipratropium/Albuterol Sulfate 3 Ml Ampul.Neb IH 1 ampul TIDRT CAROLE Administration Arformoterol Tartrate 15 mcg 10/29/20 20:00 11/07/20 08:14 Arformoterol 15 Mcg/2 Ml Nebu IH 15 mcg Q12HRT CAROLE Administration Aspirin 325 mg 10/29/20 10:00 11/07/20 10:18 Aspirin 325 Mg Tab PO 325 mg QDAY CAROLE Administration Atorvastatin Calcium 40 mg 10/29/20 22:00 11/06/20 21:19 Atorvastatin 40 Mg Tab PO 40 mg QHS CAROLE Administration Benzonatate 100 mg 11/04/20 22:00 11/07/20 13:23 Benzonatate 100 Mg Cap PO 100 mg Q8HR CAROLE Administration Budesonide 0.5 mg 10/29/20 20:00 11/07/20 08:14 Budesonide 0.5 Mg/2 Ml Nebu IH 0.5 mg Q12HRT CAROLE Administration Carvedilol 3.125 mg 10/30/20 22:00 11/07/20 10:19 Carvedilol 3.125 Mg Tab PO 3.125 mg BID CAROLE Administration Dextrose 50 ml 10/30/20 19:34 Dextrose 50% In Water (25gm) 50 Ml Syringe IV Q30MIN PRN Hypoglycemia Protocol Enoxaparin Sodium 40 mg 10/29/20 22:00 11/06/20 21:19 Enoxaparin 40 Mg/0.4 Ml Inj SUB-Q 40 mg QDAY@2200 CAROLE Administration Protocol Furosemide 40 mg 10/29/20 18:00 11/07/20 05:48 Furosemide 40 Mg/4 Ml Inj IV 40 mg BID@0600,1800 CAROLE Administration Hydralazine HCl 25 mg 11/02/20 22:00 11/07/20 10:20 Hydralazine 25 Mg Tab PO 25 mg BID CAROLE Administration Insulin Glargine 10 units 11/04/20 22:00 11/06/20 21:19 Insulin Glargine 100 Units/Ml SUB-Q 10 units QHS CAROLE Administration Insulin Human Regular 0 units 10/31/20 11:30 11/07/20 12:46 Insulin Regular, Human 100 Units/1 Ml SUB-Q 3 units ACHS CAROLE Administration Protocol Levothyroxine Sodium 100 mcg 10/30/20 06:00 11/07/20 05:48 Levothyroxine 100 Mcg Tab PO 100 mcg DAILY@0600 CAROLE Administration Melatonin 10 mg 10/30/20 20:19 Melatonin 5 Mg Tab PO QHS PRN Sleep Morphine Sulfate 2 mg 10/29/20 09:00 Morphine 2 Mg/1 Ml Inj IV Q5MIN PRN Chest Pain unrelieved by NTG Nitroglycerin 0.4 mg 10/29/20 09:00 Nitroglycerin 0.4 Mg Tab Subl SL .Q5MIN PRN Chest Pain Pantoprazole Sodium 40 mg 10/30/20 22:00 11/07/20 10:18 Pantoprazole 40 Mg Tab PO 40 mg BID CAROLE Administration Prednisone 30 mg 11/06/20 10:00 11/07/20 10:18 Prednisone 10 Mg Tab PO 30 mg QDAY CAROLE Administration Spironolactone 25 mg 11/03/20 10:00 11/07/20 10:19 Spironolactone 25 Mg Tab PO 25 mg QDAY CAROLE Administration Sumatriptan Succinate 25 mg 11/01/20 11:30 11/01/20 23:32 Sumatriptan Succinate 25 Mg Tab PO 25 mg Q4H PRN Administration Headache Tramadol HCl 50 mg 10/29/20 10:00 11/04/20 10:13 Tramadol 50 Mg Tab PO 50 mg BID PRN Administration Pain, Moderate (4-6) Nutrition/Malnutrition Assess - Dietary Evaluation Nutrition/Malnutrition Findings: Nutrition Notes Start: 10/30/20 10:56 Freq: Status: Active Protocol: Document 11/03/20 11:15 MORGAN (Rec: 11/03/20 11:19 [id number] Nutrition Notes Initial or Follow up Reassessment Current Diagnosis Diabetes,Hypertension, Respiratory Failure Other Pertinent Diagnosis COPD exacerbation, NSTEMI, Dementia, Hypothyroidism Current Diet [facility] soft Labs/Tests POC Glu range since last assessment: 117-323 Pertinent Medications Reviewed Height 5 ft 1 in Weight 64.5 kg [place] Body Weight (kg) 47.72 BMI 26.9 Weight Status Appropriate Subjective/Other Information Pt has consumed 85% of meals since last assessment. Percent of energy/protein needs met: 100% energy and pro Burn Absent Trauma Absent Current % PO Good (75-100%) #1 Nutrition Diagnosis Inadequate energy intake As Evidenced by Signs and Symptoms PO intakes meeting at least 75 % energy and pro needs Diagnosis Progress(for reassessment Resolved documentation) Is patient on ventilator? No Is Patient Ambulatory and/or Out of Bed No REE-([facility]-confined to bed) 1281.564 Calculation Used for Recommendations [facility] Additional Notes Pro needs 1-1.2g/k-77g/ day Fluid needs 1ml/kcal Nutrition Intervention Revisit per MD consult or patient Sign Off request:
[2020-11-07] MEDS: ENOXAPARIN 40 MG/0.4 ML INJ SUB-Q SCH (21:41)
[2020-11-07] MEDS: INSULIN GLARGINE 100 UNITS/ML SUB-Q SCH (21:46)
[2020-11-08] MEDS: FUROSEMIDE 40 MG/4 ML INJ IV SCH (05:47)
[2020-11-08] MEDS: BENZONATATE 100 MG CAP PO SCH ×2 (05:48→13:11)
[2020-11-08] MEDS: LEVOTHYROXINE 100 MCG TAB PO SCH (05:48)
[2020-11-08] MEDS: ARFORMOTEROL 15 MCG/2 ML NEBU IH SCH (09:16)
[2020-11-08] MEDS: IPRATROPIUM/ALBUTEROL SULFATE 3 ML AMPUL.NEB IH SCH (09:16)
[2020-11-08] MEDS: BUDESONIDE 0.5 MG/2 ML NEBU IH SCH (09:16)
[2020-11-08] MEDS: INSULIN REGULAR, HUMAN 100 UNITS/1 ML SUB-Q SCH ×2 (09:29→12:48)
[2020-11-08] MEDS: hydrALAZINE 25 MG TAB PO SCH (09:30)
[2020-11-08] MEDS: ASPIRIN 325 MG TAB PO SCH (09:30)
[2020-11-08] MEDS: carvediloL 3.125 MG TAB PO SCH (09:30)
[2020-11-08 09:31] VITALS: BP 137/53
[2020-11-08] MEDS: predniSONE 10 MG TAB PO SCH (09:31)
[2020-11-08] MEDS: SPIRONOLACTONE 25 MG TAB PO SCH (09:31)
[2020-11-08] MEDS: PANTOPRAZOLE 40 MG TAB PO SCH (09:31)
[2020-11-08] MEDS ORDERED: predniSONE 10 MG TAB PO SCH (09:32)
[2020-11-08] MEDS ORDERED: predniSONE 10 MG TAB PO ONE (10:00)
[2020-11-08] MEDS ORDERED: ALBUTEROL 2.5 MG/3 ML NEBU IH PRN (10:00)
--- NOTE | 2020-11-08 10:09 | Progress Note ---
Assessment and Plan Congestive heart failure COPD exacerbation on home oxygen negative for COVID 19 Hx of CAD 2018 [facility] showed a chronic total occlusion of the circumflex artery recommended for medical therapy. Ischemic cardiomyopathy, EF 25-30% Thoracic aortic repair 09/2018 at [facility] Continue guideline directed medical therapy for coronary artery disease, ischemic cardiomyopathy and chronic systolic heart failure. Otherwise, conservative cardiac management. Subjective Date of service: 11/08/20 Principal diagnosis: Ac. hypoxemic respfailure; AE-CHF; AE-COPD; ASHLI; DM II; DM II Interval history: No interval cardiac changes. Objective Vital Signs Temp Pulse Pulse Resp Resp BP BP 11/08/20 09:31 67 137/53 11/08/20 09:30 67 137/53 11/08/20 09:23 11/08/20 09:17 68 16 11/08/20 09:16 11/08/20 04:00 78 11/08/20 03:47 97.7 F 67 18 130/51 11/08/20 00:08 97.9 F 74 18 119/57 11/07/20 22:38 81 16 11/07/20 22:15 11/07/20 22:00 17 11/07/20 21:44 87 117/54 11/07/20 21:42 87 117/54 11/07/20 21:05 71 18 11/07/20 20:00 87 11/07/20 19:54 97.7 F 77 20 117/54 11/07/20 16:22 97.7 F 16 113/53 11/07/20 16:00 97.7 F 73 16 113/53 11/07/20 14:55 71 18 11/07/20 12:12 97.6 F 17 132/58 11/07/20 12:00 97.6 F 77 17 132/58 11/07/20 10:20 65 119/50 11/07/20 10:19 65 119/50 Pulse Ox 11/08/20 09:31 11/08/20 09:30 11/08/20 09:23 100 11/08/20 09:17 11/08/20 09:16 100 11/08/20 04:00 11/08/20 03:47 100 11/08/20 00:08 100 11/07/20 22:38 96 11/07/20 22:15 96 11/07/20 22:00 2 L 11/07/20 21:44 11/07/20 21:42 11/07/20 21:05 11/07/20 20:00 11/07/20 19:54 100 11/07/20 16:22 11/07/20 16:00 99 11/07/20 14:55 11/07/20 12:12 11/07/20 12:00 100 11/07/20 10:20 11/07/20 10:19 - Physical Examination General: No Apparent Distress HEENT: Positive: PERRL Neck: Positive: neck supple Cardiac: Positive: Reg Rate and Rhythm Lungs: Positive: Decreased Breath Sounds Neuro: Positive: Grossly Intact Extremities: Absent: edema - Allied health notes Allied health notes reviewed: nursing
--- NOTE | 2020-11-08 10:43 | Progress Note ---
Assessment and Plan 79-year-old -[place] female with known history of CHF, COPD, diabetes mellitus, hypothyroidism, up-to-date with COVID-19 vaccination and dementia presenting to the emergency room with respiratory distress and having difficulty breathing. EMS states patient was hypoxic, and started CPAP in the field. They were unable to establish IV access. Per family patient recently had a 1 or 2-hour trip to [place], has chronic lower extremity swelling, no recent hospitalizations or period of immobilization. family denies nausea, vomiting, diarrhea, loss of taste and smell, and syncope. Patient remains hypoxic in the ER and placed on BiPAP which improved her symptoms. Chest x-ray showed no infiltrates. Lower extremity Dopplers is negative for DVT. Patient being admitted for COPD exacerbation and further evaluation management. Patient has history of smoking 2 packs x 30 years. Stopped smoking 15 years ago. Denies alcohol or drug abuse. Worked in house keeping. Patient sleeping. Receiving breathing treatment. On 2 litres O2. O2 saturation 99%. No acute respiratory distress. Patient afebrile. No leukocytosis. BIPAP stand by in the room. Chest xray 10/31/20 reported CHF V/Q scan reported low probability for pulmonary emboli. Patient presently on PO prednisone, S/C Lovenox, Protonix, albuterol/atrovent aerosol treatments. - Patient Problems (1) Acute respiratory failure with hypoxia Current Visit: Yes Status: Acute Plan to address problem: O2 2 litres via nasal canula. BIPAP stand by in the room. Albuterol/atrovent aerosol treatments. PO Prednisone. S/C Lovenox. Protonix. . (2) Acute exacerbation of CHF (congestive heart failure) Current Visit: Yes Status: Acute Plan to address problem: Patient is on Lasix. Management as per cardiology. (3) COPD exacerbation Current Visit: Yes Status: Acute Plan to address problem: O2 3 litres via nasal canula. BIPAP stand by in the room. Albuterol/atrovent aerosol treatments. PO Prednisone. S/C Lovenox. Protonix PFTs as out patient. (4) Suspected 2019 novel coronavirus infection Current Visit: Yes Status: Acute Plan to address problem: Olivera virus PCR negative. (5) Acute renal insufficiency Current Visit: No Status: Acute Plan to address problem: Management as per nephrology. (6) Diabetes Current Visit: No Status: Acute Plan to address problem: Management as per primary care. (7) HTN (hypertension) Current Visit: No Status: Acute Plan to address problem: Management as per primary care. Subjective Date of service: 11/08/20 Principal diagnosis: Ac. hypoxemic respfailure; AE-CHF; AE-COPD; ASHLI; DM II; DM II Interval history: 79-year-old -Lao female with known history of CHF, COPD, diabetes mellitus, hypothyroidism, up-to-date with COVID-19 vaccination and dementia presenting to the emergency room with respiratory distress and having difficulty breathing. EMS states patient was hypoxic, and started CPAP in the field. They were unable to establish IV access. Per family patient recently had a 1 or 2-hour trip to [place], has chronic lower extremity swelling, no recent hospitalizations or period of immobilization. family denies nausea, vomiting, di arrhea, loss of taste and smell, and syncope. Patient remains hypoxic in the ER and placed on BiPAP which improved her symptoms. Chest x-ray showed no infiltrates. Lower extremity Dopplers is negative for DVT. Patient being admitted for COPD exacerbation and further evaluation management. Patient has history of smoking 2 packs x 30 years. Stopped smoking 15 years ago. Denies alcohol or drug abuse. Worked in house keeping. Patient sleeping. Receiving breathing treatment. On 2 litres O2. O2 saturation 99%. No acute respiratory distress. Patient afebrile. No leukocytosis. BIPAP stand by in the room. Chest xray 10/31/20 reported CHF V/Q scan reported low probability for pulmonary emboli. Patient presently on PO prednisone, S/C Lovenox, Protonix, albuterol/atrovent aerosol treatments. Objective Vital Signs - 12hr 11/08/20 11/08/20 11/08/20 00:08 03:47 04:00 Temperature 97.9 F 97.7 F Pulse Rate 74 67 78 Pulse Rate [ Bilateral Throughout] Respiratory 18 18 Rate Respiratory Rate [Bilateral Throughout] Blood Pressure 119/57 130/51 O2 Sat by Pulse 100 100 Oximetry 11/08/20 11/08/20 11/08/20 09:16 09:17 09:23 Temperature Pulse Rate Pulse Rate [ 68 Bilateral Throughout] Respiratory Rate Respiratory 16 Rate [Bilateral Throughout] Blood Pressure O2 Sat by Pulse 100 100 Oximetry 11/08/20 11/08/20 09:30 09:31 Temperature Pulse Rate 67 67 Pulse Rate [ Bilateral Throughout] Respiratory Rate Respiratory Rate [Bilateral Throughout] Blood Pressure 137/53 137/53 O2 Sat by Pulse Oximetry Constitutional: no acute distress, alert, other (elderly female with normal respiratory effort at rest) Eyes: non-icteric ENT: oropharynx moist Neck: supple, no JVD Effort: normal Ascultation: Bilateral: diminished breath sounds, other (Prolonged expiratory phase.) Percussion: Bilateral: not dull Cardiovascular: regular rate and rhythm, other (S1,S2) Gastrointestinal: normoactive bowel sounds, hypoactive bowel sounds, soft, non- tender, non-distended Integumentary: normal Extremities: no cyanosis, no edema, pulses normal, no ischemia or petechiae Neurologic: normal mental status, non-focal exam, pupils equal and round, CN II- XII normal, other (deconditioned) Psychiatric: mood appropriate, affect normal CBC and BMP: 11/05/20 01:03 11/05/20 01:03 ABG, PT/INR, D-dimer: ABG ABG pH 7.444 (7.320-7.450) 11/07/20 10:17 POC ABG pCO2 47.5 mmHg (32.0-48.0) 11/07/20 10:17 POC ABG pO2 69.9 mmHg (83-108) L 11/07/20 10:17 POC ABG HCO3 31.8 11/07/20 10:17 ABG O2 Saturation 95.1 (0-100) 11/07/20 10:17 PT/INR, D-dimer PT 14.3 Sec. (12.2-14.9) 10/29/20 07:08 INR 1.05 (0.87-1.13) 10/29/20 07:08 D-Dimer 4533.93 ng/mlDDU (0-234) H 10/29/20 07:08 Abnormal lab findings: Abnormal Labs 10/29/20 10/29/20 10/29/20 07:08 07:08 07:08 WBC 14.3 H RBC 3.42 L RDW 17.0 H Lymph % (Auto) 4.9 L Lymph # (Auto) 0.7 L Seg Neutrophils % 89.8 H Seg Neuts % (Manual) Lymphocytes % (Manual) Seg Neutrophils # 12.8 H Lymphocytes # (Manual) D-Dimer 4533.93 H ABG pH POC ABG pO2 ABG Chloride ABG Glucose Chloride Carbon Dioxide BUN 29 H Glucose 181 H POC Glucose Lactic Acid Calcium Magnesium 3.30 H AST 119 H ALT 108 H Alkaline Phosphatase 177 H Lactate Dehydrogenase 342 H Troponin T 0.045 H C-Reactive Protein 1.50 H NT-Pro-B Natriuret Pep 41168 H Total Protein 5.7 L Albumin 3.4 L HDL Cholesterol 37 L Arterial Blood Glucose Arterial Blood Ionized Calcium 10/29/20 10/29/20 10/30/20 07:08 14:33 04:44 WBC RBC RDW Lymph % (Auto) Lymph # (Auto) Seg Neutrophils % Seg Neuts % (Manual) Lymphocytes % (Manual) Seg Neutrophils # Lymphocytes # (Manual) D-Dimer ABG pH POC ABG pO2 ABG Chloride ABG Glucose Chloride Carbon Dioxide BUN 26 H Glucose 138 H POC Glucose 149 H Lactic Acid 2.80 H* Calcium Magnesium AST ALT Alkaline Phosphatase Lactate Dehydrogenase Troponin T C-Reactive Protein NT-Pro-B Natriuret Pep Total Protein Albumin HDL Cholesterol Arterial Blood Glucose Arterial Blood Ionized Calcium 10/30/20 10/30/20 10/30/20 11:16 13:21 20:56 WBC RBC RDW Lymph % (Auto) Lymph # (Auto) Seg Neutrophils % Seg Neuts % (Manual) Lymphocytes % (Manual) Seg Neutrophils # Lymphocytes # (Manual) D-Dimer ABG pH POC ABG pO2 ABG Chloride ABG Glucose Chloride Carbon Dioxide BUN Glucose POC Glucose 238 H 282 H Lactic Acid 4.50 H* Calcium Magnesium AST ALT Alkaline Phosphatase Lactate Dehydrogenase Troponin T C-Reactive Protein NT-Pro-B Natriuret Pep Total Protein Albumin HDL Cholesterol Arterial Blood Glucose Arterial Blood Ionized Calcium 10/31/20 10/31/20 10/31/20 11:36 13:20 13:20 WBC RBC RDW Lymph % (Auto) Lymph # (Auto) Seg Neutrophils % Seg Neuts % (Manual) Lymphocytes % (Manual) Seg Neutrophils # Lymphocytes # (Manual) D-Dimer ABG pH POC ABG pO2 ABG Chloride ABG Glucose Chloride Carbon Dioxide BUN 26 H Glucose 231 H POC Glucose 233 H Lactic Acid 2.80 H* Calcium Magnesium AST ALT Alkaline Phosphatase Lactate Dehydrogenase Troponin T C-Reactive Protein NT-Pro-B Natriuret Pep Total Protein Albumin HDL Cholesterol Arterial Blood Glucose Arterial Blood Ionized Calcium 10/31/20 10/31/20 11/01/20 16:42 20:01 04:54 WBC RBC RDW Lymph % (Auto) Lymph # (Auto) Seg Neutrophils % Seg Neuts % (Manual) Lymphocytes % (Manual) Seg Neutrophils # Lymphocytes # (Manual) D-Dimer ABG pH POC ABG pO2 ABG Chloride ABG Glucose Chloride Carbon Dioxide 32 H BUN 26 H Glucose 134 H POC Glucose 207 H 220 H Lactic Acid Calcium Magnesium AST ALT Alkaline Phosphatase Lactate Dehydrogenase Troponin T C-Reactive Protein NT-Pro-B Natriuret Pep Total Protein Albumin HDL Cholesterol Arterial Blood Glucose Arterial Blood Ionized Calcium 11/01/20 11/01/20 11/01/20 07:27 11:28 15:33 WBC RBC RDW Lymph % (Auto) Lymph # (Auto) Seg Neutrophils % Seg Neuts % (Manual) Lymphocytes % (Manual) Seg Neutrophils # Lymphocytes # (Manual) D-Dimer ABG pH POC ABG pO2 ABG Chloride ABG Glucose Chloride Carbon Dioxide BUN Glucose POC Glucose 158 H 323 H 299 H Lactic Acid Calcium Magnesium AST ALT Alkaline Phosphatase Lactate Dehydrogenase Troponin T C-Reactive Protein NT-Pro-B Natriuret Pep Total Protein Albumin HDL Cholesterol Arterial Blood Glucose Arterial Blood Ionized Calcium 11/01/20 11/02/20 11/02/20 20:16 07:28 11:17 WBC RBC RDW Lymph % (Auto) Lymph # (Auto) Seg Neutrophils % Seg Neuts % (Manual) Lymphocytes % (Manual) Seg Neutrophils # Lymphocytes # (Manual) D-Dimer ABG pH POC ABG pO2 ABG Chloride ABG Glucose Chloride Carbon Dioxide BUN Glucose POC Glucose 190 H 117 H 323 H Lactic Acid Calcium Magnesium AST ALT Alkaline Phosphatase Lactate Dehydrogenase Troponin T C-Reactive Protein NT-Pro-B Natriuret Pep Total Protein Albumin HDL Cholesterol Arterial Blood Glucose Arterial Blood Ionized Calcium 11/02/20 11/02/20 11/02/20 11:47 16:06 21:07 WBC RBC RDW Lymph % (Auto) Lymph # (Auto) Seg Neutrophils % Seg Neuts % (Manual) Lymphocytes % (Manual) Seg Neutrophils # Lymphocytes # (Manual) D-Dimer ABG pH 7.479 H POC ABG pO2 73.7 L ABG Chloride 97.0 L ABG Glucose 322 H Chloride Carbon Dioxide BUN Glucose POC Glucose 316 H 253 H Lactic Acid Calcium Magnesium AST ALT Alkaline Phosphatase Lactate Dehydrogenase Troponin T C-Reactive Protein NT-Pro-B Natriuret Pep Total Protein Albumin HDL Cholesterol Arterial Blood Glucose 322 H Arterial Blood Ionized Calcium 4.2 L 11/03/20 11/03/20 11/03/20 07:47 10:55 15:59 WBC RBC RDW Lymph % (Auto) Lymph # (Auto) Seg Neutrophils % Seg Neuts % (Manual) Lymphocytes % (Manual) Seg Neutrophils # Lymphocytes # (Manual) D-Dimer ABG pH POC ABG pO2 ABG Chloride ABG Glucose Chloride Carbon Dioxide BUN Glucose POC Glucose 223 H 399 H 231 H Lactic Acid Calcium Magnesium AST ALT Alkaline Phosphatase Lactate Dehydrogenase Troponin T C-Reactive Protein NT-Pro-B Natriuret Pep Total Protein Albumin HDL Cholesterol Arterial Blood Glucose Arterial Blood Ionized Calcium 11/03/20 11/04/20 11/04/20 22:41 08:36 10:57 WBC RBC RDW Lymph % (Auto) Lymph # (Auto) Seg Neutrophils % Seg Neuts % (Manual) Lymphocytes % (Manual) Seg Neutrophils # Lymphocytes # (Manual) D-Dimer ABG pH POC ABG pO2 ABG Chloride ABG Glucose Chloride Carbon Dioxide BUN Glucose POC Glucose 204 H 142 H 293 H Lactic Acid Calcium Magnesium AST ALT Alkaline Phosphatase Lactate Dehydrogenase Troponin T C-Reactive Protein NT-Pro-B Natriuret Pep Total Protein Albumin HDL Cholesterol Arterial Blood Glucose Arterial Blood Ionized Calcium 11/04/20 11/04/20 11/05/20 17:29 21:39 01:03 WBC RBC RDW 16.8 H Lymph % (Auto) Lymph # (Auto) Seg Neutrophils % Seg Neuts % (Manual) 93.0 H Lymphocytes % (Manual) 4.0 L Seg Neutrophils # Lymphocytes # (Manual) 0.3 L D-Dimer ABG pH POC ABG pO2 ABG Chloride ABG Glucose Chloride Carbon Dioxide BUN Glucose POC Glucose 343 H 363 H Lactic Acid Calcium Magnesium AST ALT Alkaline Phosphatase Lactate Dehydrogenase Troponin T C-Reactive Protein NT-Pro-B Natriuret Pep Total Protein Albumin HDL Cholesterol Arterial Blood Glucose Arterial Blood Ionized Calcium 11/05/20 11/05/20 11/05/20 01:03 07:21 11:52 WBC RBC RDW Lymph % (Auto) Lymph # (Auto) Seg Neutrophils % Seg Neuts % (Manual) Lymphocytes % (Manual) Seg Neutrophils # Lymphocytes # (Manual) D-Dimer ABG pH POC ABG pO2 ABG Chloride ABG Glucose Chloride 94.3 L Carbon Dioxide 32 H BUN 27 H Glucose 336 H POC Glucose 153 H 222 H Lactic Acid Calcium 8.2 L Magnesium AST ALT Alkaline Phosphatase Lactate Dehydrogenase Troponin T C-Reactive Protein NT-Pro-B Natriuret Pep Total Protein Albumin HDL Cholesterol Arterial Blood Glucose Arterial Blood Ionized Calcium 11/05/20 11/05/20 11/06/20 16:10 20:40 10:54 WBC RBC RDW Lymph % (Auto) Lymph # (Auto) Seg Neutrophils % Seg Neuts % (Manual) Lymphocytes % (Manual) Seg Neutrophils # Lymphocytes # (Manual) D-Dimer ABG pH POC ABG pO2 ABG Chloride ABG Glucose Chloride Carbon Dioxide BUN Glucose POC Glucose 347 H 302 H 252 H Lactic Acid Calcium Magnesium AST ALT Alkaline Phosphatase Lactate Dehydrogenase Troponin T C-Reactive Protein NT-Pro-B Natriuret Pep Total Protein Albumin HDL Cholesterol Arterial Blood Glucose Arterial Blood Ionized Calcium 11/06/20 11/06/20 11/07/20 15:56 21:14 10:17 WBC RBC RDW Lymph % (Auto) Lymph # (Auto) Seg Neutrophils % Seg Neuts % (Manual) Lymphocytes % (Manual) Seg Neutrophils # Lymphocytes # (Manual) D-Dimer ABG pH POC ABG pO2 69.9 L ABG Chloride 96.0 L ABG Glucose 240 H Chloride Carbon Dioxide BUN Glucose POC Glucose 346 H 320 H Lactic Acid Calcium Magnesium AST ALT Alkaline Phosphatase Lactate Dehydrogenase Troponin T C-Reactive Protein NT-Pro-B Natriuret Pep Total Protein Albumin HDL Cholesterol Arterial Blood Glucose 240 H Arterial Blood Ionized Calcium 4.3 L 11/07/20 11/07/20 11/07/20 12:16 16:17 20:48 WBC RBC RDW Lymph % (Auto) Lymph # (Auto) Seg Neutrophils % Seg Neuts % (Manual) Lymphocytes % (Manual) Seg Neutrophils # Lymphocytes # (Manual) D-Dimer ABG pH POC ABG pO2 ABG Chloride ABG Glucose Chloride Carbon Dioxide BUN Glucose POC Glucose 241 H 319 H 431 H Lactic Acid Calcium Magnesium AST ALT Alkaline Phosphatase Lactate Dehydrogenase Troponin T C-Reactive Protein NT-Pro-B Natriuret Pep Total Protein Albumin HDL Cholesterol Arterial Blood Glucose Arterial Blood Ionized Calcium Allied health notes reviewed: nursing
--- NOTE | 2020-11-08 13:56 | Discharge Summary ---
Providers - Providers Date of Admission: 10/29/20 16:18 Date of discharge: 11/08/20 Attending physician: NOAH ALARCON 10/29/20 08:14 Consult to Physician [CONS] Urgent Comment: Consulting Provider: DARLINE DAUGHERTY Physician Instructions: Reason For Exam: acute chf 10/29/20 08:17 Consult to Physician [CONS] Routine Comment: Consulting Provider: BUCK EDMOND Physician Instructions: Reason For Exam: chf 10/29/20 16:51 Consult to Physician [CONS] Routine Comment: Consulting Provider: TENZIN RIVERA Physician Instructions: Reason For Exam: Acute respiratory failure 10/31/20 17:01 Consult to Case Management [CONS] Routine Services Needed at Discharge: Other Notified:: CASE MANAGEMENT Additional Physician Instructions: acute rehab 11/01/20 08:50 Physical Therapy Evaluation and Treat [CONS] Routine Comment: Reason For Exam: evaluate and treat 11/02/20 09:24 Consult to Case Management [CONS] Routine Services Needed at Discharge: Other Notified:: case management rn Comment:: KARYNA HUA 11/03/20 17:21 Physical Therapy Evaluation and Treat [CONS] Routine Comment: Reason For Exam: please evaluate for Acute rehab placement; thanks 11/03/20 17:22 Consult to Case Management [CONS] Routine Services Needed at Discharge: Other Notified:: CASE MANAGEMENT Comment:: evaluate for Acute rehab placement; thanks [facility] Reason for admission: sob Condition: Serious Hospital course: 79-year-old -[place] female with known history of CHF, COPD, diabetes mellitus, hypothyroidism, up-to-date with COVID-19 vaccination and dementia presented to the emergency room with respiratory distress and having difficulty breathing. Pt admitted with dx of SIRS, COPD exac, acute hypoxic resp failure CM with acute systolic HF, NSTEMI DM and HTN. Pt was seen by pulm and cardiology with the below treatment plan and hospital course --SIRS, likely from COPD exacerbation cont abx, negative culture Lactic acid trending down -- Acute on chronic hypoxic respiratory failure Patient is s/p BiPAP Chest x-ray showed mild cardiomegaly, mild interstitial opacities, and presence of a stent in the thoracic aorta. Findings consistent with mild congestive heart failure, combined with her history of chronic lung disease. Continue IV Lasix, scheduled nebulizer breathing treatment and supplemental O2 Ordered for VQ scan to rule out possible underlying PE --COPD exacerbation - Will provide scheduled nebulizer breathing treatment and as needed - Place on empiric steroid and antibiotic - Provide supplemental oxygen to keep oxygen saturation above 92% Consulted pulmonary -- Cardiomyopathy with acute systolic CHF exacerbation Patient has an EF of about 25 to 30%. We will continue IV Lasix and resume home medications Cardiology consulted --NSTEMI likely type 2 from underlying cardiomyopathy Continue home cardiac medications and follow cardiology recommendation -- Diabetes type II We will monitor Accu-Cheks. placed on sliding scale insulin. -- HTN (hypertension), uncontrolled. Will place on IV hydralazine as needed. We will continue antihypertensives and adjust dose as needed -- Dementia Continue supportive care -- Hypothyroidism Patient has been on levothyroxine. -- DVT prophylaxis: Patient placed on subcutaneous heparin. --Full code status Daily clinical course: 10/30/20: Continue IV Lasix, scheduled nebulizer breathing treatment and supplemental O2. Discussed with patient's son at the bedside and updated in details. Ordered for VQ scan -pending. Continue supportive care and monitor clinically. Follow pulmonary and cardiology recommendation. 10/31/20: Patient clinically improved. Continue Lasix and scheduled nebulizer breathing treatment along with antibiotics. PT evaluated the patient and recommended acute rehab. value stream manager notified. Continue to follow clinically. 11/01/2020; patient showed clinical improvement. Continue oxygen support. Will need PT evaluation. 11/02/2020; patient is complaining chest pain and right arm pain. Cardiology is following the patient for chest pain, recommend no further work-up. Doppler ultrasound was ordered for right arm pain. 11/03/2020; patient states she is not feeling better. PT OT recommend home health PT. 11/04/2020; patient is still weak and need SNF placement 11/05/2020; pending acute rehab placement. 11/06/2020; pending acute rehab placement. 11/07/2020; pending acute rehab placement. 11/08/20. Case management arranged for discharge to [facility] D/C time 34 min Disposition: [id number] INPT REHAB FACILITY Final Discharge Diagnosis (Prints w/discharge instructions): acute hypoxic resp failure, copd exac, systolic HF exac, NSTEMI Core Measure Documentation - Palliative Care Palliative Care/ Comfort Measures: Not Applicable - Core Measures Any of the following diagnoses?: acute NC, heart failure - Acute NC Discharge Requirements Aspirin at discharge: Yes ALDO/ARB for LVSD if EF <40%: No Reason for no ALDO/ARB: Hypotension Beta mehran at discharge: Yes Statin for LDL = or >100 mg/dl on DC: Yes - Heart Failure Discharge Requirements ALDO/ARB for LVSD if EF <40%: No Reason for no ALDO/ARB: Hypotension Beta mehran at discharge: Yes Exam - Constitutional Vitals: Temp Pulse Resp BP Pulse Ox 97.7 F 68 17 137/53 2 L 11/08/20 03:47 11/08/20 10:00 11/08/20 10:00 11/08/20 09:31 11/08/20 10:00 General appearance: Present: no acute distress, well-nourished - EENT Eyes: Present: PERRL ENT: hearing intact, clear oral mucosa - Neck Neck: Present: supple, normal ROM - Respiratory Respiratory effort: normal Respiratory: bilateral: CTA - Cardiovascular Heart Sounds: Present: S1 & S2. Absent: rub, click - Extremities Extremities: pulses symmetrical, No edema Peripheral Pulses: within normal limits - Abdominal General gastrointestinal: Present: soft, non-tender, non-distended, normal bowel sounds Female genitourinary: Present: normal - Integumentary Integumentary: Present: clear, warm, dry - Musculoskeletal Musculoskeletal: gait normal, strength equal bilaterally - Psychiatric Psychiatric: appropriate mood/affect, intact judgment & insight - Neurologic Neurologic: CNII-XII intact, moves all extremities Plan Activity: advance as tolerated Weight Bearing Status: Weight Bear as Tolerated Diet: low fat, low cholesterol, low salt, diabetic Follow up with: [facility] [Primary Care Provider] - 3-5 Days Prescriptions: Furosemide [Lasix TAB] 40 mg PO BID #60 tablet Prednisone [predniSONE 10 mg (6-Day Pack, 21 Tabs)] 10 mg PO .TAPER #1 tab.ds.pk
[2020-11-08] MEDS ORDERED: IPRATROPIUM/ALBUTEROL SULFATE 3 ML AMPUL.NEB IH SCH (14:00)
[2020-11-08] MEDS ORDERED: BUDESONIDE 0.5 MG/2 ML NEBU IH SCH (20:00)
[2020-11-08] MEDS ORDERED: ARFORMOTEROL 15 MCG/2 ML NEBU IH SCH (20:00)
[2020-11-09] MEDS ORDERED: predniSONE 20 MG TAB PO SCH (10:00)
== END 2020-11-08 16:15 | DRG 280 ==
LOC: ED 06:14 → 4A 16:18
PROVIDERS: ADMIT Internal Medicine; ATTEND Hospitalist
PROC: 4A033R1 Measurement of Arterial Saturation, Peripheral, Percutaneous Approach (ICD-10-PCS; principal; 2020-10-29)
PROC: 5A09457 Assistance with Respiratory Ventilation, 24-96 Consecutive Hours, Continuous Positive Airway Pressure (ICD-10-PCS; 2020-11-01)
PROC: 5A09357 Assistance with Respiratory Ventilation, Less than 24 Consecutive Hours, Continuous Positive Airway Pressure (ICD-10-PCS; 2020-11-05)
PROC: 5A09357 Assistance with Respiratory Ventilation, Less than 24 Consecutive Hours, Continuous Positive Airway Pressure (ICD-10-PCS; 2020-11-07)
DX: I11.0 Hypertensive heart disease with heart failure (principal); I21.A1 Myocardial infarction type 2; J96.21 Acute and chronic respiratory failure with hypoxia; J44.1 Chronic obstructive pulmonary disease with (acute) exacerbation; R65.10 Systemic inflammatory response syndrome (SIRS) of non-infectious origin without acute organ dysfunction; I50.23 Acute on chronic systolic (congestive) heart failure; E11.9 Type 2 diabetes mellitus without complications; F03.90 Unspecified dementia, unspecified severity, without behavioral disturbance, psychotic disturbance, mood disturbance, and anxiety; F41.9 Anxiety disorder, unspecified; I25.10 Atherosclerotic heart disease of native coronary artery without angina pectoris; E78.5 Hyperlipidemia, unspecified; E03.9 Hypothyroidism, unspecified; N28.9 Disorder of kidney and ureter, unspecified; Z20.822 Contact with and (suspected) exposure to COVID-19; I25.5 Ischemic cardiomyopathy; G47.33 Obstructive sleep apnea (adult) (pediatric); R55 Syncope and collapse; E66.9 Obesity, unspecified; Z90.710 Acquired absence of both cervix and uterus; Z87.891 Personal history of nicotine dependence; Z68.27 Body mass index [BMI] 27.0-27.9, adult
CPT/HCPCS: 36415; 36600; 71045; 78580; 80048; 80053; 80061; 81001; 82140; 82550; 82728; 82805; 82962; 83615; 83735; 83880; 84145; 84484; 85007; 85025; 85379; 85610; 86140; 87040; 93005; 93970; 94640; 94644; 94660; 96365; G0378; A9270-GY; A9540; J0456; J0696; J1650; J1815; J1940; J2920; J2930; J3475; J7512; U0003